=== PATIENT | male | born 1945 | race Caucasian/White ===

== ENCOUNTER 2022-03-07 17:36 | Emergency (ER) | payer MEDICARE, SELFPAY ==
[2022-03-07 17:38] VITALS: BP 138/78; PULSE 109; RESP 18; TEMP 36.1; O2SAT 100
--- NOTE | 2022-03-07 18:07 | ED.MALEGU ---
HPI - Male Genitourinary General Chief complaint: Urogenital-Male Stated complaint: unable to self-catheterize Time Seen by Provider: 03/07/22 17:59 Related Data Allergies Allergy/AdvReac Type Severity Reaction Status Date / Time No Known Allergies Allergy Mild Unverified 02/03/06 07:46 Course Course Emergency Course: discussed with dr witt, said can work this up outpatient, will fax labs to his office and add B12 and folate Vital Signs Vital signs: Vital Signs Temperature 97 F L 03/07/22 17:38 Pulse Rate 109 H 03/07/22 17:38 Respiratory Rate 18 03/07/22 17:38 Blood Pressure 138/78 03/07/22 17:38 Pulse Oximetry 100 03/07/22 17:38 Oxygen Delivery Room Air 03/07/22 17:38 Temperature 97 F L 03/07/22 17:38 Pulse Rate 99 03/07/22 20:06 Respiratory Rate 18 03/07/22 20:06 Blood Pressure 146/86 H 03/07/22 20:06 Pulse Oximetry 96 03/07/22 20:06 Oxygen Delivery Room Air 03/07/22 17:38 MDM - Male Genitourinary Lab Data Result diagrams: 03/07/22 18:38 03/07/22 18:59 Labs: Lab Results 03/07/22 03/07/22 03/07/22 Range/Units 18:38 18:38 18:59 WBC 5.0 (4.5-10.0) K/mm3 RBC 1.86 L (4.6-6.20) M/mm3 Hgb 7.8 L (14.0-18.0) g/dL Hct 23.3 L (42.0-52.0) % MCV 125.3 H (80-100) fl MCH 41.9 H (26-34) pg MCHC 33.5 (32-36) g/dl RDW 14.6 H (11.5-14.5) % Plt Count 80 L (150-375) k/mm3 MPV 11.2 H (7.4-10.4) fl Immature Gran % (Auto) 0.4 (0-0.5) % Neut % (Auto) 84.0 H (45.5-73.1) % Lymph % (Auto) 8.5 L (18.3-44.2) % [place] % (Auto) 6.5 (2.6-8.5) % Eos % (Auto) 0.0 (0-4.4) % Baso % (Auto) 0.6 (0.2-1.2) % Lymph # (Auto) 0.42 L (0.9-3.2) K/mm3 [place] # (Auto) 0.3 (0.1-0.6) K/mm3 Eos # (Auto) 0.0 (0-0.3) K/mm3 Baso # (Auto) 0.0 (0.0-0.1) K/mm3 Abs Immat Gran (auto) 0.02 (0.00-0.031) K/mm3 Absolute Neuts (auto) 4.2 (1.3-6.7) K/mm3 Absolute Nucleated RBC 0.0 (0.0-0.012) K/mm3 Nucleated RBC % 0.0 (0.0-0.2) % Sodium 137 (137-145) mmol/L Potassium 4.5 (3.4-5.0) mmol/L Chloride 101 (98-107) mmol/L Carbon Dioxide 19 L (22-30) mmol/L Anion Gap 17 H (8-16) mmol/L BUN 14 (9-20) mg/dL Creatinine 1.60 H (0.7-1.3) mg/dL Estim Creat Clear Calc Not Reportable Estimated GFR 42 L (59 - ) Glucose 87 (65-110) mg/dL Calcium 8.0 L (8.4-10.2) mg/dL Total Bilirubin 1.0 (0.2-1.3) mg/dL AST 147 H (17-59) U/L ALT 49 (6-50) U/L Alkaline Phosphatase 117 (38-126) U/L Total Protein 6.0 L (6.3-8.2) g/dL Albumin 2.9 L (3.5-5.1) g/dL Urine Color Yellow (Yellow) Urine Appearance Cloudy H (Clear) Urine pH 7.0 (5.0-9.0) Ur Specific [place] 1.015 (1.001-1.035) Urine Protein Negative (Negative) mg/dL Urine Glucose (UA) Negative (Negative) mg/dL Urine Ketones Negative (Negative) mg/dL Ur Blood (Man) Trace-lysed (Negative) Urine Nitrate Negative (Negative) Urine Bilirubin Negative (Negative) Urine Urobilinogen 0.2 (<2.0) mg/dL Leukocyte Esterase Rfl 1+ H (Negative) FRANCIS/UL Urine RBC 0-2 (0-2) /hpf Urine WBC 4-6 H /hpf Ur Squamous Epith Cells Rare (Few) /hpf Urine Bacteria Trace /hpf Urine Mucus Rare /lpf Urine Characteristics Clear Discharge Plan Discharge Clinical Impression: Acute retention of urine, Anemia, Thrombocytopenia Patient Disposition: Home, Self-Care Condition: Stable Instructions: Antibiotic Form, Urinary Retention in Men (ED), Anemia (ED) Additional Instructions: follow up with dr witt for work up of anemia and thrombocytopenia Follow-up/Referrals: Tomasz Colón MD [Physician] - PHYSICIAN NOT ON STAFF,NONSTAFF [Non-Staff] -
[2022-03-07 18:53] LABS: Appearance Urine Cloudy (Clear); Bilirubin Urine Negative (Negative); Blood Urine Trace-lysed (Negative); Color Urine Yellow (Yellow); Glucose Urine UA Negative (Negative); Ketones Urine Negative (Negative); Leukocyte Esterase Ur 1+ LEU/UL (Negative); Nitrate Urine Negative (Negative); Protein Urine Negative (Negative); Specific Grav Ur 1.015 (1.001-1.035); Urobilinogen Urine 0.2 mg/dL (<2.0)
[2022-03-07 18:56] LABS: Basophils Percent Auto 0.6 % (0.2-1.2); Hematocrit 23.3 % (42.0-52.0); Hemoglobin 7.8 g/dL (14.0-18.0); Immature Granulocyte Absolute 0.02 K/mm3 (0.00-0.031); Immature Granulocyte Percent A 0.4 % (0-0.5); Lymphocytes Absolute Auto 0.42 K/mm3 (0.9-3.2); Lymphocytes Percent Auto 8.5 % (18.3-44.2); Mean Corpuscular HGB Conc 33.5 g/dl (32-36); Mean Corpuscular Hemoglobin 41.9 pg (26-34); Mean Corpuscular Volume 125.3 fl (80-100); Mean Platelet Volume 11.2 fl (7.4-10.4); Monocytes Absolute Auto 0.3 K/mm3 (0.1-0.6); Monocytes Percent Auto 6.5 % (2.6-8.5); Neutrophils Absolute Auto 4.2 K/mm3 (1.3-6.7); Platelet Count Result 80 k/mm3 (150-375); Red Blood Count 1.86 M/mm3 (4.6-6.20); Red Cell Distribution Width 14.6 % (11.5-14.5)
[2022-03-07 19:04] LABS: Bacteria Urine Trace /hpf; Mucus Urine Rare /lpf; RBC Urine 0-2 /hpf (0-2); Squamous Epithelial Cell Urine Rare /hpf (Few)
[2022-03-07 19:08] LABS: Add Urine Microscopic? YES
[2022-03-07 19:15] LABS: Alanine Aminotransferase 49 U/L (6-50); Albumin Level 2.9 g/dL (3.5-5.1); Alkaline Phosphatase 117 U/L (38-126); Anion Gap 17 mmol/L (8-16); Aspartate Amino Transferase 147 U/L (17-59); Blood Urea Nitrogen 14 mg/dL (9-20); Carbon Dioxide 19 mmol/L (22-30); Chloride 101 mmol/L (98-107); Estimated Glomerular Filt Rate 42; Glucose 87 mg/dL (65-110); Potassium 4.5 mmol/L (3.4-5.0); Sodium 137 mmol/L (137-145)
[2022-03-07 20:06] VITALS: BP 146/86; PULSE 99; RESP 18; O2SAT 96
[2022-03-07 22:14] LABS: Folic Acid 1.9 ng/mL (2.76->20)
== END 2022-03-07 20:20 | disposition home or self-care (01) ==
PROVIDERS: Emergency Provider Emergency Medicine
DX: R33.9 Retention of urine, unspecified (principal); D64.9 Anemia, unspecified; D69.6 Thrombocytopenia, unspecified
CPT/HCPCS: 36415; 51702; 80053; 81001; 82607; 82746; 85025; 99283

== ENCOUNTER 2022-04-07 15:47 | Inpatient (IN) | payer MEDICARE, SELFPAY ==
[2022-04-07] VITALS (32 sets, daily range): BP systolic 82–126; BP diastolic 52–79; PULSE 69–124; RESP 10–21; TEMP 35.9–37.1; O2SAT 8–100; BMI 18.8
--- NOTE | ~2022-04-07 | CT_ITS ---
EXAMINATION: CTA BRAIN/CAROTID DATE: 04/12/2022 16:15 INDICATION: Stroke TECHNIQUE: Computed tomographic angiography (CTA) of the head and neck was performed with 100 mL Omni paque-350 intravenous contrast. Multiplanar reconstructions and maximum intensity projection 3D-recon structions of the carotid arteries and of the intracranial arteries were created by the technologist on a separate workstation. Precontrast CT of the head was also obtained. Automated exposure control and iterative reconstruction technique were employed.The dose-length product was 1879.81 mGy-cm. COMPARISON: Head CT dated and brain MR dated 04/08/2022 FINDINGS: Carotid arteries: Small amount of atherosclerotic plaque without hemodynamically significant stenosis along the normal caliber aortic arch. No dissection. Small amount of atherosclerotic plaque with 0% stenosis of the le ft carotid bulb relative to normal distal artery lumen diameter (NASCET criteria). The right internal carotid artery is occluded with dependently layering contrast at the carotid bulb with no evident co ntrast in the more distal extracranial right internal carotid artery extending to the clinoid segment of the intracranial right internal carotid artery. There is reconstitution of contrast within the ar alvarez via collaterals at the ophthalmic segment of the artery. Likely benign 8 mm right thyroid nodule . Cervical soft tissues are otherwise unremarkable. Small bilateral posterior layering pleural effusi ons extending to the apices. Dependent atelectasis in the visualized portion of the bilateral lower l obes. Cluster small calcite nodules in the right middle lobe along with calcified right hilar lymph n odes consistent with old granulomatous disease. There are bridging osteophytes at multiple levels in the lower cervical and upper thoracic spine consistent with diffuse idiopathic skeletal hyperostosis (DISH). Head: Again seen are regions of decreased attenuation consistent with now subacute infarcts in the right mi ddle cerebral artery vascular distribution of the right frontal, temporal and parietal lobes and insu la. No acute intracranial hemorrhage, new acute infarction or abnormal extra axial fluid collection. Ventricles are normal and symmetric. No mass/mass effect. No abnormally enhancing brain lesions. Hui ges of bilateral intraocular lens replacement. The orbits and mastoid air cells are normal. Mucosal t hickening in the bilateral ethmoid and maxillary sinuses. 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 Vertebral arteries are codominant. There are no aneurysms identified. Both A1 and P1 segments are patent. There is also a patent anterior communicating and right posterior communicating arteries. Ce rebral arterial arborization appears symmetric. IMPRESSION: 1. Small amount of atherosclerotic plaque with 0% stenosis of the left carotid bulb relative to radhika l distal artery lumen diameter (NASCET criteria). 2. 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 No significant change in multiple subacute infarcts in the right middle cerebral artery vascular d istribution. Reviewed, dictated and finalized at location A. IMPRESSION: 1. Small amount of atherosclerotic plaque with 0% stenosis of the left carotid bulb relative to normal distal artery lumen diamet
--- NOTE | ~2022-04-07 | CT_ITS ---
EXAMINATION: CT brain wo con DATE: 04/07/2022 16:23 INDICATION: Head injury TECHNIQUE: Computed tomography (CT) of the head was performed without intravenous contrast. Sagittal and coronal reconstructions were performed. The mA was adjusted according to patient size. Iterative reconstruction technique was employed. The dose-length product was 681.00 mGy-cm. COMPARISON: None FINDINGS: No fracture. Several small regions with loss of danielle-white matter differentiation consistent with age -indeterminate infarcts involving the insula and extending posteriorly to involve portions of the rig ht frontal, parietal and temporal lobes along the posterior aspect of the sylvian fissure in the basi lar distribution of the right middle cerebral artery. No acute intracranial hemorrhage or abnormal ex tra axial fluid collection. Ventricles are normal and symmetric. No mass/mass effect. Changes of bila teral intraocular lens replacement. The orbits and mastoid air cells are normal. Mild mucosal thicken ing the bilateral ethmoid sinuses and a couple mucous retention cysts in the left maxillary sinus. I ntracranial calcified cerebral atherosclerosis is noted. IMPRESSION: 1. A few age-indeterminate infarcts in the right middle cerebral artery vascular distribution. Dr. Fr burris discussed these findings with Dr. Causey at 4:32 PM. 2. No fracture or acute intracranial hemorrhage. Reviewed, dictated and finalized at location A. IMPRESSION: 1. A few age-indeterminate infarcts in the right middle cerebral artery vascula r distribution. Dr. Pinzon discussed these findings with Dr. Causey at 4:32 PM. 2. No fracture or acute intracranial hemorrhage.
--- NOTE | ~2022-04-07 | US_ITS ---
EXAMINATION: US venous doppler [facility] DATE: 04/08/2022 14:50 INDICATION: Lower limb edema. TECHNIQUE: Chapa scale images without and with compression and Doppler images of the bilateral lower e xtremity veins were obtained. COMPARISON: None FINDINGS: The right common femoral vein, profunda femoral vein, femoral vein, popliteal vein, peroneal trunk, p osterior tibial veins, and greater saphenous vein are patent. There is partial thrombosis of the left common femoral vein and greater saphenous vein. The left prof unda femoral vein, femoral vein, popliteal vein, peroneal trunk, posterior tibial veins, and greater saphenous vein are patent. IMPRESSION: 1. Partial thrombosis of the left common femoral and greater saphenous veins. Otherwise, bilateral lo wer extremity veins. These findings were discussed with nurse Gillian on [facility] at 1505 hours on 04/08/2022. Reviewed, dictated and finalized at location B. IMPRESSION: 1. Partial thrombosis of the left common femoral and greater saphenous veins. O therwise, bilateral lower extremity veins. These findings were discussed with nurse Gillian on [facility] at 1505 hours on 04/08/2022.
--- NOTE | ~2022-04-07 | US_ITS ---
EXAMINATION: US renal BI DATE: 04/08/2022 14:53 INDICATION: Renal failure. Benign prostatic hypertrophy. TECHNIQUE: Multiple ultrasound grayscale images of the kidneys were obtained. COMPARISON: None. FINDINGS: The right kidney measures 10.4 x 4.0 x 5.9 cm. Right kidney demonstrates normal echogenicity. The lef t kidney measures 10.4 x 3.9 x 6.5 cm. Left kidney demonstrates thinned and echogenic cortex. There a re a few small anechoic left renal cysts the largest measuring 1.3 cm. Shadowing likely calcification s at the left kidney which could be either atherosclerotic or nonobstructing renal stones. There is n o hydronephrosis in either kidney. The bladder is decompressed which limits evaluation. Small amount of pelvic ascites. IMPRESSION: 1. Normal right kidney with no hydronephrosis. 2. Renal cyst and nonspecific echogenic cortical atrophy at the left kidney with no hydronephrosis. 3. Shadowing focus at the left kidney most likely either atherosclerotic renal artery calcification o r none obstructing renal stone. 4. Ascites. Reviewed, dictated and finalized at location A. IMPRESSION: 1. Normal right kidney with no hydronephrosis. 2. Renal cyst and nonspecific echogenic cortical atrophy at the left kidney wit h no hydronephrosis. 3. Shadowing focus at the left kidney most likely either atherosclerotic renal artery calcification or none obstructing renal stone. 4. Ascites.
--- NOTE | ~2022-04-07 | XR_ITS ---
EXAMINATION: XR chest 1V portable DATE: 04/08/2022 05:33 INDICATION: Weight loss. TECHNIQUE: A single frontal view of the chest was obtained. COMPARISON: None. FINDINGS: There are mild airspace opacities in the right mid and lower lung zones and left lower lung zone. No pleural effusion or pneumothorax. The heart size is normal. Calcified hilar and mediastinal lymph nodes are consistent with old granulomatous disease. IMPRESSION: 1. Mild airspace opacities in right mid and lower lung zones and left lower lung zone, consistent wit h atelectasis versus pneumonia. Reviewed, dictated and finalized at location A. IMPRESSION: 1. Mild airspace opacities in right mid and lower lung zones and left lower julian g zone, consistent with atelectasis versus pneumonia.
--- NOTE | ~2022-04-07 | XR_ITS ---
EXAMINATION: XR forearm RT 2V INDICATION: Right forearm pain swelling TECHNIQUE: Two views of the right forearm are obtained. COMPARISON: None available FINDINGS: The bones are osteopenic which limits the sensitivity for fracture however none is seen. Dov ne alignment is normal. There is swelling of the proximal forearm. IMPRESSION: 1. Soft tissue swelling of the proximal forearm without acute osseous abnormality. Reviewed, dictated and finalized at location A. IMPRESSION: 1. Soft tissue swelling of the proximal forearm without acute osseous abnormali ty.
--- NOTE | ~2022-04-07 | US_ITS ---
EXAMINATION: US carotid duplex BI DATE: 04/08/2022 14:56 INDICATION: Right parietal lobe infarct. TECHNIQUE: Grayscale, color Doppler, and pulsed Doppler images of the cervical carotid arteries were obtained. The degree of vessel stenosis is placed in one of the following categories: normal, <50%, 5 0-69%, >=70% but less than near-occlusion, near-occlusion, or total occlusion. Note that percent sten osis relative to normal distal artery lumen diameter is indirectly measured from velocity measurement s as described by Sinan, et al. Radiology 2003; 229:340-346. COMPARISON: None. FINDINGS: RIGHT: The right common carotid artery (CCA) peak systolic velocity (PSV) is 48 cm/s. The right internal car otid artery (ICA) PSV is 21 cm/s. The right ICA end-diastolic velocity (EDV) is 0.0 cm/s. The right I CA/CCA PSV ratio is 0.4. Grayscale and color Doppler images yield an estimate of <50% diameter reduct ion from plaque in the ICA. There is antegrade flow in the right vertebral artery. LEFT: The left CCA PSV is 70 cm/s. The left ICA PSV is 118 cm/s. The left ICA EDV is 42 cm/s. The left ICA/ CCA PSV ratio is 1.7. Grayscale and color Doppler images yield an estimate of <50% diameter reduction from plaque in the ICA. There is antegrade flow in the left vertebral artery. IMPRESSION: 1. <50% stenosis in the right internal carotid artery. 2. <50% stenosis in the left internal carotid artery. Reviewed, dictated and finalized at location A.
--- NOTE | ~2022-04-07 | MR_ITS ---
EXAMINATION: MR brain/brain stem wo con DATE: 04/08/2022 15:39 INDICATION: Age-indeterminate cerebral infarctions TECHNIQUE: Magnetic resonance imaging (MRI) of the brain and brainstem was performed without intraven ous contrast. Sequences included sagittal and axial T1-weighted SE, axial diffusion-weighted FS SE, a xial T2*-weighted GRE, axial 3D SWAN, axial T2-weighted FLAIR, and axial T2-weighted FSE. Apparent di ffusion coefficient (ADC) maps were created. COMPARISON: None. FINDINGS: Moderate-sized region of restricted diffusion with corresponding increased T2 signal beginning anteri cecilia at the insula and right temporal lobe extending posteriorly into the right middle lobe consisten t with acute infarct. Multiple additional smaller foci of restricted diffusion scattered along the mo re anterior right frontal lobe. Pattern is consistent with a shard emboli in the right middle cerebra l artery vascular distribution. No intracranial hemorrhage or abnormal intracranial mass lesion. A fe w additional small scattered areas of nonspecific increased T2-weighted signal intensity in the cereb ral white matter, predominantly involving the deep and periventricular white matter and which are wit hin normal limits for age. There are no intraparenchymal signal abnormalities seen on the other pulse sequences. The ventricles are symmetric and normal in size. There are no abnormal extra-axial fluid collections. Flow voids are seen in the cerebral arteries on the T2-weighted sequences consistent wit h their expected patency. Changes of bilateral intraocular lens replacement. Mucosal thickening in th e bilateral ethmoid and maxillary sinuses. IMPRESSION: 1. Multiple regions of acute infarction scattered throughout the right frontal, temporal and parietal lobes as well as the insula consistent with sharp emboli in the vascular distribution of the right m iddle cerebral artery. Reviewed, dictated and finalized at location A. IMPRESSION: 1. Multiple regions of acute infarction scattered throughout the right frontal, temporal and parietal lobes as well as the insula consistent with sharp emboli in the vascular distribution of the right middle cerebral artery.
--- NOTE | ~2022-04-07 | US_ITS ---
US venous doppler UE RT DATE: 04/14/2022 12:16 INDICATION: Swelling of right upper extremity after injury 2 days ago TECHNIQUE: Real-time and color flow imaging and Doppler analysis of the veins of the right upper extr emity COMPARISON: None FINDINGS: Right internal jugular, subclavian, axillary, brachial, basilic, brachial, radial and ulnar veins are patent IMPRESSION: No evidence of deep venous thrombosis of right upper extremity Reviewed, dictated and finalized at Location [facility]. Reviewed, dictated and finalized at location B.
--- NOTE | 2022-04-07 16:07 | ED.GENADULT ---
HPI - General Adult General Chief complaint: Weakness Stated complaint: weakness, GLF Time Seen by Provider: 04/07/22 15:50 History of Present Illness HPI narrative: 76-year-old male presenting the emergency department for evaluation after having a ground-level fall. Patient states he went down to 1 knee and then bumped his head. Patient states after getting back into his apartment he still had some prolonged weakness. Patient states he does have good days and bad days regarding his weakness Patient denies any other pain or injury. Patient states he does feel improved since having the fall. Patient does have an abrasion to his left knee. Patient states he does still have some generalized weakness. Patient does have an indwelling Vega catheter for the last 5 weeks. Patient has an enlarged prostate and is scheduled to have follow-up with Dr. Simpson Related Data Home Medications Medication Instructions Recorded Confirmed allopurinol 100 mg tablet 100 mg PO BID 04/07/22 04/07/22 colchicine 0.6 mg tablet 0.6 mg PO PRN PRN GOUT 04/07/22 04/07/22 doxazosin 4 mg tablet 2 mg PO DAILY 04/07/22 04/07/22 metoprolol succinate 50 mg 12.5 mg PO DAILY 04/07/22 04/07/22 tablet,extended release 24 hr Allergies Allergy/AdvReac Type Severity Reaction Status Date / Time metoprolol Allergy Weakness Verified 04/07/22 16:04 quinapril [From Accupril] Allergy Swelling Verified 04/07/22 16:04 of Lip/Tongue/Throat Review of Systems Review of Systems: CONSTITUTIONAL: See HPI EYES: Denies visual changes, redness, or discharge. ENT: Denies rhinorrhea, congestion, sore throat, or otalgia. CARDIOVASCULAR: Denies chest pain, palpitations, or edema. RESPIRATORY: Denies cough or dyspnea. GASTROINTESTINAL: Denies abdominal pain, nausea, vomiting, or diarrhea. GENITOURINARY: Denies dysuria or hematuria. SKIN: See HPI MUSCULOSKELETAL: Denies back pain, joint pain, or myalgia. NEUROLOGIC: Denies headache, numbness, or weakness. [facility] Past Medical History Medical History (Updated 04/07/22 @ 19:07 by Ilsa Hinojosa PA-C) Basal cell carcinoma of skin Benign prostatic hyperplasia Hypertension Surgical History Surgical History (Updated 04/07/22 @ 18:55 by Ilsa Hinojosa PA-C) History of appendectomy History of basal cell carcinoma excision Social History Social History (Updated 04/07/22 @ 18:56 by Ilsa Hinojosa PA-C) Social History: Surrogate medical decision maker: Code status: Smoking status: Never smoker Alcohol intake: current Drinks per week: 35 Substance use: never Substance use type: does not use Additional living arrangements comments: Lives in [place]. Spiritual care concerns: No Exam Narrative: APPEARANCE: Well appearing, no pain, no distress, well-nourished. HEAD: normocephalic, atraumatic. EYES: PERRLA/EOMI, conjunctivae clear. NOSE: Normal no drainage THROAT: Pharynx clear, no exudate. NECK: Supple. No adenopathy, no masses. RESPIRATORY: Airway patent, respirations nonlabored. Clear to auscultation bilaterally, no rales, rhonchi, wheezing. CARDIOVASCULAR: Regular rate and rhythm without murmurs rubs or gallops. ABDOMINAL: Soft, nontender, nondistended, normal bowel sounds MUSCULOSKELETAL:Moves all extremities. Strength/ROM intact, No edema, No calf tenderness. NEURO: Alert. Cranial nerves II through XII intact. Grossly intact SKIN: Abrasion to the left knee PSYCHIATRIC: Normal affect/mood. Course Course Emergency Course: Patient does have a urinary tract infection. Patient was started on Rocephin. Patient's Vega catheter was exchanged. Case was discussed with the hospitalist and patient was accepted for admission. Patient and family were updated, all question concerns were addressed. CT scan showed no acute abnormalities but did show some infarcts of indeterminate age. This was also discussed with hospitalist. Vital Signs Vital signs: Vital Signs Te
[2022-04-07 16:34] LABS: Appearance Urine Cloudy (Clear); Basophils Percent Auto 0.5 % (0.2-1.2); Bilirubin Urine 2+ (Negative); Blood Urine Trace-lysed (Negative); Color Urine Yellow (Yellow); Glucose Urine UA Negative (Negative); Hematocrit 24.5 % (42.0-52.0); Hemoglobin 8.3 g/dL (14.0-18.0); Immature Granulocyte Absolute 0.02 K/mm3 (0.00-0.031); Immature Granulocyte Percent A 0.3 % (0-0.5); Ketones Urine Trace mg/dL (Negative); Leukocyte Esterase Ur 3+ LEU/UL (Negative); Lymphocytes Absolute Auto 0.45 K/mm3 (0.9-3.2); Lymphocytes Percent Auto 7.1 % (18.3-44.2); Mean Corpuscular HGB Conc 33.9 g/dl (32-36); Mean Corpuscular Hemoglobin 41.7 pg (26-34); Mean Corpuscular Volume 123.1 fl (80-100); Mean Platelet Volume 10.2 fl (7.4-10.4); Monocytes Absolute Auto 0.5 K/mm3 (0.1-0.6); Monocytes Percent Auto 7.6 % (2.6-8.5); Neutrophils Absolute Auto 5.3 K/mm3 (1.3-6.7); Neutrophils Percent Auto 84.5 % (45.5-73.1); Nitrate Urine Negative (Negative); Platelet Count Result 138 k/mm3 (150-375); Protein Urine 2+ mg/dL (Negative); Red Blood Count 1.99 M/mm3 (4.6-6.20); Red Cell Distribution Width 14.6 % (11.5-14.5); White Blood Count 6.3 K/mm3 (4.5-10.0)
[2022-04-07 16:41] LABS: Amorphous Sediment Urine Few; Bacteria Urine 2+ /hpf; Mucus Urine Few /lpf; WBC Clumps Urine Present /HPF; WBC Urine >75 /hpf
[2022-04-07 16:43] LABS: Alanine Aminotransferase 22 U/L (6-50); Albumin Level 2.4 g/dL (3.5-5.1); Alkaline Phosphatase 83 U/L (38-126); Anion Gap 10 mmol/L (8-16); Aspartate Amino Transferase 47 U/L (17-59); Bilirubin,Total 1.3 mg/dL (0.2-1.3); Blood Urea Nitrogen 16 mg/dL (9-20); Calcium 7.8 mg/dL (8.4-10.2); Carbon Dioxide 24 mmol/L (22-30); Chloride 100 mmol/L (98-107); Estimated CRCL calculation 32 ml/min; Estimated Glomerular Filt Rate 37; Glucose 108 mg/dL (65-110); Macrocytosis 2+ (NORMAL); Ovalocytes 1+ (NORMAL); Potassium 3.6 mmol/L (3.4-5.0); Sodium 134 mmol/L (137-145); Target Cells 1+ (NORMAL)
[2022-04-07 16:44] LABS: Add Urine Microscopic? YES
[2022-04-07 16:48] LABS: Glucose Point of Care 109 mg/dl (65-105)
[2022-04-07] MEDS: SODIUM CHLORIDE 0.9% IV 250 ML BAG 500 ML IVPB (17:11)
--- NOTE | 2022-04-07 18:30 | PC.NURSE ---
old urinary catheter removed. new urinary catheter inserted.
--- NOTE | 2022-04-07 19:14 | PC.NURSE ---
Report received from KAREN Ricks, to continue care. Awaiting bed assignment.
--- NOTE | 2022-04-07 20:14 | ADMGEN ---
This patient, Richard Olivas, was admitted to 2 Medical Room 259-. Patient/family oriented to hospital policies and general routines including ID bracelet, bed and alarms, visiting hours, pain management, procedures, bathroom and other care routines, personal items, smoking policy, room service/diet, and visiting hours. Information on how to activate the Rapid Response Team has been discussed. Patient/Family are encouraged to report perceived risks to care and to ask questions if they do not understand what they are told or what they should do.
[2022-04-07 20:52] LABS: Immature Reticulocyte Fraction 9.9 % (3.0-15.9); Reticulocyte Hemoglobin Conten 39.6 pg (28.2-35.7); Reticulocyte Percent 1.26 % (0.7-4.3); Reticulocytes Absolute 0.02 B/L (32.2-175.7)
--- NOTE | 2022-04-07 21:00 | PM.IMHP ---
H&P: HPI History of Present Illness Date/Time: 04/07/22 21:00 Chief Complaint: Weakness. Narrative: This is a pleasant 76-year-old male with history of daily alcohol consumption, coronary artery disease, hypertension, benign prostatic hyperplasia, peripheral neuropathy of the feet, and urinary retention with indwelling Vega catheter who presented to the ED via EMS from home for evaluation of weakness. He has lost about 40 lb unintentionally over the past 5 months or so and his blood pressures have been running much lower because of that weight loss. More recently his primary doctor cut his dose of doxazosin by 1/2 and his metoprolol dose by a 3/4 although he continues to have almost daily issues with what sounds like orthostatic hypotension. Almost every time after he stands up he begins to feel weak and tremulous within 30 seconds to a minute which has caused him to have several falls in the last month. This afternoon he went down to the tavern owned by his stepbrother and [id number] where he had a soda or 2. He went home because it was cold in the tavern and while walking up the steps to his apartment he once again felt profoundly weak and tremulous and he fell forward onto his knees. He was too weak to get himself up and his brother had to come over and help. They lifted him up into his apartment but he was still quite weak and thus he came in for evaluation. He has had positive orthostatic vital signs and he is being admitted in this setting for hydration and further evaluation. Workup in the emergency department revealed several lab abnormalities including a hemoglobin of 8.3, hematocrit 24.5%, MCV 123.1, platelets 138, creatinine 1.80, total protein 6.0, and albumin 2.4. Urinalysis showed 3+ leukocyte esterase, greater than 75 WBCs, WBC clumps, 2+ bacteria, and sediment and mucus. Brain CT showed a few age-indeterminate infarcts in the right middle cerebral artery vascular distribution. At the time my evaluation he is resting and his main complaint is that of the room being cold. He denies headache, vertigo, focal weakness, paresthesias, facial droop, dysarthria, dysphagia, visual changes, chest pain, palpitations, nausea, vomiting, diarrhea, suprapubic pain, abdominal pain, and low back pain. He has no history of stroke or cardiac dysrhythmia. He has no known history of malignancy. In the past he has had elevated PSAs and several prostate biopsies have been negative for malignancy. The has not had a colonoscopy but reports having negative Cologuard x2. Of note he has not had any alcohol in the last 7 to 10 days and he denies having gone through alcohol withdrawals. Review of Systems Review of Systems: Twelve systems were reviewed. No cold or flu symptoms. No sick contacts. No history of alcohol withdrawal signs or symptoms. No history of seizure. He does not have a good appetite but he specifically denies belching, bloating, abdominal pain, epigastric pain, nausea, and vomiting. He does not have daily bowel movements and he attributes that to the fact that he does not have good oral intake. He has an okay appetite however he reports that ?[place]? and he does not like to go to fast food restaurants which is typically the only thing that is available. He is not a very good cook and rarely cooks for himself at home; he is single. About 6 or 7 years ago he had a coronary angiogram which showed 100% blockage of an unknown vessel though it had good collaterals and no intervention was required. He rarely has chest discomfort however earlier this month he had a ?twinge? of chest discomfort though that passed quickly. He has had a Vega catheter in for nearly 5 weeks as he started having issues straight cathing himself after his doxazosin dose was decreased. Except as documented, all other systems were reviewed and are negative. [facility] Past Medical History Medical History (Updated 04/07/22 @ 23:19 by Ilsa Hinojosa PA-C) Alcohol abuse Bas
[2022-04-07 21:22] LABS: Creatine Kinase 46 U/L (55-170); Magnesium 1.6 mg/dL (1.6-2.3)
[2022-04-07 21:23] LABS: INR 1.3; Prothrombin Time 15.2 Seconds (11.1-14.7)
[2022-04-07 21:47] LABS: Iron 46 ug/dL (49-181)
[2022-04-07 21:57] LABS: Percent Iron Saturation 46 % (20-50)
[2022-04-07 22:29] LABS: Folic Acid 2.4 ng/mL (2.76->20)
[2022-04-07] MEDS: SODIUM CHLORIDE 0.9% IV 1,000 ML 100 ML IV CONT (23:50)
[2022-04-07] MEDS: THIAMINE HCL 200 MG/2 ML VIAL 100 MG IV PUSH (23:52)
[2022-04-07] MEDS: FOLIC ACID 1 MG/0.2 ML INJ IV PUSH (23:52)
[2022-04-07] MEDS: SODIUM CHLORIDE 0.9% IV 500 ML IV CONT (23:57)
[2022-04-08] VITALS (16 sets, daily range): BP systolic 105–128; BP diastolic 52–95; PULSE 71–114; RESP 18; TEMP 36.2–36.5; O2SAT 98–100; BMI 18.8
[2022-04-08 01:02] LABS: Glucose Point of Care 97 mg/dl (65-105)
[2022-04-08 04:58] LABS: Hematocrit 22.3 % (42.0-52.0); Hemoglobin 7.8 g/dL (14.0-18.0); Mean Corpuscular Hemoglobin 41.7 pg (26-34); Mean Corpuscular Volume 119.3 fl (80-100); Mean Platelet Volume 11.1 fl (7.4-10.4); Platelet Count Result 152 k/mm3 (150-375); Red Blood Count 1.87 M/mm3 (4.6-6.20); Red Cell Distribution Width 14.4 % (11.5-14.5); White Blood Count 6.3 K/mm3 (4.5-10.0)
[2022-04-08 05:27] LABS: LDL Cholesterol Direct 58 mg/dL
[2022-04-08 05:35] LABS: Alanine Aminotransferase 18 U/L (6-50); Albumin Level 2.1 g/dL (3.5-5.1); Alkaline Phosphatase 73 U/L (38-126); Anion Gap 7 mmol/L (8-16); Aspartate Amino Transferase 43 U/L (17-59); Bilirubin,Total 1.1 mg/dL (0.2-1.3); Blood Urea Nitrogen 15 mg/dL (9-20); Calcium 7.7 mg/dL (8.4-10.2); Carbon Dioxide 25 mmol/L (22-30); Chloride 101 mmol/L (98-107); Cholesterol 116 mg/dL (0-200); Estimated CRCL calculation 34 ml/min; Estimated Glomerular Filt Rate 42; Glucose 77 mg/dL (65-110); HDL Direct 37 mg/dL; Magnesium 1.6 mg/dL (1.6-2.3); Potassium 3.6 mmol/L (3.4-5.0); Sodium 133 mmol/L (137-145); Triglycerides 63 mg/dL (<150)
--- NOTE | 2022-04-08 08:25 | PM.IMPN ---
Progress Note: A&P Assessment and Plan (1) Weakness: Code(s): R53.1 - Weakness Status: Acute Assessment and Plan: He reports progressive weakness over the last several months which seems to correlate with his unintentional 40 lb weight loss in the same time frame. Etiology of his weight loss is not clear and malignancy is a concern however he reports 2 negative Cologuards and several prostate biopsies have come back negative. He appears malnourished and it sounds as though he gets most of his calories in the way of alcohol. Additionally he has positive orthostatic vital signs which is likely playing a significant role as well. There are no focal deficits on exam. He will eventually PT/OT once blood pressures are stable. (2) Cerebral infarct: Code(s): I63.9 - Cerebral infarction, unspecified Status: Acute Assessment and Plan: Brain CT shows a few age-indeterminate infarcts in the right middle cerebral artery vascular distribution. Again his exam did not show any gross focal deficit. pending Echocardiogram, carotid Doppler ultrasounds, and brain MRI ordered. continue baby aspirin. Check lipids. (3) Orthostatic hypotension: Code(s): I95.1 - Orthostatic hypotension Status: Acute Assessment and Plan: possible ongoing problem for the patient. With his weight loss, he likely does not need antihypertensives any longer thus will discontinue metoprolol May need to discontinue the doxazosin as well though patient requests that we check with Urology 1st. Initiate fall precautions. (4) Fall from ground level: Code(s): W18.30XA - Fall on same level, unspecified, initial encounter Status: Acute Assessment and Plan: Fall is most likely related to orthostatic hypotension. He denies injury and loss of consciousness in the fall. (5) Abnormal urinalysis: Code(s): R82.90 - Unspecified abnormal findings in urine Status: Acute Assessment and Plan: He received a dose of ceftriaxone in the emergency department. I suspect his abnormal urine is related to indwelling Vega catheter as he does not appear acutely infected (afebrile, normal white blood cell count, no suprapubic discomfort). Urine culture pending. (6) Macrocytic anemia: Code(s): D53.9 - Nutritional anemia, unspecified Status: Acute Assessment and Plan: Alcohol-induced anemia is a real possibility though with his weight loss and weakness myelodysplastic syndrome is in the differential diagnosis. Check iron studies as well as B12 and folate. Repeat CBC in a.m.. Consider Hematology consultation. (7) Renal failure: Code(s): N19 - Unspecified kidney failure Status: Acute Assessment and Plan: He likely has chronic renal failure as his creatinine was 1.60 on labs done at this facility on 02/15/2022. Vega catheter is draining nicely and we will monitor strict I/O. Renal ultrasound ordered for a.m. (8) Benign prostatic hyperplasia: Code(s): N40.0 - Benign prostatic hyperplasia without lower urinary tract symptoms Status: Acute Assessment and Plan: He is very symptomatic with his orthostatic hypotension thus will hold doxazosin for now. (9) Alcohol abuse: Code(s): F10.10 - Alcohol abuse, uncomplicated Status: Acute Assessment and Plan: Patient reports he has not had alcohol for the last 7 to 10 days and he denies alcohol withdrawal signs and symptoms however we will initiate CIWA protocol. Start thiamine and folic acid supplementation. (10) Coronary artery disease: Code(s): I25.10 - Atherosclerotic heart disease of [place] coronary artery without angina pectoris Status: Acute Assessment and Plan: He has no complaints of chest pain. Given progressive weakness recently and evidence of age indeterminate cerebral infarctions, we will obtain an echocardiogram. (11) Protein calorie malnu
[2022-04-08 08:35] LABS: Glucose Point of Care 76 mg/dl (65-105)
[2022-04-08] MEDS: THERAPEUTIC MULTIVITAMINS/MINERALS TAB (*BKC) 1 TABLET PO (08:35)
[2022-04-08] MEDS: THIAMINE HCL 100 MG TABLET PO (08:35)
[2022-04-08] MEDS: FOLIC ACID 1 MG TABLET PO (08:35)
[2022-04-08] MEDS: ASPIRIN 81 MG ENTERIC TABLET PO (08:35)
[2022-04-08] MEDS: SODIUM CHLORIDE 0.9% IV 1,000 ML 100 ML IV CONT ×2 (10:11→19:47)
[2022-04-08 12:12] LABS: Glucose Point of Care 75 mg/dl (65-105)
--- NOTE | 2022-04-08 14:05 | PC.NURSE ---
To Radiology via stretcher.
--- NOTE | 2022-04-08 15:43 | PC.NURSE ---
Returned from Radiology via stretcher.
[2022-04-08] MEDS: ENOXAPARIN 80 MG/0.8 ML SYRINGE 65 MG SUB-Q (17:10)
[2022-04-08 17:19] LABS: Glucose Point of Care 74 mg/dl (65-105)
[2022-04-08] MEDS: allopurinoL 100 MG TABLET PO (19:47)
[2022-04-08 20:20] LABS: Glucose Point of Care 106 mg/dl (65-105)
--- NOTE | 2022-04-08 20:21 | ECHO_ITS ---
Patient Info Name: Richard Olivas Age: 76 years : 1945 Gender: Male Ht: 74 in Wt: 147 lbs BSA: 1.85 m2 HR: 78 bpm BP: 116 / 71 mmHg Heart Rhythm: Sinus Rhythm Technical Quality: Fair Exam Date: 04/08/2022 10:53 AM Exam Location: [facility] Pulmonary Exam Room: 259 Patient Status: Inpatient Admit Date: 04/07/2022 Staff Ordering Physician: Ilsa Hinojosa PA-C Pharmacy Technician Assistant: Christine Rivas RDCS Attending Provider: Leo Ortiz MD Referring Physician: Ashish NEWMAN; Exam Type: CA echo doppler color flow Study Info Indications - CVA Complete two-dimensional, color flow and Doppler transthoracic echocardiogram is performed. Summary 1. Complete two-dimensional, color flow and Doppler transthoracic echocardiogram is performed. 2. Left ventricular systolic function is mildly reduced, estimated at 45-50%. 3. The apical segment is akinetic the apical septal segment is hypodynamic. 4. The left ventricular diastolic function is grade I diastolic dysfunction. 5. No significant valvular pathology. Left Ventricle Left ventricular chamber dimension is normal. Left ventricular systolic function is mildly reduced, estimated at 45-50%. The left ventricular diastolic function is grade I diastolic dysfunction. The apical segment is akinetic the apical septal segment is hypodynamic. Right Ventricle Right ventricular chamber dimension is normal. Left Atria Left atrial chamber dimension is normal. Right Atria Right atrial chamber dimension is normal. Aortic Valve The aortic valve is normal. Pulmonic Valve The pulmonic valve is not well visualized. Tricuspid Valve The tricuspid valve leaflets are normal. Pericardium/Pleural The pericardium appears normal. Aorta The aortic root size at the sinus of Valsalva is normal. Left Ventricular Outflow Tract Name Value Normal LVOT 2D LVOT Diameter 2.1 cm LVOT Doppler LVOT Peak Gradient 4 mmHg LVOT Mean Gradient 2 mmHg LVOT VTI 23 cm LVOT VTI/AV VTI Ratio 1.0 LVOT Stroke Volume 77 ml LVOT CO 14.6 l/min LVOT CI 7.9 l/min/m2 Pulmonic Valve Name Value Normal PV Doppler PV Peak Gradient 2 mmHg Mitral Valve Name Value Normal MV Doppler MV Decel [place] 232 cm/s2 MV PHT 71 ms MV Area (PHT) 3.1 cm2 4.0-5.0 MV
[2022-04-09] VITALS (8 sets, daily range): BP systolic 101–127; BP diastolic 63–71; PULSE 71–94; RESP 16–21; TEMP 35.7–36.6; O2SAT 98–100
[2022-04-09] MEDS: ENOXAPARIN 80 MG/0.8 ML SYRINGE 65 MG SUB-Q ×2 (05:15→17:17)
[2022-04-09 06:09] LABS: Basophils Percent Auto 0.6 % (0.2-1.2); Eosinophils Absolute Auto 0.1 K/mm3 (0-0.3); Hematocrit 22.1 % (42.0-52.0); Hemoglobin 7.5 g/dL (14.0-18.0); Immature Granulocyte Absolute 0.01 K/mm3 (0.00-0.031); Immature Granulocyte Percent A 0.2 % (0-0.5); Lymphocytes Absolute Auto 0.88 K/mm3 (0.9-3.2); Lymphocytes Percent Auto 17.3 % (18.3-44.2); Mean Corpuscular HGB Conc 33.9 g/dl (32-36); Mean Corpuscular Hemoglobin 41.9 pg (26-34); Mean Corpuscular Volume 123.5 fl (80-100); Monocytes Absolute Auto 0.3 K/mm3 (0.1-0.6); Monocytes Percent Auto 6.1 % (2.6-8.5); Neutrophils Absolute Auto 3.8 K/mm3 (1.3-6.7); Neutrophils Percent Auto 74.8 % (45.5-73.1); Platelet Count Result 146 k/mm3 (150-375); Red Blood Count 1.79 M/mm3 (4.6-6.20); Red Cell Distribution Width 14.6 % (11.5-14.5); White Blood Count 5.1 K/mm3 (4.5-10.0)
[2022-04-09 06:15] LABS: Alanine Aminotransferase 16 U/L (6-50); Albumin Level 1.9 g/dL (3.5-5.1); Alkaline Phosphatase 74 U/L (38-126); Anion Gap 5 mmol/L (8-16); Aspartate Amino Transferase 42 U/L (17-59); Bilirubin,Total 0.7 mg/dL (0.2-1.3); Blood Urea Nitrogen 13 mg/dL (9-20); Calcium 7.4 mg/dL (8.4-10.2); Carbon Dioxide 24 mmol/L (22-30); Chloride 104 mmol/L (98-107); Estimated CRCL calculation 39 ml/min; Estimated Glomerular Filt Rate 46; Glucose 70 mg/dL (65-110); Potassium 3.3 mmol/L (3.4-5.0); Sodium 133 mmol/L (137-145)
[2022-04-09 06:27] LABS: Glucose Point of Care 78 mg/dl (65-105)
[2022-04-09 06:53] LABS: Platelet Estimate Adequate (Adequate)
[2022-04-09 06:54] LABS: Anisocytosis 1+ (NORMAL); Hypochromasia 1+ (NORMAL); Ovalocytes 1+ (NORMAL); Target Cells 1+ (NORMAL); Tear Drop Cells 1+ (NORMAL)
--- NOTE | 2022-04-09 06:56 | P.PNIM_ITS ---
Progress Note: A&P Assessment and Plan (1) Weakness: Code(s): R53.1 - Weakness Status: Acute Assessment and Plan: He reports progressive weakness over the last several months which seems to correlate with his unintentional 40 lb weight loss in the same time frame. Etiology of his weight loss is not clear and malignancy is a concern however he reports 2 negative Cologuards and several prostate biopsies have come back negative. He appears malnourished and it sounds as though he gets most of his calories in the way of alcohol. Additionally he has positive orthostatic vital signs which is likely playing a significant role as well. There are no focal deficits on exam. He will eventually PT/OT once blood pressures are stable. (2) Cerebral infarct: Code(s): I63.9 - Cerebral infarction, unspecified Status: Acute Assessment and Plan: Brain CT shows a few age-indeterminate infarcts in the right middle cerebral artery vascular distribution. Again his exam did not show any gross focal deficit. pending Echocardiogram, carotid Doppler ultrasounds, and brain MRI ordered. continue baby aspirin. Check lipids. (3) Orthostatic hypotension: Code(s): I95.1 - Orthostatic hypotension Status: Acute Assessment and Plan: possible ongoing problem for the patient. With his weight loss, he likely does not need antihypertensives any longer thus will discontinue metoprolol May need to discontinue the doxazosin as well though patient requests that we check with Urology 1st. Initiate fall precautions. (4) Fall from ground level: Code(s): W18.30XA - Fall on same level, unspecified, initial encounter Status: Acute Assessment and Plan: Fall is most likely related to orthostatic hypotension. He denies injury and loss of consciousness in the fall. (5) Abnormal urinalysis: Code(s): R82.90 - Unspecified abnormal findings in urine Status: Acute Assessment and Plan: He received a dose of ceftriaxone in the emergency department. I suspect his abnormal urine is related to indwelling Vega catheter as he does not appear acutely infected (afebrile, normal white blood cell count, no suprapubic discomfort). Urine culture pending. (6) Macrocytic anemia: Code(s): D53.9 - Nutritional anemia, unspecified Status: Acute Assessment and Plan: Alcohol-induced anemia is a real possibility though with his weight loss and weakness myelodysplastic syndrome is in the differential diagnosis. Check iron studies as well as B12 and folate. Repeat CBC in a.m.. Consider Hematology consultation. (7) Renal failure: Code(s): N19 - Unspecified kidney failure Status: Acute Assessment and Plan: He likely has chronic renal failure as his creatinine was 1.60 on labs done at this facility on 02/15/2022. Vega catheter is draining nicely and we will monitor strict I/O. Renal ultrasound ordered for a.m. (8) Benign prostatic hyperplasia: Code(s): N40.0 - Benign prostatic hyperplasia without lower urinary tract symptoms Status: Acute Assessment and Plan: He is very symptomatic with his orthostatic hypotension thus will hold doxazosin for now. (9) Alcohol abuse: Code(s): F10.10 - Alcohol abuse, uncomplicated Status: Acute Assessment and Plan: Patient reports he has not had alcohol for the last 7 to 10 days and he denies alcohol withdrawal signs and symptoms however we will initiate CIWA protocol. Start thiamine and folic acid s
[2022-04-09] MEDS: POTASSIUM CHLORIDE 20 MEQ PACKET (FOR LIQUID) PO (07:02)
[2022-04-09] MEDS: SODIUM CHLORIDE 0.9% IV 1,000 ML 100 ML IV CONT ×2 (07:25→17:20)
[2022-04-09] MEDS: allopurinoL 100 MG TABLET PO ×2 (08:41→20:13)
[2022-04-09] MEDS: ASPIRIN 81 MG ENTERIC TABLET PO (08:41)
[2022-04-09] MEDS: THIAMINE HCL 100 MG TABLET PO (08:41)
[2022-04-09] MEDS: DOXAZOSIN MESYLATE 2 MG TABLET PO (08:42)
[2022-04-09] MEDS: MULTIVIT W/ IRON, MINERALS 15 ML LIQUID (*BKC) PO (08:42)
[2022-04-09] MEDS: FOLIC ACID 1 MG TABLET PO (08:42)
[2022-04-09 12:28] LABS: Glucose Point of Care 103 mg/dl (65-105)
[2022-04-09 17:41] LABS: Glucose Point of Care 87 mg/dl (65-105)
[2022-04-09 19:52] LABS: Glucose Point of Care 91 mg/dl (65-105)
[2022-04-10] VITALS (16 sets, daily range): BP systolic 92–130; BP diastolic 52–91; PULSE 64–137; RESP 18–20; TEMP 36.3–36.8; O2SAT 81–100
[2022-04-10 00:50] LABS: Glucose Point of Care 83 mg/dl (65-105)
[2022-04-10] MEDS: SODIUM CHLORIDE 0.9% IV 1,000 ML 100 ML IV CONT ×3 (03:11→22:38)
[2022-04-10] MEDS: ENOXAPARIN 80 MG/0.8 ML SYRINGE 65 MG SUB-Q (06:21)
[2022-04-10 06:30] LABS: Glucose Point of Care 73 mg/dl (65-105)
--- NOTE | 2022-04-10 06:58 | PM.IMPN ---
Progress Note: A&P Assessment and Plan (1) Weakness: Code(s): R53.1 - Weakness Status: Acute Assessment and Plan: He reports progressive weakness over the last several months which seems to correlate with his unintentional 40 lb weight loss in the same time frame. Etiology of his weight loss is not clear and malignancy is a concern however he reports 2 negative Cologuards and several prostate biopsies have come back negative. He appears malnourished and it sounds as though he gets most of his calories in the way of alcohol. Additionally he has positive orthostatic vital signs which is likely playing a significant role as well. There are no focal deficits on exam. He will eventually PT/OT once blood pressures are stable. (2) Cerebral infarct: Code(s): I63.9 - Cerebral infarction, unspecified Status: Acute Assessment and Plan: Brain CT shows a few age-indeterminate infarcts in the right middle cerebral artery vascular distribution. Again his exam did not show any gross focal deficit. Echocardiogram: Left ventricular systolic function is mildly reduced, estimated at 45-50%.. The apical segment is akinetic the apical septal segment is hypodynamic. The left ventricular diastolic function is grade I diastolic dysfunction. No significant valvular pathology. carotid Doppler ultrasounds: <50% stenosis in the right internal carotid artery. <50% stenosis in the left internal carotid artery. brain MRI : revealed multiple regions of acute infarction scattered throughout the right frontal, temporal and parietal lobes as well as the insula consistent with sharp emboli in the vascular distribution of the right middle cerebral artery. venous Doppler study: Partial thrombosis of the left common femoral and greater saphenous veins. Otherwise, bilateral lower extremity veins. Check lipids, started on atorvastatin Continue baby aspirin, Plavix and Lovenox therapeutic -pending Eliquis approval. Due to the findings as above, will perform a REINA with Cardiology on 04/11/2022. Patient will be NPO at midnight. Neurology has been consulted appreciate assistance and recommendations Cardiology has been consulted, appreciate assistance and recommendations (3) Orthostatic hypotension: Code(s): I95.1 - Orthostatic hypotension Status: Acute Assessment and Plan: possible ongoing problem for the patient. With his weight loss, he likely does not need antihypertensives any longer thus will discontinue metoprolol May need to discontinue the doxazosin as well though patient requests that we check with Urology 1st. Initiate fall precautions. (4) Fall from ground level: Code(s): W18.30XA - Fall on same level, unspecified, initial encounter Status: Acute Assessment and Plan: Fall is most likely related to orthostatic hypotension? vs new acute brain infarts. He denies injury and loss of consciousness in the fall. (5) Abnormal urinalysis: Code(s): R82.90 - Unspecified abnormal findings in urine Status: Acute Assessment and Plan: He received a dose of ceftriaxone in the emergency department. I suspect his abnormal urine is related to indwelling Vega catheter as he does not appear acutely infected (afebrile, normal white blood cell count, no suprapubic discomfort). Urine culture pending. (6) Macrocytic anemia: Code(s): D53.9 - Nutritional anemia, unspecified Status: Acute Assessment and Plan: Alcohol-induced anemia is a real possibility though with his weight loss and weakness myelodysplastic syndrome is in the differential diagnosis. iron studies as well as B12 and folate reviewed. Patient was started on multivitamin with iron and folic acid Repeat CBC in a.m.. Consulted Hematology, appreciate assistance and recommendations. (7) Renal failure: Code(s): N19 - Unspecified kidney failure Status: Acute Assessment and Plan: He likely h
[2022-04-10] MEDS: DOXAZOSIN MESYLATE 2 MG TABLET PO (08:49)
[2022-04-10] MEDS: MULTIVIT W/ IRON, MINERALS 15 ML LIQUID (*BKC) PO (08:49)
[2022-04-10] MEDS: allopurinoL 100 MG TABLET PO ×2 (08:49→20:27)
[2022-04-10] MEDS: ASPIRIN 81 MG ENTERIC TABLET PO (08:49)
[2022-04-10] MEDS: THIAMINE HCL 100 MG TABLET PO (08:49)
[2022-04-10] MEDS: FOLIC ACID 1 MG TABLET PO (08:49)
[2022-04-10 08:58] LABS: Glucose Point of Care 75 mg/dl (65-105)
[2022-04-10 10:37] LABS: Basophils Percent Auto 0.5 % (0.2-1.2); Eosinophils Absolute Auto 0.1 K/mm3 (0-0.3); Eosinophils Percent Auto 1.2 % (0-4.4); Hematocrit 25.3 % (42.0-52.0); Hemoglobin 8.4 g/dL (14.0-18.0); Immature Granulocyte Absolute 0.01 K/mm3 (0.00-0.031); Immature Granulocyte Percent A 0.2 % (0-0.5); Lymphocytes Absolute Auto 1.02 K/mm3 (0.9-3.2); Lymphocytes Percent Auto 17.8 % (18.3-44.2); Mean Corpuscular HGB Conc 33.2 g/dl (32-36); Mean Corpuscular Hemoglobin 41.6 pg (26-34); Mean Corpuscular Volume 125.2 fl (80-100); Mean Platelet Volume 10.1 fl (7.4-10.4); Monocytes Absolute Auto 0.4 K/mm3 (0.1-0.6); Neutrophils Absolute Auto 4.2 K/mm3 (1.3-6.7); Neutrophils Percent Auto 73.3 % (45.5-73.1); Platelet Count Result 144 k/mm3 (150-375); Red Blood Count 2.02 M/mm3 (4.6-6.20); Red Cell Distribution Width 14.6 % (11.5-14.5); White Blood Count 5.7 K/mm3 (4.5-10.0)
[2022-04-10 10:47] LABS: Alanine Aminotransferase 19 U/L (6-50); Albumin Level 2.1 g/dL (3.5-5.1); Alkaline Phosphatase 78 U/L (38-126); Anion Gap 8 mmol/L (8-16); Aspartate Amino Transferase 46 U/L (17-59); Bilirubin,Total 0.7 mg/dL (0.2-1.3); Blood Urea Nitrogen 11 mg/dL (9-20); Calcium 7.5 mg/dL (8.4-10.2); Carbon Dioxide 23 mmol/L (22-30); Chloride 106 mmol/L (98-107); Estimated CRCL calculation 43 ml/min; Estimated Glomerular Filt Rate 49; Glucose 94 mg/dL (65-110); Magnesium 1.4 mg/dL (1.6-2.3); Potassium 3.8 mmol/L (3.4-5.0); Sodium 137 mmol/L (137-145)
[2022-04-10 10:48] LABS: INR 1.4; Prothrombin Time 16.2 Seconds (11.1-14.7)
[2022-04-10] MEDS: CLOPIDOGREL BISULFATE 300 MG TABLET PO (10:52)
[2022-04-10] MEDS: ATORVASTATIN 40 MG TABLET PO (10:52)
[2022-04-10 11:07] LABS: Hypochromasia 1+ (NORMAL); Platelet Estimate Adequate (Adequate)
[2022-04-10 11:08] LABS: Anisocytosis 1+ (NORMAL); Ovalocytes 1+ (NORMAL); Poikilocytosis 1+ (NORMAL); Target Cells 1+ (NORMAL)
[2022-04-10] MEDS: MAGNESIUM SULF 2 GM/WATER 50ML 2 GM/50 ML BAG IVPB (11:36)
[2022-04-10 12:09] LABS: Glucose Point of Care 83 mg/dl (65-105)
--- NOTE | 2022-04-10 12:11 | PM.CNCAR ---
Assessment and Plan Assessment and plan (1) Coronary artery disease: Code(s): I25.10 - Atherosclerotic heart disease of [place] coronary artery without angina pectoris Status: Acute Assessment and Plan: No clear anginal symptoms at this point. Previous PCI but unknown details (2) Hypertension: Code(s): I10 - Essential (primary) hypertension Status: Acute Assessment and Plan: At goal (3) Cerebral infarct: Code(s): I63.9 - Cerebral infarction, unspecified Status: Acute Assessment and Plan: Acute CVA. REINA is requested per Neurology. After discussing risks benefits on alternatives: Patient currently refuses. Will discuss again tomorrow and keep him NPO after midnight in case he changes his mind (4) Cardiomyopathy: Code(s): I42.9 - Cardiomyopathy, unspecified Status: Acute Assessment and Plan: Mild History of Present Illness History of Present Illness Consult date/time: 04/10/22 12:11 Requesting physician: Paulina Torres APRN Reason For Visit: UTI, weakness Narrative: Date of service 04/10/2022 Reason for consultation acute CVA, consider REINA Requesting provider: Paulina Torres History: Patient is a 76-year-old male who came to hospital because of weakness. He was found to have acute CVA via MRI with results to follow:1. Multiple regions of acute infarction scattered throughout the right frontal, temporal and parietal lobes as well as the insula consistent with sharp emboli in the vascular distribution of the right middle cerebral artery. Transthoracic echocardiogram was performed and per Neurology requested REINA to evaluate for cardiac source of emboli. Patient denies any chest pain. States he has no trouble swallowing. Does state that he had a stent in the past but details of this are not known. He does have gait instability. No recent syncope, presyncope, paroxysmal nocturnal dyspnea. Review of Systems Review of Systems: All systems reviewed & are unremarkable except as noted in HPI and below Constitutional: Constitutional: Denies body ache(s) Eyes: Eyes: Denies blurry vision ENT: Reports Normal hearing present Cardiovascular: Cardiovascular: Denies chest pain Respiratory: Respiratory: Denies chest congestion and Denies dyspnea Gastrointestinal: Gastrointestinal: Denies melena Genitourinary: Genitourinary: Denies hematuria Musculoskeletal: Musculoskeletal: Denies myalgias Integumentary/Breasts: Skin/Breast: Denies skin pain Neurologic: Reports abnormal gait Psychiatric: Psychiatric: Denies behavioral changes and Reports confusion Endocrine: Endocrine: Denies excessive sweating Hematologic/Lymphatic: Hematologic/Lymphatic: Denies easy bleeding Allergic/Immunologic: Allergic/Immunologic: Denies GI upset with certain foods PMFSH Past Medical History Medical History Alcohol abuse Basal cell carcinoma of skin Benign prostatic hyperplasia Coronary artery disease Hypertension Urinary retention Currently with indwelling Vega catheter. Surgical History Surgical History History of appendectomy History of basal cell carcinoma excision History of cardiac catheterization Per patient report, an unknown vessel was 100% blocked with good collaterals; no intervention was required. History of cataract extraction History of Mohs micrographic surgery for skin cancer History of prostate biopsy Family History Family History Mother Breast cancer Sibling Mesothelioma Father Brain tumor Social History Social History Social History: Surrogate medical decision maker: Gatito Cherry, brother. Code status: Full code. Smoking status: Former smoker Additional smoking assessment comments: Smoked briefly as
[2022-04-10 16:42] LABS: Glucose Point of Care 103 mg/dl (65-105)
[2022-04-10] MEDS: APIXABAN 5 MG TABLET PO (20:26)
[2022-04-11] VITALS (9 sets, daily range): BP systolic 98–129; BP diastolic 40–88; PULSE 73–117; RESP 16–18; TEMP 36.3–36.7; O2SAT 87–100
[2022-04-11 05:33] LABS: Basophils Percent Auto 0.7 % (0.2-1.2); Eosinophils Absolute Auto 0.1 K/mm3 (0-0.3); Eosinophils Percent Auto 2.1 % (0-4.4); Hematocrit 22.2 % (42.0-52.0); Hemoglobin 7.4 g/dL (14.0-18.0); Immature Granulocyte Absolute 0.02 K/mm3 (0.00-0.031); Immature Granulocyte Percent A 0.4 % (0-0.5); Lymphocytes Absolute Auto 0.94 K/mm3 (0.9-3.2); Lymphocytes Percent Auto 17.6 % (18.3-44.2); Mean Corpuscular HGB Conc 33.3 g/dl (32-36); Mean Corpuscular Hemoglobin 41.6 pg (26-34); Mean Corpuscular Volume 124.7 fl (80-100); Mean Platelet Volume 10.5 fl (7.4-10.4); Monocytes Absolute Auto 0.5 K/mm3 (0.1-0.6); Monocytes Percent Auto 8.8 % (2.6-8.5); Neutrophils Absolute Auto 3.8 K/mm3 (1.3-6.7); Neutrophils Percent Auto 70.4 % (45.5-73.1); Platelet Count Result 127 k/mm3 (150-375); Red Blood Count 1.78 M/mm3 (4.6-6.20); Red Cell Distribution Width 14.5 % (11.5-14.5); White Blood Count 5.4 K/mm3 (4.5-10.0)
[2022-04-11 05:40] LABS: Alanine Aminotransferase 16 U/L (6-50); Albumin Level 1.9 g/dL (3.5-5.1); Alkaline Phosphatase 81 U/L (38-126); Anion Gap 6 mmol/L (8-16); Aspartate Amino Transferase 38 U/L (17-59); Bilirubin,Total 0.5 mg/dL (0.2-1.3); Blood Urea Nitrogen 11 mg/dL (9-20); Calcium 7.4 mg/dL (8.4-10.2); Carbon Dioxide 22 mmol/L (22-30); Chloride 109 mmol/L (98-107); Estimated CRCL calculation 45 ml/min; Estimated Glomerular Filt Rate 49; Glucose 77 mg/dL (65-110); Magnesium 1.8 mg/dL (1.6-2.3); Potassium 3.5 mmol/L (3.4-5.0); Sodium 137 mmol/L (137-145)
[2022-04-11 05:47] LABS: INR 1.5; Prothrombin Time 17.5 Seconds (11.1-14.7)
[2022-04-11 05:58] LABS: Anisocytosis 1+ (NORMAL); Hypochromasia 2+ (NORMAL); Macrocytosis 2+ (NORMAL); Microcytosis 1+ (NORMAL); Platelet Estimate Adequate (Adequate); Poikilocytosis 1+ (NORMAL); Spherocytes 1+ (NORMAL)
[2022-04-11 05:59] LABS: Burr Cells 1+ (NORMAL); Crenated RBC 1+ (NORMAL); Ovalocytes 1+ (NORMAL); Tear Drop Cells 1+ (NORMAL)
--- NOTE | 2022-04-11 08:32 | WPDNEURCNPN ---
Assessment and Plan Assessment and plan (1) Stroke: Code(s): I63.9 - Cerebral infarction, unspecified Status: Acute Assessment and Plan: Mr. Olivas is a 76 year old male with a history of alcohol abuse, CAD, HTN who presented after a fall. Found to have a R MCA territory stroke (appears to be embolic in etiology). Course has also been complicated by UTI and recent significant weight loss. - MRI brain, CTA, Carotid doppler, surface Echo complete - Recommend REINA; if negative, recommend Loop recorder - Continue Eliquis 5mg BID - Unless needed for another indication, ok to dc ASA and Plavix - PT/OT Consult date: 04/11/22 Reason for consult: Stroke HPI: Richard Olivas is a 76 year old male with a history of alcohol abuse, CAD, HTN who presented on 04/07 after sustaining a fall. He has also had a 40 lb weight loss over the past few months. He was brought in the the ED where he had notable positive orthostatics and his UA was concerning for UTI. CT was obtained with showed hypodensities in the R MCA territory but no acute bleed. He had a surface echo which showed mild reduction of L ventricular systolic function (45-50%) but no valvular pathology or evidence of clots. Carotid Doppler showed less than 50% stenosis bilaterally. MRI brain revealed multifocal infarcts in the R MCA territory. Due to concern for cardioembolic etiology patient was to obtain a REINA. He is currently on ASA and Plavix and was just started on Eliquis 5mg BID. He also had a venous doppler study that showed partial thrombosis of the L common femoral and greater saphenous veins. Review of Systems Constitutional: Constitutional: Reports fatigue and Reports lethargy Comments: weight loss Eyes: Eyes: Reports no additional eye complaints ENT: Reports Normal hearing present Cardiovascular: Cardiovascular: Reports chest pain Comments: chest pain with inhalation Respiratory: Respiratory: Reports no additional respiratory complaints Gastrointestinal: Gastrointestinal: Denies constipation, Reports diarrhea and Denies vomiting Genitourinary: Genitourinary: Reports urinary hesitancy Musculoskeletal: Musculoskeletal: Reports no additional musculoskeletal complaints Integumentary/Breasts: Comments: excessive bruising Neurologic: Reports as per HPI Psychiatric: Psychiatric: Reports anxiety PMFSH Past Medical History Medical History Alcohol abuse Basal cell carcinoma of skin Benign prostatic hyperplasia Coronary artery disease Hypertension Urinary retention Currently with indwelling Vega catheter. Surgical History Surgical History History of appendectomy History of basal cell carcinoma excision History of cardiac catheterization Per patient report, an unknown vessel was 100% blocked with good collaterals; no intervention was required. History of cataract extraction History of Mohs micrographic surgery for skin cancer History of prostate biopsy Family History Family History Mother Breast cancer Sibling Mesothelioma Father Brain tumor Social History Social History Social History: Surrogate medical decision maker: Gatito Cherry, brother. Code status: Full code. Smoking status: Former smoker Additional smoking assessment comments: Smoked briefly as a young man. Alcohol intake: current Drinks per week: 35 Alcohol use details: Typically drinks 12 oz of chardonnay and 2 to 3 mixed drinks a night. Substance use: never Substance use type: does not use Additional living arrangements comments: The patient has his own apartment in [place]. 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 Spiritual care concerns: No Meds Home Medications and Allergies
[2022-04-11] MEDS: SODIUM CHLORIDE 0.9% IV 1,000 ML 100 ML IV CONT ×2 (08:38→18:19)
--- NOTE | 2022-04-11 09:12 | PCPTNOTE ---
Patient refused treatment this session due to patient waiting to be brought down for testing. Patient reported he would like to wait till he gets back from his testing to work with therapy.
--- NOTE | 2022-04-11 10:45 | PM.IMPN ---
Progress Note: A&P Assessment and Plan (1) Weakness: Code(s): R53.1 - Weakness Status: Acute Assessment and Plan: reports progressive weakness over the last several months 40lbs weightloss No notable malignancy ETOH abuse noted [employer] consult (2) Cerebral infarct: Code(s): I63.9 - Cerebral infarction, unspecified Status: Acute Assessment and Plan: Brain CT shows a few age-indeterminate infarcts in the right middle cerebral artery vascular distribution. Again his exam did not show any gross focal deficit. Echocardiogram: Left ventricular systolic function is mildly reduced, estimated at 45-50%.. The apical segment is akinetic the apical septal segment is hypodynamic. The left ventricular diastolic function is grade I diastolic dysfunction. No significant valvular pathology. carotid Doppler ultrasounds: <50% stenosis in the right internal carotid artery. <50% stenosis in the left internal carotid artery. brain MRI : revealed multiple regions of acute infarction scattered throughout the right frontal, temporal and parietal lobes as well as the insula consistent with sharp emboli in the vascular distribution of the right middle cerebral artery. venous Doppler study: Partial thrombosis of the left common femoral and greater saphenous veins. Otherwise, bilateral lower extremity veins. lipids cholesterol 116, HDL 37, LDL 58, Triglycerides 63 atorvastatin 40mg PO daily Continue baby aspirin,and Lovenox therapeutic -pending Eliquis approval. Due to the findings as above, will perform a REINA with Cardiology on 04/11/2022. Patient will be NPO at midnight. Neurology has been consulted appreciate assistance and recommendations Cardiology has been consulted, appreciate assistance and recommendations PT/OT (3) Orthostatic hypotension: Code(s): I95.1 - Orthostatic hypotension Status: Acute Assessment and Plan: Laying 130/80, sitting 121/74, standing 93/57 doxazosin on hold Trend blood pressure Seems stable Continue to trend (4) Fall from ground level: Code(s): W18.30XA - Fall on same level, unspecified, initial encounter Status: Acute Assessment and Plan: Fall is most likely related to orthostatic hypotension vs new acute brain infarcts\ PT/OT (5) Abnormal urinalysis: Code(s): R82.90 - Unspecified abnormal findings in urine Status: Acute Assessment and Plan: UA revealed cloudy yellow urine, 3+ leukocyte esterase, >75 WBC with clumps, 2+ bacteria, mucus few ceftriaxone given in the ed abnormal urine is related to indwelling Vega catheter as he does not appear acutely infected afebrile, normal white blood cell count, no suprapubic discomfort Urine culture shows contamination (6) Macrocytic anemia: Code(s): D53.9 - Nutritional anemia, unspecified Status: Acute Assessment and Plan: Alcohol-induced anemia is a real possibility though with his weight loss and weakness myelodysplastic syndrome is in the differential diagnosis. Anemia labs iron 46, TIBC 100, % sat 46, Ferritin 1570, Folate 2.4, B12 363 Multivitamin with iron and folic acid Current H/H 7.4/22.2 Continue to trend labs Ferrous sulfate added Hematology consulted (7) Renal failure: Code(s): N19 - Unspecified kidney failure Status: Acute Assessment and Plan: He likely has chronic renal failure as his creatinine was 1.60 on labs done at this facility on 02/15/2022. Vega catheter is draining nicely and we will monitor strict I/O. Renal ultrasound:Normal right kidney with no hydronephrosis. Renal cyst and nonspecific echogenic cortical atrophy at the left kidney with no hydronephrosis.. Shadowing focus at the left kidney most likely either atherosclerotic renal artery calcification or none obstructing renal stone. Ascites. Seems stable with a Cr of 1.40 (8) Jason
--- NOTE | 2022-04-11 10:45 | P.PNIM_ITS ---
Progress Note: A&P Assessment and Plan (1) Weakness: Code(s): R53.1 - Weakness Status: Acute Assessment and Plan: * reports progressive weakness over the last several months * 40lbs weightloss * No notable malignancy * ETOH abuse noted * [employer] consult (2) Cerebral infarct: Code(s): I63.9 - Cerebral infarction, unspecified Status: Acute Assessment and Plan: * Brain CT shows a few age-indeterminate infarcts in the right middle cerebral artery vascular distribution. Again his exam did not show any gross focal deficit. * Echocardiogram: Left ventricular systolic function is mildly reduced, estimated at 45-50%.. The apical segment is akinetic the apical septal segment is hypodynamic. The left ventricular diastolic function is grade I diastolic dysfunction. No significant valvular pathology. * carotid Doppler ultrasounds: <50% stenosis in the right internal carotid artery. <50% stenosis in the left internal carotid artery. * brain MRI : revealed multiple regions of acute infarction scattered throughout the right frontal, temporal and parietal lobes as well as the insula consistent with sharp emboli in the vascular distribution of the right middle cerebral artery. * venous Doppler study: Partial thrombosis of the left common femoral and greater saphenous veins. Otherwise, bilateral lower extremity veins. * lipids cholesterol 116, HDL 37, LDL 58, Triglycerides 63 * atorvastatin 40mg PO daily * Continue baby aspirin,and Lovenox therapeutic -pending Eliquis approval. * Due to the findings as above, will perform a REINA with Cardiology on 04/11/2022. Patient will be NPO at midnight. * Neurology has been consulted appreciate assistance and recommendations * Cardiology has been consulted, appreciate assistance and recommendations * PT/OT (3) Orthostatic hypotension: Code(s): I95.1 - Orthostatic hypotension Status: Acute Assessment and Plan: * Laying 130/80, sitting 121/74, standing 93/57 * doxazosin on hold * Trend blood pressure * Seems stable * Continue to trend (4) Fall from ground level: Code(s): W18.30XA - Fall on same level, unspecified, initial encounter Status: Acute Assessment and Plan: * Fall is most likely related to orthostatic hypotension vs new acute brain infarcts\ * PT/OT (5) Abnormal urinalysis: Code(s): R82.90 - Unspecified abnormal findings in urine Status: Acute Assessment and Plan: * UA revealed cloudy yellow urine, 3+ leukocyte esterase, >75 WBC with clumps, 2+ bacteria, mucus few * ceftriaxone given in the ed * abnormal urine is related to indwelling Vega catheter as he does not appear acutely infected * afebrile, normal white blood cell count, no suprapubic discomfort * Urine culture shows contamination (6) Macrocytic anemia: Code(s): D53.9 - Nutritional anemia, unspecified Status: Acute Assessment and Plan: * Alcohol-induced anemia is a real possibility though with his weight loss and weakness myelodysplastic syndrome is in the differential diagnosis. * Anemia labs iron 46, TIBC 100, % sat 46, Ferritin 1570, Folate 2.4, B12 363 * Multivitamin with iron and folic acid * Current H/H 7.4/22.2 * Continue to trend labs * Ferrous sulfate added * Hematology consulted (7) Renal failure: Code(s): N19 - Unspecified kidney failure Status: Acute Assessment and Plan: He
[2022-04-11] MEDS: allopurinoL 100 MG TABLET PO ×2 (10:59→19:54)
[2022-04-11] MEDS: FOLIC ACID 1 MG TABLET PO (10:59)
[2022-04-11] MEDS: CLOPIDOGREL BISULFATE 75 MG TABLET PO (10:59)
[2022-04-11] MEDS: ASPIRIN 81 MG ENTERIC TABLET PO (10:59)
[2022-04-11] MEDS: THIAMINE HCL 100 MG TABLET PO (10:59)
[2022-04-11] MEDS: APIXABAN 5 MG TABLET PO ×2 (10:59→19:53)
[2022-04-11] MEDS: ATORVASTATIN 40 MG TABLET PO (10:59)
[2022-04-11] MEDS: MULTIVIT W/ IRON, MINERALS 15 ML LIQUID (*BKC) PO (11:00)
[2022-04-11 11:50] LABS: Methylmalonic Acid 233 nmol/L (87-318)
[2022-04-11 12:16] LABS: Glucose Point of Care 80 mg/dl (65-105)
--- NOTE | 2022-04-11 12:53 | PDONCCN ---
HPI - Date of Consult Date/Time: 04/11/22 12:53 Requesting Physician: Leo Ortiz MD Primary Care Provider: varun Gao - Consult Narrative Reason for consult: Macrocytic anemia Narrative: Richard Olivas is a 76 year old male with history of alcohol abuse, hypertension and coronary artery disease was brought into the hospital after he felt weak and fell in his apartment. He has been drinking heavily for last 3-4 months duration. He has lost almost 35 lb weight in last 6 months duration. He denies any previous history of malignancy other than skin cancer. He denies any melena hematochezia. He denies any previous history of bone marrow disorders. Labs showed hemoglobin of 7.4. MCV was elevated at 124. WBC was normal and platelet count was slightly low. Kidney function was also low at 45%. He he denies having previous colonoscopy and endoscopy. He has couple of Cologuard test done and that was negative. Brain MRI showed multiple region of acute infarction throughout the right frontal, temporal and parietal lobes. Review of Systems - Review of Systems All systems reviewed & are unremarkable except as noted in HPI and bel - Neurologic Reports hearing normal, Reports abnormal gait, Reports confusion, Denies behavioral changes PMFSH Medical History: Medical History (Last Reviewed 04/11/22 @ 10:43 by Shabana Alanis MD) Alcohol abuse Basal cell carcinoma of skin Benign prostatic hyperplasia Coronary artery disease Hypertension Urinary retention Currently with indwelling Vega catheter. Surgical History: Surgical History (Last Reviewed 04/11/22 @ 10:43 by Shabana Alanis MD) History of appendectomy History of basal cell carcinoma excision History of cardiac catheterization Per patient report, an unknown vessel was 100% blocked with good collaterals; no intervention was required. History of cataract extraction History of Mohs micrographic surgery for skin cancer History of prostate biopsy Family History: Family History (Last Reviewed 04/11/22 @ 10:43 by Shabana Alanis MD) Mother Breast cancer Sibling Mesothelioma Father Brain tumor - Social History Social History: Social History (Last Reviewed 04/11/22 @ 10:43 by Shabana Alanis MD) Alcohol Use: Alcohol intake: current Drinks per week: 35 Alcohol use details: Typically drinks 12 oz of chardonnay and 2 to 3 mixed drinks a night. Substance Use: Substance use: never Substance use type: does not use Others: Spiritual care concerns: No Smoking Status: Smoking status: Former smoker Comments: Additional smoking assessment comments: Smoked briefly as a young man. Exam - Vital Signs Vital Signs - 24 hr 04/10/22 14:42 04/10/22 18:15 04/10/22 18:17 Temperature 36.8 C 36.7 C Pulse Rate 81 92 116 H Respiratory Rate 18 18 18 Blood Pressure 121/61 119/57 L 106/91 H Pulse Oximetry 100 100 100 Oxygen Delivery 04/10/22 18:21 04/10/22 20:48 04/10/22 21:01 Temperature 36.6 C Pulse Rate 137 H 82 Respiratory Rate 20 18 Blood Pressure 92/52 L 130/80 Pulse Oximetry 100 98 99 Oxygen Delivery Room Air 04/10/22 20:00 04/10/22 21:06 04/10/22 21:07 Temperature 36.6 C 36.6 C 36.6 C Pulse Rate 82 106 H 82 Respiratory Rate 18 18 18 Blood Pressure 130/80 121/74 93/57 L Pulse Oximetry 99 99 81 L Oxygen Delivery 04/11/22 04:29 04/11/22 11:00 04/11/22 11:04 Temperature 36.3 C L Pulse Rate 73 86 99 Respiratory Rate 16 Blood Pressure 121/73 129/62 116/71 Pulse Oximetry 98 Oxygen Delivery 04/11/22 11:08 04/11/22 08:38 Temperature Pulse Rate 117 H Respiratory Rate Blood Pressure 98/58 L Pulse Oximetry Oxygen Delivery Room Air - Exam HEENT: EOMI, PERRLA, mucous membranes moist and pink Neck: supple. No: JVD Lungs: normal air movement Heart: no murmurs, gallops, or rubs, regular rhythm, regular rate Abdomen: abdomen soft, non-dis
[2022-04-11 13:11] LABS: Immature Reticulocyte Fraction 14.6 % (3.0-15.9); Reticulocyte Hemoglobin Conten 40.3 pg (28.2-35.7); Reticulocyte Percent 1.54 % (0.7-4.3); Reticulocytes Absolute 0.03 B/L (32.2-175.7)
[2022-04-11 13:27] LABS: Lactate Dehydrogenase 163 U/L (120-246)
[2022-04-11 14:01] LABS: Iron 66 ug/dL (49-181)
[2022-04-11 14:33] LABS: Folic Acid 12.4 ng/mL (2.76->20)
[2022-04-11 14:35] LABS: Percent Iron Saturation 67 % (20-50)
[2022-04-11] MEDS: FERROUS SULFATE 324 MG TABLET PO (16:09)
[2022-04-11 17:36] LABS: Glucose Point of Care 99 mg/dl (65-105)
[2022-04-12] VITALS (16 sets, daily range): BP systolic 109–136; BP diastolic 60–89; PULSE 86–153; RESP 12–18; TEMP 36–36.7; O2SAT 95–100
[2022-04-12] MEDS: SODIUM CHLORIDE 0.9% IV 1,000 ML 100 ML IV CONT ×2 (04:09→16:26)
[2022-04-12 04:58] LABS: Basophils Percent Auto 0.4 % (0.2-1.2); Eosinophils Absolute Auto 0.1 K/mm3 (0-0.3); Hematocrit 22.1 % (42.0-52.0); Hemoglobin 7.4 g/dL (14.0-18.0); Immature Granulocyte Absolute 0.01 K/mm3 (0.00-0.031); Immature Granulocyte Percent A 0.2 % (0-0.5); Lymphocytes Absolute Auto 0.95 K/mm3 (0.9-3.2); Lymphocytes Percent Auto 17.2 % (18.3-44.2); Mean Corpuscular HGB Conc 33.5 g/dl (32-36); Mean Corpuscular Hemoglobin 40.7 pg (26-34); Mean Corpuscular Volume 121.4 fl (80-100); Mean Platelet Volume 10.1 fl (7.4-10.4); Monocytes Absolute Auto 0.6 K/mm3 (0.1-0.6); Monocytes Percent Auto 10.1 % (2.6-8.5); Neutrophils Absolute Auto 3.9 K/mm3 (1.3-6.7); Neutrophils Percent Auto 70.1 % (45.5-73.1); Platelet Count Result 132 k/mm3 (150-375); Red Blood Count 1.82 M/mm3 (4.6-6.20); Red Cell Distribution Width 14.6 % (11.5-14.5); White Blood Count 5.5 K/mm3 (4.5-10.0)
[2022-04-12 05:20] LABS: Alanine Aminotransferase 16 U/L (6-50); Albumin Level 1.9 g/dL (3.5-5.1); Alkaline Phosphatase 80 U/L (38-126); Anion Gap 0 mmol/L (8-16); Aspartate Amino Transferase 40 U/L (17-59); Bilirubin,Total 0.5 mg/dL (0.2-1.3); Blood Urea Nitrogen 10 mg/dL (9-20); Calcium 7.3 mg/dL (8.4-10.2); Carbon Dioxide 21 mmol/L (22-30); Chloride 111 mmol/L (98-107); Estimated CRCL calculation 46 ml/min; Estimated Glomerular Filt Rate 49; Glucose 79 mg/dL (65-110); Potassium 3.6 mmol/L (3.4-5.0); Sodium 132 mmol/L (137-145)
[2022-04-12 05:24] LABS: Anisocytosis 1+ (NORMAL); Hypochromasia 1+ (NORMAL); Ovalocytes 1+ (NORMAL); Platelet Estimate Adequate (Adequate)
[2022-04-12] MEDS: CLOPIDOGREL BISULFATE 75 MG TABLET PO (08:01)
[2022-04-12] MEDS: ASPIRIN 81 MG ENTERIC TABLET PO (08:01)
[2022-04-12] MEDS: APIXABAN 5 MG TABLET PO ×2 (08:01→20:32)
[2022-04-12 08:07] LABS: Glucose Point of Care 69 mg/dl (65-105)
--- NOTE | 2022-04-12 08:50 | WPDHPUPDATE1 ---
History and Physical Update Update Date/Time: 04/12/22 08:50 Pt w/ multiple strokes, here for REINA. History and Physical has been reviewed, including an updated exam of the patient. There are NO changes in the patient's condition. Risks, benefits, and alternatives have been discussed and questions answered. Patient agrees to proceed with procedure.
--- NOTE | 2022-04-12 08:50 | WPDMODSED ---
Moderate Sedation Note-Pt Data Patient Data Diagnosis: Multiple strokes H/O CAD Anemia Present Complaint: Pt admitted w/ weakness due to multiple strokes. Procedure to be performed/Plan: Consdious sedation, REINA Allergies Allergy/AdvReac Type Severity Reaction Status Date / Time quinapril [From Accupril] Allergy Swelling Verified 04/07/22 16:04 of Lip/Tongue/Throat Home Medications Medication Instructions Recorded Confirmed Type allopurinol 100 mg tablet 100 mg PO BID 04/07/22 04/07/22 History colchicine 0.6 mg tablet 0.6 mg PO PRN PRN GOUT 04/07/22 04/07/22 History doxazosin 4 mg tablet 2 mg PO DAILY 04/07/22 04/07/22 History metoprolol succinate 50 mg 12.5 mg PO DAILY 04/07/22 04/07/22 History tablet,extended release 24 hr Current Medications: Active Medications Allopurinol (Allopurinol 100 Mg Tablet) 100 mg PO Q12HR [facility] Last Admin: 04/11/22 19:54 Dose: 100 mg Apixaban (Apixaban 5 Mg Tablet) 5 mg PO Q12HR [facility] Last Admin: 04/12/22 08:01 Dose: 5 mg Aspirin (Aspirin 81 Mg Enteric Tablet) [facility] [place] Last Admin: 04/12/22 08:01 Dose: 81 mg Atorvastatin Calcium (Atorvastatin 40 Mg Tablet) 40 mg PO DAILY [facility] Last Admin: 04/11/22 10:59 Dose: 40 mg Chlordiazepoxide HCl (Chlordiazepoxide (*Crx) 10 Mg Capsule) 10 mg PO Q6H PRN PRN Reason: Withdrawal and CIWA Clopidogrel Bisulfate (Clopidogrel Bisulfate 75 Mg Tablet) 75 [facility] [place] Last Admin: 04/12/22 08:01 Dose: 75 mg Colchicine (Colchicine 0.6 Mg Tablet) 0.6 mg PO PRN PRN PRN Reason: GOUT Doxazosin Mesylate (Doxazosin Mesylate 2 Mg Tablet) 2 mg PO DAILY [facility] Last Admin: 04/10/22 08:49 Dose: 2 mg Ferrous Sulfate (Ferrous Sulfate 324 Mg Tablet) 324 mg PO BIDWM [facility] Last Admin: 04/11/22 16:09 Dose: 324 mg Folic Acid (Folic Acid 1 Mg Tablet) 1 mg PO DAILY [facility] Last Admin: 04/11/22 10:59 Dose: 1 mg Sodium Chloride (Normal Saline Iv) 1,000 mls @ 100 mls/hr IV CONT .Q10H [facility] Last Admin: 04/12/22 04:09 Dose: 100 mls/hr Sodium Chloride (Normal Saline Iv) 1,000 mls @ 30 mls/hr IV CONT .Q24H [facility] Multivitamins/Minerals (Multivit W/ Iron, Minerals 15 Ml Liquid (*Bkc)) 15 ml PO QAM [facility] Last Admin: 04/11/22 11:00 Dose: 15 ml Perflutren Lipid Microsphere (Perflutren Lipid Microspheres 1.5 Ml Vial Diluted To 10 Ml Total Volume) 0 ml IV PUSH ONCE PRN; Protocol PRN Reason: adequate visualization Thiamine HCl (Thiamine Hcl 100 Mg Tablet) 100 mg PO QAM [facility] Last Admin: 04/11/22 10:59 Dose: 100 mg Sedation/Anesthesia: No previous sedation/anesthesia problems (including family history). [facility] Past Medical History Medical History Alcohol abuse Basal cell carcinoma of skin Benign prostatic hyperplasia Coronary artery disease Hypertension Urinary retention Currently with indwelling Vega catheter. Surgical History Surgical History History of appendectomy History of basal cell carcinoma excision History of cardiac catheterization Per patient report, an unknown vessel was 100% blocked with good collaterals; no intervention was required. History of cataract extraction History of Mohs micrographic surgery for skin cancer History of prostate biopsy Family History Family History Mother Breast cancer Sibling Mesothelioma Father Brain tumor Social History Social History Social History: Surrogate medical decision maker: Gatito Cherry, brother. Code status: Full code. Smoking status: Former smoker Additional smoking assessment comments: Smoked briefly as a young man. Alcohol intake: current Drinks per week: 35 Alcohol use details: Typically drinks 12 oz of chardonnay and 2 to 3 mixed drinks a night. Substance use: never Substance use type: does not use Additiona
--- NOTE | 2022-04-12 09:09 | PM.OP ---
Procedure Note - Brief Procedure Note - Brief Date of procedure: 04/12/22 Pre-op diagnosis: UTI, weakness Multiple strokes Post-op diagnosis: Other (No thrombus seen Mild aortic atherosclerosis Atrial septal aneurysm with a small [id number] shunt) Procedure performed: Conscious sedation Transesophageal echo with bubble study Description of procedure: Uneventful transesophageal echo Surgeon: Therese Ross MD Complications: No immediate complications Condition: Stable Disposition: Floor Findings: No thrombus seen Mild aortic atherosclerosis Atrial septal aneurysm with a small afaoe-in-rczy shunt
--- NOTE | 2022-04-12 09:12 | WPDTEECHO ---
REINA TransEsophageal Echocardiogram Date of procedure: 04/12/22 Procedure Type: Conscious sedation Transesophageal echo with bubble study Diagnosis: Multiple strokes History of CAD Anemia Indications: 76-year-old male admitted with weakness and found to have multiple right-sided strokes in the right middle cerebral artery vascular distribution. Lower extremity Doppler showed partial thrombosis of left common femoral and greater saphenous veins. Carotid Doppler showed less than 50% stenosis bilaterally. Image Quality: Good Findings: Conscious sedation: Assessment: The patient has no history of anesthesia problems. The patient's oropharynx is clear. The patient was deemed to be a good candidate for conscious sedation. The patient had continuous hemodynamic and oximetric monitoring during the procedure. Start time: 8:55 a.m. Completion time: 9:09 a.m. Total conscious sedation time: 16 minute Medications Used: Versed 2 mg, fentanyl 50 mcg IV push Trained observer: KAREN Villareal Outcome: The patient tolerated the procedure well with no complications. Procedure: After informed consent the patient had Hurricaine spray the hypopharynx. The patient had conscious sedation as described above. The transesophageal echo probe was introduced in the esophagus without difficulty. Imaging was obtained in multiplane views. Unable to advance the scope through the GE junction, thus no transgastric views were obtained. was injected to evaluate for intracardiac shunting. The patient tolerated the procedure well with no complications. Findings: The left atrium was mildly enlarged. There is no thrombus present in the left atrium or left atrial appendage. The atrial septum was mildly aneurysmal. Mitral valve appeared normal, with no stenosis or prolapse. The left ventricle had had normal size and thickness with mild hypokinesis of the mid anteroseptal segment,and probably the apex. The ejection fraction is estimated to be: 50%. The aortic root and valve were normal. The ascending aorta and aortic arch were normal. The descending thoracic aorta had scattered areas of mild to moderate atherosclerosis. The right atrium, tricuspid valve, right ventricle, pulmonic valve and pulmonic artery were all normal. There is no pericardial effusion. When agitated saline was injected intravenously there was evidence of a small amount of intracardiac shunting, with a few bubbles crossing the septum. Colorflow Doppler Findings: Trace mitral regurgitation Conclusions: Mild left atrial enlargement Small atrial septal aneurysm with a very small PFO and a very small amount of intracardiac gxinq-ir-pbid shunting Mildly diminished left ventricular function with segmental wall motion abnormality suggestive of CAD. Iijz-yk-nzzwpebd aortic atherosclerosis Unable to pass the scope through the GE junction; patient may have an esophageal stricture. Recommendations: By itself, the patient's atrial septal aneurysm and very small shunt, in view of his age etc, is very unlikely to have caused his strokes. However, in the setting of his LE partial DVT, there is the possibility of a paradoxic embolus. Consider anticoagulation for 3-6 months for the LE DVT. Also, consider MRA or CTA of the brain to evaluate the right middle cerebral artery. Cont tx for presumed asymptomatic CAD with anti-platelet agent or anticoagulation, statin, BP control, etc.
[2022-04-12] MEDS: FOLIC ACID 1 MG TABLET PO (10:06)
[2022-04-12] MEDS: THIAMINE HCL 100 MG TABLET PO (10:07)
[2022-04-12] MEDS: ATORVASTATIN 40 MG TABLET PO (10:07)
[2022-04-12] MEDS: allopurinoL 100 MG TABLET PO ×2 (10:07→20:32)
[2022-04-12] MEDS: FERROUS SULFATE 324 MG TABLET PO ×2 (10:07→16:26)
[2022-04-12] MEDS: MULTIVIT W/ IRON, MINERALS 15 ML LIQUID (*BKC) PO (10:08)
[2022-04-12 12:05] LABS: Glucose Point of Care 71 mg/dl (65-105)
--- NOTE | 2022-04-12 12:16 | WPDNEUROPN ---
Progress Note: A&P Assessment and Plan (1) Stroke: Code(s): I63.9 - Cerebral infarction, unspecified Status: Acute Assessment and Plan: Mr. Olivas is a 76 year old male with a history of alcohol abuse, CAD, HTN who presented after a fall. Found to have a R MCA territory stroke (appears to be embolic in etiology). Etiology could be due to lower extremity clot entering systemic circulation through ASD. Intracranial vessel imaging has not been completed yet. Course has also been complicated by UTI and recent significant weight loss. - Please obtain either CTA head or MRA brain - Continue Eliquis 5mg BID - Unless needed for another indication, ok to dc ASA and Plavix - PT/OT Subjective Date/time seen: 04/12/22 12:16 Interval history: Richard Olivas is a 76 year old male with a history of alcohol abuse, CAD, HTN who presented on 04/07 after sustaining a fall. He has also had a 40 lb weight loss over the past few months. He was brought in the the ED where he had notable positive orthostatics and his UA was concerning for UTI. CT was obtained with showed hypodensities in the R MCA territory but no acute bleed. He had a surface echo which showed mild reduction of L ventricular systolic function (45-50%) but no valvular pathology or evidence of clots. Carotid Doppler showed less than 50% stenosis bilaterally. MRI brain revealed multifocal infarcts in the R MCA territory. Due to concern for cardioembolic etiology patient was to obtain a REINA. He is currently on ASA and Plavix and was just started on Eliquis 5mg BID. He also had a venous doppler study that showed partial thrombosis of the L common femoral and greater saphenous veins. REINA completed, preliminary report - no thrombus, mild aortic atherosclerosis, ASD with small R to L shunt. Patient complaining of right arm pain today. Denies any weakness, speech issues, vision changes. Review of Systems Constitutional: Constitutional: Reports lethargy and Reports weakness Eyes: Eyes: Reports no additional eye complaints ENT: Reports system reviewed and no additional complaints, except as documented Cardiovascular: Cardiovascular: Reports no additional cardiovascular complaints Respiratory: Respiratory: Reports no additional respiratory complaints Gastrointestinal: Gastrointestinal: Reports diarrhea Genitourinary: Genitourinary: Reports urinary hesitancy Musculoskeletal: Musculoskeletal: Reports no additional musculoskeletal complaints Integumentary/Breasts: Skin/Breast: Reports unusual bruising Neurologic: Reports as per HPI Psychiatric: Psychiatric: Reports no additional psychiatric complaints Exam Const: General: comfortable HENMT: Mouth: Yes moist mucous membranes Eyes: General: appearance normal, both eyes and all related structures Pupils: Equal, round and reactive pupils present EOM: EOMs intact bilaterally Neck: Neck: supple Resp: Effort & Inspection: normal respiratory effort Auscultation: clear to auscultation bilaterally Cardio: Rate: regular rate Rhythm: regular rhythm Skin: General skin exam: normal color Other: bruising of LUE Neuro: Other: AOx3, Pupils equal and reactive bilaterally, EOMI, face symmetric, facial sensation intact, tongue protrudes midline, palate midline. Shoulder shrug normal. Strength 5/5 in RUE/RLE. strength 5/5 in LUE/LLE. Sensation intact throughout. Reflexes 1+ in biceps, patellar, and AJ bilaterally, FNF with mild intention tremor bilaterally. Language comprehension and fluency intact. Visual andrea intact. Gait deferred. Extrem: General: normal to inspection Psych: Mental Status: mental status grossly normal Affect: normal affect Objective Data Vital Signs Vital Signs: Vital Signs - 24 hr 04/11/22 14:25 04/11/22 20:00 04/11/22 20:31 Temperature 36.4 C 36.7 C 36.7 C Pulse Rate 108 H 96 96 Respiratory Rate 16 18 18 Blood Pressure 101/66 113/85 113/88 Pulse Oximetry 100 100 100 Oxygen Delivery
--- NOTE | 2022-04-12 13:00 | PM.IMPN ---
Progress Note: A&P Assessment and Plan (1) Weakness: Code(s): R53.1 - Weakness Status: Acute Assessment and Plan: reports progressive weakness over the last several months 40lbs weightloss No notable malignancy ETOH abuse noted Warehousing Technician consult (2) Cerebral infarct: Code(s): I63.9 - Cerebral infarction, unspecified Status: Acute Assessment and Plan: Brain CT shows a few age-indeterminate infarcts in the right middle cerebral artery vascular distribution. Again his exam did not show any gross focal deficit. Echocardiogram: Left ventricular systolic function is mildly reduced, estimated at 45-50%.. The apical segment is akinetic the apical septal segment is hypodynamic. The left ventricular diastolic function is grade I diastolic dysfunction. No significant valvular pathology. carotid Doppler ultrasounds: <50% stenosis in the right internal carotid artery. <50% stenosis in the left internal carotid artery. brain MRI : revealed multiple regions of acute infarction scattered throughout the right frontal, temporal and parietal lobes as well as the insula consistent with sharp emboli in the vascular distribution of the right middle cerebral artery. venous Doppler study: Partial thrombosis of the left common femoral and greater saphenous veins. Otherwise, bilateral lower extremity veins. lipids cholesterol 116, HDL 37, LDL 58, Triglycerides 63 atorvastatin 40mg PO daily Continue baby aspirin,and Lovenox therapeutic -pending Eliquis approval. Due to the findings as above, will perform a REINA with Cardiology on 04/12/2022. REINA showed small shunt, recommended CTA or MRA CTA ordered Neurology has been consulted appreciate assistance and recommendations Cardiology has been consulted, appreciate assistance and recommendations PT/OT (3) Orthostatic hypotension: Code(s): I95.1 - Orthostatic hypotension Status: Acute Assessment and Plan: Laying 113/85, sitting 117/82, standing 102/40 doxazosin on hold Trend blood pressure Seems stable Continue to trend (4) Fall from ground level: Code(s): W18.30XA - Fall on same level, unspecified, initial encounter Status: Acute Assessment and Plan: Fall is most likely related to orthostatic hypotension vs new acute brain infarcts\ PT/OT (5) Abnormal urinalysis: Code(s): R82.90 - Unspecified abnormal findings in urine Status: Acute Assessment and Plan: UA revealed cloudy yellow urine, 3+ leukocyte esterase, >75 WBC with clumps, 2+ bacteria, mucus few ceftriaxone given in the ed abnormal urine is related to indwelling Vega catheter as he does not appear acutely infected afebrile, normal white blood cell count, no suprapubic discomfort Urine culture shows contamination (6) Macrocytic anemia: Code(s): D53.9 - Nutritional anemia, unspecified Status: Acute Assessment and Plan: Alcohol-induced anemia is a real possibility though with his weight loss and weakness myelodysplastic syndrome is in the differential diagnosis. Anemia labs iron 46, TIBC 100, % sat 46, Ferritin 1570, Folate 2.4, B12 363 Multivitamin with iron and folic acid Current H/H 7.4/22.1 Continue to trend labs Ferrous sulfate added Hematology consulted (7) Renal failure: Code(s): N19 - Unspecified kidney failure Status: Acute Assessment and Plan: He likely has chronic renal failure as his creatinine was 1.60 on labs done at this facility on 02/15/2022. Vega catheter is draining nicely and we will monitor strict I/O. Renal ultrasound:Normal right kidney with no hydronephrosis. Renal cyst and nonspecific echogenic cortical atrophy at the left kidney with no hydronephrosis.. Shadowing focus at the left kidney most likely either atherosclerotic renal artery calcification or none obstructing renal stone. Ascites. Seems stable
--- NOTE | 2022-04-12 13:00 | P.PNIM_ITS ---
Progress Note: A&P Assessment and Plan (1) Weakness: Code(s): R53.1 - Weakness Status: Acute Assessment and Plan: * reports progressive weakness over the last several months * 40lbs weightloss * No notable malignancy * ETOH abuse noted * Electric Stove Installer consult (2) Cerebral infarct: Code(s): I63.9 - Cerebral infarction, unspecified Status: Acute Assessment and Plan: * Brain CT shows a few age-indeterminate infarcts in the right middle cerebral artery vascular distribution. Again his exam did not show any gross focal deficit. * Echocardiogram: Left ventricular systolic function is mildly reduced, estimated at 45-50%.. The apical segment is akinetic the apical septal segment is hypodynamic. The left ventricular diastolic function is grade I diastolic dysfunction. No significant valvular pathology. * carotid Doppler ultrasounds: <50% stenosis in the right internal carotid artery. <50% stenosis in the left internal carotid artery. * brain MRI : revealed multiple regions of acute infarction scattered throughout the right frontal, temporal and parietal lobes as well as the insula consistent with sharp emboli in the vascular distribution of the right middle cerebral artery. * venous Doppler study: Partial thrombosis of the left common femoral and greater saphenous veins. Otherwise, bilateral lower extremity veins. * lipids cholesterol 116, HDL 37, LDL 58, Triglycerides 63 * atorvastatin 40mg PO daily * Continue baby aspirin,and Lovenox therapeutic -pending Eliquis approval. * Due to the findings as above, will perform a REINA with Cardiology on 04/12/2022. * REINA showed small shunt, recommended CTA or MRA * CTA ordered * Neurology has been consulted appreciate assistance and recommendations * Cardiology has been consulted, appreciate assistance and recommendations * PT/OT (3) Orthostatic hypotension: Code(s): I95.1 - Orthostatic hypotension Status: Acute Assessment and Plan: * Laying 113/85, sitting 117/82, standing 102/40 * doxazosin on hold * Trend blood pressure * Seems stable * Continue to trend (4) Fall from ground level: Code(s): W18.30XA - Fall on same level, unspecified, initial encounter Status: Acute Assessment and Plan: * Fall is most likely related to orthostatic hypotension vs new acute brain infarcts\ * PT/OT (5) Abnormal urinalysis: Code(s): R82.90 - Unspecified abnormal findings in urine Status: Acute Assessment and Plan: * UA revealed cloudy yellow urine, 3+ leukocyte esterase, >75 WBC with clumps, 2+ bacteria, mucus few * ceftriaxone given in the ed * abnormal urine is related to indwelling Vega catheter as he does not appear acutely infected * afebrile, normal white blood cell count, no suprapubic discomfort * Urine culture shows contamination (6) Macrocytic anemia: Code(s): D53.9 - Nutritional anemia, unspecified Status: Acute Assessment and Plan: * Alcohol-induced anemia is a real possibility though with his weight loss and weakness myelodysplastic syndrome is in the differential diagnosis. * Anemia labs iron 46, TIBC 100, % sat 46, Ferritin 1570, Folate 2.4, B12 363 * Multivitamin with iron and folic acid * Current H/H 7.4/22.1 * Continue to trend labs * Ferrous sulfate added * Hematology consulted (7) Renal failure: Code(s): N19 - Unspecified kidney failure Status: Acute
--- NOTE | 2022-04-12 14:15 | PC.NURSE ---
Patient stated he doesn't want contrast for CTA of brain, called [facility] left message, awaiting call back.
[2022-04-12 16:54] LABS: Glucose Point of Care 89 mg/dl (65-105)
[2022-04-13] VITALS (12 sets, daily range): BP systolic 108–151; BP diastolic 62–85; PULSE 75–157; RESP 18–21; TEMP 36.1–36.7; O2SAT 96–100
[2022-04-13] MEDS: SODIUM CHLORIDE 0.9% IV 1,000 ML 100 ML IV CONT (03:06)
[2022-04-13 05:37] LABS: Basophils Percent Auto 0.5 % (0.2-1.2); Eosinophils Absolute Auto 0.1 K/mm3 (0-0.3); Hematocrit 22.7 % (42.0-52.0); Hemoglobin 7.6 g/dL (14.0-18.0); Immature Granulocyte Absolute 0.03 K/mm3 (0.00-0.031); Immature Granulocyte Percent A 0.5 % (0-0.5); Lymphocytes Absolute Auto 0.75 K/mm3 (0.9-3.2); Mean Corpuscular HGB Conc 33.5 g/dl (32-36); Mean Corpuscular Hemoglobin 41.3 pg (26-34); Mean Corpuscular Volume 123.4 fl (80-100); Mean Platelet Volume 10.4 fl (7.4-10.4); Monocytes Absolute Auto 0.6 K/mm3 (0.1-0.6); Monocytes Percent Auto 10.2 % (2.6-8.5); Neutrophils Absolute Auto 4.3 K/mm3 (1.3-6.7); Neutrophils Percent Auto 74.8 % (45.5-73.1); Platelet Count Result 146 k/mm3 (150-375); Red Blood Count 1.84 M/mm3 (4.6-6.20); Red Cell Distribution Width 14.5 % (11.5-14.5); White Blood Count 5.8 K/mm3 (4.5-10.0)
[2022-04-13 05:40] LABS: Glucose Point of Care 84 mg/dl (65-105)
[2022-04-13 05:51] LABS: Alanine Aminotransferase 16 U/L (6-50); Alkaline Phosphatase 78 U/L (38-126); Anion Gap 1 mmol/L (8-16); Aspartate Amino Transferase 38 U/L (17-59); Bilirubin,Total 0.5 mg/dL (0.2-1.3); Blood Urea Nitrogen 12 mg/dL (9-20); Calcium 7.7 mg/dL (8.4-10.2); Carbon Dioxide 21 mmol/L (22-30); Chloride 112 mmol/L (98-107); Estimated CRCL calculation 43 ml/min; Estimated Glomerular Filt Rate 46; Glucose 91 mg/dL (65-110); Potassium 4.2 mmol/L (3.4-5.0); Sodium 134 mmol/L (137-145)
[2022-04-13 07:09] LABS: Macrocytosis 2+ (NORMAL)
--- NOTE | 2022-04-13 08:38 | ECG_ITS ---
Measurements Intervals [place] Rate: 79 P: 24 SC: 154 QRS: -33 QRSD: 102 T: 25 QT: 407 QTc: 469 Interpretive Statements SINUS RHYTHM WITH SINUS ARRHYTHMIA MARKED LEFT AXIS DEVIATION [QRS AXIS < -30] POOR R-WAVE PROGRESSION, CANNOT RULE OUT AN OLD SEPTAL MYOCARDIAL INFARCTION NO PREVIOUS ECG AVAILABLE FOR COMPARISON Electronically Signed On 04-13-2022 20:02:52 CDT by Therese Ross M.D.
[2022-04-13 09:03] LABS: Glucose Point of Care 71 mg/dl (65-105)
[2022-04-13] MEDS: ATORVASTATIN 40 MG TABLET PO (09:11)
[2022-04-13] MEDS: ASPIRIN 81 MG ENTERIC TABLET PO (09:11)
[2022-04-13] MEDS: APIXABAN 5 MG TABLET PO ×2 (09:11→19:36)
[2022-04-13] MEDS: allopurinoL 100 MG TABLET PO ×2 (09:11→19:36)
[2022-04-13] MEDS: CLOPIDOGREL BISULFATE 75 MG TABLET PO (09:11)
[2022-04-13] MEDS: MULTIVIT W/ IRON, MINERALS 15 ML LIQUID (*BKC) PO (09:12)
[2022-04-13] MEDS: FOLIC ACID 1 MG TABLET PO (09:12)
[2022-04-13] MEDS: THIAMINE HCL 100 MG TABLET PO (09:13)
--- NOTE | 2022-04-13 10:55 | PCNFU ---
Nutrition Follow-Up Complete: Unintentional weight loss related to reduced appetite and lifestyle choices as evidenced by pt report, noted -22% weight loss x 6 months, and visual evidence of malnutrition. Goal: PO intake of meals 75% Patient is progressing towards goal. We will continue current goal. Pt current nutrition is Heart healthy with Ensure Enlive once daily. Last recorded weight is 79.7 kg, up from 66.8 kg on admit. Bowel Motility:+Bm reported 04/11 Labs Reviewed:Cr 1.5, Na 134, Hct 22.7, Alb 2.0,GFR 46 Meds Noted:MVI, Thiamin, Folic Acid Skin: WNL Additional Notes: Patient seen today for nutrition follow up. Tolerating a heart healthy diet, eating 60-85% of meals. He would like his diet supplements decreased to once per day. Ensure Enlive is providing an additional 350 kcals and 20 gms protein. Agree with diet orders. Monitor intake, wt, labs. Follow up in 7 days.
[2022-04-13] MEDS: FERROUS SULFATE 324 MG TABLET PO ×2 (10:59→16:49)
--- NOTE | 2022-04-13 11:15 | PM.IMPN ---
Progress Note: A&P Assessment and Plan (1) Weakness: Code(s): R53.1 - Weakness Status: Acute Assessment and Plan: reports progressive weakness over the last several months 40lbs weightloss No notable malignancy ETOH abuse noted Gis Technician consult Could be from lack of intake (2) Cerebral infarct: Code(s): I63.9 - Cerebral infarction, unspecified Status: Acute Assessment and Plan: Brain CT shows a few age-indeterminate infarcts in the right middle cerebral artery vascular distribution. Again his exam did not show any gross focal deficit. Echocardiogram: Left ventricular systolic function is mildly reduced, estimated at 45-50%.. The apical segment is akinetic the apical septal segment is hypodynamic. The left ventricular diastolic function is grade I diastolic dysfunction. No significant valvular pathology. carotid Doppler ultrasounds: <50% stenosis in the right internal carotid artery. <50% stenosis in the left internal carotid artery. brain MRI : revealed multiple regions of acute infarction scattered throughout the right frontal, temporal and parietal lobes as well as the insula consistent with sharp emboli in the vascular distribution of the right middle cerebral artery. venous Doppler study: Partial thrombosis of the left common femoral and greater saphenous veins. Otherwise, bilateral lower extremity veins. lipids cholesterol 116, HDL 37, LDL 58, Triglycerides 63 atorvastatin 40mg PO daily Continue baby aspirin,and Lovenox therapeutic -pending Eliquis approval. Due to the findings as above, will perform a REINA with Cardiology on 04/12/2022. REINA showed small shunt, recommended CTA or MRA CTA of the brain Small amount of atherosclerotic plaque with 0% stenosis of the left carotid bulb relative to normal distal artery lumen diameterComplete occlusion of the majority of the right internal carotid artery beginning just above level of the carotid bulb and extending to the ophthalmic segment of the intracranial right internal carotid artery where there is reconstitution via collateral flow likely from both the ophthalmic artery and the [place] Neurology has been consulted appreciate assistance and recommendations Cardiology has been consulted, appreciate assistance and recommendations PT/OT (3) Orthostatic hypotension: Code(s): I95.1 - Orthostatic hypotension Status: Acute Assessment and Plan: Laying 136/74, sitting 133/89, standing 109/70 doxazosin on hold Trend blood pressure Seems stable Continue to trend (4) Fall from ground level: Code(s): W18.30XA - Fall on same level, unspecified, initial encounter Status: Acute Assessment and Plan: Fall is most likely related to orthostatic hypotension vs new acute brain infarcts PT/OT (5) Abnormal urinalysis: Code(s): R82.90 - Unspecified abnormal findings in urine Status: Acute Assessment and Plan: UA revealed cloudy yellow urine, 3+ leukocyte esterase, >75 WBC with clumps, 2+ bacteria, mucus few ceftriaxone given in the ed abnormal urine is related to indwelling Vega catheter as he does not appear acutely infected afebrile, normal white blood cell count, no suprapubic discomfort Urine culture shows contamination (6) Macrocytic anemia: Code(s): D53.9 - Nutritional anemia, unspecified Status: Acute Assessment and Plan: Alcohol-induced anemia is a real possibility though with his weight loss and weakness myelodysplastic syndrome is in the differential diagnosis. Anemia labs iron 46, TIBC 100, % sat 46, Ferritin 1570, Folate 2.4, B12 363 Multivitamin with iron and folic acid Current H/H 7.6/22.7 Continue to trend labs Ferrous sulfate added Hematology consulted (7) Renal failure: Code(s): N19 - Unspecified kidney failure Status: Acute Assessment and Plan: He lik
--- NOTE | 2022-04-13 11:15 | P.PNIM_ITS ---
Progress Note: A&P Assessment and Plan (1) Weakness: Code(s): R53.1 - Weakness Status: Acute Assessment and Plan: * reports progressive weakness over the last several months * 40lbs weightloss * No notable malignancy * ETOH abuse noted * Mounter Clarinets consult * Could be from lack of intake (2) Cerebral infarct: Code(s): I63.9 - Cerebral infarction, unspecified Status: Acute Assessment and Plan: * Brain CT shows a few age-indeterminate infarcts in the right middle cerebral artery vascular distribution. Again his exam did not show any gross focal deficit. * Echocardiogram: Left ventricular systolic function is mildly reduced, estimated at 45-50%.. The apical segment is akinetic the apical septal segment is hypodynamic. The left ventricular diastolic function is grade I diastolic dysfunction. No significant valvular pathology. * carotid Doppler ultrasounds: <50% stenosis in the right internal carotid artery. <50% stenosis in the left internal carotid artery. * brain MRI : revealed multiple regions of acute infarction scattered throughout the right frontal, temporal and parietal lobes as well as the insula consistent with sharp emboli in the vascular distribution of the right middle cerebral artery. * venous Doppler study: Partial thrombosis of the left common femoral and greater saphenous veins. Otherwise, bilateral lower extremity veins. * lipids cholesterol 116, HDL 37, LDL 58, Triglycerides 63 * atorvastatin 40mg PO daily * Continue baby aspirin,and Lovenox therapeutic -pending Eliquis approval. * Due to the findings as above, will perform a REINA with Cardiology on 04/12/2022. * REINA showed small shunt, recommended CTA or MRA * CTA of the brain Small amount of atherosclerotic plaque with 0% stenosis of the left carotid bulb relative to normal distal artery lumen diameterComplete occlusion of the majority of the right internal carotid artery beginning just above level of the carotid bulb and extending to the ophthalmic segment of the intracranial right internal carotid artery where there is reconstitution via collateral flow likely from both the ophthalmic artery and the [place] * Neurology has been consulted appreciate assistance and recommendations * Cardiology has been consulted, appreciate assistance and recommendations * PT/OT (3) Orthostatic hypotension: Code(s): I95.1 - Orthostatic hypotension Status: Acute Assessment and Plan: * Laying 136/74, sitting 133/89, standing 109/70 * doxazosin on hold * Trend blood pressure * Seems stable * Continue to trend (4) Fall from ground level: Code(s): W18.30XA - Fall on same level, unspecified, initial encounter Status: Acute Assessment and Plan: * Fall is most likely related to orthostatic hypotension vs new acute brain inf arcts * PT/OT (5) Abnormal urinalysis: Code(s): R82.90 - Unspecified abnormal findings in urine Status: Acute Assessment and Plan: * UA revealed cloudy yellow urine, 3+ leukocyte esterase, >75 WBC with clumps, 2+ bacteria, mucus few * ceftriaxone given in the ed * abnormal urine is related to indwelling Vega catheter as he does not appear acutely infected * afebrile, normal white blood cell count, no suprapubic discomfort * Urine culture shows contamination (6) Macrocytic anemia: Code(s): D53.9 - Nutritional anemia, unspecified Status: Acute Assessment and Plan:
[2022-04-13 11:59] LABS: Methylmalonic Acid 562 nmol/L (87-318)
[2022-04-13 12:49] LABS: Glucose Point of Care 80 mg/dl (65-105)
--- NOTE | 2022-04-13 13:32 | PCOTNOTE ---
Attempted to see patient for OT. Patient reported working with PT earlier and getting good hernandez and declined need for OT. Patient encouraged to participate with OT in order to d/c to [facility] or skilled rehab. Patient educated over [facility] requiring 3 hours of therapy/day with patient unable to tolerate 1-1.5 hours therapy here at hospital. Patient continued to refuse, stating he had already cleaned up and did not want to brush his teeth or perform other activities. Patient activity likely would be limited at this time as patient's HR approx. 99 BPM in supine at rest. Patient's O2 sats 85% with patient encouraged to PLB to recover O2. Patient not seen for OT this date, will continue OT plan of care as appropriate.
[2022-04-13] MEDS: METOPROLOL TARTRATE 6.25 MG TABLET PO ×2 (13:58→19:36)
[2022-04-13] MEDS: MEGESTROL ACETATE (*CHEMO) 20 MG TABLET PO ×3 (13:58→19:36)
[2022-04-13 17:17] LABS: Glucose Point of Care 89 mg/dl (65-105)
[2022-04-14] VITALS (14 sets, daily range): BP systolic 114–140; BP diastolic 60–82; PULSE 78–153; RESP 20–22; TEMP 36.4–36.9; O2SAT 100
[2022-04-14 05:24] LABS: Glucose Point of Care 93 mg/dl (65-105)
[2022-04-14 05:33] LABS: Basophils Percent Auto 0.6 % (0.2-1.2); Eosinophils Absolute Auto 0.1 K/mm3 (0-0.3); Eosinophils Percent Auto 1.6 % (0-4.4); Immature Granulocyte Absolute 0.02 K/mm3 (0.00-0.031); Immature Granulocyte Percent A 0.3 % (0-0.5); Lymphocytes Absolute Auto 1.05 K/mm3 (0.9-3.2); Lymphocytes Percent Auto 16.7 % (18.3-44.2); Mean Corpuscular HGB Conc 33.3 g/dl (32-36); Mean Corpuscular Hemoglobin 41.9 pg (26-34); Mean Corpuscular Volume 125.7 fl (80-100); Mean Platelet Volume 10.3 fl (7.4-10.4); Monocytes Absolute Auto 0.6 K/mm3 (0.1-0.6); Monocytes Percent Auto 9.6 % (2.6-8.5); Neutrophils Absolute Auto 4.5 K/mm3 (1.3-6.7); Neutrophils Percent Auto 71.2 % (45.5-73.1); Platelet Count Result 157 k/mm3 (150-375); Red Blood Count 1.67 M/mm3 (4.6-6.20); Red Cell Distribution Width 14.5 % (11.5-14.5); White Blood Count 6.3 K/mm3 (4.5-10.0)
[2022-04-14 05:45] LABS: Alanine Aminotransferase 18 U/L (6-50); Alkaline Phosphatase 76 U/L (38-126); Anion Gap 9 mmol/L (8-16); Aspartate Amino Transferase 42 U/L (17-59); Bilirubin,Total 0.6 mg/dL (0.2-1.3); Blood Urea Nitrogen 17 mg/dL (9-20); Carbon Dioxide 18 mmol/L (22-30); Chloride 112 mmol/L (98-107); Estimated CRCL calculation 43 ml/min; Estimated Glomerular Filt Rate 46; Glucose 87 mg/dL (65-110); Magnesium 1.7 mg/dL (1.6-2.3); Potassium 3.7 mmol/L (3.4-5.0); Sodium 139 mmol/L (137-145)
[2022-04-14 06:09] LABS: Anisocytosis 1+ (NORMAL); Hypochromasia 1+ (NORMAL); Platelet Estimate Adequate (Adequate)
[2022-04-14 06:10] LABS: Poikilocytosis 1+ (NORMAL)
--- NOTE | 2022-04-14 08:10 | PCOTNOTE ---
Attempted to see patient this am, however patient refused. Pt reported completing ADLs last night with nursing as confirmed on whiteboard. Encouraged activity out of bed to prepare for breakfast, however patient declined to get up at this time.
[2022-04-14] MEDS: allopurinoL 100 MG TABLET PO ×2 (09:06→20:25)
[2022-04-14] MEDS: FERROUS SULFATE 324 MG TABLET PO ×2 (09:06→17:20)
[2022-04-14] MEDS: APIXABAN 5 MG TABLET PO ×2 (09:07→20:24)
[2022-04-14] MEDS: ASPIRIN 81 MG ENTERIC TABLET PO (09:07)
[2022-04-14] MEDS: FOLIC ACID 1 MG TABLET PO (09:07)
[2022-04-14] MEDS: ATORVASTATIN 40 MG TABLET PO (09:07)
[2022-04-14] MEDS: MEGESTROL ACETATE (*CHEMO) 20 MG TABLET PO ×4 (09:07→20:24)
[2022-04-14 09:08] LABS: Glucose Point of Care 87 mg/dl (65-105)
[2022-04-14] MEDS: METOPROLOL TARTRATE 6.25 MG TABLET PO (09:09)
[2022-04-14] MEDS: THIAMINE HCL 100 MG TABLET PO (09:09)
[2022-04-14] MEDS: MULTIVIT W/ IRON, MINERALS 15 ML LIQUID (*BKC) PO (10:38)
[2022-04-14 13:05] LABS: Glucose Point of Care 122 mg/dl (65-105)
--- NOTE | 2022-04-14 13:09 | P.PNIM_ITS ---
Progress Note: A&P Assessment and Plan (1) Weakness: Code(s): R53.1 - Weakness Status: Acute Assessment and Plan: * reports progressive weakness over the last several months * 40lbs weightloss * No notable malignancy * ETOH abuse noted * Oil Scout consult and recommendations have been made. Dietary monitoring intake. * Could be from lack of intake (2) Cerebral infarct: Code(s): I63.9 - Cerebral infarction, unspecified Status: Acute Assessment and Plan: * Brain CT shows a few age-indeterminate infarcts in the right middle cerebral artery vascular distribution. Again his exam did not show any gross focal deficit. * Echocardiogram: Left ventricular systolic function is mildly reduced, estimated at 45-50%.. The apical segment is akinetic the apical septal segment is hypodynamic. The left ventricular diastolic function is grade I diastolic dysfunction. No significant valvular pathology. * carotid Doppler ultrasounds: <50% stenosis in the right internal carotid artery. <50% stenosis in the left internal carotid artery. * brain MRI : revealed multiple regions of acute infarction scattered throughout the right frontal, temporal and parietal lobes as well as the insula consistent with sharp emboli in the vascular distribution of the right middle cerebral artery. * venous Doppler study: Partial thrombosis of the left common femoral and greater saphenous veins. Otherwise, bilateral lower extremity veins. * lipids cholesterol 116, HDL 37, LDL 58, Triglycerides 63 * atorvastatin 40mg PO daily * Continue baby aspirin,and Lovenox therapeutic -pending Eliquis approval. * Due to the findings as above, will perform a REINA with Cardiology on 04/12/2022. * REINA showed small shunt, recommended CTA or MRA * CTA of the brain Small amount of atherosclerotic plaque with 0% stenosis of the left carotid bulb relative to normal distal artery lumen diameterComplete occlusion of the majority of the right internal carotid artery beginning just above level of the carotid bulb and extending to the ophthalmic segment of the intracranial right internal carotid artery where there is reconstitution via collateral flow likely from both the ophthalmic artery and the [place] * Neurology has been consulted appreciate assistance and recommendations * Cardiology has been consulted, appreciate assistance and recommendations * PT/OT * CTA of brain was performed as was asked by Neuro. We are awaiting the final Neuro recs. (3) Orthostatic hypotension: Code(s): I95.1 - Orthostatic hypotension Status: Acute Assessment and Plan: * Laying 136/74, sitting 133/89, standing 109/70 * doxazosin on hold * Trend blood pressure * Seems stable * Continue to trend * BP is stable. Still intermittently tachycardic. (4) Fall from ground level: Code(s): W18.30XA - Fall on same level, unspecified, initial encounter Status: Acute Assessment and Plan: * Fall is most likely related to orthostatic hypotension vs new acute brain infarcts * PT/OT * Continue Fall precautions. (5) Abnormal urinalysis: Code(s): R82.90 - Unspecified abnormal findings in urine Status: Resolved Assessment and Plan: * UA revealed cloudy yellow urine, 3+ leukocyte esterase, >75 WBC with clumps, 2+ bacteria, mucus few * ceftriaxone given in the ed * abnormal urine is related to indwelling Vega catheter as he does not appear acutely infected * afebrile, normal white blood cell count, no suprapubic discomfort * Urine culture shows contamination
--- NOTE | 2022-04-14 13:09 | PM.IMPN ---
Progress Note: A&P Assessment and Plan (1) Weakness: Code(s): R53.1 - Weakness Status: Acute Assessment and Plan: reports progressive weakness over the last several months 40lbs weightloss No notable malignancy ETOH abuse noted Scale Clerk consult and recommendations have been made. Dietary monitoring intake. Could be from lack of intake (2) Cerebral infarct: Code(s): I63.9 - Cerebral infarction, unspecified Status: Acute Assessment and Plan: Brain CT shows a few age-indeterminate infarcts in the right middle cerebral artery vascular distribution. Again his exam did not show any gross focal deficit. Echocardiogram: Left ventricular systolic function is mildly reduced, estimated at 45-50%.. The apical segment is akinetic the apical septal segment is hypodynamic. The left ventricular diastolic function is grade I diastolic dysfunction. No significant valvular pathology. carotid Doppler ultrasounds: <50% stenosis in the right internal carotid artery. <50% stenosis in the left internal carotid artery. brain MRI : revealed multiple regions of acute infarction scattered throughout the right frontal, temporal and parietal lobes as well as the insula consistent with sharp emboli in the vascular distribution of the right middle cerebral artery. venous Doppler study: Partial thrombosis of the left common femoral and greater saphenous veins. Otherwise, bilateral lower extremity veins. lipids cholesterol 116, HDL 37, LDL 58, Triglycerides 63 atorvastatin 40mg PO daily Continue baby aspirin,and Lovenox therapeutic -pending Eliquis approval. Due to the findings as above, will perform a REINA with Cardiology on 04/12/2022. REINA showed small shunt, recommended CTA or MRA CTA of the brain Small amount of atherosclerotic plaque with 0% stenosis of the left carotid bulb relative to normal distal artery lumen diameterComplete occlusion of the majority of the right internal carotid artery beginning just above level of the carotid bulb and extending to the ophthalmic segment of the intracranial right internal carotid artery where there is reconstitution via collateral flow likely from both the ophthalmic artery and the [place] Neurology has been consulted appreciate assistance and recommendations Cardiology has been consulted, appreciate assistance and recommendations PT/OT CTA of brain was performed as was asked by Neuro. We are awaiting the final Neuro recs. (3) Orthostatic hypotension: Code(s): I95.1 - Orthostatic hypotension Status: Acute Assessment and Plan: Laying 136/74, sitting 133/89, standing 109/70 doxazosin on hold Trend blood pressure Seems stable Continue to trend BP is stable. Still intermittently tachycardic. (4) Fall from ground level: Code(s): W18.30XA - Fall on same level, unspecified, initial encounter Status: Acute Assessment and Plan: Fall is most likely related to orthostatic hypotension vs new acute brain infarcts PT/OT Continue Fall precautions. (5) Abnormal urinalysis: Code(s): R82.90 - Unspecified abnormal findings in urine Status: Resolved Assessment and Plan: UA revealed cloudy yellow urine, 3+ leukocyte esterase, >75 WBC with clumps, 2+ bacteria, mucus few ceftriaxone given in the ed abnormal urine is related to indwelling Vega catheter as he does not appear acutely infected afebrile, normal white blood cell count, no suprapubic discomfort Urine culture shows contamination No acute infection signs/symptoms (6) Macrocytic anemia: Code(s): D53.9 - Nutritional anemia, unspecified Status: Acute Assessment and Plan: Alcohol-induced anemia is a real possibility though with his weight loss and weakness myelodysplastic syndrome is in the differential diagnosis. Anemia labs iron 46, TIBC 100, % sat 46, Ferritin 1570, Folate 2.4, B12 363 Multivitamin with iron and foli
[2022-04-14 13:12] LABS: Hematocrit 23.1 % (42.0-52.0); Hemoglobin 7.5 g/dL (14.0-18.0)
[2022-04-14 17:25] LABS: Glucose Point of Care 106 mg/dl (65-105)
[2022-04-14 19:59] LABS: Haptoglobin 91 mg/dL (43-212)
[2022-04-14] MEDS: METOPROLOL TARTRATE 12.5 MG TABLET PO (20:24)
[2022-04-15] VITALS (20 sets, daily range): BP systolic 77–122; BP diastolic 46–71; PULSE 77–130; RESP 18–20; TEMP 36.4–37; O2SAT 98–100
[2022-04-15 05:39] LABS: Basophils Percent Auto 0.7 % (0.2-1.2); Eosinophils Absolute Auto 0.1 K/mm3 (0-0.3); Eosinophils Percent Auto 2.4 % (0-4.4); Immature Granulocyte Absolute 0.02 K/mm3 (0.00-0.031); Immature Granulocyte Percent A 0.4 % (0-0.5); Lymphocytes Absolute Auto 1.01 K/mm3 (0.9-3.2); Lymphocytes Percent Auto 18.6 % (18.3-44.2); Mean Corpuscular HGB Conc 33.5 g/dl (32-36); Mean Corpuscular Hemoglobin 40.9 pg (26-34); Mean Platelet Volume 10.4 fl (7.4-10.4); Monocytes Absolute Auto 0.5 K/mm3 (0.1-0.6); Monocytes Percent Auto 9.4 % (2.6-8.5); Neutrophils Absolute Auto 3.7 K/mm3 (1.3-6.7); Neutrophils Percent Auto 68.5 % (45.5-73.1); Platelet Count Result 151 k/mm3 (150-375); Red Blood Count 1.59 M/mm3 (4.6-6.20); Red Cell Distribution Width 14.3 % (11.5-14.5); White Blood Count 5.4 K/mm3 (4.5-10.0)
[2022-04-15 05:53] LABS: Alanine Aminotransferase 28 U/L (6-50); Albumin Level 1.9 g/dL (3.5-5.1); Alkaline Phosphatase 72 U/L (38-126); Anion Gap 0 mmol/L (8-16); Aspartate Amino Transferase 71 U/L (17-59); Bilirubin,Total 0.6 mg/dL (0.2-1.3); Blood Urea Nitrogen 16 mg/dL (9-20); Calcium 7.7 mg/dL (8.4-10.2); Carbon Dioxide 19 mmol/L (22-30); Chloride 113 mmol/L (98-107); Estimated CRCL calculation 43 ml/min; Estimated Glomerular Filt Rate 46; Glucose 82 mg/dL (65-110); Magnesium 1.7 mg/dL (1.6-2.3); Potassium 3.7 mmol/L (3.4-5.0); Sodium 132 mmol/L (137-145)
[2022-04-15 06:47] LABS: Hemoglobin 6.5 g/dL (14.0-18.0)
[2022-04-15 06:48] LABS: Hematocrit 19.4 % (42.0-52.0)
[2022-04-15 06:51] LABS: Glucose Point of Care 102 mg/dl (65-105)
[2022-04-15] MEDS: FERROUS SULFATE 324 MG TABLET PO ×2 (08:51→16:55)
[2022-04-15] MEDS: METOPROLOL TARTRATE 12.5 MG TABLET PO (08:52)
[2022-04-15] MEDS: ASPIRIN 81 MG ENTERIC TABLET PO (08:52)
[2022-04-15] MEDS: APIXABAN 5 MG TABLET PO ×2 (08:52→20:28)
[2022-04-15] MEDS: FOLIC ACID 1 MG TABLET PO (08:52)
[2022-04-15] MEDS: MEGESTROL ACETATE (*CHEMO) 20 MG TABLET PO ×4 (08:52→20:28)
[2022-04-15] MEDS: THIAMINE HCL 100 MG TABLET PO (08:52)
[2022-04-15] MEDS: ATORVASTATIN 40 MG TABLET PO (08:52)
[2022-04-15 08:55] LABS: Hematocrit 23.2 % (42.0-52.0); Hemoglobin 7.6 g/dL (14.0-18.0)
[2022-04-15] MEDS: MULTIVIT W/ IRON, MINERALS 15 ML LIQUID (*BKC) PO (08:56)
[2022-04-15] MEDS: allopurinoL 100 MG TABLET PO ×2 (08:57→20:28)
[2022-04-15 12:16] LABS: Glucose Point of Care 88 mg/dl (65-105)
--- NOTE | 2022-04-15 13:48 | P.PNIM_ITS ---
Progress Note: A&P Assessment and Plan (1) Cerebral infarct: Code(s): I63.9 - Cerebral infarction, unspecified Status: Acute Assessment and Plan: * Brain CT: shows a few age-indeterminate infarcts in the right middle cerebral artery vascular distribution. * Echo: LV systolic function is mildly reduced, estimated at 45-50%.. The apical segment is akinetic the apical septal segment is hypodynamic. The left ventricular diastolic function is grade I diastolic dysfunction. No significant valvular pathology. * Carotid Doppler ultrasounds: <50% stenosis in the right internal carotid artery. <50% stenosis in the left internal carotid artery. * Brain MRI : revealed multiple regions of acute infarction scattered throughout the right frontal, temporal and parietal lobes as well as the insula consistent with sharp emboli in the vascular distribution of the right middle cerebral artery. * Venous Doppler study: Partial thrombosis of the left common femoral and greater saphenous veins. * CTA of the brain: Small amount of atherosclerotic plaque with 0% stenosis of the left carotid bulb relative to normal distal artery lumen diameter. 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 beginning just above level of the carotid bulb and extending to the ophthalmic segment of the intracranial right internal carotid artery where there is reconstitution via collateral flow likely from both the ophthalmic artery and the [place] * REINA showed small shunt, recommended CTA or MRA * lipids: cholesterol 116, HDL 37, LDL 58, Triglycerides 63 * Neurology has been consulted appreciate assistance and recommendations * Cardiology has been consulted, appreciate assistance and recommendations * ContinuePT/OT * Currently on atorvastatin and ASA (2) Macrocytic anemia: Code(s): D53.9 - Nutritional anemia, unspecified Status: Acute Assessment and Plan: * Alcohol-induced anemia is a possibility though with his weight loss and weakness myelodysplastic syndrome is in the differential diagnosis. * Anemia labs iron 46, TIBC 100, % sat 46, Ferritin 1570, Folate 2.4, B12 363, MMA 562 * Current Hgb was 6.5 this morning but 7.6 on repeat (did not recieve transfusion) * Continue to trend labs * Continue Ferrous, MVI, Folate * Hematology consulted; Hematology will follow up after discharge. (3) Weakness: Code(s): R53.1 - Weakness Status: Acute Assessment and Plan: * reports progressive weakness over the last several months * 40lbs weight loss * No notable malignancy. Could be from lack of intake * ETOH abuse noted * Medical Lab Specialist consulted and recommendations have been made. Dietary monitoring intake. (4) Orthostatic hypotension: Code(s): I95.1 - Orthostatic hypotension Status: Acute Assessment and Plan: * Laying 113/62, sitting 102/54, standing 77/46 * doxazosin remains on hold but metoprolol added last night. * Trend blood pressure * Decrease metoprolol dose (5) Fall from ground level: Code(s): W18.30XA - Fall on same level, unspecified, initial encounter Status: Acute Assessment and Plan: * Fall is most likely related to orthostatic hypotension and/or new acute brain infarcts * Continue PT/OT * Continue Fall precautions. (6) Abnormal urinalysis: Code(s): R82.90 - Unspecified abnormal findings in urine Status: Resolved Assessment and Plan: * UA revealed cloudy yellow urine, 3+ leukocyte esterase, >75 WBC with clumps, 2+ bacte
--- NOTE | 2022-04-15 13:48 | PM.IMPN ---
Progress Note: A&P Assessment and Plan (1) Cerebral infarct: Code(s): I63.9 - Cerebral infarction, unspecified Status: Acute Assessment and Plan: Brain CT: shows a few age-indeterminate infarcts in the right middle cerebral artery vascular distribution. Echo: LV systolic function is mildly reduced, estimated at 45-50%.. The apical segment is akinetic the apical septal segment is hypodynamic. The left ventricular diastolic function is grade I diastolic dysfunction. No significant valvular pathology. Carotid Doppler ultrasounds: <50% stenosis in the right internal carotid artery. <50% stenosis in the left internal carotid artery. Brain MRI : revealed multiple regions of acute infarction scattered throughout the right frontal, temporal and parietal lobes as well as the insula consistent with sharp emboli in the vascular distribution of the right middle cerebral artery. Venous Doppler study: Partial thrombosis of the left common femoral and greater saphenous veins. CTA of the brain: Small amount of atherosclerotic plaque with 0% stenosis of the left carotid bulb relative to normal distal artery lumen diameter. 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 beginning just above level of the carotid bulb and extending to the ophthalmic segment of the intracranial right internal carotid artery where there is reconstitution via collateral flow likely from both the ophthalmic artery and the [place] REINA showed small shunt, recommended CTA or MRA lipids: cholesterol 116, HDL 37, LDL 58, Triglycerides 63 Neurology has been consulted appreciate assistance and recommendations Cardiology has been consulted, appreciate assistance and recommendations ContinuePT/OT Currently on atorvastatin and ASA (2) Macrocytic anemia: Code(s): D53.9 - Nutritional anemia, unspecified Status: Acute Assessment and Plan: Alcohol-induced anemia is a possibility though with his weight loss and weakness myelodysplastic syndrome is in the differential diagnosis. Anemia labs iron 46, TIBC 100, % sat 46, Ferritin 1570, Folate 2.4, B12 363, MMA 562 Current Hgb was 6.5 this morning but 7.6 on repeat (did not recieve transfusion) Continue to trend labs Continue Ferrous, MVI, Folate Hematology consulted; Hematology will follow up after discharge. (3) Weakness: Code(s): R53.1 - Weakness Status: Acute Assessment and Plan: reports progressive weakness over the last several months 40lbs weight loss No notable malignancy. Could be from lack of intake ETOH abuse noted Doll Maker consulted and recommendations have been made. Dietary monitoring intake. (4) Orthostatic hypotension: Code(s): I95.1 - Orthostatic hypotension Status: Acute Assessment and Plan: Laying 113/62, sitting 102/54, standing 77/46 doxazosin remains on hold but metoprolol added last night. Trend blood pressure Decrease metoprolol dose (5) Fall from ground level: Code(s): W18.30XA - Fall on same level, unspecified, initial encounter Status: Acute Assessment and Plan: Fall is most likely related to orthostatic hypotension and/or new acute brain infarcts Continue PT/OT Continue Fall precautions. (6) Abnormal urinalysis: Code(s): R82.90 - Unspecified abnormal findings in urine Status: Resolved Assessment and Plan: UA revealed cloudy yellow urine, 3+ leukocyte esterase, >75 WBC with clumps, 2+ bacteria, mucus few ceftriaxone given in the ED UCx negative. abnormal urine is related to indwelling Vega catheter (7) Renal failure: Code(s): N19 - Unspecified kidney failure Status: Acute Assessment and Plan: He likely has chronic renal failure as his creatinine was 1.6 on labs done at this facility on 02/15/22. Vega catheter secured. He normally self-caths. Vega has been in place roughly 6-8 weeks a
[2022-04-15 17:09] LABS: Glucose Point of Care 89 mg/dl (65-105)
[2022-04-15] MEDS: METOPROLOL TARTRATE 6.25 MG TABLET PO (20:28)
[2022-04-15 21:20] LABS: Glucose Point of Care 95 mg/dl (65-105)
[2022-04-15 21:20] LABS: Glucose Point of Care 103 mg/dl (65-105)
[2022-04-16] VITALS (22 sets, daily range): BP systolic 94–130; BP diastolic 48–77; PULSE 70–107; RESP 17–20; TEMP 36.1–36.7; O2SAT 95–100
[2022-04-16 04:58] LABS: Basophils Percent Auto 0.8 % (0.2-1.2); Eosinophils Absolute Auto 0.1 K/mm3 (0-0.3); Eosinophils Percent Auto 2.3 % (0-4.4); Immature Granulocyte Absolute 0.02 K/mm3 (0.00-0.031); Immature Granulocyte Percent A 0.4 % (0-0.5); Lymphocytes Percent Auto 20.6 % (18.3-44.2); Mean Corpuscular HGB Conc 33.7 g/dl (32-36); Mean Corpuscular Hemoglobin 41.2 pg (26-34); Mean Corpuscular Volume 122.4 fl (80-100); Mean Platelet Volume 10.3 fl (7.4-10.4); Monocytes Absolute Auto 0.5 K/mm3 (0.1-0.6); Monocytes Percent Auto 10.3 % (2.6-8.5); Neutrophils Absolute Auto 3.2 K/mm3 (1.3-6.7); Neutrophils Percent Auto 65.6 % (45.5-73.1); Platelet Count Result 158 k/mm3 (150-375); Red Blood Count 1.65 M/mm3 (4.6-6.20); Red Cell Distribution Width 14.2 % (11.5-14.5); White Blood Count 4.9 K/mm3 (4.5-10.0)
[2022-04-16 05:34] LABS: Hematocrit 20.2 % (42.0-52.0); Hemoglobin 6.8 g/dL (14.0-18.0)
[2022-04-16 05:37] LABS: Macrocytosis 2+ (NORMAL); Platelet Estimate Adequate (Adequate)
[2022-04-16 05:43] LABS: Alanine Aminotransferase 55 U/L (6-50); Alkaline Phosphatase 88 U/L (38-126); Anion Gap 13 mmol/L (8-16); Aspartate Amino Transferase 152 U/L (17-59); Bilirubin,Total 0.6 mg/dL (0.2-1.3); Blood Urea Nitrogen 15 mg/dL (9-20); Carbon Dioxide 20 mmol/L (22-30); Chloride 108 mmol/L (98-107); Estimated CRCL calculation 41 ml/min; Estimated Glomerular Filt Rate 42; Glucose 84 mg/dL (65-110); Potassium 3.6 mmol/L (3.4-5.0); Sodium 141 mmol/L (137-145)
[2022-04-16 07:47] LABS: Glucose Point of Care 84 mg/dl (65-105)
[2022-04-16] MEDS: MULTIVIT W/ IRON, MINERALS 15 ML LIQUID (*BKC) PO (08:53)
[2022-04-16] MEDS: ATORVASTATIN 40 MG TABLET PO (08:54)
[2022-04-16] MEDS: FOLIC ACID 1 MG TABLET PO (08:54)
[2022-04-16] MEDS: ASPIRIN 81 MG ENTERIC TABLET PO (08:54)
[2022-04-16] MEDS: THIAMINE HCL 100 MG TABLET PO (08:54)
[2022-04-16] MEDS: MEGESTROL ACETATE (*CHEMO) 20 MG TABLET PO ×4 (08:54→20:16)
[2022-04-16] MEDS: MIDODRINE HCL 2.5 MG TABLET PO ×3 (08:54→17:42)
[2022-04-16] MEDS: FERROUS SULFATE 324 MG TABLET PO ×2 (08:54→17:42)
[2022-04-16] MEDS: APIXABAN 5 MG TABLET PO ×2 (08:54→20:16)
[2022-04-16] MEDS: allopurinoL 100 MG TABLET PO ×2 (08:55→20:16)
[2022-04-16] MEDS: METOPROLOL TARTRATE 6.25 MG TABLET PO ×2 (08:55→20:16)
[2022-04-16] MEDS: SODIUM CHLORIDE 0.9% IV 250 ML 30 ML IV CONT (09:57)
--- NOTE | 2022-04-16 11:11 | P.PNIM_ITS ---
Progress Note: A&P Assessment and Plan (1) Cerebral infarct: Code(s): I63.9 - Cerebral infarction, unspecified Status: Acute Assessment and Plan: * Brain CT: shows a few age-indeterminate infarcts in the right middle cerebral artery vascular distribution. * Echo: LV systolic function is mildly reduced, estimated at 45-50%.. The apical segment is akinetic the apical septal segment is hypodynamic. The left ventricular diastolic function is grade I diastolic dysfunction. No significant valvular pathology. * Carotid Doppler ultrasounds: <50% stenosis in the right internal carotid artery. <50% stenosis in the left internal carotid artery. * Brain MRI : revealed multiple regions of acute infarction scattered throughout the right frontal, temporal and parietal lobes as well as the insula consistent with sharp emboli in the vascular distribution of the right middle cerebral artery. * Venous Doppler study: Partial thrombosis of the left common femoral and greater saphenous veins. * CTA of the brain: Small amount of atherosclerotic plaque with 0% stenosis of the left carotid bulb relative to normal distal artery lumen diameter. 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 beginning just above level of the carotid bulb and extending to the ophthalmic segment of the intracranial right internal carotid artery where there is reconstitution via collateral flow likely from both the ophthalmic artery and the [place] * REINA showed small shunt, recommended CTA or MRA * lipids: cholesterol 116, HDL 37, LDL 58, Triglycerides 63 * Neurology has been consulted appreciate assistance and recommendations * Cardiology has been consulted, appreciate assistance and recommendations * ContinuePT/OT * Currently on atorvastatin and ASA (2) Macrocytic anemia: Code(s): D53.9 - Nutritional anemia, unspecified Status: Acute Assessment and Plan: * Alcohol-induced anemia or anemia from malnutrition most likely. * Iron 46, TIBC 100, 46%, Ferritin 1570, Folate 2.4, B12 363, MMA 562 * Current Hgb was 6.8 this morning so 1U PRBC transfused * Continue to trend HH * Continue Ferrous, MVI, Folate * B12 IM once given high MMA and start oral B12. * Hematology consulted; Hematology will follow up after discharge. (3) Weakness: Code(s): R53.1 - Weakness Status: Acute Assessment and Plan: * reports progressive weakness over the last several months with a 40lbs weight loss * No notable malignancy. Could be from lack of intake * ETOH abuse noted * Enterprise Analyst consulted and recommendations have been made. * Continue supplements. Monitor intake. (4) Orthostatic hypotension: Code(s): I95.1 - Orthostatic hypotension Status: Acute Assessment and Plan: * Supine 103/48, sitting 102/54, standing 94/68 * doxazosin remains on hold but metoprolol added 04/14/22 * Had to decrease dose of metoprolol on 04/15 but tolerating * Trend blood pressure * Add Midodrine (5) Fall from ground level: Code(s): W18.30XA - Fall on same level, unspecified, initial encounter Status: Acute Assessment and Plan: * Fall is most likely related to orthostatic hypotension and/or new acute brain infarcts * Continue PT/OT * Continue Fall precautions. (6) Abnormal urinalysis: Code(s): R82.90 - Unspecified abnormal findings in urine Status: Resolved Assessment and Plan: * UA revealed cloudy yellow urine, 3+ leukocyte esterase, >75 WBC with clumps, 2+ bacteria, mucus few
--- NOTE | 2022-04-16 11:11 | PM.IMPN ---
Progress Note: A&P Assessment and Plan (1) Cerebral infarct: Code(s): I63.9 - Cerebral infarction, unspecified Status: Acute Assessment and Plan: Brain CT: shows a few age-indeterminate infarcts in the right middle cerebral artery vascular distribution. Echo: LV systolic function is mildly reduced, estimated at 45-50%.. The apical segment is akinetic the apical septal segment is hypodynamic. The left ventricular diastolic function is grade I diastolic dysfunction. No significant valvular pathology. Carotid Doppler ultrasounds: <50% stenosis in the right internal carotid artery. <50% stenosis in the left internal carotid artery. Brain MRI : revealed multiple regions of acute infarction scattered throughout the right frontal, temporal and parietal lobes as well as the insula consistent with sharp emboli in the vascular distribution of the right middle cerebral artery. Venous Doppler study: Partial thrombosis of the left common femoral and greater saphenous veins. CTA of the brain: Small amount of atherosclerotic plaque with 0% stenosis of the left carotid bulb relative to normal distal artery lumen diameter. 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 beginning just above level of the carotid bulb and extending to the ophthalmic segment of the intracranial right internal carotid artery where there is reconstitution via collateral flow likely from both the ophthalmic artery and the [place] REINA showed small shunt, recommended CTA or MRA lipids: cholesterol 116, HDL 37, LDL 58, Triglycerides 63 Neurology has been consulted appreciate assistance and recommendations Cardiology has been consulted, appreciate assistance and recommendations ContinuePT/OT Currently on atorvastatin and ASA (2) Macrocytic anemia: Code(s): D53.9 - Nutritional anemia, unspecified Status: Acute Assessment and Plan: Alcohol-induced anemia or anemia from malnutrition most likely. Iron 46, TIBC 100, 46%, Ferritin 1570, Folate 2.4, B12 363, MMA 562 Current Hgb was 6.8 this morning so 1U PRBC transfused Continue to trend HH Continue Ferrous, MVI, Folate B12 IM once given high MMA and start oral B12. Hematology consulted; Hematology will follow up after discharge. (3) Weakness: Code(s): R53.1 - Weakness Status: Acute Assessment and Plan: reports progressive weakness over the last several months with a 40lbs weight loss No notable malignancy. Could be from lack of intake ETOH abuse noted It Communications Manager consulted and recommendations have been made. Continue supplements. Monitor intake. (4) Orthostatic hypotension: Code(s): I95.1 - Orthostatic hypotension Status: Acute Assessment and Plan: Supine 103/48, sitting 102/54, standing 94/68 doxazosin remains on hold but metoprolol added 04/14/22 Had to decrease dose of metoprolol on 04/15 but tolerating Trend blood pressure Add Midodrine (5) Fall from ground level: Code(s): W18.30XA - Fall on same level, unspecified, initial encounter Status: Acute Assessment and Plan: Fall is most likely related to orthostatic hypotension and/or new acute brain infarcts Continue PT/OT Continue Fall precautions. (6) Abnormal urinalysis: Code(s): R82.90 - Unspecified abnormal findings in urine Status: Resolved Assessment and Plan: UA revealed cloudy yellow urine, 3+ leukocyte esterase, >75 WBC with clumps, 2+ bacteria, mucus few ceftriaxone given in the ED UCx negative. Off abx. He normally self-caths 2-3x/day. Contineu Vega for now until he is able to mange self cath again (7) Renal failure: Code(s): N19 - Unspecified kidney failure Status: Acute Assessment and Plan: He likely has chronic renal failure. Creatinine was 1.6 on labs done at this facility on 02/15/22. He normally self-caths. Vega has been in place rough
[2022-04-16 12:31] LABS: Glucose Point of Care 99 mg/dl (65-105)
[2022-04-16] MEDS: CYANOCOBALAMIN INJ 1,000 MCG/ML VIAL 1000 MCG IM (18:02)
[2022-04-16 18:06] LABS: Glucose Point of Care 94 mg/dl (65-105)
[2022-04-16 20:28] LABS: Glucose Point of Care 106 mg/dl (65-105)
[2022-04-17] VITALS (8 sets, daily range): BP systolic 119–156; BP diastolic 58–105; PULSE 70–100; RESP 16–20; TEMP 36.5–36.9; O2SAT 99–100
[2022-04-17 05:06] LABS: Hematocrit 24.8 % (42.0-52.0); Hemoglobin 8.3 g/dL (14.0-18.0); Mean Corpuscular HGB Conc 33.5 g/dl (32-36); Mean Corpuscular Hemoglobin 38.2 pg (26-34); Mean Corpuscular Volume 114.3 fl (80-100); Mean Platelet Volume 10.4 fl (7.4-10.4); Platelet Count Result 156 k/mm3 (150-375); Red Blood Count 2.17 M/mm3 (4.6-6.20); Red Cell Distribution Width 20.1 % (11.5-14.5); White Blood Count 5.2 K/mm3 (4.5-10.0)
[2022-04-17 05:20] LABS: Alanine Aminotransferase 85 U/L (6-50); Albumin Level 1.9 g/dL (3.5-5.1); Alkaline Phosphatase 96 U/L (38-126); Anion Gap 5 mmol/L (8-16); Aspartate Amino Transferase 184 U/L (17-59); Bilirubin,Total 0.8 mg/dL (0.2-1.3); Blood Urea Nitrogen 15 mg/dL (9-20); Calcium 8.1 mg/dL (8.4-10.2); Carbon Dioxide 20 mmol/L (22-30); Chloride 113 mmol/L (98-107); Estimated CRCL calculation 44 ml/min; Estimated Glomerular Filt Rate 46; Glucose 83 mg/dL (65-110); Magnesium 1.6 mg/dL (1.6-2.3); Potassium 3.6 mmol/L (3.4-5.0); Sodium 138 mmol/L (137-145)
[2022-04-17] MEDS: MEGESTROL ACETATE (*CHEMO) 20 MG TABLET PO ×2 (08:47→13:16)
[2022-04-17] MEDS: ASPIRIN 81 MG ENTERIC TABLET PO (08:47)
[2022-04-17] MEDS: FOLIC ACID 1 MG TABLET PO (08:47)
[2022-04-17] MEDS: MULTIVIT W/ IRON, MINERALS 15 ML LIQUID (*BKC) PO (08:47)
[2022-04-17] MEDS: ATORVASTATIN 40 MG TABLET PO (08:48)
[2022-04-17] MEDS: allopurinoL 100 MG TABLET PO (08:48)
[2022-04-17] MEDS: MIDODRINE HCL 2.5 MG TABLET PO ×2 (08:48→13:16)
[2022-04-17] MEDS: APIXABAN 5 MG TABLET PO (08:48)
[2022-04-17] MEDS: FERROUS SULFATE 324 MG TABLET PO (08:48)
[2022-04-17] MEDS: METOPROLOL TARTRATE 6.25 MG TABLET PO (08:48)
[2022-04-17] MEDS: CYANOCOBALAMIN 1,000 MCG TABLET 1000 MCG PO (08:48)
[2022-04-17] MEDS: THIAMINE HCL 100 MG TABLET PO (08:49)
[2022-04-17 12:15] LABS: Glucose Point of Care 97 mg/dl (65-105)
--- NOTE | 2022-04-17 12:22 | PM.DS ---
DS: Admitting Diagnosis Discharge Date 04/17/22 Admitting Diagnosis Weakness DS: Discharge Diagnosis Discharge Diagnosis (1) Cerebral infarct: Code(s): I63.9 - Cerebral infarction, unspecified Status: Acute (2) Macrocytic anemia: Code(s): D53.9 - Nutritional anemia, unspecified Status: Acute (3) Weakness: Code(s): R53.1 - Weakness Status: Acute (4) Orthostatic hypotension: Code(s): I95.1 - Orthostatic hypotension Status: Acute (5) Fall from ground level: Code(s): W18.30XA - Fall on same level, unspecified, initial encounter Status: Acute (6) Abnormal urinalysis: Code(s): R82.90 - Unspecified abnormal findings in urine Status: Resolved (7) Renal failure: Code(s): N19 - Unspecified kidney failure Status: Acute (8) Benign prostatic hyperplasia: Code(s): N40.0 - Benign prostatic hyperplasia without lower urinary tract symptoms Status: Acute (9) Alcohol abuse: Code(s): F10.10 - Alcohol abuse, uncomplicated Status: Acute (10) Coronary artery disease: Code(s): I25.10 - Atherosclerotic heart disease of [place] coronary artery without angina pectoris Status: Acute (11) Protein calorie malnutrition: Code(s): E46 - Unspecified protein-calorie malnutrition Status: Acute (12) Hypertension: Code(s): I10 - Essential (primary) hypertension Status: Acute (13) Deep vein thrombosis: Code(s): I82.409 - Acute embolism and thrombosis of unspecified deep veins of unspecified lower extremity Status: Acute (14) Tachycardia: Code(s): R00.0 - Tachycardia, unspecified Status: Acute (15) Traumatic hematoma of right forearm: Code(s): S50.11XA - Contusion of right forearm, initial encounter Status: Acute DS: Summary Hospital Course Reason for hospitalization: 76yo male with hx of daily alcohol consumption, CAD, HTN, BPH, peripheral neuropathy of the feet, and urinary retention with indwelling Vega catheter who presented to the ED via EMS from home for evaluation of weakness. Please see H&P for details. Hospital Course: Patient presented with weakness and the following medical issues were discovered and were evaluated and treated: 1) Cerebral infarct: Brain CT:?shows a few age-indeterminate infarcts in the right middle cerebral artery vascular distribution. Echo:?LV systolic function is mildly reduced, estimated at 45-50%.. The apical segment is akinetic the apical septal segment is hypodynamic. The left ventricular diastolic function is grade I diastolic dysfunction. No significant valvular pathology. Carotid Doppler ultrasounds:?<50% stenosis in the right internal carotid artery. <50% stenosis in the left internal carotid artery. Brain MRI?: revealed multiple regions of acute infarction scattered throughout the right frontal, temporal and parietal lobes as well as the insula consistent with sharp emboli in the vascular distribution of the right middle cerebral artery. Venous Doppler study:?Partial thrombosis of the left common femoral and greater saphenous veins. CTA of the brain:?Small amount of atherosclerotic plaque with 0% stenosis of the left carotid bulb relative to normal distal artery lumen diameter. 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
--- NOTE | 2022-04-17 12:53 | PCOTNOTE ---
Attempted to see pt for occupational therapy tx. Pt declined to participate stating he is leaving soon and does not see a need for any therapy. Pt declined any questions/concerns at this time. Therapist confirmed with RN that pt does have d/c orders for today. Will continue per poc duration/frequency tomorrow if necessary.
[2022-04-17 13:43] LABS: EDCOVIDSCREEN Negative (Negative)
== END 2022-04-17 16:10 | DRG 65 ==
LOC: ANHED 18:09 → ANH2MED 19:48
PROVIDERS: Internal Medicine Cardiovascular Disease; Internal Medicine Hematology & Oncology; Nurse Practitioner; Nurse Practitioner Adult Health; Nurse Practitioner Family; Physician Assistant; Admitting Provider Chiropractor; Emergency Provider Emergency Medicine; Visit Provider Internal Medicine
PROC: B24BZZ4 Ultrasonography of Heart with Aorta, Transesophageal (ICD-10-PCS; CPT 93312; principal; 2022-04-12 08:30)
DX: I63.411 Cerebral infarction due to embolism of right middle cerebral artery (principal); E46 Unspecified protein-calorie malnutrition; I42.9 Cardiomyopathy, unspecified; I25.3 Aneurysm of heart; Q21.1 Atrial septal defect; I82.412 Acute embolism and thrombosis of left femoral vein; I82.812 Embolism and thrombosis of superficial veins of left lower extremity; D69.6 Thrombocytopenia, unspecified; R53.1 Weakness; D53.9 Nutritional anemia, unspecified; I70.0 Atherosclerosis of aorta; I25.10 Atherosclerotic heart disease of native coronary artery without angina pectoris; I12.9 Hypertensive chronic kidney disease with stage 1 through stage 4 chronic kidney disease, or unspecified chronic kidney disease; N18.9 Chronic kidney disease, unspecified; S09.90XA Unspecified injury of head, initial encounter; S80.212A Abrasion, left knee, initial encounter; W18.30XA Fall on same level, unspecified, initial encounter; N40.1 Benign prostatic hyperplasia with lower urinary tract symptoms; R33.8 Other retention of urine; G62.9 Polyneuropathy, unspecified; R63.4 Abnormal weight loss; F10.10 Alcohol abuse, uncomplicated; I95.1 Orthostatic hypotension; R82.90 Unspecified abnormal findings in urine; R00.0 Tachycardia, unspecified; S50.11XA Contusion of right forearm, initial encounter; X58.XXXA Exposure to other specified factors, initial encounter; Z20.822 Contact with and (suspected) exposure to COVID-19; Z79.899 Other long term (current) drug therapy; Z85.828 Personal history of other malignant neoplasm of skin; Z87.891 Personal history of nicotine dependence; Z88.8 Allergy status to other drugs, medicaments and biological substances; Z97.8 Presence of other specified devices; Z98.49 Cataract extraction status, unspecified eye
CPT/HCPCS: 36415; 36430; 51702; 70450; 70496; 70498; 70551; 71045; 73090; 76775; 80053; 80061; 81001; 82550; 82607; 82728; 82746; 82948; 83010; 83540; 83550; 83615; 83735; 83921; 84443; 85014; 85018; 85025; 85027; 85046; 85055; 85610; 85730; 86850; 86900; 86901; 86920; 87086; 87088; 87426; 93005; 93306; 93312; 93320; 93325; 93880; 93970; 93971; 96361; 96365; 96372; 96375; 97110; 97162; 97166; 97530; 97535; 99285; A9270; C9803; G0378; J0696; J1650; J2250; J3010; J3411; J3420; J3475; J7030; J7040; J7050; P9016; Q9967

== ENCOUNTER 2022-06-13 13:26 | Observation (INO) | payer MEDICARE, SELFPAY ==
[2022-06-13] VITALS (22 sets, daily range): BP systolic 112–133; BP diastolic 69–115; PULSE 82–102; RESP 12–25; TEMP 36.1–36.8; O2SAT 83–99; BMI 23.6
--- NOTE | ~2022-06-13 | US_ITS ---
EXAMINATION: US carotid duplex BI DATE: 06/15/2022 12:02 INDICATION: Syncope. TECHNIQUE: Grayscale, color Doppler, and pulsed Doppler images of the cervical carotid arteries were obtained. The degree of vessel stenosis is placed in one of the following categories: normal, <50%, 5 0-69%, >=70% but less than near-occlusion, near-occlusion, or total occlusion. Note that percent sten osis relative to normal distal artery lumen diameter is indirectly measured from velocity measurement s as described by Sinan, et al. Radiology 2003; 229:[id number]. COMPARISON: CTA neck 04/12/2022 FINDINGS: RIGHT: The right common carotid artery (CCA) peak systolic velocity (PSV) is 67 cm/s. The right internal car otid artery (ICA) PSV is 0 cm/s. The right ICA end-diastolic velocity (EDV) is 0 cm/s. 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 There is antegrade flow in the right vertebral artery. LEFT: The left CCA PSV is 62 cm/s. The left ICA PSV is 119 cm/s. The left ICA EDV is 46 cm/s. The left ICA/ CCA PSV ratio is 1.9. Grayscale and color Doppler images yield an estimate of <50% diameter reduction from plaque in the ICA. There is antegrade flow in the left vertebral artery. IMPRESSION: 1. 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 2. <50% stenosis in the left internal carotid artery. Reviewed, dictated and finalized at location A.
--- NOTE | 2022-06-13 13:34 | ECG_ITS ---
Measurements Intervals [place] Rate: 91 P: 35 OR: 168 QRS: -48 QRSD: 98 T: 96 QT: 379 QTc: 469 Interpretive Statements SINUS RHYTHM LEFT AXIS DEVIATION LOW QRS VOLTAGE IN PRECORDIAL LEADS INFERIOR INFARCT, AGE INDETERMINATE ANTEROSEPTAL INFARCT, AGE INDETERMINATE BORDERLINE ST-T WAVE ABNORMALITY- ANTEROLAT/HIGH LAT LEADS BASELINE ARTIFACT- I, III, AVR, AVL, V1-V6 ABNORMAL ECG COMPARED TO ECG 04/13/2022 16:22:02 NO SIGNIFICANT CHANGES Electronically Signed On 06-14-2022 6:20:21 CDT by Sukhi Hanson D.O.
--- NOTE | 2022-06-13 13:36 | ED.SYNCOPE ---
HPI - Syncope General Chief Complaint: Syncope Stated Complaint: syncopal episode Time Seen by Provider: 06/13/22 13:30 History of Present Illness HPI narrative: Pt presents with near syncopal episode. Pt stood up and felt weak and said he was going to go down and two people with him eased him to the ground. Pt denies Cp ro SOB. Pt says this happens sometimes when he stands up from the commode but was worse today. Pt denies CP ro SOB or black or bloody stools. Related Data Home Medications Medication Instructions Recorded Confirmed bisacodyl 10 mg rectal suppository 10 mg RECTAL DAILY PRN Constipation 06/13/22 06/13/22 cholecalciferol (vitamin D3) 25 25 mcg PO DAILY 06/13/22 06/13/22 mcg (1,000 unit) tablet levothyroxine 25 mcg tablet 25 mcg PO DAILY 06/13/22 06/13/22 magnesium citrate (Citroma oral 296 ml PO DAILY PRN Constipation 06/13/22 06/13/22 solution) magnesium hydroxide 400 mg/5 mL 30 ml PO DAILY PRN Constipation 06/13/22 06/13/22 oral suspension (Milk of Magnesia) magnesium oxide 400 mg PO DAILY 06/13/22 06/13/22 sodium phosphates 19 gram-7 118 ml RECTAL DAILY PRN 06/13/22 06/13/22 gram/118 mL enema (Fleet Enema) Constipation Allergies Allergy/AdvReac Type Severity Reaction Status Date / Time quinapril [From Accupril] Allergy Swelling Verified 06/13/22 18:20 of Lip/Tongue/Throat Review of Systems Review of Systems: All systems reviewed & are unremarkable except as noted in HPI and below PMFSH Past Medical History Medical History Alcohol abuse Basal cell carcinoma of skin Benign prostatic hyperplasia Coronary artery disease Hypertension Urinary retention Currently with indwelling Vega catheter. Surgical History Surgical History History of appendectomy History of basal cell carcinoma excision History of cardiac catheterization Per patient report, an unknown vessel was 100% blocked with good collaterals; no intervention was required. History of cataract extraction History of Mohs micrographic surgery for skin cancer History of prostate biopsy Family History Family History Mother Breast cancer Sibling Mesothelioma Father Brain tumor Social History Social History (System 04/14/22 @ 09:19 by Tim Jane) Social History: Surrogate medical decision maker: Gatito Cherry, brother. Code status: Full code. Smoking status: Never smoker Additional smoking assessment comments: Smoked briefly as a young man. Alcohol intake: never Drinks per week: 35 Alcohol use details: Typically drinks 12 oz of chardonnay and 2 to 3 mixed drinks a night. Substance use: never Substance use type: does not use Has the Lack of Transportation Kept You From Medical Appointments or From Getting Medications?: No Within the Past 12 Months, Were You Worried Whether Your Food Would Run Out Before You Got Money to Buy More?: Never True What is Your Housing Situation Today?: I Have Housing Are You Worried That in the Next 2 Months, You May Not Have Your Own Housing to Live In?: No Do You Have Trouble Paying Your Heating Or Electricity Bill?: No Do You Have Trouble Paying For Medicines?: No Are You Currently Unemployed and Looking for Work?: No Highest Level of Education Completed: Bachelor's Degree Do You Have Trouble With Childcare or the Care of a Family Member?: No Additional living arrangements comments: The patient has his own apartment in [place]. 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 Spiritual care concerns: No Exam Const: General: healthy appearing, no acute distress and alert Nutritional Appearance: thin Orientation/consciousness: patient oriented x3 Limitations: no limitations HENMT: Head: normal to inspection Mouth: Yes dry mucous
[2022-06-13 14:03] LABS: Basophils Percent Auto 0.3 % (0.2-1.2); Eosinophils Percent Auto 0.3 % (0-4.4); Hematocrit 29.3 % (42.0-52.0); Hemoglobin 9.5 g/dL (14.0-18.0); Immature Granulocyte Absolute 0.02 K/mm3 (0.00-0.031); Immature Granulocyte Percent A 0.3 % (0-0.5); Lymphocytes Absolute Auto 1.26 K/mm3 (0.9-3.2); Mean Corpuscular HGB Conc 32.4 g/dl (32-36); Mean Corpuscular Hemoglobin 31.5 pg (26-34); Mean Platelet Volume 10.1 fl (7.4-10.4); Monocytes Absolute Auto 0.4 K/mm3 (0.1-0.6); Monocytes Percent Auto 6.8 % (2.6-8.5); Neutrophils Absolute Auto 4.5 K/mm3 (1.3-6.7); Neutrophils Percent Auto 72.3 % (45.5-73.1); Platelet Count Result 218 k/mm3 (150-375); Red Blood Count 3.02 M/mm3 (4.6-6.20); Red Cell Distribution Width 16.8 % (11.5-14.5); White Blood Count 6.3 K/mm3 (4.5-10.0)
[2022-06-13] MEDS: SODIUM CHLORIDE 0.9% IV 1,000 ML 999 ML IV CONT (14:05)
[2022-06-13 14:12] LABS: Alanine Aminotransferase 22 U/L (6-50); Albumin Level 2.1 g/dL (3.5-5.1); Alkaline Phosphatase 97 U/L (38-126); Anion Gap 8 mmol/L (8-16); Aspartate Amino Transferase 42 U/L (17-59); Bilirubin,Total 1.4 mg/dL (0.2-1.3); Blood Urea Nitrogen 27 mg/dL (9-20); Calcium 7.9 mg/dL (8.4-10.2); Carbon Dioxide 24 mmol/L (22-30); Chloride 106 mmol/L (98-107); Estimated CRCL calculation 21 ml/min; Estimated Glomerular Filt Rate 27; Glucose 148 mg/dL (65-110); Magnesium 2.7 mg/dL (1.6-2.3); Potassium 4.3 mmol/L (3.4-5.0); Sodium 138 mmol/L (137-145)
[2022-06-13 14:27] LABS: Troponin I 0.041 ng/mL (0.000-0.034)
--- NOTE | 2022-06-13 15:13 | PC.NURSE ---
attmepted to do orthostatics, pt unable to do at this time
[2022-06-13 15:20] LABS: INR 3.2; Prothrombin Time 31.5 Seconds (11.1-14.7)
[2022-06-13 15:21] LABS: Partial Thromboplastin Time 42.3 SECONDS (22.3-36.8)
--- NOTE | 2022-06-13 17:15 | PM.IMHP ---
H&P: HPI History of Present Illness Date/Time: 06/13/22 17:15 Chief Complaint: Weakness. Narrative: This is a pleasant 76-year-old male with recent stroke, heart failure with reduced ejection fraction, coronary artery disease, hypertension, benign prostatic hyperplasia, peripheral neuropathy of the feet, urinary retention with indwelling Vega catheter, DVT on anticoagulation, and alcohol abuse though he is no longer drinking as he is currently in a residential who presented to the ED via EMS from [facility] for evaluation of weakness. He has been at [facility] for a little over a month and according to the patient's brother, he spends a majority of his time in his recliner. He is getting increasingly more weak and staff half to help him to the bathroom with a wheelchair though he is able to stand and pivot. Brother also reports that the patient is essentially eating no food but drinks majority of his calories. For instance he drinks 2 to 3 16 ounce sodas (orange Pam) and lemonade most days. On occasion he will have ice cream but not a whole lot else. he had labs drawn sometime within the last couple of weeks and he was referred to Dr. Kennedy, chancellor in [place], for worsening renal function. He has not yet made that appointment however. In any event today he was sitting in his wheelchair an ask staff to help him get back in the recliner and when he stood up with their help he just went limp and he was out for approximately 1 minute before coming around. Emergency services were summoned on their arrival he was hypotensive in the 70 systolic. Blood pressures have improved with IV fluids And they have been stable since arrival. Workup in the ER was significant for worsening renal function with a BUN and creatinine of 27 and 2.40 respectively. With further questioning he does report that his Vega catheter was just exchanged and he has apparently not had much output and when he does have urine output it is quite dark. Due to near-syncope and worsening renal function he is being admitted overnight for IV fluid rehydration and close monitoring. At the time my evaluation he feels okay and he has no specific complaints. I asked why he was not eating any tells me that he is just not hungry and besides the food at the facility does not taste good. He also reports that someone at the facility told him that it does not matter how he gets his calories and that should be no problem for him to drink so much showed up. Review of Systems Review of Systems: Twelve systems were reviewed. No fever, chills, or sweats. No recent cold or flu symptoms. He adamantly denies dysphagia and concerns for aspiration. He reports that food just does not sound good or taste good. He has not had any witnessed episodes of choking with eating or drinking. He has slowly lost weight over the years but nothing significant, recently. He denies chest pain, pleuritic pain, palpitations, and shortness of breath. No abdominal pain. He denies suprapubic pain. He has chronic lower extremity edema though that has been much worse, especially in his feet, since she spends a majority of his time in his recliner. He denies depression and harmful thoughts. Except as documented, all other systems were reviewed and are negative. [facility] Past Medical History Medical History (Updated 06/13/22 @ 22:30 by Ilsa Hinojosa PA-C) Alcohol abuse Basal cell carcinoma of skin Benign prostatic hyperplasia Cardiomyopathy Coronary artery disease Deep vein thrombosis Heart failure with reduced ejection fraction recent EF of 45 to 50%. Hypertension Urinary retention Currently with indwelling Vega catheter. Surgical History Surgical History History of appendectomy History of basal cell carcinoma excision History of cardiac catheterization Per patient report, an unknown vessel was 100% blocked with good collaterals; no intervention wa
--- NOTE | 2022-06-13 18:00 | ADMGEN ---
This patient, Richard Olivas, was admitted to Medical Room 245-. Patient/family oriented to hospital policies and general routines including ID bracelet, bed and alarms, visiting hours, pain management, procedures, bathroom and other care routines, personal items, smoking policy, room service/diet, and visiting hours. Information on how to activate the Rapid Response Team has been discussed. Patient/Family are encouraged to report perceived risks to care and to ask questions if they do not understand what they are told or what they should do.
[2022-06-13 18:45] LABS: Troponin I 0.036 ng/mL (0.000-0.034)
[2022-06-13] MEDS: SODIUM CHLORIDE 0.9% IV 1,000 ML 125 ML IV CONT (19:33)
[2022-06-14] VITALS (12 sets, daily range): BP systolic 98–128; BP diastolic 62–71; PULSE 78–101; RESP 16–20; TEMP 36.2–36.6; O2SAT 98–100; BMI 23.9
[2022-06-14] MEDS: APIXABAN 5 MG TABLET PO ×3 (00:04→20:39)
[2022-06-14 00:13] LABS: Troponin I 0.035 ng/mL (0.000-0.034)
[2022-06-14 05:04] LABS: Hematocrit 26.8 % (42.0-52.0); Hemoglobin 8.7 g/dL (14.0-18.0); Mean Corpuscular HGB Conc 32.5 g/dl (32-36); Mean Corpuscular Hemoglobin 31.4 pg (26-34); Mean Corpuscular Volume 96.8 fl (80-100); Mean Platelet Volume 10.6 fl (7.4-10.4); Platelet Count Result 205 k/mm3 (150-375); Red Blood Count 2.77 M/mm3 (4.6-6.20); Red Cell Distribution Width 17.1 % (11.5-14.5); White Blood Count 7.3 K/mm3 (4.5-10.0)
[2022-06-14 05:16] LABS: Alanine Aminotransferase 19 U/L (6-50); Albumin Level 2.1 g/dL (3.5-5.1); Alkaline Phosphatase 88 U/L (38-126); Anion Gap 9 mmol/L (8-16); Aspartate Amino Transferase 37 U/L (17-59); Bilirubin,Total 1.1 mg/dL (0.2-1.3); Blood Urea Nitrogen 26 mg/dL (9-20); Calcium 7.5 mg/dL (8.4-10.2); Carbon Dioxide 25 mmol/L (22-30); Chloride 105 mmol/L (98-107); Estimated CRCL calculation 26 ml/min; Estimated Glomerular Filt Rate 29; Glucose 99 mg/dL (65-110); Magnesium 2.6 mg/dL (1.6-2.3); Phosphorus 3.4 mg/dL (2.5-4.5); Potassium 3.6 mmol/L (3.4-5.0); Sodium 139 mmol/L (137-145)
[2022-06-14] MEDS: SODIUM CHLORIDE 0.9% IV 1,000 ML 75 ML IV CONT ×2 (06:04→18:40)
[2022-06-14] MEDS: LEVOTHYROXINE SODIUM 25 MCG TABLET PO (06:19)
--- NOTE | 2022-06-14 08:00 | PM.IMPN ---
Progress Note: A&P Assessment and Plan (1) Near syncope: Code(s): R55 - Syncope and collapse Status: Acute Assessment and Plan: Reported episode of syncope when transferring at the [facility] HX of orthostatic hypotension BP in the ED was 70 systolically BUN/Cr elevated IV fluids given in the ed Trend urine output Carotid doppler ordered REINA Echo from 04/12/22 EF was 50% possible shunt present TTE showed EF of 45-50% with grade 1 diastolic Orthostatic BP per shift (2) Orthostatic hypotension: Code(s): I95.1 - Orthostatic hypotension Status: Acute Assessment and Plan: orthostatic BP ordered Continue to trend BP Adjust BP medications as indicated (3) Zqycj-bk-pnwsnuo kidney injury: Code(s): N17.9 - Acute kidney failure, unspecified; N18.9 - Chronic kidney disease, unspecified Status: Acute Assessment and Plan: BUN/Cr elevated upon admission at 27/2.40 Currently at 26/2.20 Avoid nephrotoxic medications Baseline creatinine 1.4-1.60 Continue to trend labs Probably related to dehydration IV boluses and fluids given in the ed. Consider nephrology if continues to worsen Urine studies ordered Appears pre renal (4) Chronic anemia: Code(s): D64.9 - Anemia, unspecified Status: Acute Assessment and Plan: Current H/H 8.7/26.8 Anemia labs in the am Continue B12, Ferrous sulfate, and folic acid Trend H/H transfuse as indicated (5) Heart failure with reduced ejection fraction: Code(s): I50.20 - Unspecified systolic (congestive) heart failure Status: Acute Assessment and Plan: EF 45-50% per TTE and REINA in March Does not appear to be able to tolerate a BB Trend urine output Daily weights Adjust therapy as indicated (6) Elevated troponin: Code(s): R77.8 - Other specified abnormalities of plasma proteins Status: Acute Assessment and Plan: Trops flat Probably related to hypotension Also could be having a component of acute on chronic combined systolic and diastolic heart failure EKG No changes in comparison Stable at this point (7) Protein calorie malnutrition: Code(s): E46 - Unspecified protein-calorie malnutrition Status: Acute Assessment and Plan: Chronic at this point continue megace Supplementation Insurance Representative consult Time Spent With Patient Time with patient: Greater than 35 minutes Subjective Date/time seen: 11/01/22 0800 Interval history: 11/01/22 0800 patient stated that he is doing okay today. He denies any complaints of chest pain, shortness a breath, nausea, vomiting, diarrhea, constipation. Patient stated that he feels like he is urinating okay. He also states that he feels in between weak and strong. Currently labs are looking better. Creatinine is trending down. talked to the patient about eating any stated that he just not getting the food that he likes. 06/13/22? 17:15 This is a pleasant 76-year-old male with recent stroke, heart failure with reduced ejection fraction, coronary artery disease, hypertension, benign prostatic hyperplasia, peripheral neuropathy of the feet, urinary retention with indwelling Vega catheter, DVT on anticoagulation, and alcohol abuse though he is no longer drinking as he is currently in a [facility] who presented to the ED via EMS from [facility] for evaluation of weakness. He has been at [facility] for a little over a month and according to the patient's brother, he spends a majority of his time in his recliner. He is getting increasingly more weak and staff half to help him to the bathroom with a wheelchair though he is able to stand and pivot. Brother also reports that the patient is essentially eating no food but drinks majority of his calories. For instance he drinks 2 to 3 16 ounce sodas (
--- NOTE | 2022-06-14 08:00 | P.PNIM_ITS ---
Progress Note: A&P Assessment and Plan (1) Near syncope: Code(s): R55 - Syncope and collapse Status: Acute Assessment and Plan: * Reported episode of [facility]ope when [facility] at the [facility] * HX of orthostatic hypotension * BP in the ED was 70 systolically * BUN/Cr elevated * IV fluids given in the ed * Trend urine output * Carotid doppler ordered * REINA Echo from 04/12/22 EF was 50% possible shunt present * TTE showed EF of 45-50% with grade 1 diastolic * Orthostatic BP per shift (2) Orthostatic hypotension: Code(s): I95.1 - Orthostatic hypotension Status: Acute Assessment and Plan: * orthostatic BP ordered * Continue to trend BP * Adjust BP medications as indicated (3) Glqxo-cx-hfceryv kidney injury: Code(s): N17.9 - Acute kidney failure, unspecified; N18.9 - Chronic kidney disease, unspecified Status: Acute Assessment and Plan: * BUN/Cr elevated upon admission at 27/2.40 * Currently at 26/2.20 * Avoid nephrotoxic medications * Baseline creatinine 1.4-1.60 * Continue to trend labs * Probably related to dehydration * IV boluses and fluids given in the ed. * Consider nephrology if continues to worsen * Urine studies ordered * Appears pre renal (4) Chronic anemia: Code(s): D64.9 - Anemia, unspecified Status: Acute Assessment and Plan: * Current H/H 8.7/26.8 * Anemia labs in the am * Continue B12, Ferrous sulfate, and folic acid * Trend H/H * transfuse as indicated (5) Heart failure with reduced ejection fraction: Code(s): I50.20 - Unspecified systolic (congestive) heart failure Status: Acute Assessment and Plan: * EF 45-50% per TTE and REINA in March * Does not appear to be able to tolerate a BB * Trend urine output * Daily weights * Adjust therapy as indicated (6) Elevated troponin: Code(s): R77.8 - Other specified abnormalities of plasma proteins Status: Acute Assessment and Plan: * Trops flat * Probably related to hypotension * Also could be having a component of acute on chronic combined systolic and diastolic heart failure * EKG No changes in comparison * Stable at this point (7) Protein calorie malnutrition: Code(s): E46 - Unspecified protein-calorie malnutrition Status: Acute Assessment and Plan: * Chronic at this point * continue megace * Supplementation * Union Organizer consult Time Spent With Patient Time with patient: Greater than 35 minutes Subjective Date/time seen: 06/14/22799 Interval history: 06/14/22799 patient stated that he is doing okay today. He denies any complaints of chest pain, shortness a breath, nausea, vomiting, diarrhea, constipation. Patient stated that he feels like he is urinating okay. He also states that he feels in between weak and strong. Currently labs are looking better. Creatinine is trending down. talked to the patient about eating any stated that he just not getting the food that he likes. 06/13/22? 17:15 This is a pleasant 76-year-old male with recent stroke, heart failure with reduced ejection fraction, coronary artery disease, hypertension, benign prostatic hyperplasia, peripheral neuropathy of the feet, urinary retention with indwell
[2022-06-14 08:20] LABS: NT Pro B Type Natriuretic Pept 9180 pg/mL (5-100)
[2022-06-14] MEDS: MULTIVIT W/ IRON, MINERALS 15 ML LIQUID (*BKC) PO (09:01)
[2022-06-14] MEDS: ASPIRIN 81 MG ENTERIC TABLET PO (09:01)
[2022-06-14] MEDS: CHOLECALCIFEROL 1,000 UNITS TABLET 1000 UNITS PO (09:01)
[2022-06-14] MEDS: CYANOCOBALAMIN 1,000 MCG TABLET 1000 MCG PO (09:02)
[2022-06-14] MEDS: MAGNESIUM OXIDE 400 MG TABLET PO (09:02)
[2022-06-14] MEDS: MIDODRINE HCL 2.5 MG TABLET PO ×3 (09:02→16:29)
[2022-06-14] MEDS: FERROUS SULFATE 324 MG TABLET PO ×2 (09:02→16:29)
[2022-06-14] MEDS: FOLIC ACID 1 MG TABLET PO (09:02)
--- NOTE | 2022-06-14 13:57 | PCNSR ---
On 06/14/22, the student, David Franklin, provided care and [facility] on [facility] patient. I have reviewed the student's documentation and agree with the findings.
[2022-06-14 14:50] LABS: Appearance Urine Clear (Clear); Bilirubin Urine 1+ (Negative); Blood Urine 3+ (Negative); Color Urine Yellow (Yellow); Glucose Urine UA Negative (Negative); Ketones Urine Trace mg/dL (Negative); Leukocyte Esterase Ur 1+ LEU/UL (Negative); Nitrate Urine Positive (Negative); Protein Urine 2+ mg/dL (Negative); Specific Grav Ur 1.015 (1.001-1.035); Urobilinogen Urine 0.2 mg/dL (<2.0)
[2022-06-14 14:57] LABS: Creatinine Urine 171.4 mg/dL; Urea Random Urine 613 MG/DL
[2022-06-14 14:59] LABS: Bacteria Urine Trace /hpf; Mucus Urine Rare /lpf; RBC Urine 51-75 /hpf (0-2); Sodium Urine Random 6 meq/L; WBC Urine >75 /hpf
[2022-06-14 15:15] LABS: Add Urine Microscopic? YES
--- NOTE | 2022-06-14 15:29 | PCSTNOTE ---
Bedside swallowing evaluation completed. Patient showed no signs or symptoms of aspiration with water through straw or applesauce by spoon. Patient refused other solid (cracker) and refused more than one bite of applesauce. Patient states he takes medications orally with water but that makes his appetite worse. Recommendations: minced moist diet, thin liquids, eat preferred foods, consider dietary supplements with advice from physician, take medications with applesauce or yogurt, eat small amounts frequently. Thank you for the referral of this patient.
[2022-06-15] VITALS (11 sets, daily range): BP systolic 72–121; BP diastolic 50–76; PULSE 76–100; RESP 16; TEMP 36.6–37; O2SAT 94–100
[2022-06-15 06:09] LABS: Transferrin < 80 mg/dL (206-381)
[2022-06-15 06:10] LABS: Iron 63 ug/dL (49-181)
[2022-06-15 06:20] LABS: Percent Iron Saturation 66 % (20-50)
[2022-06-15 07:35] LABS: Folic Acid > 20.0 ng/mL (2.76->20); Vitamin B12 > 1000.0 pg/mL (239-931)
[2022-06-15 07:52] LABS: Basophils Percent Auto 0.5 % (0.2-1.2); Eosinophils Absolute Auto 0.1 K/mm3 (0-0.3); Eosinophils Percent Auto 1.2 % (0-4.4); Hematocrit 26.3 % (42.0-52.0); Hemoglobin 8.5 g/dL (14.0-18.0); Immature Granulocyte Absolute 0.02 K/mm3 (0.00-0.031); Immature Granulocyte Percent A 0.3 % (0-0.5); Lymphocytes Absolute Auto 1.25 K/mm3 (0.9-3.2); Lymphocytes Percent Auto 21.6 % (18.3-44.2); Mean Corpuscular HGB Conc 32.3 g/dl (32-36); Mean Corpuscular Hemoglobin 31.4 pg (26-34); Mean Platelet Volume 10.7 fl (7.4-10.4); Monocytes Absolute Auto 0.5 K/mm3 (0.1-0.6); Monocytes Percent Auto 8.3 % (2.6-8.5); Neutrophils Absolute Auto 3.9 K/mm3 (1.3-6.7); Neutrophils Percent Auto 68.1 % (45.5-73.1); Platelet Count Result 212 k/mm3 (150-375); Red Blood Count 2.71 M/mm3 (4.6-6.20); Red Cell Distribution Width 17.2 % (11.5-14.5); White Blood Count 5.8 K/mm3 (4.5-10.0)
[2022-06-15 07:55] LABS: Alanine Aminotransferase 17 U/L (6-50); Albumin Level 1.9 g/dL (3.5-5.1); Alkaline Phosphatase 84 U/L (38-126); Anion Gap 9 mmol/L (8-16); Aspartate Amino Transferase 39 U/L (17-59); Bilirubin,Total 0.9 mg/dL (0.2-1.3); Blood Urea Nitrogen 26 mg/dL (9-20); Calcium 7.6 mg/dL (8.4-10.2); Carbon Dioxide 24 mmol/L (22-30); Chloride 106 mmol/L (98-107); Estimated CRCL calculation 26 ml/min; Estimated Glomerular Filt Rate 29; Glucose 81 mg/dL (65-110); Potassium 3.8 mmol/L (3.4-5.0); Sodium 139 mmol/L (137-145)
--- NOTE | 2022-06-15 08:00 | P.PNIM_ITS ---
Progress Note: A&P Assessment and Plan (1) Near syncope: Code(s): R55 - Syncope and collapse Status: Acute Assessment and Plan: * [facility] * HX of orthostatic hypotension * BP in the ED was 70 systolically * BUN/Cr elevated * IV fluids stopped * Trend urine output * Carotid doppler ordered * REINA Echo from 04/12/22 EF was 50% possible shunt present * TTE showed EF of 45-50% with grade 1 diastolic * Orthostatic BP per shift (2) Orthostatic hypotension: Code(s): I95.1 - Orthostatic hypotension Status: Acute Assessment and Plan: * orthostatic BP lying 116/71, sitting 98/63 * Increase midodrine to 5mg PO TID * Continue to trend BP * Adjust BP medications as indicated (3) Nsprn-xb-ubkozkl kidney injury: Code(s): N17.9 - Acute kidney failure, unspecified; N18.9 - Chronic kidney disease, unspecified Status: Acute Assessment and Plan: * BUN/Cr elevated upon admission at 27/2.40 * Currently at 26/2.20 * Avoid nephrotoxic medications * Baseline creatinine 1.4-1.60 * Continue to trend labs * Probably related to dehydration, possible UTI * UA does appear to be infectious * IV boluses and fluids given in the ed. * IV fluids stopped for now * Consider nephrology if continues to worsen * Urine studies ordered * Appears pre renal (4) Chronic anemia: Code(s): D64.9 - Anemia, unspecified Status: Acute Assessment and Plan: * Current H/H 8.5/26.3 * Anemia labs iron 63, TIBC 95, % sat 66, Transferrin <80 * Continue B12, Ferrous sulfate, and folic acid * Trend H/H * transfuse as indicated (5) Heart failure with reduced ejection fraction: Code(s): I50.20 - Unspecified systolic (congestive) heart failure Status: Acute Assessment and Plan: * EF 45-50% per TTE and REINA in March * Does not appear to be able to tolerate a BB with hypotension * BNP elevated at 9180 * Give one dose of lasix 40mg IV * 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 not in acute exacerbation * Trend urine output * Daily weights * Adjust therapy as indicated (6) Elevated troponin: Code(s): R77.8 - Other specified abnormalities of plasma proteins Status: Acute Assessment and Plan: * Trops flat * Probably related to hypotension, CHF * Also could be having a component of chronic combined systolic and diastolic heart failure * EKG No changes in comparison * Stable at this point (7) Protein calorie malnutrition: Code(s): E46 - Unspecified protein-calorie malnutrition Status: Acute Assessment and Plan: * Chronic at this point * continue megace * Supplementation * Revenue Analyst consult (8) Abnormal finding on urinalysis: Code(s): R82.90 - Unspecified abnormal findings in urine Status: Acute Assessment and Plan: * UA appears infectious with positive nitrates, >75 WBC, Trace bacteria * Could be accounting for the weakness and syncope * Start ceftriaxone * Await culture * Adjust to sensitivities Time Spent With Patient Time with patient: Greater than 35 minutes Subjective Date/time seen: 06/15/22 0800 Interval histor
--- NOTE | 2022-06-15 08:00 | PM.IMPN ---
Progress Note: A&P Assessment and Plan (1) Near syncope: Code(s): R55 - Syncope and collapse Status: Acute Assessment and Plan: Reported episode of [facility]ope when [facility] the [facility] HX of orthostatic hypotension BP in the ED was 70 systolically BUN/Cr elevated IV fluids stopped Trend urine output Carotid doppler ordered REINA Echo from 04/12/22 EF was 50% possible shunt present TTE showed EF of 45-50% with grade 1 diastolic Orthostatic BP per shift (2) Orthostatic hypotension: Code(s): I95.1 - Orthostatic hypotension Status: Acute Assessment and Plan: orthostatic BP lying 116/71, sitting 98/63 Increase midodrine to 5mg PO TID Continue to trend BP Adjust BP medications as indicated (3) Xdyng-kn-vobamfk kidney injury: Code(s): N17.9 - Acute kidney failure, unspecified; N18.9 - Chronic kidney disease, unspecified Status: Acute Assessment and Plan: BUN/Cr elevated upon admission at 27/2.40 Currently at 26/2.20 Avoid nephrotoxic medications Baseline creatinine 1.4-1.60 Continue to trend labs Probably related to dehydration, possible UTI UA does appear to be infectious IV boluses and fluids given in the ed. IV fluids stopped for now Consider nephrology if continues to worsen Urine studies ordered Appears pre renal (4) Chronic anemia: Code(s): D64.9 - Anemia, unspecified Status: Acute Assessment and Plan: Current H/H 8.5/26.3 Anemia labs iron 63, TIBC 95, % sat 66, Transferrin <80 Continue B12, Ferrous sulfate, and folic acid Trend H/H transfuse as indicated (5) Heart failure with reduced ejection fraction: Code(s): I50.20 - Unspecified systolic (congestive) heart failure Status: Acute Assessment and Plan: EF 45-50% per TTE and REINA in March Does not appear to be able to tolerate a BB with hypotension BNP elevated at 9180 Give one dose of lasix 40mg IV 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 not in acute exacerbation Trend urine output Daily weights Adjust therapy as indicated (6) Elevated troponin: Code(s): R77.8 - Other specified abnormalities of plasma proteins Status: Acute Assessment and Plan: Trops flat Probably related to hypotension, CHF Also could be having a component of chronic combined systolic and diastolic heart failure EKG No changes in comparison Stable at this point (7) Protein calorie malnutrition: Code(s): E46 - Unspecified protein-calorie malnutrition Status: Acute Assessment and Plan: Chronic at this point continue megace Supplementation Analog Device Designer consult (8) Abnormal finding on urinalysis: Code(s): R82.90 - Unspecified abnormal findings in urine Status: Acute Assessment and Plan: UA appears infectious with positive nitrates, >75 WBC, Trace bacteria Could be accounting for the weakness and syncope Start ceftriaxone Await culture Adjust to sensitivities Time Spent With Patient Time with patient: Greater than 35 minutes Subjective Date/time seen: 06/15/22799 Interval history: 06/15/22799 Patient is doing ok today. He denies any complaints. He still has no appetite. He denies any other complaints including chest pain, shortness a breath, nausea, vomiting, diarrhea constipation, weakness or fatigue. Patient is doing okay. UA did come back looking to have infection. 06/14/22799 patient stated that he is doing okay today. He denies any complaints of chest pain, shortness a breath, nausea, vomiting, diarrhea, constipation. Patient stated that he feels like he is urinating okay. He also states that he feels in between weak and strong. Currently labs are looking better. Creatinine is trending down. talked to the patient abou
[2022-06-15] MEDS: FOLIC ACID 1 MG TABLET PO (08:04)
[2022-06-15] MEDS: MULTIVIT W/ IRON, MINERALS 15 ML LIQUID (*BKC) PO (08:04)
[2022-06-15] MEDS: LEVOTHYROXINE SODIUM 25 MCG TABLET PO (08:04)
[2022-06-15] MEDS: ASPIRIN 81 MG ENTERIC TABLET PO (08:04)
[2022-06-15] MEDS: CYANOCOBALAMIN 1,000 MCG TABLET 1000 MCG PO (08:04)
[2022-06-15] MEDS: FERROUS SULFATE 324 MG TABLET PO ×2 (08:05→17:24)
[2022-06-15] MEDS: CHOLECALCIFEROL 1,000 UNITS TABLET 1000 UNITS PO (08:05)
[2022-06-15] MEDS: MAGNESIUM OXIDE 400 MG TABLET PO (08:05)
[2022-06-15] MEDS: APIXABAN 5 MG TABLET PO ×2 (08:05→22:20)
[2022-06-15] MEDS: MIDODRINE HCL 2.5 MG TABLET 5 MG PO ×3 (08:05→17:23)
[2022-06-15] MEDS: BISACODYL 10 MG SUPPOSITORY RECTAL (11:51)
--- NOTE | 2022-06-15 12:53 | PC.NURSE ---
On 06/15/22, the student, [Jett Glass], provided care and completed [facility] documentation on this patient. I have reviewed the student's documentation and agree with the findings.
[2022-06-15] MEDS: FUROSEMIDE INJ 40 MG/4 ML VIAL IV PUSH (13:37)
[2022-06-16] VITALS (8 sets, daily range): BP systolic 94–121; BP diastolic 58–71; PULSE 98–104; RESP 16; TEMP 36.6–36.7; O2SAT 94–98
[2022-06-16] MEDS: LEVOTHYROXINE SODIUM 25 MCG TABLET PO (05:44)
[2022-06-16 06:02] LABS: Basophils Percent Auto 0.5 % (0.2-1.2); Eosinophils Percent Auto 0.5 % (0-4.4); Hematocrit 25.8 % (42.0-52.0); Hemoglobin 8.5 g/dL (14.0-18.0); Immature Granulocyte Absolute 0.02 K/mm3 (0.00-0.031); Immature Granulocyte Percent A 0.3 % (0-0.5); Lymphocytes Absolute Auto 0.64 K/mm3 (0.9-3.2); Lymphocytes Percent Auto 10.6 % (18.3-44.2); Mean Corpuscular HGB Conc 32.9 g/dl (32-36); Mean Corpuscular Hemoglobin 31.7 pg (26-34); Mean Corpuscular Volume 96.3 fl (80-100); Mean Platelet Volume 10.6 fl (7.4-10.4); Monocytes Absolute Auto 0.5 K/mm3 (0.1-0.6); Monocytes Percent Auto 8.7 % (2.6-8.5); Neutrophils Absolute Auto 4.8 K/mm3 (1.3-6.7); Neutrophils Percent Auto 79.4 % (45.5-73.1); Platelet Count Result 213 k/mm3 (150-375); Red Blood Count 2.68 M/mm3 (4.6-6.20); Red Cell Distribution Width 17.6 % (11.5-14.5)
[2022-06-16 06:10] LABS: Alanine Aminotransferase 19 U/L (6-50); Alkaline Phosphatase 89 U/L (38-126); Anion Gap 8 mmol/L (8-16); Aspartate Amino Transferase 42 U/L (17-59); Bilirubin,Total 0.9 mg/dL (0.2-1.3); Blood Urea Nitrogen 27 mg/dL (9-20); Calcium 7.6 mg/dL (8.4-10.2); Carbon Dioxide 23 mmol/L (22-30); Chloride 107 mmol/L (98-107); Estimated CRCL calculation 26 ml/min; Estimated Glomerular Filt Rate 29; Glucose 90 mg/dL (65-110); Magnesium 2.5 mg/dL (1.6-2.3); Potassium 3.9 mmol/L (3.4-5.0); Sodium 138 mmol/L (137-145)
--- NOTE | 2022-06-16 07:10 | P.DS_ITS ---
DS: Admitting Diagnosis Discharge Date 06/16/22 Admitting Diagnosis syncope and collapse, UTI DS: Discharge Diagnosis Discharge Diagnosis (1) Near syncope: Code(s): R55 - Syncope and collapse Status: Acute Assessment and Plan: * Reported episode of syncope when transferring at the longterm * HX of orthostatic hypotension * BP in the ED was 70 systolically * BUN/Cr elevated * IV fluids stopped * Trend urine output * Carotid doppler total occlusion of the left carotid artery, <50% of the right * REINA Echo from 04/12/22 EF was 50% possible shunt present * TTE showed EF of 45-50% with grade 1 diastolic * Orthostatic BP indicate severe hypotension with standing * Increase midodrine to 10mg PO TID (2) Orthostatic hypotension: Code(s): I95.1 - Orthostatic hypotension Status: Acute Assessment and Plan: * orthostatic BP lying 108/58, sitting 95/63, standing 72/50 * Increase midodrine to 10mg PO TID * Continue to trend BP * Adjust BP medications as indicated * Henrik dudley (3) [id number] kidney injury: Code(s): N17.9 - Acute kidney failure, unspecified; N18.9 - Chronic kidney disease, unspecified Status: Acute Assessment and Plan: * BUN/Cr elevated upon admission at 27/2.40 * Currently at 27/2.20 * Avoid nephrotoxic medications * Baseline creatinine 1.4-1.60 * Continue to trend labs * Probably related to dehydration, possible UTI * UA does appear to be infectious, urine culture shows contamination * IV boluses and fluids given in the ed. * IV fluids stopped for now * Consider nephrology if continues to worsen * Urine studies ordered * Appears pre renal, possibly related to CHF * Repeat lasix x 1 (4) Chronic anemia: Code(s): D64.9 - Anemia, unspecified Status: Acute Assessment and Plan: * Current H/H 8.5/26.3 * Anemia labs iron 63, TIBC 95, % sat 66, Transferrin <80 * Continue B12, Ferrous sulfate, and folic acid * Trend H/H * transfuse as indicated (5) Heart failure with reduced ejection fraction: Code(s): I50.20 - Unspecified systolic (congestive) heart failure Status: Acute Assessment and Plan: * EF 45-50% per TTE and REINA in March * Does not appear to be able to tolerate a BB with hypotension * BNP elevated at 9180 * repeat lasix 40mg IV * 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 not in acute exacerbation * Trend urine output * Daily weights * Adjust therapy as indicated (6) Elevated troponin: Code(s): R77.8 - Other specified abnormalities of plasma proteins Status: Acute Assessment and Plan: * Trops flat * Probably related to hypotension, CHF * Also could be having a component of chronic combined systolic and diastolic heart failure * EKG No changes in comparison * Stable at this point (7) Protein calorie malnutrition: Code(s): E46 - Unspecified protein-calorie malnutrition Status: Acute Assessment and Plan: * Chronic at this point * continue megace * Supplementation * [place] Tower Loader consult (8) Abnormal finding on urinalysis: Code(s): R82.90 - Unspecified abnormal findings in urine Status: Acute Assessment and Plan: * UA appears infectious with positive n
--- NOTE | 2022-06-16 07:10 | PM.DS ---
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, <50% of the right REINA Echo from 04/12/22 EF was 50% possible shunt present TTE showed EF of 45-50% with grade 1 diastolic Orthostatic BP indicate severe hypotension with standing Increase midodrine to 10mg PO TID (2) Orthostatic hypotension: Code(s): I95.1 - Orthostatic hypotension Status: Acute Assessment and Plan: orthostatic BP lying 108/58, sitting 95/63, standing 72/50 Increase midodrine to 10mg PO TID Continue to trend BP Adjust BP medications as indicated Henrik dudley (3) [place]outa-xe-twrpmag kidney injury: Code(s): N17.9 - Acute kidney failure, unspecified; N18.9 - Chronic kidney disease, unspecified Status: Acute Assessment and Plan: BUN/Cr elevated upon admission at 27/2.40 Currently at 27/2.20 Avoid nephrotoxic medications Baseline creatinine 1.4-1.60 Continue to trend labs Probably related to dehydration, possible UTI UA does appear to be infectious, urine culture shows contamination IV boluses and fluids given in the ed. IV fluids stopped for now Consider nephrology if continues to worsen Urine studies ordered Appears pre renal, possibly related to CHF Repeat lasix x 1 (4) Chronic anemia: Code(s): D64.9 - Anemia, unspecified Status: Acute Assessment and Plan: Current H/H 8.5/26.3 Anemia labs iron 63, TIBC 95, % sat 66, Transferrin <80 Continue B12, Ferrous sulfate, and folic acid Trend H/H transfuse as indicated (5) Heart failure with reduced ejection fraction: Code(s): I50.20 - Unspecified systolic (congestive) heart failure Status: Acute Assessment and Plan: EF 45-50% per TTE and REINA in March Does not appear to be able to tolerate a BB with hypotension BNP elevated at 9180 repeat lasix 40mg IV 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 not in acute exacerbation Trend urine output Daily weights Adjust therapy as indicated (6) Elevated troponin: Code(s): R77.8 - Other specified abnormalities of plasma proteins Status: Acute Assessment and Plan: Trops flat Probably related to hypotension, CHF Also could be having a component of chronic combined systolic and diastolic heart failure EKG No changes in comparison Stable at this point (7) Protein calorie malnutrition: Code(s): E46 - Unspecified protein-calorie malnutrition Status: Acute Assessment and Plan: Chronic at this point continue megace Supplementation Precision Optics Technician consult (8) Abnormal finding on urinalysis: Code(s): R82.90 - Unspecified abnormal findings in urine Status: Acute Assessment and Plan: UA appears infectious with positive nitrates, >75 WBC, Trace bacteria Could be accounting for the weakness and syncope Start ceftriaxone culture appears contaminated Adjust to sensitivities DS: Summary Hospital Course Hospital Course: Patient 76-year-old male with a past history of CVA, heart failure CAD, hypertension, BPH, neuropathy who presented to the ED with complaints weakness. It was reported the patient did have a syncopal episode while transferring at the [facility]. Orthostatic blood pressures have been obtained and did show orthostatic hypotension. Carotid Dopplers also showed a total left occlusion of the carotid Doppler artery. Patient w
--- NOTE | 2022-06-16 09:00 | PM.IMPN ---
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, <50% of the right REINA Echo from 04/12/22 EF was 50% possible shunt present TTE showed EF of 45-50% with grade 1 diastolic Orthostatic BP indicate severe hypotension with standing Increase midodrine to 10mg PO TID (2) Orthostatic hypotension: Code(s): I95.1 - Orthostatic hypotension Status: Acute Assessment and Plan: orthostatic BP lying 108/58, sitting 95/63, standing 72/50 Increase midodrine to 10mg PO TID Continue to trend BP Adjust BP medications as indicated Henrik dudley (3) Ojvca-[id number] kidney injury: Code(s): N17.9 - Acute kidney failure, unspecified; N18.9 - Chronic kidney disease, unspecified Status: Acute Assessment and Plan: BUN/Cr elevated upon admission at 27/2.40 Currently at 27/2.20 Avoid nephrotoxic medications Baseline creatinine 1.4-1.60 Continue to trend labs Probably related to dehydration, possible UTI UA does appear to be infectious, urine culture shows contamination IV boluses and fluids given in the ed. IV fluids stopped for now Consider nephrology if continues to worsen Urine studies ordered Appears pre renal, possibly related to CHF Repeat lasix x 1 (4) Chronic anemia: Code(s): D64.9 - Anemia, unspecified Status: Acute Assessment and Plan: Current H/H 8.5/26.3 Anemia labs iron 63, TIBC 95, % sat 66, Transferrin <80 Continue B12, Ferrous sulfate, and folic acid Trend H/H transfuse as indicated (5) Heart failure with reduced ejection fraction: Code(s): I50.20 - Unspecified systolic (congestive) heart failure Status: Acute Assessment and Plan: EF 45-50% per TTE and REINA in March Does not appear to be able to tolerate a BB with hypotension BNP elevated at 9180 repeat lasix 40mg IV 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 not in acute exacerbation Trend urine output Daily weights Adjust therapy as indicated (6) Elevated troponin: Code(s): R77.8 - Other specified abnormalities of plasma proteins Status: Acute Assessment and Plan: Trops flat Probably related to hypotension, CHF Also could be having a component of chronic combined systolic and diastolic heart failure EKG No changes in comparison Stable at this point (7) Protein calorie malnutrition: Code(s): E46 - Unspecified protein-calorie malnutrition Status: Acute Assessment and Plan: Chronic at this point continue megace Supplementation Drier Operator consult (8) Abnormal finding on urinalysis: Code(s): R82.90 - Unspecified abnormal findings in urine Status: Acute Assessment and Plan: UA appears infectious with positive nitrates, >75 WBC, Trace bacteria Could be accounting for the weakness and syncope Start ceftriaxone culture appears contaminated Adjust to sensitivities Plan Patient at a lower level of mobility then before. He will need rehab Time Spent With Patient Time with patient: Greater than 35 minutes Subjective Date/time seen: 06/16/22899 Interval history: 06/16/22899 Patient states that he is feeling okay today. He denies any chest pain, shortness a breath, nausea, vomiting, diarrhea, constipation. Patient did state that he feeling weak and just tired. He also stated that he had a BM yesterday. 06/15/22799 Patient is doing ok today. He denies any complaints. He still has no appetite. He denies any o
--- NOTE | 2022-06-16 09:00 | P.PNIM_ITS ---
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, <50% of the right * REINA Echo from 04/12/22 EF was 50% possible shunt present * TTE showed EF of 45-50% with grade 1 diastolic * Orthostatic BP indicate severe hypotension with standing * Increase midodrine to 10mg PO TID (2) Orthostatic hypotension: Code(s): I95.1 - Orthostatic hypotension Status: Acute Assessment and Plan: * orthostatic BP lying 108/58, sitting 95/63, standing 72/50 * Increase midodrine to 10mg PO TID * Continue to trend BP * Adjust BP medications as indicated * Henrik dudley (3) Fhvao-ez-kupivir kidney injury: Code(s): N17.9 - Acute kidney failure, unspecified; N18.9 - Chronic kidney disease, unspecified Status: Acute Assessment and Plan: * BUN/Cr elevated upon admission at 27/2.40 * Currently at 27/2.20 * Avoid nephrotoxic medications * Baseline creatinine 1.4-1.60 * Continue to trend labs * Probably related to dehydration, possible UTI * UA does appear to be infectious, urine culture shows contamination * IV boluses and fluids given in the ed. * IV fluids stopped for now * Consider nephrology if continues to worsen * Urine studies ordered * Appears pre renal, possibly related to CHF * Repeat lasix x 1 (4) Chronic anemia: Code(s): D64.9 - Anemia, unspecified Status: Acute Assessment and Plan: * Current H/H 8.5/26.3 * Anemia labs iron 63, TIBC 95, % sat 66, Transferrin <80 * Continue B12, Ferrous sulfate, and folic acid * Trend H/H * transfuse as indicated (5) Heart failure with reduced ejection fraction: Code(s): I50.20 - Unspecified systolic (congestive) heart failure Status: Acute Assessment and Plan: * EF 45-50% per TTE and REINA in March * Does not appear to be able to tolerate a BB with hypotension * BNP elevated at 9180 * repeat lasix 40mg IV * 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 not in acute exacerbation * Trend urine output * Daily weights * Adjust therapy as indicated (6) Elevated troponin: Code(s): R77.8 - Other specified abnormalities of plasma proteins Status: Acute Assessment and Plan: * Trops flat * Probably related to hypotension, CHF * Also could be having a component of chronic combined systolic and diastolic heart failure * EKG No changes in comparison * Stable at this point (7) Protein calorie malnutrition: Code(s): E46 - Unspecified protein-calorie malnutrition Status: Acute Assessment and Plan: * Chronic at this point * continue megace * Supplementation * Doll Wig Maker Rooted Hair consult (8) Abnormal finding on urinalysis: Code(s): R82.90 - Unspecified abnormal findings in urine Status: Acute Assessment and Plan: * UA appears infectious with positive nitrates, >75 WBC, Trace bacteria * Could be accounting for the weakness and syncope * Start ceftriaxone * culture
[2022-06-16] MEDS: FUROSEMIDE INJ 40 MG/4 ML VIAL IV PUSH (09:38)
[2022-06-16] MEDS: CYANOCOBALAMIN 1,000 MCG TABLET 1000 MCG PO (09:38)
[2022-06-16] MEDS: MIDODRINE HCL 10 MG TABLET PO ×2 (09:38→14:13)
[2022-06-16] MEDS: MAGNESIUM OXIDE 400 MG TABLET PO (09:38)
[2022-06-16] MEDS: FOLIC ACID 1 MG TABLET PO (09:38)
[2022-06-16] MEDS: MULTIVIT W/ IRON, MINERALS 15 ML LIQUID (*BKC) PO (09:38)
[2022-06-16] MEDS: APIXABAN 5 MG TABLET PO (09:38)
[2022-06-16] MEDS: ATORVASTATIN 40 MG TABLET PO (09:38)
[2022-06-16] MEDS: ASPIRIN 81 MG ENTERIC TABLET PO (09:38)
[2022-06-16] MEDS: CHOLECALCIFEROL 1,000 UNITS TABLET 1000 UNITS PO (09:38)
[2022-06-16] MEDS: FERROUS SULFATE 324 MG TABLET PO (09:38)
--- NOTE | 2022-06-16 10:13 | PCOTNOTE ---
Attempted to see pt for occupational therapy evaluation. Pt. unable to be seen at this time due to low BP, hospitalist aware. Following
[2022-06-16 16:04] LABS: EDCOVIDSCREEN Negative (Negative)
[2022-06-17 05:27] LABS: Osmolality, Urine 385 mOsm/kg (50-1200)
== END 2022-06-16 17:13 ==
LOC: ANHED 15:04 → ANH2MED 17:37
PROVIDERS: Nurse Practitioner; Physician Assistant; Admitting Provider Family Medicine; Emergency Provider Emergency Medicine; Visit Provider Hospitalist
DX: R55 Syncope and collapse (principal); D64.9 Anemia, unspecified; I50.20 Unspecified systolic (congestive) heart failure; I13.0 Hypertensive heart and chronic kidney disease with heart failure and stage 1 through stage 4 chronic kidney disease, or unspecified chronic kidney disease; N18.9 Chronic kidney disease, unspecified; R77.8 Other specified abnormalities of plasma proteins; R82.90 Unspecified abnormal findings in urine; E46 Unspecified protein-calorie malnutrition; Z68.25 Body mass index [BMI] 25.0-25.9, adult; F10.10 Alcohol abuse, uncomplicated; Z20.822 Contact with and (suspected) exposure to COVID-19; N40.0 Benign prostatic hyperplasia without lower urinary tract symptoms; R33.9 Retention of urine, unspecified; Z96.0 Presence of urogenital implants; I25.10 Atherosclerotic heart disease of native coronary artery without angina pectoris; E86.0 Dehydration; R94.31 Abnormal electrocardiogram [ECG] [EKG]; I11.0 Hypertensive heart disease with heart failure; G62.9 Polyneuropathy, unspecified; I65.23 Occlusion and stenosis of bilateral carotid arteries; Z86.73 Personal history of transient ischemic attack (TIA), and cerebral infarction without residual deficits; Z86.718 Personal history of other venous thrombosis and embolism; Z79.01 Long term (current) use of anticoagulants; Z79.82 Long term (current) use of aspirin; Z79.899 Other long term (current) drug therapy
CPT/HCPCS: 36415; 51702; 80053; 81001; 82570; 82607; 82728; 82746; 83540; 83550; 83735; 83880; 83935; 84100; 84300; 84443; 84466; 84484; 84540; 85025; 85027; 85610; 85730; 87086; 87088; 87426; 92610; 93005; 93880; 96360; 96361; 96365; 96374; 96375; 97161; 97166; 99285; A9270; C9803; G0378; J0696; J1940; J7030

== ENCOUNTER 2022-06-17 14:03 | Emergency (ER) | payer MEDICARE, SELFPAY ==
[2022-06-17] VITALS (31 sets, daily range): BP systolic 82–132; BP diastolic 57–78; PULSE 85–103; RESP 13–20; TEMP 37.6; O2SAT 94–99
--- NOTE | ~2022-06-17 | XR_ITS ---
EXAMINATION: XR chest 2V DATE: 06/17/2022 17:29 INDICATION: Cough TECHNIQUE: AP and lateral views of the chest were obtained. COMPARISON: Chest radiograph dated 04/08/2022 FINDINGS: Airspace at the bilateral posterior lower lung zones consistent with small bilateral pleural effusion s with associated atelectasis and/or pneumonia. No evident pulmonary edema in the aerated portions of the lungs. No pneumothorax. Calcified right hilar lymph nodes consistent with old granulomatous dise ase. Heart size is normal. Moderate thoracic spondylosis. IMPRESSION: 1. Small bilateral pleural effusions with associated posterior basilar atelectasis and/or pneumonia. Reviewed, dictated and finalized at location B. IMPRESSION: 1. Small bilateral pleural effusions with associated posterior basilar atelecta sis and/or pneumonia.
--- NOTE | 2022-06-17 14:38 | ECG_ITS ---
Measurements Intervals [place] Rate: 106 P: 45 DE: 156 QRS: -25 QRSD: 97 T: 91 QT: 365 QTc: 487 Interpretive Statements SINUS TACHYCARDIA ATRIAL COUPLET AND ATRIAL PREMATURE COMPLEXES LOW QRS VOLTAGE IN LIMB LEADS ANTEROSEPTAL INFARCT, AGE INDETERMINATE CONSIDER INFERIOR INFARCT, AGE INDETERMINATE BORDERLINE ST-T WAVE ABNORMALITY- ANTEROLAT/HIGH LAT LEADS BASELINE ARTIFACT- I, II ABNORMAL ECG COMPARED TO ECG 06/13/2022 13:45:28 SINUS TACHYCARDIA NOW PRESENT Electronically Signed On 06-17-2022 15:36:19 CDT by Sukhi Hanson D.O.
[2022-06-17 14:52] LABS: Basophils Percent Auto 0.4 % (0.2-1.2); Eosinophils Percent Auto 0.2 % (0-4.4); Hematocrit 29.6 % (42.0-52.0); Hemoglobin 9.7 g/dL (14.0-18.0); Immature Granulocyte Absolute 0.02 K/mm3 (0.00-0.031); Immature Granulocyte Percent A 0.4 % (0-0.5); Lymphocytes Percent Auto 12.6 % (18.3-44.2); Mean Corpuscular HGB Conc 32.8 g/dl (32-36); Mean Corpuscular Hemoglobin 31.5 pg (26-34); Mean Corpuscular Volume 96.1 fl (80-100); Mean Platelet Volume 10.6 fl (7.4-10.4); Monocytes Absolute Auto 0.6 K/mm3 (0.1-0.6); Monocytes Percent Auto 10.1 % (2.6-8.5); Neutrophils Absolute Auto 4.3 K/mm3 (1.3-6.7); Neutrophils Percent Auto 76.3 % (45.5-73.1); Platelet Count Result 211 k/mm3 (150-375); Red Blood Count 3.08 M/mm3 (4.6-6.20); White Blood Count 5.6 K/mm3 (4.5-10.0)
[2022-06-17 15:04] LABS: Alanine Aminotransferase 21 U/L (6-50); Albumin Level 2.2 g/dL (3.5-5.1); Alkaline Phosphatase 92 U/L (38-126); Anion Gap 10 mmol/L (8-16); Aspartate Amino Transferase 56 U/L (17-59); Bilirubin,Total 0.9 mg/dL (0.2-1.3); Blood Urea Nitrogen 30 mg/dL (9-20); Calcium 7.6 mg/dL (8.4-10.2); Carbon Dioxide 22 mmol/L (22-30); Chloride 103 mmol/L (98-107); Estimated CRCL calculation 27 ml/min; Estimated Glomerular Filt Rate 29; Glucose 97 mg/dL (65-110); Potassium 3.5 mmol/L (3.4-5.0); Sodium 135 mmol/L (137-145)
--- NOTE | 2022-06-17 18:13 | ED.WEAKNESS ---
HPI - Weakness General Chief complaint: Weakness Stated complaint: COVID+, weakness and dizziness when standing Time Seen by Provider: 06/17/22 15:18 History of Present Illness HPI Narrative: This is a 76-year-old male with past medical history of orthostatic hypotension on midodrine, recently seen for syncope. ADILSON was found with orthostatic hypotension. The patient was discharged with midodrine and careful hydration. He was reportedly also diagnosed with COVID. Patient is not sure why he is here. He has no current complaints. Patient was sent from his long-term for cough and tachycardia. Related Data Home Medications Medication Instructions Recorded Confirmed bisacodyl 10 mg rectal suppository 10 mg RECTAL DAILY PRN Constipation 06/13/22 06/13/22 cholecalciferol (vitamin D3) 25 25 mcg PO DAILY 06/13/22 06/13/22 mcg (1,000 unit) tablet levothyroxine 25 mcg tablet 25 mcg PO DAILY 06/13/22 06/13/22 magnesium citrate (Citroma oral 296 ml PO DAILY PRN Constipation 06/13/22 06/13/22 solution) magnesium hydroxide 400 mg/5 mL 30 ml PO DAILY PRN Constipation 06/13/22 06/13/22 oral suspension (Milk of Magnesia) magnesium oxide 400 mg PO DAILY 06/13/22 06/13/22 sodium phosphates 19 gram-7 118 ml RECTAL DAILY PRN 06/13/22 06/13/22 gram/118 mL enema (Fleet Enema) Constipation Allergies Allergy/AdvReac Type Severity Reaction Status Date / Time quinapril [From Accupril] Allergy Swelling Verified 06/13/22 18:20 of Lip/Tongue/Throat Review of Systems Review of Systems: CONSTITUTIONAL: Denies fever, chills, or sweats. EYES: Denies visual changes, redness, or discharge. ENT: Denies rhinorrhea, congestion, sore throat, or otalgia. CARDIOVASCULAR: Denies chest pain, palpitations, or edema. RESPIRATORY: Cough productive of green mucus without blood denies dyspnea. GASTROINTESTINAL: Denies abdominal pain, nausea, vomiting, or diarrhea. GENITOURINARY: Denies dysuria or hematuria. SKIN: Denies rash or itching. MUSCULOSKELETAL: Denies back pain, joint pain, or myalgia. NEUROLOGIC: Denies headache, numbness, dizziness, or weakness. PSYCHIATRIC: Denies anxiety or depression. PMFSH Past Medical History Medical History Alcohol abuse Basal cell carcinoma of skin Benign prostatic hyperplasia Cardiomyopathy Coronary artery disease Deep vein thrombosis Heart failure with reduced ejection fraction recent EF of 45 to 50%. Hypertension Urinary retention Currently with indwelling Vega catheter. Surgical History Surgical History History of appendectomy History of basal cell carcinoma excision History of cardiac catheterization Per patient report, an unknown vessel was 100% blocked with good collaterals; no intervention was required. History of cataract extraction History of Mohs micrographic surgery for skin cancer History of prostate biopsy Family History Family History Mother Breast cancer Sibling Mesothelioma Father Brain tumor Social History Social History Social History: Surrogate medical decision maker: Gatito Cherry, brother. Code status: Full code. Smoking status: Never smoker Additional smoking assessment comments: Smoked briefly as a young man. Alcohol intake: former Drinks per week: 35 Alcohol use details: Typically drinks 12 oz of chardonnay and 2 to 3 mixed drinks a night. No alcohol since being at [facility] since April 2022. Substance use: never Substance use type: does not use Has the Lack of Transportation Kept You From Medical Appointments or From Getting Medications?: No Within the Past 12 Months, Were You Worried Whether Your Food Would Run Out Before You Got Money to Buy More?: Never True What is Your Housing Situation Today?: I Have Housing A
== END 2022-06-17 19:58 ==
PROVIDERS: Emergency Medicine; Emergency Provider Preventive Medicine Aerospace Medicine; PCP Family Medicine
DX: R50.9 Fever, unspecified (principal); I95.1 Orthostatic hypotension; R79.89 Other specified abnormal findings of blood chemistry; I42.9 Cardiomyopathy, unspecified; I50.9 Heart failure, unspecified; I25.10 Atherosclerotic heart disease of native coronary artery without angina pectoris; N40.1 Benign prostatic hyperplasia with lower urinary tract symptoms; R33.8 Other retention of urine; Z86.718 Personal history of other venous thrombosis and embolism; Z85.828 Personal history of other malignant neoplasm of skin; I11.0 Hypertensive heart disease with heart failure; Z98.49 Cataract extraction status, unspecified eye; Z86.16 Personal history of COVID-19; Z87.891 Personal history of nicotine dependence; R00.0 Tachycardia, unspecified; I49.1 Atrial premature depolarization; R00.8 Other abnormalities of heart beat; R94.31 Abnormal electrocardiogram [ECG] [EKG]
CPT/HCPCS: 36415; 71046; 80053; 85025; 93005; 99283

== ENCOUNTER 2022-06-20 10:18 | Inpatient (IN) | payer MEDICARE, SELFPAY ==
[2022-06-20] VITALS (35 sets, daily range): BP systolic 87–126; BP diastolic 50–72; PULSE 82–102; RESP 16–26; TEMP 34.4–36.5; O2SAT 82–99
--- NOTE | ~2022-06-20 | US_ITS ---
EXAMINATION: US paracentesis abd w/image DATE: 06/24/2022 16:18 INDICATION: Ascites. TECHNIQUE: The procedure and its risks and benefits were discussed with the patient's son. Potential risks discussed included bleeding and infection. The skin was prepped and draped in sterile fashion. 1% lidocaine was used for local anesthesia. Under ultrasound guidance, a 5 Fr catheter with trochar w as advanced into the ascites in the left lower quadrant. Fluid was aspirated into vacuum bottles. The catheter was removed, and a dressing was applied. There were no immediate complications. FINDINGS: Ultrasound images demonstrate ascites and the catheter within the fluid. IMPRESSION: 1. Successful ultrasound-guided paracentesis yielding 5000 mL of clear yellow fluid. Reviewed, dictated and finalized at location A. ER
--- NOTE | ~2022-06-20 | XR_ITS ---
EXAMINATION: [id number] DATE: 06/27/2022 14:01 INDICATION: Right pleural effusion status post thoracentesis. TECHNIQUE: A supine view of the chest on 2 radiographs was obtained. COMPARISON: Chest single view at 5:30 AM, chest CT 06/22/2022 FINDINGS: There is mild elevation of right hemidiaphragm. There are airspace opacities in the perihil ar regions bilaterally. Calcified right lung nodules and calcified right hilar lymph nodes are consis tent with old granulomatous disease. No pleural effusion or pneumothorax. The heart size is normal. T he endotracheal tube tip 5.3 cm as above the edwige. The nasogastric tube tip is in the stomach. IMPRESSION: 1. Improved airspace opacities in the perihilar regions, consistent with pulmonary edema versus pneum onia. Reviewed, dictated and finalized at location A. OPERATIVE MANAGER IMPRESSION: 1. Improved airspace opacities in the perihilar regions, consistent with pulmon peter edema versus pneumonia.
--- NOTE | ~2022-06-20 | XR_ITS ---
EXAMINATION: XR chest 1V portable DATE: 06/28/2022 05:50 INDICATION: Respiratory failure. TECHNIQUE: A single frontal view of the chest was obtained. COMPARISON: Chest single view 06/27/2022, chest CT 06/22/2022 FINDINGS: There is mild elevation of right hemidiaphragm. There are airspace opacities in the perihil ar regions and lower lung zones. No pleural effusion or pneumothorax. The heart size is normal. The e ndotracheal tube tip is 4.0 cm above the edwige. IMPRESSION: 1. Stable airspace opacities in the perihilar regions and lower lung zones, consistent with pulmonary edema versus pneumonia. Reviewed, dictated and finalized at location A. O STATION ENGINEER IMPRESSION: 1. Stable airspace opacities in the perihilar regions and lower lung zones, con sistent with pulmonary edema versus pneumonia.
--- NOTE | ~2022-06-20 | US_ITS ---
EXAMINATION: US paracentesis abd w/image DATE: 06/27/2022 15:09 INDICATION: Ascites. TECHNIQUE: The procedure and its risks, benefits, and alternatives were discussed with the patient's family member by phone. Potential risks discussed included bleeding and infection. The skin was prepp ed and draped in sterile fashion. 1% lidocaine was used for local anesthesia. Under ultrasound guidan ce, a 5 Fr catheter with trochar was advanced into the ascites in the right lower quadrant. Fluid was aspirated. The catheter was removed, and a dressing was applied. There were no immediate complicatio ns. FINDINGS: Ultrasound images demonstrate ascites and the catheter within the fluid. IMPRESSION: 1. Successful ultrasound-guided paracentesis yielding 5000 mL of yellow fluid. Reviewed, dictated and finalized at location A. FING ASSISTANT
--- NOTE | ~2022-06-20 | XR_ITS ---
EXAMINATION: XR chest 1V portable INDICATION: Respiratory failure TECHNIQUE: Portable AP chest at 0551 hours COMPARISON: 06/25/2022 FINDINGS: The endotracheal tube ends approximately 2.9 cm above the edwige. The nasogastric tube is i n the stomach. Patchy opacities persist throughout all lung zones but have improved. There is a small right pleural effusion. No pneumothorax is identified. IMPRESSION: 1. Diffuse lung disease with interval improvement, consistent with pneumonia and/or pulmonary edema. 2. Small right pleural effusion. Reviewed, dictated and finalized at location A. LE SECURITY CONSULTANT IMPRESSION: 1. Diffuse lung disease with interval improvement, consistent with pneumonia an d/or pulmonary edema. 2. Small right pleural effusion.
--- NOTE | ~2022-06-20 | CT_ITS ---
EXAMINATION: CT brain wo con INDICATION: Transient alteration of awareness COMPARISON: 04/12/2022 TECHNIQUE: Standard unenhanced head CT. The dose-length product (DLP) was 605.33 mGy-cm. The mA was a djusted according to patient size. Iterative reconstruction technique was employed. FINDINGS: There is no acute intraparenchymal hemorrhage. No evidence of mass lesion. No evidence of a cute infarction. Small infarction noted in the right frontal, temporal, and parietal lobes.. There is mild periventricular and subcortical hypodensity probably related to small vessel ischemic disease. There is mild prominence of the sulci and ventricles related to cerebral atrophy. Intracranial calcif ied cerebral atherosclerosis is noted. There are no extra-axial collections. There is no mass effect or midline shift. The orbits and soft tissues are unremarkable. There is moderate mucosal thickening of the paranasal sinuses. IMPRESSION: 1. Areas of prior infarction without acute intracranial abnormality. 2. Age related findings. Reviewed, dictated and finalized at location B. RACT PREPARER
--- NOTE | ~2022-06-20 | US_ITS ---
EXAMINATION: US thoracentesis DATE: 06/27/2022 15:09 INDICATION: pleural effusion TECHNIQUE: The procedure and its risks, benefits, and alternatives were discussed with the patient's family member by phone. Potential risks discussed included bleeding, infection, and pneumothorax. The patient understood the risks and agreed to proceed. The skin was prepped and draped in sterile fashi on. 1% lidocaine was used for local anesthesia. Under ultrasound guidance, a 5 Fr catheter with troch ar was advanced into the right pleural effusion. Fluid was aspirated. The catheter was removed, and a dressing was applied. There were no immediate complications. FINDINGS: Ultrasound images demonstrate a right pleural effusion and the catheter within the fluid. IMPRESSION: 1. Successful ultrasound-guided thoracentesis yielding right mL of red-orange fluid. Reviewed, dictated and finalized at location A. ELING ELECTRICIAN
--- NOTE | ~2022-06-20 | US_ITS ---
EXAMINATION: US renal BI DATE: 06/20/2022 17:37 INDICATION: Acute kidney injury rule out hydronephrosis TECHNIQUE: Multiple grayscale and Doppler ultrasound images of the kidneys were obtained. COMPARISON: 04/08/2022 FINDINGS: The right kidney measures 9.2 x 5.0 x 5.0 cm. The left kidney measures 7.6 x 4.5 x 4.7 cm. Cortical t hinning on the left. Bilateral Increased parenchymal echogenicity. Multiple simple right renal cysts. 1.8 cm simple left renal cyst. Multiple left renal stones. There is no hydronephrosis. The bladder i s decompressed by a Vega. Moderate ascites. IMPRESSION: Moderate ascites. Multiple bilateral simple cysts. Multiple left renal stones. Medical renal disease. Left renal atrophy. No hydronephrosis. Reviewed, dictated and finalized at location K. ECTION MANAGER
--- NOTE | ~2022-06-20 | XR_ITS ---
EXAM: XR abdomen/kub 1V DATE: 06/22/2022 13:54 HISTORY: R/O IVC Filter for vascular access . COMPARISON: Renal ultrasound 06/20/2022. FINDINGS: Temperature probe over the midline pelvis. Small left pleural effusion. Multiple loops of nondilated small bowel in the central abdomen. Paucity of large bowel gas. No organomegaly. Atheroscl erotic calcification. Lumbar degenerative disc disease. Degenerative change in the SI joints and hips . IMPRESSION: No IVC filter visualized. Abdominal ascites. Reviewed, dictated and finalized at location K. ET ANALYST
--- NOTE | ~2022-06-20 | XR_ITS ---
EXAMINATION: XR Abdomen PICC INDICATION: Abdominal pelvic placement TECHNIQUE: AP view the abdomen is obtained. COMPARISON: 1341 hours FINDINGS: A vascular catheter enters from the right pelvis and courses to the right of the lumbar spi ne imaging with its tip at the level of the T11 vertebral body. The bowel gas pattern is normal. Ther e is moderate lumbar spondylosis. IMPRESSION: 1. Vascular catheter in the expected location of the inferior vena cava ending with its tip at the le belgica of the T11 vertebral body. Reviewed, dictated and finalized at location B. RNET MERCHANT IMPRESSION: 1. Vascular catheter in the expected location of the inferior vena cava ending with its tip at the level of the T11 vertebral body.
--- NOTE | ~2022-06-20 | XR_ITS ---
XR chest 1V DATE: 06/20/2022 10:52 INDICATION: Syncope TECHNIQUE: AP chest COMPARISON: 06/2022 AP and lateral chest FINDINGS: There is persistent bilaterally prominent elevation right diaphragm and by basilar infiltra te and/atelectasis, with no significant change since 06/2022. Heart size is within normal range. There is aortic unfolding. No appreciable pleural effusion or any pneumothorax is noted. No pulmonary vascular congestion. Osteopenia. Degenerative spurring of the thoracic spine. IMPRESSION: Persistent elevated right diaphragm and bilateral lower lung infiltrate and/atelectasis, not significantly changed since 06/2022 Reviewed, dictated and finalized at location A. IGN AGENT IMPRESSION: Persistent elevated right diaphragm and bilateral lower lung infilt rate and/atelectasis, not significantly changed since 06/2022
--- NOTE | ~2022-06-20 | XR_ITS ---
EXAMINATION: XR chest 1V portable INDICATION: Hypoxia TECHNIQUE: Portable AP chest at 1305 hours COMPARISON: 06/20/2022 FINDINGS: There is elevation of the right hemidiaphragm. Bilateral pleural effusions have developed, moderate in size on the right. Diffuse interstitial and airspace opacities are present. No pneumothor ax. The cardiomediastinal silhouette is stable. IMPRESSION: 1. Bilateral pleural effusions, moderate in size on the right. 2. Diffuse lung disease, consistent with pneumonia versus pulmonary edema. Reviewed, dictated and finalized at location B. CTOR OF PSYCHOLOGY
--- NOTE | ~2022-06-20 | XR_ITS ---
EXAMINATION: XR chest 1V portable INDICATION: Respiratory failure TECHNIQUE: Portable AP chest at 0807 hours COMPARISON: 06/22/2022 FINDINGS: There are bilateral opacities in a perihilar distribution as well as patchy airspace opacit ies throughout the lungs. Distribution appears to be stable accounting for differences in patient pos itioning. There are moderate-sized pleural effusions. No pneumothorax is identified. The heart size i s normal. IMPRESSION: 1. Patchy bilateral airspace opacities without significant change, consistent with pneumonia. 2. Moderate-sized pleural effusions. Reviewed, dictated and finalized at location B. BANDER IMPRESSION: 1. Patchy bilateral airspace opacities without significant change, consistent w ith pneumonia. 2. Moderate-sized pleural effusions.
--- NOTE | ~2022-06-20 | XR_ITS ---
EXAMINATION: XR chest 1V portable INDICATION: Respiratory failure TECHNIQUE: Portable AP chest at 0539 hours COMPARISON: 06/24/2022 FINDINGS: The endotracheal tube ends approximately 4.7 cm above the edwige. The nasogastric tube is f ollowed as far as the stomach. Its tip is beyond the inferior margin of the radiograph. Patchy opacit ies persist throughout all lung zones with slight worsening in the left lung base. There is a small r ight pleural effusion. No pneumothorax is identified. The cardiomediastinal silhouette is stable. IMPRESSION: 1. Diffuse lung disease with interval worsening, consistent with pneumonia and/or pulmonary edema. 2. Small right pleural effusion. Reviewed, dictated and finalized at location A. FORCE PILOT IMPRESSION: 1. Diffuse lung disease with interval worsening, consistent with pneumonia and/ or pulmonary edema. 2. Small right pleural effusion.
--- NOTE | ~2022-06-20 | XR_ITS ---
EXAMINATION: XR chest 1V portable DATE: 06/24/2022 05:10 INDICATION: Respiratory failure TECHNIQUE: frontal view of the chest was obtained. COMPARISON: Chest radiograph dated 06/23/22 FINDINGS: Endotracheal tube tip 4.2 cm above the edwige. Nasogastric tube tip in proximal side port in the body of the stomach. Central venous catheter extends cephalad along the inferior vena cava with distal ti p near the level of the inferior cavoatrial junction. No significant change in dense patchy perihilar centered opacities in both lungs. Hazy opacities in t he bilateral lower lung zones with obscuration of the diaphragm consistent with posterior layering bi lateral small bilateral pleural effusions. No pneumothorax. Heart size is normal. Calcified subcarina l lymph node consistent with old granulomatous disease. IMPRESSION: 1. Persistent perihilar centered at the bilateral airspace opacities and favor pneumonia over pulmona ry edema. 2. Small bilateral posterior layering pleural effusions. Reviewed, dictated and finalized at location A. LEUM FLOOR INSTALLER IMPRESSION: 1. Persistent perihilar centered at the bilateral airspace opacities and favor pneumonia over pulmonary edema. 2. Small bilateral posterior layering pleural effusions.
--- NOTE | ~2022-06-20 | US_ITS ---
EXAMINATION: XR chest ET placement, US venous doppler LE DATE: 06/23/2022 11:14 INDICATION: Endotracheal tube placement and orogastric tube placement. TECHNIQUE: 1. Portable upright AP view of the chest was obtained. 2. Portable upright AP view of the abdomen was obtained. COMPARISON: Chest radiograph dated 06/23/2022 FINDINGS: Chest: Endotracheal tube tip 5.2 cm above the edwige. Patchy bilateral perihilar centered opacities in both lungs. Skinfold projects over the left hemithorax. No pneumothorax. Hazy opacities at the bilateral l ower lung zones which obscures the diaphragm suggesting small bilateral pleural effusions. Heart size is normal. ABDOMEN: Nasogastric tube tip in proximal side port in the body of the stomach. The distal tip of an incomplet arcenio visualized central venous catheter is in the inferior vena cava near the level of the confluence with hepatic veins. This is likely a right lower extremity peripherally inserted central venous dai ter based on prior CT on 07/02/2022. Relative paucity of bowel gas with no dilated loops of gas-fille d bowel in the visualized abdomen. IMPRESSION: 1. Endotracheal tube tip 5.2 cm above the edwige and nasogastric tube in stomach. 2. Persistent perihilar predominant bilateral patchy airspace opacities most likely pneumonia based o n prior CT imaging. 2. Small bilateral posterior layering pleural effusions. Reviewed, dictated and finalized at location A. INCE ARCHIVIST IMPRESSION: 1. Endotracheal tube tip 5.2 cm above the edwige and nasogastric tube in stomac h. 2. Persistent perihilar predominant bilateral patchy airspace opacities most li corinna pneumonia based on prior CT imaging. 2. Small bilateral posterior layering pleural effusions.
--- NOTE | ~2022-06-20 | XR_ITS ---
EXAMINATION: XR abdomen NG/feed tube insert INDICATION: OG insertion TECHNIQUE: Portable AP KUB-NG at 1106 hours COMPARISON: None available FINDINGS: The OG tube is in the stomach. A PICC from the pelvis projects in the intrahepatic portion of the inferior vena cava. Again seen are patchy airspace opacities and pleural effusions of the visu alized lung bases. IMPRESSION: 1. OG tube in the stomach. Reviewed, dictated and finalized at location B. LLERY DESIGNER IMPRESSION: 1. OG tube in the stomach.
--- NOTE | ~2022-06-20 | CT_ITS ---
EXAMINATION: CT chest abdomen pelvis wo con DATE: 06/22/2022 15:42 INDICATION: Anemia. Hypoxia. TECHNIQUE: Computed tomography (CT) of the chest, abdomen, and pelvis was performed without intraveno us contrast. Automated exposure control and iterative reconstruction technique were employed. The dos e-length product was 1071.75 mGy-cm. COMPARISON: None FINDINGS: CHEST CT: There are moderate-sized pleural effusions. There are airspace and groundglass opacities in all lobes , right worse than left. Calcified right lung nodules and calcified right hilar and mediastinal lymph nodes are consistent with old granulomatous disease. The heart size is normal. There are coronary ar alvarez calcifications. No pericardial effusion. There is marked elevation of right hemidiaphragm. There are bridging endplate osteophytes at multiple levels in the spine, consistent with diffuse idiopathi c skeletal hyperostosis (DISH). ABDOMEN/PELVIS CT: Calcifications in the liver and spleen are consistent with old granulomatous disease. The gallbladder is distended. The pancreas and adrenal glands are normal. There is mild atrophy of right kidney and moderate atrophy of left kidney. There are cysts and hemorrhagic cysts in the kidneys measuring up to 2.2 cm on the left. There are at least 6 stones in left kidney measuring up to 10 mm. There is bilat eral hydroureter. There is contrast in the bladder. A Vega catheter is noted. The prostate is modera tely enlarged. There is diverticulosis of the colon without evidence of diverticulitis. The appendix is not visualized. There is a large volume of ascites. There is a right lower limb peripherally inser dayan central venous catheter with tip in the intrahepatic inferior vena cava. Body wall edema is noted . There are no pathologically enlarged lymph nodes. There is moderate lumbar spondylosis. IMPRESSION: 1. Multifocal pneumonia. 2. Moderate-sized pleural effusions. 3. Large volume of ascites. 4. Gallbladder distention, which may be secondary to fasting or acute cholecystitis. Reviewed, dictated and finalized at location A. CONSERVATIONIST IMPRESSION: 1. Multifocal pneumonia. 2. Moderate-sized pleural effusions. 3. Large volume of ascites. 4. Gallbladder distention, which may be secondary to fasting or acute cholecyst itis.
--- NOTE | ~2022-06-20 | XR_ITS ---
EXAMINATION: [id number] DATE: 06/24/2022 16:17 INDICATION: Status post left thoracentesis TECHNIQUE: frontal view of the chest was obtained. COMPARISON: Chest radiograph dated 06/24/2022 FINDINGS: Endotracheal tube tip 5.5 cm above the edwige. Nasogastric tube extends below the left hemidiaphragm with distal tip collimated off the study. Central venous catheter extending cephalad along the infer ior vena cava with distal tip at the inferior cavoatrial junction. Complete resolution of prior small to moderate-sized left pleural effusion with significant improveme nt in aeration of the left lung. Persistent small to moderate-sized posterior weightbearing right ple ural effusion. There is been some improvement in the bilateral patchy perihilar opacities. This impro vement is more prominent on the left which is likely due to decreased atelectasis resulting from the evacuation of the pleural effusion. The previous elevated right hemidiaphragm now appears more normal ly positioned which may be related to the immediately prior 5 L paracentesis. This likely also result s in decreasing atelectasis accounting for some of the decrease in the opacities in the right hemitho rax. No pneumothorax. Cardiomediastinal silhouette is normal. Calcified mediastinal lymph node consis tent with old granulomatous disease. IMPRESSION: 1. Complete resolution of the prior left pleural effusion postthoracentesis with improved aeration of the left lung and no pneumothorax. 2. Unchanged small to moderate right pleural effusion. 3. Improvement in bilateral patchy perihilar predominant airspace opacities which likely results from decreasing atelectasis. The residual opacities could represent additional atelectasis, pulmonary danyel ma or pneumonia. Reviewed, dictated and finalized at location A. Y EQUIPMENT RENTAL ASSOCIATE IMPRESSION: 1. Complete resolution of the prior left pleural effusion postthoracentesis wit h improved aeration of the left lung and no pneumothorax. 2. Unchanged small to moderate right pleural effusion. 3. Improvement in bilateral patchy perihilar predominant airspace opacities whi ch likely results from decreasing atelectasis. The residual opacities could rep resent additional atelectasis, pulmonary edema or pneumonia.
--- NOTE | ~2022-06-20 | XR_ITS ---
EXAMINATION: XR chest 1V portable INDICATION: Increased oxygen demand TECHNIQUE: Portable AP chest at 2322 hours COMPARISON: 1050 hours FINDINGS: There is elevation of the right hemidiaphragm. Atelectasis or scarring is noted in the righ t lung base. No pleural effusion or pneumothorax. The cardiomediastinal silhouette is normal. IMPRESSION: 1. No acute cardiopulmonary abnormality. Reviewed, dictated and finalized at location B. TING ENGINEER
--- NOTE | ~2022-06-20 | US_ITS ---
EXAMINATION: US thoracentesis DATE: 06/24/2022 16:17 INDICATION: Left pleural effusion TECHNIQUE: The procedure and its risks and benefits were discussed with the patient's son. Potential risks discussed included bleeding and infection. The patient understood the risks and agreed to proce ed. The skin was prepped and draped in sterile fashion. 1% lidocaine was used for local anesthesia. U nder ultrasound guidance, a 5 Fr catheter with trochar was advanced into the left pleural effusion. F luid was aspirated. The catheter was removed, and a dressing was applied. There were no immediate com plications. FINDINGS: Ultrasound images demonstrate a small to moderate-sized left pleural effusion and the catheter within the fluid. IMPRESSION: 1. Successful ultrasound-guided thoracentesis yielding 700 mL of dark yellow fluid. Reviewed, dictated and finalized at location A. MAN IMPRESSION: 1. Successful ultrasound-guided thoracentesis yielding 700 mL of dark yellow f luid.
--- NOTE | ~2022-06-20 | XR_ITS ---
EXAMINATION: XR chest 1V portable DATE: 06/27/2022 05:56 INDICATION: Respiratory failure. TECHNIQUE: A single frontal view of the chest was obtained. COMPARISON: Chest one view 06/29/2022, chest CT 06/22/2022 FINDINGS: There is mild elevation of right hemidiaphragm. There is a small right pleural effusion. Th ere are airspace opacities in all lung zones bilaterally with a perihilar and lower lung predominance . No pneumothorax. The heart size is normal. The endotracheal tube tip is 4.4 cm above the edwige. Th e nasogastric tube tip is in the stomach. Calcified right hilar lymph nodes are consistent with old g ranulomatous disease. IMPRESSION: 1. Stable diffuse lung disease, consistent with pneumonia versus pulmonary edema. 2. Stable small right pleural effusion. Reviewed, dictated and finalized at location A. OND POWDER MIXER IMPRESSION: 1. Stable diffuse lung disease, consistent with pneumonia versus pulmonary linette a. 2. Stable small right pleural effusion.
--- NOTE | 2022-06-20 10:23 | ECG_ITS ---
Measurements Intervals [place] Rate: 91 P: 30 NV: 178 QRS: -47 QRSD: 98 T: 29 QT: 380 QTc: 468 Interpretive Statements SINUS RHYTHM LOW QRS VOLTAGE IN PRECORDIAL LEADS INFERIOR INFARCT, AGE INDETERMINATE ANTEROSEPTAL INFARCT, AGE INDETERMINATE BORDERLINE ST-T WAVE ABNORMALITY- LAT/HIGH LAT LEADS BASELINE ARTIFACT- I, II, AVR, V1-V2 ,V4-V5 ABNORMAL ECG COMPARED TO ECG 06/17/2022 14:43:12 SINUS RHYTHM NOW PRESENT Electronically Signed On 06-20-2022 10:31:37 HEALTH SCIENCE INSTRUCTOR by Sukhi Hanson D.O.
--- NOTE | 2022-06-20 10:32 | ED.GENADULT ---
HPI - General Adult General Chief complaint: Syncope Stated complaint: syncopal Source: RN notes reviewed History of Present Illness HPI narrative: Patient presents emergency department from [facility] for syncopal episode. Patient states that he had been gotten up by staff and was seen in the side of the bed he states that he began to feel dizzy and that per staff he had had a syncopal episode. The patient had laid back in bed and had had a brief episode of loss of consciousness and had been sternal rub and came back to. The patient currently is laying in bed denies any complaints at this time denies any fevers or chills chest pain shortness of breath abdominal pain was recently at her facility and diagnosed with a urinary tract infection. The patient does have a history of orthostatic hypotension is on midodrine which she states did take his morning medications Related Data Home Medications Medication Instructions Recorded Confirmed bisacodyl 10 mg rectal suppository 10 mg RECTAL DAILY PRN Constipation 06/13/22 06/13/22 cholecalciferol (vitamin D3) 25 25 mcg PO DAILY 06/13/22 06/13/22 mcg (1,000 unit) tablet levothyroxine 25 mcg tablet 25 mcg PO DAILY 06/13/22 06/13/22 magnesium citrate (Citroma oral 296 ml PO DAILY PRN Constipation 06/13/22 06/13/22 solution) magnesium hydroxide 400 mg/5 mL 30 ml PO DAILY PRN Constipation 06/13/22 06/13/22 oral suspension (Milk of Magnesia) magnesium oxide 400 mg PO DAILY 06/13/22 06/13/22 sodium phosphates 19 gram-7 118 ml RECTAL DAILY PRN 06/13/22 06/13/22 gram/118 mL enema (Fleet Enema) Constipation Allergies Allergy/AdvReac Type Severity Reaction Status Date / Time quinapril [From Accupril] Allergy Swelling Verified 06/13/22 18:20 of Lip/Tongue/Throat Review of Systems Review of Systems: Gen.: Denies fevers or chills Eyes: Denies eye pain or visual change ENT: Denies congestion Respiratory: Denies shortness of breath or cough CV: Denies chest pain or palpitations reports syncope GI: Denies abdominal pain nausea, emesis or diarrhea reports chronic indwelling Vega with recent UTI Musculoskeletal: Denies back pain or muscle pain Neuro: Reports dizziness with sitting upright Skin denies any rash or wounds Except as documented, all other systems reviewed and negative PENDING SALE TO [facility] Past Medical History Medical History Alcohol abuse Basal cell carcinoma of skin Benign prostatic hyperplasia Cardiomyopathy Coronary artery disease Deep vein thrombosis Heart failure with reduced ejection fraction recent EF of 45 to 50%. Hypertension Urinary retention Currently with indwelling Vega catheter. Surgical History Surgical History History of appendectomy History of basal cell carcinoma excision History of cardiac catheterization Per patient report, an unknown vessel was 100% blocked with good collaterals; no intervention was required. History of cataract extraction History of Mohs micrographic surgery for skin cancer History of prostate biopsy Family History Family History Mother Breast cancer Sibling Mesothelioma Father Brain tumor Social History Social History Social History: Surrogate medical decision maker: Gatito Cherry, brother. Code status: Full code. Smoking status: Never smoker Additional smoking assessment comments: Smoked briefly as a young man. Alcohol intake: former Drinks per week: 35 Alcohol use details: Typically drinks 12 oz of chardonnay and 2 to 3 mixed drinks a night. No alcohol since being at [facility] since April 2022. Substance use: never Substance use type: does not use Has the Lack of Transportation Kept You From Medical Appointments or From Getting Medications?: No Within the Past 12 Months, Were
[2022-06-20 10:50] LABS: Basophils Percent Auto 0.3 % (0.2-1.2); Hematocrit 23.7 % (42.0-52.0); Hemoglobin 7.6 g/dL (14.0-18.0); Immature Granulocyte Absolute 0.07 K/mm3 (0.00-0.031); Lymphocytes Absolute Auto 1.28 K/mm3 (0.9-3.2); Lymphocytes Percent Auto 17.5 % (18.3-44.2); Mean Corpuscular HGB Conc 32.1 g/dl (32-36); Mean Corpuscular Hemoglobin 30.8 pg (26-34); Mean Platelet Volume 10.8 fl (7.4-10.4); Monocytes Absolute Auto 0.6 K/mm3 (0.1-0.6); Monocytes Percent Auto 8.7 % (2.6-8.5); Neutrophils Absolute Auto 5.3 K/mm3 (1.3-6.7); Neutrophils Percent Auto 72.5 % (45.5-73.1); Nucleated Red Blood Cells Perc 0.3 % (0.0-0.2); Platelet Count Result 161 k/mm3 (150-375); Red Blood Count 2.47 M/mm3 (4.6-6.20); Red Cell Distribution Width 17.9 % (11.5-14.5); White Blood Count 7.3 K/mm3 (4.5-10.0)
[2022-06-20 10:52] LABS: Appearance Urine Slightly Cloudy (Clear); Bilirubin Urine Negative (Negative); Blood Urine 2+ (Negative); Color Urine Yellow (Yellow); Glucose Urine UA Negative (Negative); Ketones Urine Negative (Negative); Leukocyte Esterase Ur 1+ LEU/UL (Negative); Nitrate Urine Negative (Negative); Protein Urine 1+ mg/dL (Negative); Specific Grav Ur 1.015 (1.001-1.035); Urobilinogen Urine 0.2 mg/dL (<2.0); pH Urine 5.5 (5.0-9.0)
[2022-06-20 11:02] LABS: Prothrombin Time 44.7 Seconds (11.1-14.7)
[2022-06-20 11:02] LABS: Albumin Level 1.8 g/dL (3.5-5.1); Alkaline Phosphatase 225 U/L (38-126); Anion Gap 12 mmol/L (8-16); Aspartate Amino Transferase 275 U/L (17-59); Blood Urea Nitrogen 32 mg/dL (9-20); Calcium 7.4 mg/dL (8.4-10.2); Carbon Dioxide 20 mmol/L (22-30); Chloride 102 mmol/L (98-107); Estimated CRCL calculation 27 ml/min; Estimated Glomerular Filt Rate 25; Glucose 112 mg/dL (65-110); Potassium 3.5 mmol/L (3.4-5.0); Sodium 134 mmol/L (137-145)
[2022-06-20 11:03] LABS: Partial Thromboplastin Time 60.3 SECONDS (22.3-36.8)
[2022-06-20 11:05] LABS: Add Urine Microscopic? YES
[2022-06-20 11:13] LABS: Bacteria Urine Trace /hpf; Mucus Urine Rare /lpf; Squamous Epithelial Cell Urine Occasional /hpf (Few); WBC Urine 21-30 /hpf
[2022-06-20 11:19] LABS: Troponin I 0.436 ng/mL (0.000-0.034)
[2022-06-20 11:21] LABS: Alanine Aminotransferase 76 U/L (6-50)
[2022-06-20 11:39] LABS: SARS-CoV-2 RNA PCR Positive
[2022-06-20 12:30] LABS: Lactic Acid Reflex 6.5 mmol/L (0.7-2.0)
[2022-06-20] MEDS: SODIUM CHLORIDE 0.9% IV 1,000 ML 80 ML IV CONT ×2 (12:50→15:47)
[2022-06-20] MEDS: SODIUM CHLORIDE 0.9% IV 1,000 ML 999 ML IV CONT (12:59)
--- NOTE | 2022-06-20 14:00 | PM.IMHP ---
H&P: HPI History of Present Illness Date/Time: 06/20/22 14:00 Chief Complaint: Syncope. Narrative: This is a pleasant 76-year-old male with recent stroke, heart failure with reduced ejection fraction, coronary artery disease, hypertension, benign prostatic hyperplasia, peripheral neuropathy of the feet, urinary retention with indwelling Vega catheter, DVT on anticoagulation, and alcohol abuse though he is no longer drinking as he is currently in a usp who presented to the ED via EMS from [facility] for evaluation after a syncopal episode. He is known to myself and the hospitalist service from several recent admissions; he was recently discharged on 06/16/2022 after being admitted with near-syncope attributed to orthostatic hypotension and dehydration from acute on chronic renal failure. He continues to have a poor appetite and poor oral intake and gets majority of his calories from drinking lemonade and [place]. Today he felt in his usual state of health and he was taken down for breakfast though he did not eat much. He asked staff to bring him back to his room so he can sit in his recliner at which time he started to feel lightheaded and he apparently had a brief syncopal episode. EMS was summoned and on their arrival he was hypothermic and hypotensive. Blood pressures did improve with IV fluid rehydration. He was placed under a Marquise Hugger and remains on that at the time my evaluation. Currently his only complaint is that of a cough productive of yellow phlegm and pain ?over my coccyx where I have a pressure sore.? [facility] Past Medical History Medical History Acute on chronic anemia Alcohol abuse Basal cell carcinoma of skin Benign prostatic hyperplasia Cardiomyopathy Coronary artery disease Deep vein thrombosis Heart failure with reduced ejection fraction recent EF of 45 to 50%. Hypertension Occult blood in stools Urinary retention Currently with indwelling Vega catheter. Surgical History Surgical History History of appendectomy History of basal cell carcinoma excision History of cardiac catheterization Per patient report, an unknown vessel was 100% blocked with good collaterals; no intervention was required. History of cataract extraction History of Mohs micrographic surgery for skin cancer History of prostate biopsy Family History Family History Mother Breast cancer Sibling Mesothelioma Father Brain tumor Social History Social History Social History: Surrogate medical decision maker: Gatito Cherry, brother. Code status: Full code. Smoking status: Never smoker Additional smoking assessment comments: Smoked briefly as a young man. Alcohol intake: former Drinks per week: 35 Alcohol use details: Typically drinks 12 oz of chardonnay and 2 to 3 mixed drinks a night. No alcohol since being at [facility] since April 2022. Substance use: never Substance use type: does not use Lack of Transportation: No Lack of Food: Never True Current Housing: I Have Housing Concerned About Future Housing: No Difficulty Paying Gas/Electric Bills: No Difficulty Paying for Meds: No Currently Unemployed: No Education: High School Diploma/GED Difficulty w/ Childcare or Family Care: No Additional living arrangements comments: The patient has his own apartment in [place] but he has been at [facility] for well over a month. 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 Spiritual care concerns: No Meds Home Medications and Allergies Home Medications Medication Instructions Recorded Confirmed Type apixaban 5 mg tablet (Eliquis) 5 mg PO Q12HR #60 tabs 04/17/22 06/20/22 Rx aspirin 81 mg tablet,delayed 81
--- NOTE | 2022-06-20 14:53 | WPDCNINT ---
Assessment and Plan Assessment and plan (1) Severe sepsis: Code(s): A41.9 - Sepsis, unspecified organism; R65.20 - Severe sepsis without septic shock Status: Acute Assessment and Plan: Patient presented with syncope, hypotension, acute kidney injury, decreased p.o. intake for fluids and solids, anemia -patient received 2 L IV fluids with improvement in blood pressures -1 unit of packed RBCs has been ordered which will likely improve his blood pressures -UA reflective of UTI -chest x-ray was not different since before the prior chest x-ray done on 06/17/2022 -patient started on azithromycin and ceftriaxone -blood cultures and urine cultures have been obtained (2) Syncope: Code(s): R55 - Syncope and collapse Status: Acute Assessment and Plan: Patient with syncope at the group home likely related to low blood pressures, secondary to UTI- - (3) Elevated troponin: Code(s): R77.8 - Other specified abnormalities of plasma proteins Status: Acute Assessment and Plan: Elevated troponins likely related to hypotension, infection and/or CAD, will trend troponin levels -EKG did not show any ST elevation -even if his troponins elevated, will not be able to anticoagulated the patient has he is anemic and will be receiving a unit of packed RBC (4) Deep vein thrombosis: Code(s): I82.409 - Acute embolism and thrombosis of unspecified deep veins of unspecified lower extremity Status: Acute Assessment and Plan: History of DVT, patient on Eliquis, INR of 5.0 -anemic with hemoglobin of 7.6 (Hb was 9.7 on 04/17/2022) will hold Eliquis at this time (5) Renal failure: Code(s): N19 - Unspecified kidney failure Status: Acute Assessment and Plan: Acute on chronic renal failure likely related to hypovolemia, hypotension, UTI/infection -will obtain renal ultrasound -obtain urine lytes, CK levels and urine eosinophils -continue monitor urine -will add albumin is is albumin levels are 1.8 (6) Acute UTI: Code(s): N39.0 - Urinary tract infection, site not specified Status: Acute Assessment and Plan: Urine analysis revealed UTI, patient has an indwelling catheter -no urine output noted at the group home -06/20/2022 urine cultures have been obtained and pending -patient started on ceftriaxone (06/20) (7) Malnutrition: Code(s): E46 - Unspecified protein-calorie malnutrition Status: Acute Assessment and Plan: Patient has not been eating or drinking well at the group home, significantly malnourished as his albumin is 1.8, will obtain pre albumin levels (8) Chronic anemia: Code(s): D64.9 - Anemia, unspecified Status: Acute Assessment and Plan: Acute on chronic anemia, hemoglobin 7.6 (9.7 on 06/17/2022) -patient received 1 unit of packed RBCs -will check stool for Hemoccult -GI has been consulted -will start IV PPI q.12 hours Plan DVT prophylaxis: Hold Eliquis all chemoprophylaxis as patient is anemic, is going to get PRBC transfusion Stress ulcer prophylaxis: Protonix IV q.12 hours Nutrition: Clear liquid diet, NPO after midnight Code Status: Full code Critical Care Time Spent: 49 minutes Due to a high probability of clinically significant, life threatening deterioration, the patient required my highest level of preparedness to intervene emergently and I personally spent this critical care time directly and personally managing the patient. This critical care time included obtaining a history; examining the patient; pulse oximetry; ordering and review of studies; arranging urgent treatment with development of a management plan; evaluation of patient's response to treatment; frequent reassessment; and discussions with other providers. It was exclusive of separately billable procedures and treating other patients and teaching time. Please see Assessment and Plan section and the rest of the note for further
[2022-06-20 15:04] LABS: Troponin I 0.344 ng/mL (0.000-0.034)
--- NOTE | 2022-06-20 15:14 | ADMGEN ---
This patient, Richard Olivas, was admitted to Intensive Care Unit-9. Patient/family oriented to hospital policies and general routines including ID bracelet, bed and alarms, visiting hours, pain management, procedures, bathroom and other care routines, personal items, smoking policy, room service/diet, and visiting hours. Information on how to activate the Rapid Response Team has been discussed. Patient/Family are encouraged to report perceived risks to care and to ask questions if they do not understand what they are told or what they should do.
[2022-06-20 15:15] LABS: Reflex Lactic Acid Yes or No Add Lactic
[2022-06-20] MEDS: SODIUM CHLORIDE 0.9% IV 250 ML 30 ML IV CONT (15:38)
[2022-06-20] MEDS: PANTOPRAZOLE SODIUM IV 40 MG VIAL IV PUSH ×2 (15:44→19:54)
[2022-06-20] MEDS: ALBUMIN HUMAN 25% 25 GM/100 ML 100 ML IVPB ×2 (15:47→19:48)
[2022-06-20 15:48] LABS: Lactic Acid Reflex 2.6 mmol/L (0.7-2.0)
[2022-06-20 15:59] LABS: Creatine Kinase 36 U/L (55-170)
[2022-06-20 16:24] LABS: Prealbumin < 3.0 mg/dL (17.6-36.0)
[2022-06-20 16:32] LABS: Creatinine Urine 137.6 mg/dL
[2022-06-20 16:35] LABS: Potassium Urine Random 15.8 meq/L; Sodium Urine Random 9 meq/L
[2022-06-20 17:28] LABS: Eosinophil Urine None Seen % (None Seen)
[2022-06-20 19:21] LABS: Troponin I 0.341 ng/mL (0.000-0.034)
[2022-06-21] VITALS (20 sets, daily range): BP systolic 95–147; BP diastolic 53–97; PULSE 75–107; RESP 16–32; TEMP 35–36.3; O2SAT 94–100; BMI 26.2
[2022-06-21] MEDS: IPRATROPIUM BR 0.02% INH SOLN 0.5 MG/2.5 ML VIAL INHALATION ×2 (01:05→23:36)
[2022-06-21] MEDS: ALBUTEROL SULFATE NEB 2.5 MG/3 ML INH INHALATION ×2 (01:05→23:36)
[2022-06-21] MEDS: ALBUMIN HUMAN 25% 25 GM/100 ML 100 ML IVPB ×4 (03:10→19:39)
[2022-06-21] MEDS: SODIUM CHLORIDE 0.9% IV 1,000 ML 80 ML IV CONT ×2 (03:10→19:40)
[2022-06-21 04:37] LABS: Basophils Percent Auto 0.1 % (0.2-1.2); Eosinophils Percent Auto 0.1 % (0-4.4); Hematocrit 22.4 % (42.0-52.0); Hemoglobin 7.6 g/dL (14.0-18.0); Immature Granulocyte Absolute 0.05 K/mm3 (0.00-0.031); Immature Granulocyte Percent A 0.6 % (0-0.5); Immature Platelet Fraction Pct 6.4 % (0.9-11.2); Lymphocytes Absolute Auto 1.17 K/mm3 (0.9-3.2); Lymphocytes Percent Auto 15.1 % (18.3-44.2); Mean Corpuscular HGB Conc 33.9 g/dl (32-36); Mean Corpuscular Hemoglobin 30.6 pg (26-34); Mean Corpuscular Volume 90.3 fl (80-100); Mean Platelet Volume 11.1 fl (7.4-10.4); Monocytes Absolute Auto 0.6 K/mm3 (0.1-0.6); Monocytes Percent Auto 7.6 % (2.6-8.5); Neutrophils Absolute Auto 5.9 K/mm3 (1.3-6.7); Neutrophils Percent Auto 76.5 % (45.5-73.1); Platelet Count Result 126 k/mm3 (150-375); Red Blood Count 2.48 M/mm3 (4.6-6.20); Red Cell Distribution Width 17.2 % (11.5-14.5); White Blood Count 7.8 K/mm3 (4.5-10.0)
[2022-06-21 04:49] LABS: Prothrombin Time 47.3 Seconds (11.1-14.7)
[2022-06-21 04:50] LABS: Partial Thromboplastin Time 62.8 SECONDS (22.3-36.8)
[2022-06-21 04:54] LABS: INR 5.3
[2022-06-21 05:20] LABS: Alanine Aminotransferase 52 U/L (6-50); Albumin Level 2.5 g/dL (3.5-5.1); Alkaline Phosphatase 148 U/L (38-126); Anion Gap 10 mmol/L (8-16); Aspartate Amino Transferase 194 U/L (17-59); Bilirubin,Total 1.3 mg/dL (0.2-1.3); Blood Urea Nitrogen 36 mg/dL (9-20); Calcium 7.5 mg/dL (8.4-10.2); Carbon Dioxide 21 mmol/L (22-30); Chloride 105 mmol/L (98-107); Estimated CRCL calculation 32 ml/min; Estimated Glomerular Filt Rate 31; Glucose 84 mg/dL (65-110); Magnesium 2.4 mg/dL (1.6-2.3); Potassium 3.9 mmol/L (3.4-5.0); Sodium 136 mmol/L (137-145)
[2022-06-21 06:19] LABS: IFOB Positive Control Positive; Immunochemical Fecal Occult Bl Positive (N)
[2022-06-21] MEDS: LEVOTHYROXINE SODIUM 25 MCG TABLET PO (07:46)
[2022-06-21] MEDS: MIDODRINE HCL 10 MG TABLET PO (09:52)
[2022-06-21] MEDS: PANTOPRAZOLE SODIUM IV 40 MG VIAL IV PUSH ×2 (09:53→19:41)
--- NOTE | 2022-06-21 10:55 | P.CDI_ITS ---
CDI Query Clarified Diagnosis Clarified Diagnosis: Please clarify the status of the patient's COVID-19 infection, if known. Patient with positive COVID test on 06/20/22 * COVID-19 is a current/active infection * Current condition is a sequela of COVID-19 * Past history of COVID-19 * Other explanation of clinical findings (please specify) * Unable to determine
--- NOTE | 2022-06-21 10:55 | WPDCDIQUERY2 ---
CDI Query Clarified Diagnosis Clarified Diagnosis: Please clarify the status of the patient's COVID-19 infection, if known. Patient with positive COVID test on 06/20/22 COVID-19 is a current/active infection Current condition is a sequela of COVID-19 Past history of COVID-19 Other explanation of clinical findings (please specify) Unable to determine
--- NOTE | 2022-06-21 11:17 | PM.IMPN ---
Progress Note: A&P Assessment and Plan (1) Severe sepsis: Code(s): A41.9 - Sepsis, unspecified organism; R65.20 - Severe sepsis without septic shock Status: Acute Assessment and Plan: The patient presented to the emergency department today after syncopal episode. He was found to be hypotensive and hypothermic. source is likely UTI. continue IV antibiotics. To note patient is also COVID positive (2) Syncope: Code(s): R55 - Syncope and collapse Status: Acute Assessment and Plan: Likely due to orthostatic hypotension which has been an ongoing problem for the patient. Monitor on telemetry. (3) Elevated troponin: Code(s): R77.8 - Other specified abnormalities of plasma proteins Status: Acute Assessment and Plan: He is not having any chest pain though we will trend troponins to peak. (4) Coagulopathy: Code(s): D68.9 - Coagulation defect, unspecified Status: Acute Assessment and Plan: He is on Eliquis an INR today is above 5. (5) Iuplo-nj-npfzpja kidney injury: Code(s): N17.9 - Acute kidney failure, unspecified; N18.9 - Chronic kidney disease, unspecified Status: Acute Assessment and Plan: Creatinine 2.1 today. Appears to be at baseline. (6) Abnormal urinalysis: Code(s): R82.90 - Unspecified abnormal findings in urine Status: Acute Assessment and Plan: He does have an indwelling Vega catheter, may be colonization. Continue ceftriaxone, pending culture. (7) Heart failure with reduced ejection fraction: Code(s): I50.20 - Unspecified systolic (congestive) heart failure Status: Acute Assessment and Plan: Monitor volume status closely while cautiously hydrating. Subjective Date/time seen: 06/21/22 11:17 no new complaints Exam Narrative: General:?Moderately ill-appearing, thin male in the semi-Hinds position no acute distress. HEENT:??Normocephalic, atraumatic. Multiple scars on the face and scalp from previous Mohs procedures. PERRL, EOMI. Sclerae anicteric. Conjunctivae anicteric. Tacky mucous membranes. Neck:??Supple. No JVD. Respiratory:?Respirations are nonlabored he is speaking in full sentences. Coarse lung sounds heard anteriorly and at the flanks. Cardiovascular:?Tachycardic with S1-S2. Gastrointestinal:??Abdomen is soft, flat, nontender, and nondistended with positive bowel sounds. Skin:??Warm (under Marquise Hugger) and dry. Generalized pallor. Bruising of the lower legs. Extremities:??No cyanosis or clubbing. Bilateral josie ankle edema right >> left. No palpable knots or cords. Negative Edith sign bilaterally. Neurological:??Alert and oriented? Cranial nerves 2-12 are grossly intact. Speech is clear. No facial asymmetry. Generalized weakness without focal findings. No drift.? Normal finger-nose. Psychiatric:??Pleasant and cooperative with appropriate mood and flat affect. Objective Data Vital Signs Vital Signs: Vital Signs - 24 hr 06/20/22 12:28 06/20/22 12:31 06/20/22 11:31 Temperature 95.2 F L Pulse Rate 91 94 96 Respiratory Rate 22 H 22 H Blood Pressure 107/55 L 87/64 L Pulse Oximetry 94 99 Oxygen Delivery Oxygen Flow Rate Fraction of Inspired Oxygen 06/20/22 11:46 06/20/22 12:01 06/20/22 12:16 Temperature 94.0 F L 94.9 F L Pulse Rate 97 93 90 Respiratory Rate 22 H 21 H 20 Blood Pressure 113/58 L 108/52 L 90/71 L Pulse Oximetry 95 94 94 Oxygen Delivery Oxygen Flow Rate Fraction of Inspired Oxygen 06/20/22 12:31 06/20/22 12:46 06/20/22 13:01 Temperature 95.2 F L 95.4 F L 95.7 F L Pulse Rate 90 92 94 Respiratory Rate 23 H 21 H 21 H Blood Pressure 107/55 L 92/59 L 107/55 L Pulse Oximetry 94 96 97 Oxygen Delivery Oxygen Flow Rate Fraction of Inspired Oxygen 06/20/22 13:16 06/20/22 13:31 06/20/22 13:46 Temperature 96.0 F L 96.2 F L 96.3 F L Pulse Rate 90 87 95 Respiratory Rate 21 H 22 H 17 B
--- NOTE | 2022-06-21 12:10 | WPDINTPN ---
Progress Note: A&P Assessment and Plan (1) Severe sepsis: Code(s): A41.9 - Sepsis, unspecified organism; R65.20 - Severe sepsis without septic shock Status: Acute Assessment and Plan: Patient presented with syncope, hypotension, acute kidney injury, decreased p.o. intake for fluids and solids, anemia -patient received 2 L IV fluids with improvement in blood pressures followed by continuous infusion -UA reflective of UTI -chest x-ray is unremarkable and patient is on room air -patient was started on impaired azithromycin and ceftriaxone -blood cultures and urine cultures have been obtained and are pending He has not required vasopressors and lactic acid had level has improved -continue albumin as patient is third-spacing -patient appears to have chronically low blood pressure as he is on midodrine as an outpatient. I have resume did (2) Syncope: Code(s): R55 - Syncope and collapse Status: Acute Assessment and Plan: Patient with syncope at the long-term likely related to low blood pressures, secondary to UTI- No recurrence at this time in the hospital Resume midodrine (3) Elevated troponin: Code(s): R77.8 - Other specified abnormalities of plasma proteins Status: Acute Assessment and Plan: Elevated troponins likely related to hypotension, infection and/or CAD, will trend troponin levels -EKG did not show any ST elevation -even if his troponins elevated, will not be able to anticoagulated the patient has he is anemic and will be receiving a unit of packed RBC (4) Deep vein thrombosis: Code(s): I82.409 - Acute embolism and thrombosis of unspecified deep veins of unspecified lower extremity Status: Acute Assessment and Plan: History of DVT, patient on Eliquis, INR of 5.0 -anemic with hemoglobin of 7.6 (Hb was 9.7 on 04/17/2022) and positive Hemoccult - l hold Eliquis at this time (5) Renal failure: Code(s): N19 - Unspecified kidney failure Status: Acute Assessment and Plan: Acute on chronic renal failure likely related to hypovolemia, hypotension, UTI/infection Renal ultrasound - Multiple bilateral simple cysts. Multiple left renal stones. Medical renal disease. Left renal atrophy. No hydronephrosis. Urine electrolytes suggest prerenal Normal CK levels and negative urine eosinophils -continue monitor urine -continue IV fluids and albumin (6) Acute UTI: Code(s): N39.0 - Urinary tract infection, site not specified Status: Acute Assessment and Plan: Urine analysis revealed UTI, patient has an indwelling catheter due to BPH -no urine output noted at the long-term -06/20/2022 urine cultures have been obtained and pending -patient started on ceftriaxone (06/20) (7) Malnutrition: Code(s): E46 - Unspecified protein-calorie malnutrition Status: Acute Assessment and Plan: Patient has not been eating or drinking well at the long-term, significantly malnourished as his albumin is 1.8 and pre albumin level is less than 3 Nutritional supplements added Consult dietitian (8) Chronic anemia: Code(s): D64.9 - Anemia, unspecified Status: Acute Assessment and Plan: Acute on chronic anemia, hemoglobin 7.6 (9.7 on 06/17/2022) -patient received 1 unit of packed RBCs -positive Hemoccult -GI has been consulted -continue IV PPI q.12 hours (9) COVID-19: Code(s): U07.1 - COVID-19 Status: Acute Assessment and Plan: Patient tested positive for COVID-19 on admission but does not exhibit any signs of COVID-19 pneumonia He is currently on room air Isolation No treatment indicated at this time Plan DVT prophylaxis: Hold Eliquis all chemoprophylaxis as patient is anemic, is going to get PRBC transfusion Stress ulcer prophylaxis: Protonix IV q.12 hours Nutrition: Clear liquid diet, NPO after midnight PT OT Incentive spirometry Code Status: Full code Subjective Date/time
--- NOTE | 2022-06-21 13:50 | PC.NURSE ---
Placed jacki farooq on patient for core temp of 95 F. Patient took it off. Refused to let me reapply. Said I want this turned off now .
--- NOTE | 2022-06-21 16:12 | WPDGICN ---
Assessment and Plan Assessment and plan (1) Acute on chronic anemia: Code(s): D64.9 - Anemia, unspecified Status: Acute Assessment and Plan: multifactorial, also this could be in setting of coagulopathy- eliquis discontinued I recommend to continue with iv protonix, hold off scopes unless obvious bleeding (he also has COVID right now) trend h/h (2) Occult blood in stools: Code(s): R19.5 - Other fecal abnormalities Status: Acute Assessment and Plan: monitor never had colonoscopy, he will be willing to do one as outpatient (3) COVID-19: Code(s): U07.1 - COVID-19 Status: Acute Assessment and Plan: admitted to icu new diagnosis he says that received vaccines (4) Severe sepsis: Code(s): A41.9 - Sepsis, unspecified organism; R65.20 - Severe sepsis without septic shock Status: Acute Assessment and Plan: treated in icu, blood pressure better (5) Coagulopathy: Code(s): D68.9 - Coagulation defect, unspecified Status: Acute Assessment and Plan: eliquis on hold (6) Malnutrition: Code(s): E46 - Unspecified protein-calorie malnutrition Status: Acute (7) Orthostatic hypotension: Code(s): I95.1 - Orthostatic hypotension Status: Acute (8) Alcohol abuse: Code(s): F10.10 - Alcohol abuse, uncomplicated Status: Acute GI Consult Note Consult date/time: 06/21/22 16:12 Reason for consult: acute anemia, syncope HPI: Richard Olivas is a 76 year old male with recent stroke, heart failure with reduced ejection fraction, coronary artery disease, hypertension, benign prostatic hyperplasia, peripheral neuropathy of the feet, urinary retention with indwelling Vega catheter, DVT on anticoagulation, and alcohol abuse but he is sober. He is staying now in a shelter who presented to the ED via EMS from [facility] for evaluation after a syncopal episode. He was recently discharged on 06/16/2022 after being admitted with near-syncope with dehydration and acute on chronic renal failure. Lately also poor appetite. He was in his recliner then was lightheaded and he apparently had a brief syncopal episode. ER evaluation found to have hypotensive, severe sepsis, worsening anemia with hb 7.6 (recently 9.5), FOBT +, covid + and admitted to icu. INR also elevated 5 and eliquis was discontinued. Review of Systems Review of Systems: Gen.: Denies fevers or chills Eyes: Denies eye pain or visual change ENT: Denies congestion Respiratory: Denies shortness of breath or cough CV: Denies chest pain or palpitations reports syncope GI: Denies abdominal pain nausea, emesis or diarrhea reports chronic indwelling Vega with recent UTI Musculoskeletal: Denies back pain or muscle pain Neuro: Reports dizziness with sitting upright Skin denies any rash or wounds Except as documented, all other systems reviewed and negative [facility] Past Medical History Medical History (Updated 06/21/22 @ 16:18 by Fernando Gibson MD) Acute on chronic anemia Alcohol abuse Basal cell carcinoma of skin Benign prostatic hyperplasia Cardiomyopathy Coronary artery disease Deep vein thrombosis Heart failure with reduced ejection fraction recent EF of 45 to 50%. Hypertension Occult blood in stools Urinary retention Currently with indwelling Vega catheter. Surgical History Surgical History History of appendectomy History of basal cell carcinoma excision History of cardiac catheterization Per patient report, an unknown vessel was 100% blocked with good collaterals; no intervention was required. History of cataract extraction History of Mohs micrographic surgery for skin cancer History of prostate biopsy Family History Family History Mother Breast cancer Sibling Mesothelioma Father Brain tumor Social Histor
[2022-06-22] VITALS (34 sets, daily range): BP systolic 84–117; BP diastolic 55–93; PULSE 86–113; RESP 17–33; TEMP 34.3–37.2; O2SAT 91–100
--- NOTE | 2022-06-22 01:49 | PC.NURSE ---
Patient temperature drop, Patient placed on jacki hugger as well as NRB for comfort as patient will not where High flow Canula or Venti mask.
--- NOTE | 2022-06-22 02:18 | PC.NURSE ---
Dr. Davis updated regarding hypothermia and patient being on Marquise Hugger as well as patient refusing a Nasal Canula, patient now being placed on Venti Mask, titrate down FIO2 as patient tolerates.
[2022-06-22] MEDS: ALBUMIN HUMAN 25% 25 GM/100 ML 100 ML IVPB ×2 (02:29→07:56)
[2022-06-22 05:34] LABS: Magnesium 2.5 mg/dL (1.6-2.3)
[2022-06-22 05:35] LABS: Partial Thromboplastin Time 71.7 SECONDS (22.3-36.8); Prothrombin Time 65.7 Seconds (11.1-14.7)
[2022-06-22 05:55] LABS: Immature Granulocyte Absolute 0.04 K/mm3 (0.00-0.031); Immature Granulocyte Percent A 0.5 % (0-0.5); Immature Platelet Fraction Pct 7.9 % (0.9-11.2); Lymphocytes Absolute Auto 1.05 K/mm3 (0.9-3.2); Lymphocytes Percent Auto 11.8 % (18.3-44.2); Mean Corpuscular Hemoglobin 30.5 pg (26-34); Mean Corpuscular Volume 92.6 fl (80-100); Mean Platelet Volume 11.5 fl (7.4-10.4); Monocytes Absolute Auto 0.4 K/mm3 (0.1-0.6); Monocytes Percent Auto 4.3 % (2.6-8.5); Neutrophils Absolute Auto 7.4 K/mm3 (1.3-6.7); Neutrophils Percent Auto 83.4 % (45.5-73.1); Platelet Count Result 109 k/mm3 (150-375); White Blood Count 8.9 K/mm3 (4.5-10.0)
[2022-06-22 05:59] LABS: Hematocrit 17.6 % (42.0-52.0); Hemoglobin 5.8 g/dL (14.0-18.0)
[2022-06-22 06:15] LABS: Anion Gap 17 mmol/L (8-16); Blood Urea Nitrogen 37 mg/dL (9-20); Calcium 7.8 mg/dL (8.4-10.2); Carbon Dioxide 17 mmol/L (22-30); Chloride 105 mmol/L (98-107); Estimated CRCL calculation 32 ml/min; Estimated Glomerular Filt Rate 31; Glucose 84 mg/dL (65-110); Potassium 3.1 mmol/L (3.4-5.0); Sodium 139 mmol/L (137-145)
[2022-06-22 06:30] LABS: INR 8.1
[2022-06-22] MEDS: LEVOTHYROXINE SODIUM 25 MCG TABLET PO (07:47)
[2022-06-22] MEDS: SODIUM CHLORIDE 0.9% IV 250 ML 30 ML IV CONT (07:47)
[2022-06-22] MEDS: MIDODRINE HCL 10 MG TABLET PO (07:55)
[2022-06-22] MEDS: PANTOPRAZOLE SODIUM IV 40 MG VIAL IV PUSH ×2 (07:56→19:59)
[2022-06-22] MEDS: PHYTONADIONE ADULT INJ 10 MG in DEXTROSE 5% IN WATER 50 ML 100 MG IVPB (08:33)
--- NOTE | 2022-06-22 09:40 | WPDINTPN ---
Progress Note: A&P Assessment and Plan (1) Severe sepsis: Code(s): A41.9 - Sepsis, unspecified organism; R65.20 - Severe sepsis without septic shock Status: Acute Assessment and Plan: Patient presented with syncope, hypotension, acute kidney injury, decreased p.o. intake for fluids and solids, anemia -patient received 2 L IV fluids with improvement in blood pressures followed by continuous infusion -UA reflective of UTI -chest x-ray was unremarkable and patient was on room air but now increased oxygen required -patient was started on empiric azithromycin and ceftriaxone which will be continued -blood cultures and urine cultures have been obtained and are pending He has not required vasopressors and lactic acid had level has improved -patient received albumin as patient is third-spacing -patient appears to have chronically low blood pressure as he is on midodrine as an outpatient and will be continued (2) Syncope: Code(s): R55 - Syncope and collapse Status: Acute Assessment and Plan: [facility] likely related to low blood pressures, secondary to UTI- No recurrence at this time in the hospital Continue midodrine (3) Elevated troponin: Code(s): R77.8 - Other specified abnormalities of plasma proteins Status: Acute Assessment and Plan: Elevated troponins likely related to hypotension, infection and/or CAD, will trend troponin levels -EKG did not show any ST elevation -even if his troponins elevated, will not be able to anticoagulated the patient has he is anemic and will be receiving additional PRBC (4) Deep vein thrombosis: Code(s): I82.409 - Acute embolism and thrombosis of unspecified deep veins of unspecified lower extremity Status: Acute Assessment and Plan: History of DVT, patient was on Eliquis -possible GI bleed with anemia and positive Hemoccult Drop in hemoglobin - Eliquis is on hold at this time. His INR has increased to 8.1 I ordered 2 units of FFP and 10 mg of vitamin K Repeat venous Doppler to assess DVT diagnosed in March (5) Renal failure: Code(s): N19 - Unspecified kidney failure Status: Acute Assessment and Plan: Acute on chronic renal failure likely related to hypovolemia, hypotension, UTI/infection Renal ultrasound - Multiple bilateral simple cysts. Multiple left renal stones. Medical renal disease. Left renal atrophy. No hydronephrosis. Urine electrolytes suggest prerenal Normal CK levels and negative urine eosinophils -continue monitor urine Hold IV fluids as patient is receiving FFP and PRBC today (6) Acute UTI: Code(s): N39.0 - Urinary tract infection, site not specified Status: Acute Assessment and Plan: Urine analysis revealed UTI, patient has an indwelling catheter due to BPH -no urine output noted at the prison -06/20/2022 urine cultures have been obtained and pending -patient is on ceftriaxone (06/20) (7) Malnutrition: Code(s): E46 - Unspecified protein-calorie malnutrition Status: Acute Assessment and Plan: Patient has not been eating or drinking well at the prison, significantly malnourished as his albumin is 1.8 and pre albumin level is less than 3 Nutritional supplements added Consult dietitian (8) COVID-19: Code(s): U07.1 - COVID-19 Status: Acute Assessment and Plan: Patient tested positive for COVID-19 on admission but does not exhibit any signs of COVID-19 pneumonia He is currently on room air Isolation No treatment indicated at this time (9) Acute on chronic anemia: Code(s): D64.9 - Anemia, unspecified Status: Acute Assessment and Plan: Acute on chronic anemia, hemoglobin 7.6 (9.7 on 06/17/2022) -patient received 1 unit of packed RBCs -positive Hemoccult -GI has been consulted and following -overnight his hemoglobin dropped to 5.8. He did not had any bowel movement and no vomiti
--- NOTE | 2022-06-22 10:57 | PCPTNOTE ---
Attempted PT evaluation, per RN, pt not medically appropriate this date for therapy. per freelance director note, pt requiring increase O2 needs and had a drop in hemoglobin. Will follow.
--- NOTE | 2022-06-22 11:14 | PCOTNOTE ---
Unable to evaluate pt. at this time. Per RN, pt not medically appropriate this date for therapy. per fabric inspector note, pt requiring increase O2 needs and had a drop in hemoglobin. Will follow.
[2022-06-22 11:23] LABS: NT Pro B Type Natriuretic Pept 20700 pg/mL (5-100)
--- NOTE | 2022-06-22 12:00 | PCFNICU ---
ICU Rounding Note: Pt current nutrition is NPO. Last recorded weight is 92.6 kg, down from 92.8 kg on admit. Bowel Motility:No Bm reported. Labs Reviewed:Mg 2.5, GFR 31, BUN 37,Cr 2.1,Hct 17.6.Hgb 5.8 Meds Noted:Midodrine,Rocephin, Synthroid,Protonix,Eliquis, Zithromax. Skin: Stage II PU-coccyx, Deep Tissue-Medial back. Additional Notes: Patient remains NPO. Confused. 2 units of FFP today. No plans for nutrition until GI clears. When diet order advanced recommend Charles BID and Ensure Enlive BID for additional kcal and protein needs. Following daily in ICU rounds. RD will monitor every 3 days.
[2022-06-22 12:35] LABS: Hematocrit 27.1 % (42.0-52.0)
[2022-06-22 12:43] LABS: Prothrombin Time 37.5 Seconds (11.1-14.7)
[2022-06-22 12:49] LABS: Fibrinogen 109 mg/dl (215-510)
[2022-06-22 13:02] LABS: Immature Platelet Fraction Pct 8.4 % (0.9-11.2); Mean Corpuscular HGB Conc 33.5 g/dl (32-36); Mean Corpuscular Hemoglobin 30.8 pg (26-34); Mean Corpuscular Volume 92.1 fl (80-100); Platelet Count Result 102 k/mm3 (150-375); Red Blood Count 2.92 M/mm3 (4.6-6.20)
[2022-06-22] MEDS: FUROSEMIDE INJ 40 MG/4 ML VIAL IV PUSH (13:24)
[2022-06-22] MEDS: LIDOCAINE HCL 1% PF INJ 5 ML VIAL INFILTRATE (14:25)
[2022-06-22] MEDS: KCL 40 MEQ/WATER 100 ML 100 ML 25 ML IVPB (15:49)
--- NOTE | 2022-06-22 16:43 | PM.IMPN ---
Progress Note: A&P Assessment and Plan (1) Severe sepsis: Code(s): A41.9 - Sepsis, unspecified organism; R65.20 - Severe sepsis without septic shock Status: Acute Assessment and Plan: Patient presented with syncope, hypotension, acute kidney injury, decreased p.o. intake for fluids and solids, anemia continue midodrine, may need pressors, appreciate critical care consultation and management (2) Syncope: Code(s): R55 - Syncope and collapse Status: Acute Assessment and Plan: Patient with syncope at the longterm likely related to low blood pressures, secondary to UTI No recurrence at this time in the hospital Continue midodrine (3) Elevated troponin: Code(s): R77.8 - Other specified abnormalities of plasma proteins Status: Acute Assessment and Plan: suspect elevated troponins are secondary to infection and hypoperfusion as opposed to acute cardiac etiology, monitor (4) Deep vein thrombosis: Code(s): I82.409 - Acute embolism and thrombosis of unspecified deep veins of unspecified lower extremity Status: Acute Assessment and Plan: history of DVT on Eliquis, currently being held secondary to GI bleed (5) Renal failure: Code(s): N19 - Unspecified kidney failure Status: Acute Assessment and Plan: suspect secondary to infection, hypovolemia, monitor (6) Acute UTI: Code(s): N39.0 - Urinary tract infection, site not specified Status: Acute Assessment and Plan: continue Rocephin, follow up urine cultures (7) Malnutrition: Code(s): E46 - Unspecified protein-calorie malnutrition Status: Acute Assessment and Plan: dietitian consult pending, continue nutritional supplements with meals (8) COVID-19: Code(s): U07.1 - COVID-19 Status: Acute Assessment and Plan: stable (9) Acute on chronic anemia: Code(s): D64.9 - Anemia, unspecified Status: Acute Assessment and Plan: Acute on chronic anemia, hemoglobin 7.6 (9.7 on 06/17/2022) GI consult, NPO, ppi, status post transfusion, monitor closely (10) Ascites: Code(s): R18.8 - Other ascites Status: Acute Assessment and Plan: continue Rocephin for SBP prophylaxis Plan DVT prophylaxis with SCDs GI prophylaxis not indicated Code status full code Subjective Date/time seen: 06/22/22 16:43 Interval history: Increased oxygen needs noted overnight. No fevers. Review of Systems Review of Systems: ROS unobtainable: Yes unobtainable due to medical condition Exam Narrative: General: NAD HEENT:? Pupils equal and reactive, sclera is clear Neck:? Supple Respiratory:? Unlabored breathing noted Abdomen:? Soft, non distended Skin:? Bruising noted on upper and lower extremities Psych:? Flat mood and affect Objective Data Vital Signs Vital Signs: Vital Signs - 24 hr 06/21/22 18:00 06/21/22 18:00 06/21/22 19:52 Temperature 95.4 F L Pulse Rate 96 96 92 Respiratory Rate 23 H 21 H Blood Pressure 118/72 Pulse Oximetry 96 95 Oxygen Delivery Room Air Oxygen Flow Rate Fraction of Inspired Oxygen 06/21/22 20:00 06/21/22 20:00 06/21/22 22:00 Temperature 97.4 F L Pulse Rate 102 H 93 99 Respiratory Rate 27 H Blood Pressure 110/87 Pulse Oximetry 96 Oxygen Delivery Oxygen Flow Rate Fraction of Inspired Oxygen 06/21/22 22:00 06/21/22 23:36 06/21/22 23:39 Temperature Pulse Rate 98 98 96 Respiratory Rate 21 H 20 23 H Blood Pressure 116/75 Pulse Oximetry 94 100 Oxygen Delivery Room Air Oxygen Flow Rate Fraction of Inspired Oxygen 06/22/22 00:00 06/22/22 00:00 06/22/22 01:50 Temperature 97.4 F L 93.7 F L Pulse Rate 104 H 103 H Respiratory Rate 21 H Blood Pressure 94/59 L Pulse Oximetry 91 Oxygen Delivery Oxygen Flow Rate Fraction of Inspired Oxygen 06/22/22 01:51 06/22/22 02:00 06/22/22 02:00 Temp
--- NOTE | 2022-06-22 16:57 | WPDGIPROGNO ---
Progress Note: A&P Assessment and Plan (1) Acute on chronic anemia: Code(s): D64.9 - Anemia, unspecified Status: Acute Assessment and Plan: required blood transfusion also coagulopathy (eliquis on hold), wonder if could be from sepsis/covid, ? liver disease now that he has ascites (2) Coagulopathy: Code(s): D68.9 - Coagulation defect, unspecified Status: Acute Assessment and Plan: s/p ffp ascites +, ? bleeding (3) COVID-19: Code(s): U07.1 - COVID-19 Status: Acute Assessment and Plan: now requiring oxygen support (4) Ascites: Code(s): R18.8 - Other ascites Status: Acute Assessment and Plan: inr still high for paracentesis will get hepatitis panel ? liver disease (5) Severe sepsis: Code(s): A41.9 - Sepsis, unspecified organism; R65.20 - Severe sepsis without septic shock Status: Acute Assessment and Plan: by icu (6) Syncope: Code(s): R55 - Syncope and collapse Status: Acute (7) Cardiomyopathy: Code(s): I42.9 - Cardiomyopathy, unspecified Status: Acute Assessment and Plan: wonder if also affecting anasarca Subjective Date/time seen: 06/22/22 16:57 Interval history: sicker, now requiring bipap, also noted worsening ascites and drop in hb requiring blood transfusion. He is also interacting less Review of Systems Review of Systems: All systems reviewed & are unremarkable except as noted in HPI and below Exam Const: Other: on bipap, lethargic, looks ill HENMT: Face/Nose/Sinus: Normal nares present Eyes: General: appearance normal, both eyes and all related structures Neck: Neck: supple Resp: Auscultation: diminished lung sounds Cardio: Rate: regular rate GI: Inspection: distended GI Palp: Yes Soft to palpation Other: + fluid wave c/w ascites Neuro: Other: lethargic Extrem: Other: leg edema Objective Data Vital Signs Vital Signs: Vital Signs - 24 hr 06/21/22 18:00 06/21/22 18:00 06/21/22 19:52 Temperature 95.4 F L Pulse Rate 96 96 92 Respiratory Rate 23 H 21 H Blood Pressure 118/72 Pulse Oximetry 96 95 Oxygen Delivery Room Air Oxygen Flow Rate Fraction of Inspired Oxygen 06/21/22 20:00 06/21/22 20:00 06/21/22 22:00 Temperature 97.4 F L Pulse Rate 102 H 93 99 Respiratory Rate 27 H Blood Pressure 110/87 Pulse Oximetry 96 Oxygen Delivery Oxygen Flow Rate Fraction of Inspired Oxygen 06/21/22 22:00 06/21/22 23:36 06/21/22 23:39 Temperature Pulse Rate 98 98 96 Respiratory Rate 21 H 20 23 H Blood Pressure 116/75 Pulse Oximetry 94 100 Oxygen Delivery Room Air Oxygen Flow Rate Fraction of Inspired Oxygen 06/22/22 00:00 06/22/22 00:00 06/22/22 01:50 Temperature 97.4 F L 93.7 F L Pulse Rate 104 H 103 H Respiratory Rate 21 H Blood Pressure 94/59 L Pulse Oximetry 91 Oxygen Delivery Oxygen Flow Rate Fraction of Inspired Oxygen 06/22/22 01:51 06/22/22 02:00 06/22/22 02:00 Temperature 93.7 F L Pulse Rate 95 91 Respiratory Rate 18 Blood Pressure Pulse Oximetry 100 Oxygen Delivery Non-Rebreather Mask Oxygen Flow Rate 15 Fraction of Inspired Oxygen 06/22/22 02:00 06/22/22 03:00 06/22/22 03:24 Temperature 93.7 F L 95.0 F L Pulse Rate 93 97 Respiratory Rate 18 18 Blood Pressure 95/61 L Pulse Oximetry 98 94 Oxygen Delivery Venturi Mask Oxygen Flow Rate 15 Fraction of Inspired Oxygen 06/22/22 04:00 06/22/22 04:00 06/22/22 04:00 Temperature 96.7 F L 96.7 F L Pulse Rate 113 H 112 H Respiratory Rate 21 H Blood Pressure 113/70 Pulse Oximetry 93 Oxygen Delivery Oxygen Flow Rate Fraction of Inspired Oxygen 06/22/22 05:48 06/22/22 06:00 06/22/22 06:00 Temperature 97.1 F L 97.0 F L Pulse Rate 106 H 106 H Respiratory Rate 20 Blood Pressure 96/64 L Pulse Oximetry 97 Oxygen Delivery Oxygen [place]
[2022-06-22 18:07] LABS: Hematocrit 25.3 % (42.0-52.0); Hemoglobin 8.6 g/dL (14.0-18.0); Immature Platelet Fraction Pct 7.6 % (0.9-11.2); Mean Corpuscular Hemoglobin 30.5 pg (26-34); Mean Corpuscular Volume 89.7 fl (80-100); Platelet Count Result 89 k/mm3 (150-375); Red Blood Count 2.82 M/mm3 (4.6-6.20); Red Cell Distribution Width 17.2 % (11.5-14.5); White Blood Count 11.2 K/mm3 (4.5-10.0)
[2022-06-22 18:18] LABS: INR 2.9; Prothrombin Time 29.6 Seconds (11.1-14.7)
[2022-06-22 18:24] LABS: Fibrinogen 127 mg/dl (215-510)
[2022-06-22] MEDS: CENTRAL LINE FLUSH 10 ML IV PUSH (19:59)
[2022-06-23] VITALS (46 sets, daily range): BP systolic 50–129; BP diastolic 39–92; PULSE 65–96; RESP 15–34; TEMP 35.3–36.3; O2SAT 91–100; BMI 22.8
--- NOTE | 2022-06-23 | ECHO_ITS ---
Patient Info Name: Richard Olivas Age: 76 years : 1945 Gender: Male Ht: 74 in Wt: 204 lbs BSA: 2.21 m2 HR: 84 bpm BP: 118 / 69 mmHg Heart Rhythm: Sinus Rhythm Exam Date: 06/23/2022 1:20 PM Exam Location: [facility] Patient Status: Inpatient Admit Date: 06/20/2022 Staff Ordering Physician: Moise Davis MD Websphere Architect: Jhoan Hampton, TERA, RT Attending Provider: Ismael Garza MD Exam Type: CA echo doppler color flow Study Info Indications I50.9 - Heart failure, unspecified Complete two-dimensional, color flow and Doppler transthoracic echocardiogram is performed. Strain analysis performed. Summary 1. Complete two-dimensional, color flow and Doppler transthoracic echocardiogram is performed. 2. Normal left ventricular size with mild systolic dysfunction. 3. Akinesis of the anteroseptal segment. 4. Normal right ventricular size and systolic function. 5. No significant valvular dysfunction. 6. Compared with echocardiogram from 3 months ago the findings are without significant change. Left Ventricle Left ventricular chamber dimension is normal. Left ventricular systolic function is mildly reduced, estimated at 45-50%. The left ventricular diastolic function is grade I diastolic dysfunction. Right Ventricle Right ventricular chamber dimension is normal. Right ventricular systolic function is normal. Left Atria Left atrial chamber dimension is normal. Right Atria Right atrial chamber dimension is normal. Aortic Valve The aortic valve is normal. Pulmonic Valve The pulmonic valve is not well visualized. Mitral Valve The mitral valve has normal leaflets. Tricuspid Valve The tricuspid valve leaflets are normal. Pericardium/Pleural The pericardium appears normal. Aorta The aortic root size at the sinus of Valsalva is normal. Left Ventricular Outflow Tract Name Value Normal LVOT 2D LVOT Diameter 2.0 cm LVOT Doppler LVOT Peak Gradient 2 mmHg LVOT Mean Gradient 1 mmHg LVOT VTI 16 cm LVOT VTI/AV VTI Ratio 1.0 LVOT Stroke Volume 48 ml LVOT CO 4.0 l/min LVOT CI 1.8 l/min/m2 Mitral Valve Name Value Normal MV Doppler MV Decel Pickett 180 cm/s2 MV PHT 63 ms MV Area (PHT) 3.5 cm2 4.0-5.0 MV Diastolic Function MV E Peak Velocity 39 cm/s MV A Peak Velocity 55 cm/s MV E/A 0.7 MV Decel Time 218 ms
[2022-06-23] MEDS: FUROSEMIDE INJ 40 MG/4 ML VIAL IV PUSH (00:07)
[2022-06-23 00:47] LABS: Hematocrit 26.3 % (42.0-52.0)
[2022-06-23] MEDS: CENTRAL LINE FLUSH 10 ML IV PUSH ×3 (04:37→20:20)
[2022-06-23 05:05] LABS: Magnesium 2.2 mg/dL (1.6-2.3); Phosphorus 2.9 mg/dL (2.5-4.5)
[2022-06-23 05:09] LABS: Prothrombin Time 30.4 Seconds (11.1-14.7)
[2022-06-23 05:10] LABS: Hematocrit 26.9 % (42.0-52.0); Partial Thromboplastin Time 47.7 SECONDS (22.3-36.8)
[2022-06-23 05:52] LABS: Hepatitis B Surface Antigen Negative (Negative)
[2022-06-23 05:53] LABS: Alanine Aminotransferase 43 U/L (6-50); Albumin Level 2.7 g/dL (3.5-5.1); Alkaline Phosphatase 115 U/L (38-126); Anion Gap 11 mmol/L (8-16); Aspartate Amino Transferase 151 U/L (17-59); Bilirubin,Total 1.8 mg/dL (0.2-1.3); Blood Urea Nitrogen 42 mg/dL (9-20); Calcium 7.9 mg/dL (8.4-10.2); Carbon Dioxide 20 mmol/L (22-30); Chloride 108 mmol/L (98-107); Estimated CRCL calculation 30 ml/min; Estimated Glomerular Filt Rate 29; Glucose 91 mg/dL (65-110); Potassium 3.7 mmol/L (3.4-5.0); Sodium 139 mmol/L (137-145)
[2022-06-23 05:57] LABS: HAV RESULT Negative (Negative); Hepatitis B Core IgM Result Negative (Negative)
[2022-06-23 06:09] LABS: Hepatitis C Virus Antibody Negative (Negative)
--- NOTE | 2022-06-23 07:35 | PM.IMPN ---
Progress Note: A&P Assessment and Plan (1) Severe sepsis: Code(s): A41.9 - Sepsis, unspecified organism; R65.20 - Severe sepsis without septic shock Status: Acute Assessment and Plan: Continue Rocephin and azithromycin for suspected pneumonia, 1st dose 06/20 Remains stable off pressors Urine culture negative, blood cultures pending but negative growth to date (2) Syncope: Code(s): R55 - Syncope and collapse Status: Acute Assessment and Plan: Patient with syncope at the longterm likely related to low blood pressures, secondary to UTI No recurrence at this time in the hospital Continue midodrine (3) Elevated troponin: Code(s): R77.8 - Other specified abnormalities of plasma proteins Status: Acute Assessment and Plan: Suspect elevated troponins are secondary to infection and hypoperfusion as opposed to acute cardiac etiology, monitor (4) Deep vein thrombosis: Code(s): I82.409 - Acute embolism and thrombosis of unspecified deep veins of unspecified lower extremity Status: Acute Assessment and Plan: History of DVT on Eliquis, currently being held secondary to GI bleed, continue to monitor INR, with greater than 5 at admission, down to 3 today, 06/23 (5) Renal failure: Code(s): N19 - Unspecified kidney failure Status: Acute Assessment and Plan: Suspect secondary to infection, hypovolemia, monitor (6) Acute UTI: Code(s): N39.0 - Urinary tract infection, site not specified Status: Acute Assessment and Plan: Continue Rocephin, follow up urine cultures (7) Malnutrition: Code(s): E46 - Unspecified protein-calorie malnutrition Status: Acute Assessment and Plan: Dietitian consult pending, continue nutritional supplements with meals (8) COVID-19: Code(s): U07.1 - COVID-19 Status: Acute Assessment and Plan: Stable Could be related to coagulopathy? (9) Acute on chronic anemia: Code(s): D64.9 - Anemia, unspecified Status: Acute Assessment and Plan: Acute on chronic anemia, hemoglobin 7.6 (9.7 on 06/17/2022), INR greater than 5 on admission, Eliquis held GI consult, NPO, ppi, status post transfusion, FFP, vitamin K, monitor closely Labs pending for today, 06/23 (10) Ascites: Code(s): R18.8 - Other ascites Status: Acute Assessment and Plan: Continue Rocephin for SBP prophylaxis Plan DVT prophylaxis with SCDs, Eliquis held, INR greater than 5 at admission, down to 3 today 06/23 GI prophylaxis with PPI Code status full code Subjective Date/time seen: 06/23/22 07:35 Interval history: Intubated, sedated Review of Systems Review of Systems: ROS unobtainable: Yes unobtainable due to endotracheal tube Exam Narrative: General: Int/sed HEENT: Atraumatic, normocephalic, mucous membranes moist CV: Regular rate and rhythm, S1, S2 Lungs: Unlabored breathing noted, no audible wheeze Abdomen: Soft, nontender, nondistended Extremities: Normal to inspection Skin: No rashes noted, no lesions or wounds seen Psych: Unable to assess Objective Data Vital Signs Vital Signs: Vital Signs - 24 hr 06/22/22 07:37 06/22/22 07:51 06/22/22 07:52 Temperature 96.6 F L 96.5 F L 96.5 F L Pulse Rate 105 H 102 H 95 Respiratory Rate 24 H 20 22 H Blood Pressure 95/70 L 99/60 L 99/60 L Pulse Oximetry 92 96 96 Oxygen Delivery Oxygen Flow Rate Fraction of Inspired Oxygen 06/22/22 08:51 06/22/22 09:51 06/22/22 08:00 Temperature 96.3 F L 96.2 F L 96.4 F L Pulse Rate 112 H 103 H 104 H Respiratory Rate 25 H 25 H 25 H Blood Pressure 95/62 L 106/93 H 99/76 L Pulse Oximetry 95 96 96 Oxygen Delivery Oxygen Flow Rate Fraction of Inspired Oxygen 06/22/22 10:00 06/22/22 08:00 06/22/22 10:48 Temperature 96 F L 96 F L Pulse Rate 101 H 104 H 102 H Respiratory Rate 22 H 25 H 22 H Blood Pressure 113/71 116/70 Pulse Ox
[2022-06-23 08:23] LABS: Hematocrit 26.7 % (42.0-52.0); Hemoglobin 9.1 g/dL (14.0-18.0); Immature Platelet Fraction Pct 8.5 % (0.9-11.2); Mean Corpuscular HGB Conc 34.1 g/dl (32-36); Mean Corpuscular Hemoglobin 31.2 pg (26-34); Mean Corpuscular Volume 91.4 fl (80-100); Mean Platelet Volume 12.5 fl (7.4-10.4); Platelet Count Result 92 k/mm3 (150-375); Red Blood Count 2.92 M/mm3 (4.6-6.20); Red Cell Distribution Width 17.7 % (11.5-14.5); White Blood Count 13.7 K/mm3 (4.5-10.0)
[2022-06-23 09:01] LABS: Band Neutrophils Percent 21 % (0-6); Lymphocytes Absolute Manual 0.13 K/mm3 (1.1-4.5); Lymphocytes Percent Manual 1 % (18-44); Metamyelocytes Percent 3 %; Monocytes Absolute Manual 0.27 K/mm3 (0.1-0.90); Monocytes Percent Manual 2 % (3-9); Neutrophils Absolute Manual 12.87 K/mm3 (1.3-6.7); Neutrophils Percent Manual 73 % (46-73); Total Cells Counted 100
[2022-06-23 09:02] LABS: Poikilocytosis 2+ (NORMAL)
[2022-06-23 09:03] LABS: Acanthocytes 1+ (NORMAL); Anisocytosis 1+ (NORMAL); Ovalocytes 1+ (NORMAL); Schistocytes 1+ (NORMAL); Target Cells 1+ (NORMAL)
[2022-06-23] MEDS: MIDODRINE HCL 10 MG TABLET PO ×3 (09:16→17:45)
[2022-06-23] MEDS: PANTOPRAZOLE SODIUM IV 40 MG VIAL IV PUSH ×2 (09:16→20:20)
[2022-06-23] MEDS: MIDAZOLAM 100MG/NS 100ML(*CRX) 100 MG/100 ML BAG IV CONT (10:30)
[2022-06-23] MEDS: FENTANYL 2,500MCG/NS250ML(*CRX 2,500 MCG/250 ML BAG IV CONT (10:30)
[2022-06-23] MEDS: MIDAZOLAM HCL (*CRX) 2 MG/2 ML VIAL 4 MG IV PUSH (10:45)
[2022-06-23] MEDS: ETOMIDATE 20 MG/10 ML AMPUL IV PUSH (10:46)
[2022-06-23] MEDS: NOREPINEPHRINE 8 MG/D5W 250 ML 8 MG/250 ML BAG 18.75 MG IV CONT (11:00)
[2022-06-23] MEDS: SODIUM CHLORIDE 0.9% IV 500 ML IV CONT (11:00)
--- NOTE | 2022-06-23 11:08 | WPDPROCEDUR ---
Procedures Intubation Intubation Date: 06/23/22 Intubation Time: 10:30 Consent: Verbal consent was obtained from patient A pre-procedural Time-Out was completed immediately before starting the procedure and confirmed: Patient Identification, Site, Procedure, Patient Position and the Availability of Requisite Equipment: Yes Sedative: etomidate Mg given: 20 Laryngoscope: fiber optic video scope Assist device used: fiber optic device ET tube size: cuffed Tube secured depth (cm): 24 Tube secured location: lips Tube placement confirmation: visualized tube passing through cords, equal breath sounds bilaterally, no breath sounds over epigastrium and confirmation by capnometry Patient tolerated procedure: well Intubation complications: none Additional comments: Patient became hypotensive post intubation after sedatives were given. 500 mL fluid bolus and Levophed started
--- NOTE | 2022-06-23 11:10 | WPDINTPN ---
Progress Note: A&P Assessment and Plan (1) Acute respiratory failure: Code(s): J96.00 - Acute respiratory failure, unspecified whether with hypoxia or hypercapnia Status: Acute Assessment and Plan: Acute Respiratory failure secondary to pneumonia and volume overload. Patient also positive for COVID-19 although I do not suspect this is a COVID-19 pneumonia Patient had been on BiPAP with gradually worsening hypoxia. Poor response to Lasix. Tachypneic and weak I spoke to patient regarding intubation mechanical ventilation option. And was agreeable to proceed. I did explain to the patient that he is critically ill and may not survive or may not come off the ventilator. He verbalized understanding and agreed to proceed. Requested to be full code at this time. He requested me to notify his brother who is his power county attorney and next of kin. I did speak to his brother and updated him with patient's current status and treatment plan. Patient was intubated any significant difficulty. Dried up blood was noticed in oropharynx and larynx Vent settings reviewed Chest x-ray reviewed ABG Pending Start dexamethasone for COVID-19 Empiric antibiotics in the form of continue azithromycin, change Rocephin to cefepime, and vancomycin Bronchodilators (2) Severe sepsis: Code(s): A41.9 - Sepsis, unspecified organism; R65.20 - Severe sepsis without septic shock Status: Acute Assessment and Plan: Patient presented with syncope, hypotension, acute kidney injury, decreased p.o. intake for fluids and solids, anemia -patient received 2 L IV fluids with improvement in blood pressures followed by continuous infusion -UA reflective of UTI -chest x-ray was unremarkable and patient was on room air but now i worsening oxygen demand with infiltrate as well pneumonia -patient was initially started on empiric azithromycin and ceftriaxone - 06/23 antibiotics changed to vancomycin Zosyn and azithromycin -blood cultures and urine cultures have been obtained and are pending -he is currently on Levophed post intubation -patient received albumin as patient is third-spacing -patient appears to have chronically low blood pressure as he is on midodrine as an outpatient and will be continued (3) Syncope: Code(s): R55 - Syncope and collapse Status: Acute Assessment and Plan: Patient with syncope at the care home likely related to low blood pressures, secondary to UTI- No recurrence at this time in the hospital Now intubated and on vasopressor (4) Elevated troponin: Code(s): R77.8 - Other specified abnormalities of plasma proteins Status: Acute Assessment and Plan: Elevated troponins likely related to hypotension, infection and/or CAD, will trend troponin levels -EKG did not show any ST elevation -even if his troponins elevated, will not be able to anticoagulated the patient has he is anemic and will be receiving additional PRBC (5) Deep vein thrombosis: Code(s): I82.409 - Acute embolism and thrombosis of unspecified deep veins of unspecified lower extremity Status: Acute Assessment and Plan: History of DVT, patient was on Eliquis -possible GI bleed with anemia and positive Hemoccult Drop in hemoglobin - Eliquis is on hold at this time. His INR had increased to 8.1 Patient was transfused 2 units of FFP and 10 mg of vitamin K Repeat INR is 3 Repeat venous Doppler to assess DVT diagnosed in March was done and pending Hold anticoagulation at this time (6) Renal failure: Code(s): N19 - Unspecified kidney failure Status: Acute Assessment and Plan: Acute on chronic renal failure likely related to hypovolemia, hypotension, UTI/infection Renal ultrasound - Multiple bilateral simple cysts. Multiple left renal stones. Medical renal disease. Left renal atrophy. No hydronephrosis. Urine electrolytes suggest prerenal Normal CK levels and negative urine eosinophils -continue monit
[2022-06-23] MEDS: MINERAL OIL/WHITE PETROLATUM OINTMENT 1 APPLIC EACH EYE ×2 (11:13→20:20)
--- NOTE | 2022-06-23 11:56 | PCPTNOTE ---
PT intubated at this time. Please re-order physical therapy when pt is medically stable.
--- NOTE | 2022-06-23 12:16 | PCFNICU ---
ICU Rounding Note: Pt current nutrition is NPO. Nutrition recommendation: Vital AF 1.2 at 20 ml/hr advance by 10 ml q 4 hours to goal rate of 70 ml/hr with free water flush 30 ml q 4 hours. Diet supplements: Charles BID for wound healing. Last recorded weight is 80.9 kg, down from 92.8 kg on admit. Bowel Motility:+Bm reported 06/23 Labs Reviewed:GFR 29, BUN 42, Cr 2.2,Alb 2.7,Hct 26.7,Hgb 9.1 Meds Noted:Versed, Fentanyl, Midodrine, Levophed,Protonix, Vancomycin Skin: Stage II PU/Deep Tissue-Saccum Additional Notes: Patient intubated today. Tube feeding recommends given above as well as diet supplement for wound healing. Following daily in ICU rounds. RD will monitor every Monday and Monday.
[2022-06-23 13:00] LABS: Alveolar/Arterial O2 Gradient 590.7 mmHg; Base Excess ABG -4.4 mEq/l (+/-2.0); Device VENTILATOR; Fractional Inspired Oxygen 100 %; HCO3 ABG 19.9 mEq/l (22.0-26.0); Modified Allen's Test Pass; Oxygen Content ABG 14.8 %vol (16.0-22.0); Oxygen Saturation ABG 96.7 % (95.0-100.0); Oxyhemoglobin 95.2 % THb (90.0-100.0); PCO2 ABG 33.9 mmHg (35.0-45.0); PO2 ABG 88.4 mmHg (80.0-100.0); PO2 FiO2 Ratio Arterial Blood 0.88 %; Site Drawn LEFT RADIAL; pH ABG 7.386 (7.350-7.450)
[2022-06-23 13:01] LABS: Arterial Blood Gas PEEP 5 cmH2O; Arterial Blood Gas Tidal Volume 450 ml; Arterial Blood Gas Vent Mode CMV; Arterial Blood Gas Ventilator rate 20 /MIN
--- NOTE | 2022-06-23 13:02 | PCOTNOTE ---
Pt. intubated at this time. Please re-order occupational therapy when pt is medically stable.
[2022-06-23 13:33] LABS: Hematocrit 29.2 % (42.0-52.0); Hemoglobin 9.8 g/dL (14.0-18.0)
[2022-06-23 13:42] LABS: Estimated CRCL calculation 30 ml/min; Estimated Glomerular Filt Rate 29
--- NOTE | 2022-06-23 16:07 | WPDGIPROGNO ---
Progress Note: A&P Assessment and Plan (1) Acute on chronic anemia: Code(s): D64.9 - Anemia, unspecified Status: Acute Assessment and Plan: required blood transfusion also coagulopathy (eliquis on hold), wonder if could be from sepsis/covid, ? liver disease now that he has ascites no paracentesis yet, he is getting fpp and probably tomorrow (2) Coagulopathy: Code(s): D68.9 - Coagulation defect, unspecified Status: Acute Assessment and Plan: s/p ffp ascites +, ? bleeding hepatitis panel negative (3) COVID-19: Code(s): U07.1 - COVID-19 Status: Acute Assessment and Plan: worsening respiratory failure intubated prognosis is guarded (4) Acute respiratory failure: Code(s): J96.00 - Acute respiratory failure, unspecified whether with hypoxia or hypercapnia Status: Acute Assessment and Plan: intubated (5) Ascites: Code(s): R18.8 - Other ascites Status: Acute Assessment and Plan: inr still high for paracentesis will get hepatitis panel ? liver disease (6) Severe sepsis: Code(s): A41.9 - Sepsis, unspecified organism; R65.20 - Severe sepsis without septic shock Status: Acute Assessment and Plan: by icu (7) Syncope: Code(s): R55 - Syncope and collapse Status: Acute (8) Cardiomyopathy: Code(s): I42.9 - Cardiomyopathy, unspecified Status: Acute Assessment and Plan: wonder if also affecting anasarca Subjective Date/time seen: 06/23/22 16:07 Interval history: more obtunded and distress finally intubated, he has enteral feeding at 20 ml/h, no obvious gib, also got FFP Review of Systems Review of Systems: All systems reviewed & are unremarkable except as noted in HPI and below Exam Narrative: General: Pt is now sedated, intubated and on mechanical ventilation Lungs/Chest: Now he is intubated Trachea central Coarse BS B/L, bilateral crackles present, earlier patient was on BiPAP and, tachypneic Cardiac: RRR. Normal S1 S2. No murmurs Circulation: Pedal pulses are weak bilateral : Vega in place Abdomen:? Soft, non tender, distended with fluid thrill, anasarca and protuberant Extremities:? Bilateral lower extremity 3+ edema in ankles and around hips, decreased palpable pedal pulses Neuro:? Patient is awake, alert, oriented x2, very weak, answers to questions appropriately but very slow and follows simple commands in all extremities, post intubation he sedated and unresponsive Skin:? Bruising noted on upper and lower extremities Objective Data Vital Signs Vital Signs: Vital Signs - 24 hr 06/22/22 17:41 06/22/22 18:00 06/22/22 18:00 Temperature 97.8 F Pulse Rate 89 94 94 Respiratory Rate 29 H 22 H Blood Pressure 110/72 Pulse Oximetry 100 95 Oxygen Delivery BiPAP Fraction of Inspired Oxygen 06/22/22 20:00 06/22/22 20:00 06/22/22 20:00 Temperature 97.6 F Pulse Rate 97 94 97 Respiratory Rate 22 H 24 H Blood Pressure 117/69 Pulse Oximetry 95 97 Oxygen Delivery BiPAP Fraction of Inspired Oxygen 55 06/22/22 22:00 06/22/22 22:00 06/23/22 00:00 Temperature 97.2 F L Pulse Rate 93 93 96 Respiratory Rate 24 H Blood Pressure 111/69 Pulse Oximetry 93 Oxygen Delivery Fraction of Inspired Oxygen 06/23/22 00:00 06/23/22 00:00 06/23/22 01:50 Temperature 97.0 F L 96.5 F L Pulse Rate 93 96 Respiratory Rate 24 H 26 H Blood Pressure 123/71 Pulse Oximetry 93 91 Oxygen Delivery BiPAP Fraction of Inspired Oxygen 70 06/23/22 02:00 06/23/22 02:00 06/23/22 02:23 Temperature 96.5 F L 96.5 F L Pulse Rate 94 95 Respiratory Rate 29 H Blood Pressure 102/66 Pulse Oximetry 93 Oxygen Delivery Fraction of Inspired Oxygen 06/23/22 03:00 06/23/22 03:15 06/22/22 21:30 Temperature 97.0 F L 97.2 F L Pulse Rate 93 Respiratory Rate 25 H Blood Pressure Pulse Oximetry 93 Oxygen Delivery BiPAP F
[2022-06-23 17:44] LABS: Glucose Point of Care 150 mg/dl (65-105)
[2022-06-23 18:50] LABS: Hematocrit 27.8 % (42.0-52.0); Hemoglobin 9.6 g/dL (14.0-18.0)
[2022-06-23] MEDS: NOREPINEPHRINE 8 MG/D5W 250 ML 8 MG/250 ML BAG 13.13 MG IV CONT (20:17)
[2022-06-24] VITALS (83 sets, daily range): BP systolic 61–130; BP diastolic 48–85; PULSE 55–94; RESP 16–30; TEMP 35–36.9; O2SAT 93–100
[2022-06-24 01:00] LABS: Glucose Point of Care 157 mg/dl (65-105)
[2022-06-24] MEDS: CENTRAL LINE FLUSH 10 ML IV PUSH ×3 (05:13→20:27)
[2022-06-24] MEDS: LEVOTHYROXINE SODIUM 25 MCG TABLET PO (05:21)
[2022-06-24 05:34] LABS: Hematocrit 27.6 % (42.0-52.0); Hemoglobin 9.4 g/dL (14.0-18.0); Immature Platelet Fraction Pct 8.6 % (0.9-11.2); Mean Corpuscular HGB Conc 34.1 g/dl (32-36); Mean Corpuscular Hemoglobin 30.4 pg (26-34); Mean Corpuscular Volume 89.3 fl (80-100); Mean Platelet Volume 11.8 fl (7.4-10.4); Platelet Count Result 88 k/mm3 (150-375); Red Blood Count 3.09 M/mm3 (4.6-6.20); Red Cell Distribution Width 17.6 % (11.5-14.5)
[2022-06-24 05:36] LABS: Alanine Aminotransferase 41 U/L (6-50); Albumin Level 2.4 g/dL (3.5-5.1); Alkaline Phosphatase 117 U/L (38-126); Anion Gap 9 mmol/L (8-16); Aspartate Amino Transferase 109 U/L (17-59); Bilirubin,Total 1.9 mg/dL (0.2-1.3); Blood Urea Nitrogen 47 mg/dL (9-20); Calcium 7.9 mg/dL (8.4-10.2); Carbon Dioxide 21 mmol/L (22-30); Chloride 106 mmol/L (98-107); Estimated CRCL calculation 31 ml/min; Estimated Glomerular Filt Rate 29; Glucose 161 mg/dL (65-110); Phosphorus 2.5 mg/dL (2.5-4.5); Potassium 4.4 mmol/L (3.4-5.0); Sodium 136 mmol/L (137-145)
[2022-06-24 05:48] LABS: INR 2.3; Prothrombin Time 24.7 Seconds (11.1-14.7)
[2022-06-24 05:49] LABS: Partial Thromboplastin Time 44.5 SECONDS (22.3-36.8)
[2022-06-24 06:04] LABS: Alveolar/Arterial O2 Gradient 331.8 mmHg; Base Excess ABG -1.8 mEq/l (+/-2.0); Carboxyhemoglobin 0.2 % THb (0-2.0); Fractional Inspired Oxygen 60 %; HCO3 ABG 21.5 mEq/l (22.0-26.0); Methemoglobin ABG 0.3 %THb (0-1.5); Oxygen Content ABG 13.8 %vol (16.0-22.0); Oxyhemoglobin 90.9 % THb (90.0-100.0); PCO2 ABG 31.3 mmHg (35.0-45.0); PO2 ABG 61.6 mmHg (80.0-100.0); PO2 FiO2 Ratio Arterial Blood 1.03 %; Reduced Hemoglobin 8.6 %THb (0-5.0); Total Hemoglobin 10.8 g/dL (12.0-18.0); pH ABG 7.454 (7.350-7.450)
[2022-06-24 06:05] LABS: Arterial Blood Gas Ventilator rate 20 /MIN; Device VENTILATOR; Modified Allen's Test Pass; Site Drawn LEFT RADIAL
[2022-06-24 06:06] LABS: Arterial Blood Gas PEEP 5 cmH2O; Arterial Blood Gas Tidal Volume 450 ml; Arterial Blood Gas Vent Mode CMV
--- NOTE | 2022-06-24 08:05 | PM.IMPN ---
Progress Note: A&P Assessment and Plan (1) Severe sepsis: Code(s): A41.9 - Sepsis, unspecified organism; R65.20 - Severe sepsis without septic shock Status: Acute Assessment and Plan: Continue Rocephin and azithromycin for suspected pneumonia, 1st dose 06/20 Remains stable off pressors Urine culture negative, blood cultures pending but negative growth to date (2) Syncope: Code(s): R55 - Syncope and collapse Status: Acute Assessment and Plan: Patient with syncope at the care home likely related to low blood pressures, secondary to UTI No recurrence at this time in the hospital Continue midodrine (3) Elevated troponin: Code(s): R77.8 - Other specified abnormalities of plasma proteins Status: Acute Assessment and Plan: Suspect elevated troponins are secondary to infection and hypoperfusion as opposed to acute cardiac etiology, monitor (4) Deep vein thrombosis: Code(s): I82.409 - Acute embolism and thrombosis of unspecified deep veins of unspecified lower extremity Status: Acute Assessment and Plan: History of DVT on Eliquis, currently being held secondary to GI bleed, continue to monitor INR, with greater than 5 at admission, down to 3 today, 06/23 (5) Renal failure: Code(s): N19 - Unspecified kidney failure Status: Acute Assessment and Plan: Suspect secondary to infection, hypovolemia, monitor (6) Acute UTI: Code(s): N39.0 - Urinary tract infection, site not specified Status: Acute Assessment and Plan: Continue Rocephin, follow up urine cultures (7) Malnutrition: Code(s): E46 - Unspecified protein-calorie malnutrition Status: Acute Assessment and Plan: Dietitian consult pending, continue nutritional supplements with meals (8) COVID-19: Code(s): U07.1 - COVID-19 Status: Acute Assessment and Plan: Stable Could be related to coagulopathy? (9) Acute on chronic anemia: Code(s): D64.9 - Anemia, unspecified Status: Acute Assessment and Plan: Acute on chronic anemia, INR greater than 5 on admission, Eliquis held GI consult, NPO, ppi, status post transfusion, FFP, vitamin K, monitor closely (10) Ascites: Code(s): R18.8 - Other ascites Status: Acute Assessment and Plan: Continue Rocephin for SBP prophylaxis Plan DVT prophylaxis with SCDs, Eliquis held, INR greater than 5 at admission, down to 2.3 today 06/24 GI prophylaxis with PPI Code status full code Subjective Date/time seen: 06/24/22 08:05 Interval history: Intubated, sedated, on pressors. Review of Systems Review of Systems: ROS unobtainable: Yes unobtainable due to endotracheal tube Exam Narrative: General: Int/sed HEENT: Atraumatic, normocephalic, mucous membranes moist CV: Regular rate and rhythm, S1, S2 Lungs: Unlabored breathing noted, no audible wheeze Abdomen: Soft, nontender, nondistended Extremities: Normal to inspection Skin: No rashes noted, no lesions or wounds seen Psych: Unable to assess Objective Data Vital Signs Vital Signs: Vital Signs - 24 hr 06/23/22 10:00 06/23/22 10:00 06/23/22 10:30 Temperature 95.9 F L Pulse Rate 91 88 90 Respiratory Rate 33 H 32 H Blood Pressure 102/64 Pulse Oximetry 95 Oxygen Delivery Fraction of Inspired Oxygen 06/23/22 11:00 06/23/22 11:00 06/23/22 11:12 Temperature Pulse Rate 90 80 83 Respiratory Rate 24 H Blood Pressure 50/39 L 60/45 L Pulse Oximetry Oxygen Delivery Fraction of Inspired Oxygen 06/23/22 11:23 06/23/22 11:23 06/23/22 11:39 Temperature Pulse Rate 81 80 80 Respiratory Rate 24 H Blood Pressure 123/92 H Pulse Oximetry 99 Oxygen Delivery Mechanical Ventilation Fraction of Inspired Oxygen 100 06/23/22 13:13 06/23/22 10:30 06/23/22 10:45 Temperature Pulse Rate 76 90 80 Respiratory Rate 32 H 24 H Blood Pressure
--- NOTE | 2022-06-24 09:23 | WPDINTPN ---
Progress Note: A&P Assessment and Plan (1) Acute respiratory failure: Code(s): J96.00 - Acute respiratory failure, unspecified whether with hypoxia or hypercapnia Status: Acute Assessment and Plan: Acute Respiratory failure secondary to pneumonia and volume overload. Patient also positive for COVID-19 although I do not suspect this is a COVID-19 pneumonia Patient had been on BiPAP with gradually worsening hypoxia. Poor response to Lasix. Tachypneic and weak 06/23 I spoke to patient regarding intubation mechanical ventilation option. And was agreeable to proceed. I did explain to the patient that he is critically ill and may not survive or may not come off the ventilator. He verbalized understanding and agreed to proceed. Requested to be full code at this time. He requested me to notify his brother who is his power uniform force captain and next of kin. I did speak to his brother and updated him with patient's current status and treatment plan. Patient was intubated without any significant difficulty. Dried up blood was noticed in oropharynx and larynx Vent settings reviewed change rate to 16 and peep to 8 Chest x-ray reviewed ABG reviewed Continue dexamethasone for COVID-19 Empiric antibiotics in the form of continue azithromycin, change Rocephin to cefepime, and vancomycin Bronchodilators (2) Severe sepsis: Code(s): A41.9 - Sepsis, unspecified organism; R65.20 - Severe sepsis without septic shock Status: Acute Assessment and Plan: Patient presented with syncope, hypotension, acute kidney injury, decreased p.o. intake for fluids and solids, anemia -patient received 2 L IV fluids with improvement in blood pressures followed by continuous infusion -UA reflective of UTI -chest x-ray was unremarkable and patient was on room air but now i worsening oxygen demand with infiltrate as well pneumonia -patient was initially started on empiric azithromycin and ceftriaxone - 06/23 antibiotics changed to vancomycin Zosyn and azithromycin -blood cultures and urine cultures have been obtained and are pending -he is currently on Levophed post intubation -patient received albumin as patient is third-spacing -patient appears to have chronically low blood pressure as he is on midodrine as an outpatient and will be continued (3) Deep vein thrombosis: Code(s): I82.409 - Acute embolism and thrombosis of unspecified deep veins of unspecified lower extremity Status: Acute Assessment and Plan: History of DVT, patient was on Eliquis. He had significant drop in his hemoglobin and has received 3 units of PRBC till now He had positive Hemoccult but hemoglobin has been stable now since transfusion Eliquis was discontinued His INR had increased to 8.1 and was reversed partially with 2 units of FFP and 10 mg of vitamin K Repeat INR is 3 and is being further reversed for invasive procedures today Repeat venous Doppler showed persistent?Above and [id number] deep venous thrombosis in the left lower limb from the proximal superficial femoral vein through the posterior tibial and peroneal veins of the calf Hold anticoagulation at this time but I will restart anticoagulation postprocedure if hemoglobin remains stable (4) Renal failure: Code(s): N19 - Unspecified kidney failure Status: Acute Assessment and Plan: Acute on chronic renal failure likely related to hypovolemia, hypotension, UTI/infection Renal ultrasound - Multiple bilateral simple cysts. Multiple left renal stones. Medical renal disease. Left renal atrophy. No hydronephrosis. Urine electrolytes suggest prerenal Normal CK levels and negative urine eosinophils -continue monitor urine output electrolytes and creatinine Patient has received FFP and PRBC and is getting 3 units of FFP today Will give albumin post paracentesis (5) Acute UTI: Code(s): N39.0 - Urinary tract infection, site not specified Status: Acute Assessment and Plan: Urine
[2022-06-24] MEDS: MIDODRINE HCL 10 MG TABLET PO ×3 (10:17→17:49)
[2022-06-24] MEDS: MINERAL OIL/WHITE PETROLATUM OINTMENT 1 APPLIC EACH EYE ×2 (10:18→21:24)
[2022-06-24] MEDS: PANTOPRAZOLE SODIUM IV 40 MG VIAL IV PUSH ×2 (10:19→21:24)
--- NOTE | 2022-06-24 11:45 | PCNFU ---
Nutrition Follow-Up Complete: Increased Protein Needs as related to mechanical ventilation, wounds as evidenced by Pressure ulcers reported, need for full tube feeding Goal: Adequate Intake of at least 75% of meals/supplements - Not able to meet goal New goal : Tolerate tube feeding at goal rate Pt current nutrition is Nepro @ 50 ML/H with flushes 30 ml q 4h. Nutrition recommendation: Continue current order of Nepro @ 50 ml/h. Provides 1980 kcals, 89 g protein, 799 ml free water. Flushes 30 ml q 4 hours. Hold off on Charles flushes for now because of need for lower fluid volume for renal function. Nepro was chosen for reduced volume per MD. Last recorded weight is 99.5 kg. Bowel Motility: + BM 06/23/22 Labs Reviewed: Hgb 9.4, Hct 27.6, Alb 2.4, Na 136, BUN 47, Creat 2.2 Meds Noted: Eliquis, protonix, fentanyl, versed Skin: Stage II pressure injury to sacrum Additional Notes: 20 kcal/ma=8717 kcal/day. Follow daily in ICU rounds. Follow up Monday and Monday per policy.
[2022-06-24 11:55] LABS: Glucose Point of Care 203 mg/dl (65-105)
[2022-06-24 12:25] LABS: Partial Thromboplastin Time 40.3 SECONDS (22.3-36.8)
[2022-06-24 13:14] LABS: INR 1.8; Prothrombin Time 19.9 Seconds (11.1-14.7)
--- NOTE | 2022-06-24 14:47 | WPDGIPROGNO ---
Progress Note: A&P Assessment and Plan (1) Acute on chronic anemia: Code(s): D64.9 - Anemia, unspecified Status: Acute Assessment and Plan: required blood transfusion, hb ~ 9 also coagulopathy (eliquis on hold), wonder if could be from sepsis/covid, ? liver disease now that he has ascites and this has been treated with ffp (2) Coagulopathy: Code(s): D68.9 - Coagulation defect, unspecified Status: Acute Assessment and Plan: s/p ffp, inr coming down hepatitis panel negative (3) COVID-19: Code(s): U07.1 - COVID-19 Status: Acute Assessment and Plan: worsening respiratory failure intubated prognosis is guarded (4) Acute respiratory failure: Code(s): J96.00 - Acute respiratory failure, unspecified whether with hypoxia or hypercapnia Status: Acute Assessment and Plan: intubated (5) Ascites: Code(s): R18.8 - Other ascites Status: Acute Assessment and Plan: inr still high for paracentesis hepatitis panel negative ? underlying liver disease (6) Severe sepsis: Code(s): A41.9 - Sepsis, unspecified organism; R65.20 - Severe sepsis without septic shock Status: Acute Assessment and Plan: by icu, on pressors (7) Syncope: Code(s): R55 - Syncope and collapse Status: Acute (8) Cardiomyopathy: Code(s): I42.9 - Cardiomyopathy, unspecified Status: Acute Assessment and Plan: wonder if also affecting anasarca Subjective Date/time seen: 06/24/22 14:47 Interval history: still intubated, on pressors, tolerating enteral feeding at 30 ml/h Review of Systems Review of Systems: All systems reviewed & are unremarkable except as noted in HPI and below Exam Narrative: General: Pt is now sedated, intubated and on mechanical ventilation Lungs/Chest: Now he is intubated Trachea central Coarse BS B/L, bilateral crackles present, Cardiac: RRR. Normal S1 S2. No murmurs Circulation: Pedal pulses are weak bilateral : Vega in place Abdomen:? Soft, non tender, distended with fluid thrill, anasarca and protuberant Extremities:? Bilateral lower extremity 3+ edema in ankles and around hips, decreased palpable pedal pulses Neuro:? He is sedated and grimaces to pain Skin:? Bruising noted on upper and lower extremities Objective Data Vital Signs Vital Signs: Vital Signs - 24 hr 06/23/22 15:07 06/23/22 16:34 06/23/22 16:35 Temperature Pulse Rate 73 76 74 Respiratory Rate 20 Blood Pressure 129/83 Pulse Oximetry 94 Oxygen Delivery Mechanical Ventilation Fraction of Inspired Oxygen 100 06/23/22 16:00 06/23/22 16:00 06/23/22 16:00 Temperature 96.4 F L Pulse Rate 69 75 Respiratory Rate 20 Blood Pressure 126/79 Pulse Oximetry 99 Oxygen Delivery Fraction of Inspired Oxygen 90 06/23/22 16:00 06/23/22 17:04 06/23/22 16:45 Temperature Pulse Rate 73 75 Respiratory Rate Blood Pressure 123/79 Pulse Oximetry 99 93 Oxygen Delivery Mechanical Ventilation Mechanical Ventilation Fraction of Inspired Oxygen 100 100 06/23/22 17:00 06/23/22 17:30 06/23/22 17:44 Temperature Pulse Rate 78 76 74 Respiratory Rate 20 Blood Pressure 123/85 127/86 Pulse Oximetry Oxygen Delivery Fraction of Inspired Oxygen 06/23/22 18:00 06/23/22 18:00 06/23/22 18:00 Temperature 96.5 F L Pulse Rate 71 75 75 Respiratory Rate 20 Blood Pressure 113/76 113/76 Pulse Oximetry 97 Oxygen Delivery Fraction of Inspired Oxygen 06/23/22 18:34 06/23/22 18:51 06/23/22 20:17 Temperature Pulse Rate 73 65 65 Respiratory Rate Blood Pressure 118/77 103/65 117/72 Pulse Oximetry Oxygen Delivery Fraction of Inspired Oxygen 06/23/22 20:21 06/23/22 20:25 06/23/22 20:00 Temperature 96.4 F L Pulse Rate 65 66 Respiratory Rate 20 Blood Pressure Pulse Oximetry Oxygen Delivery Fraction of Inspired Oxygen 1
[2022-06-24] MEDS: INSULIN ASPART (*BKC) 100 UNITS/ML SUB-Q (15:00)
[2022-06-24 15:33] LABS: Chloride Rand Ur <20 mmol/L (32-290); Creatinine Random Urine 118 mg/dL (20-320)
[2022-06-24 17:44] LABS: Appearance Peritoneal Fluid Hazy (Clear); Color Peritoneal Fluid Yellow (Colorless); Nucleated Cells Peritoneal Flu 116 /uL (0-500); Source Peritoneal Fluid Peritoneal Fluid
[2022-06-24 17:45] LABS: Lymphocytes Peritoneal Fluid 6 %; Macrophages Peritoneal Fluid 1 %; Monocytes Peritoneal Fluid 6 %; Neutrophils Peritoneal Fluid 86 % (0-25)
[2022-06-24 17:55] LABS: RBC Peritoneal Fluid 4 /uL (0-100000)
[2022-06-24 18:16] LABS: Glucose Point of Care 174 mg/dl (65-105)
[2022-06-24 23:21] LABS: Glucose Point of Care 146 mg/dl (65-105)
[2022-06-25] VITALS (26 sets, daily range): BP systolic 91–109; BP diastolic 58–67; PULSE 52–76; RESP 16–22; TEMP 35.8–37.1; O2SAT 97–100
[2022-06-25 05:46] LABS: Glucose Point of Care 175 mg/dl (65-105)
[2022-06-25] MEDS: CENTRAL LINE FLUSH 10 ML IV PUSH ×3 (06:02→22:00)
[2022-06-25 06:51] LABS: Hematocrit 23.8 % (42.0-52.0); Hemoglobin 7.8 g/dL (14.0-18.0); Immature Platelet Fraction Pct 12.7 % (0.9-11.2); Mean Corpuscular HGB Conc 32.8 g/dl (32-36); Mean Corpuscular Hemoglobin 30.1 pg (26-34); Mean Corpuscular Volume 91.9 fl (80-100); Platelet Count Result 56 k/mm3 (150-375); Red Blood Count 2.59 M/mm3 (4.6-6.20); Red Cell Distribution Width 17.9 % (11.5-14.5); White Blood Count 8.9 K/mm3 (4.5-10.0)
[2022-06-25 06:56] LABS: Alveolar/Arterial O2 Gradient 177.3 mmHg; Base Excess ABG -0.4 mEq/l (+/-2.0); Carboxyhemoglobin 0.2 % THb (0-2.0); Fractional Inspired Oxygen 50 %; HCO3 ABG 23.7 mEq/l (22.0-26.0); Methemoglobin ABG 0.5 %THb (0-1.5); Oxygen Content ABG 12.8 %vol (16.0-22.0); Oxygen Saturation ABG 98.8 % (95.0-100.0); Oxyhemoglobin 96.8 % THb (90.0-100.0); PCO2 ABG 36.2 mmHg (35.0-45.0); PO2 ABG 138.5 mmHg (80.0-100.0); PO2 FiO2 Ratio Arterial Blood 2.77 %; Reduced Hemoglobin 2.5 %THb (0-5.0); Total Hemoglobin 9.2 g/dL (12.0-18.0); pH ABG 7.433 (7.350-7.450)
[2022-06-25 06:59] LABS: Alanine Aminotransferase 32 U/L (6-50); Albumin Level 2.4 g/dL (3.5-5.1); Alkaline Phosphatase 138 U/L (38-126); Anion Gap 10 mmol/L (8-16); Aspartate Amino Transferase 61 U/L (17-59); Bilirubin,Total 1.2 mg/dL (0.2-1.3); Blood Urea Nitrogen 53 mg/dL (9-20); Carbon Dioxide 23 mmol/L (22-30); Chloride 105 mmol/L (98-107); Estimated CRCL calculation 29 ml/min; Estimated Glomerular Filt Rate 28; Glucose 161 mg/dL (65-110); Magnesium 2.1 mg/dL (1.6-2.3); Phosphorus 2.1 mg/dL (2.5-4.5); Potassium 3.1 mmol/L (3.4-5.0); Sodium 138 mmol/L (137-145)
[2022-06-25 07:01] LABS: INR 1.5; Prothrombin Time 17.9 Seconds (11.1-14.7)
[2022-06-25 07:02] LABS: Partial Thromboplastin Time 38.4 SECONDS (22.3-36.8)
[2022-06-25 07:06] LABS: Arterial Blood Gas Vent Mode CMV; Arterial Blood Gas Ventilator rate 16 /MIN; Device VENTILATOR; Modified Allen's Test Pass; Site Drawn LEFT RADIAL
[2022-06-25 07:07] LABS: Arterial Blood Gas PEEP 8 cmH2O; Arterial Blood Gas Tidal Volume 450 ml
[2022-06-25] MEDS: LEVOTHYROXINE SODIUM 25 MCG TABLET PO (07:11)
[2022-06-25] MEDS: ALBUMIN HUMAN 25% 25 GM/100 ML 100 ML IVPB (09:00)
[2022-06-25] MEDS: FUROSEMIDE INJ 40 MG/4 ML VIAL IV PUSH (09:00)
[2022-06-25] MEDS: MINERAL OIL/WHITE PETROLATUM OINTMENT 1 APPLIC EACH EYE ×2 (09:00→22:00)
[2022-06-25] MEDS: PANTOPRAZOLE SODIUM IV 40 MG VIAL IV PUSH ×2 (09:00→22:00)
[2022-06-25] MEDS: POTASSIUM CHLORIDE 20 MEQ PACKET (FOR LIQUID) 40 MEQ FEED TUBE ×2 (09:00→12:08)
[2022-06-25] MEDS: MIDODRINE HCL 10 MG TABLET PO ×3 (09:00→17:38)
[2022-06-25 10:19] LABS: Ammonia 46 umol/L (9-30)
--- NOTE | 2022-06-25 11:19 | WPDINTPN ---
Progress Note: A&P Assessment and Plan (1) Acute respiratory failure: Code(s): J96.00 - Acute respiratory failure, unspecified whether with hypoxia or hypercapnia Status: Acute Assessment and Plan: Acute Respiratory failure secondary to pneumonia and volume overload. Patient also positive for COVID-19 although I do not suspect this is a COVID-19 pneumonia Patient had been on BiPAP with gradually worsening hypoxia. Poor response to Lasix. Tachypneic and weak 06/23 I spoke to patient regarding intubation mechanical ventilation option. And was agreeable to proceed. I did explain to the patient that he is critically ill and may not survive or may not come off the ventilator. He verbalized understanding and agreed to proceed. Requested to be full code at this time. He requested me to notify his brother who is his power deputy commonwealth's attorney and next of kin. I did speak to his brother and updated him with patient's current status and treatment plan. Patient was intubated without any significant difficulty. Dried up blood was noticed in oropharynx and larynx 06/24 left thoracentesis and 700 mL fluid was removed He will likely need thoracentesis on the right side to he is poorly responsive to diuretics Vent settings reviewed change rate to 16 and peep to 8 FiO2 is down to 50% Chest x-ray reviewed ABG reviewed Continue dexamethasone for COVID-19 Empiric antibiotics in the form of continue azithromycin, cefepime, and vancomycin Bronchodilators (2) Severe sepsis: Code(s): A41.9 - Sepsis, unspecified organism; R65.20 - Severe sepsis without septic shock Status: Acute Assessment and Plan: Patient presented with syncope, hypotension, acute kidney injury, decreased p.o. intake for fluids and solids, anemia -patient received 2 L IV fluids with improvement in blood pressures followed by continuous infusion -UA reflective of UTI -chest x-ray was unremarkable and patient was on room air but now i worsening oxygen demand with infiltrate as well pneumonia -patient was initially started on empiric azithromycin and ceftriaxone - 06/23 antibiotics changed to vancomycin Zosyn and azithromycin -blood cultures and urine cultures have been obtained and are negative till now -peritoneal fluid also sent culture -he was on Levophed post intubation but now -patient received albumin as patient is third-spacing -patient appears to have chronically low blood pressure as he is on midodrine as an outpatient and will be continued (3) Deep vein thrombosis: Code(s): I82.409 - Acute embolism and thrombosis of unspecified deep veins of unspecified lower extremity Status: Acute Assessment and Plan: History of DVT, patient was on Eliquis. He had significant drop in his hemoglobin and has received 3 units of PRBC till now He had positive Hemoccult but hemoglobin has been stable now since transfusion Eliquis was discontinued His INR had increased to 8.1 and was reversed partially with 2 units of FFP and 10 mg of vitamin K Repeat INR is 3 and was not further reversed for invasive procedures today Repeat venous Doppler showed persistent?Above and [id number] deep venous thrombosis in the left lower limb from the proximal superficial femoral vein through the posterior tibial and peroneal veins of the calf 06/24 he was given 3 units of FFP paracenteses and thoracenteses I wanted to resume heparin infusion but patient had further drop in his hemoglobin which is 7.8 today along with drop in platelet count to 56K. Will continue to Hold anticoagulation at this time. If patient has stabilization of hemoglobin and and thrombocytopenia I will start heparin infusion otherwise he may need IVC filter (4) Renal failure: Code(s): N19 - Unspecified kidney failure Status: Acute Assessment and Plan: Acute on chronic renal failure likely related to hypovolemia, hypotension, UTI/infection Renal ultrasound - Multiple bilateral simple cysts. Multiple
[2022-06-25 12:30] LABS: Glucose Point of Care 162 mg/dl (65-105)
--- NOTE | 2022-06-25 14:11 | WPDGIPROGNO ---
Progress Note: A&P Assessment and Plan (1) Acute on chronic anemia: Code(s): D64.9 - Anemia, unspecified Status: Acute Assessment and Plan: required blood transfusion, continue to monitor for signs of bleeding also presented with coagulopathy (eliquis on hold) but this improved with inr down to 1.5, wonder if could have been from sepsis/covid/eliquis or even underlying liver dysfunction (also had ascites) (2) Coagulopathy: Code(s): D68.9 - Coagulation defect, unspecified Status: Acute Assessment and Plan: s/p ffp, inr down to 1.5 hepatitis panel negative (3) COVID-19: Code(s): U07.1 - COVID-19 Status: Acute Assessment and Plan: worsening respiratory failure intubated and also treated for pneumonia prognosis is guarded (4) Acute respiratory failure: Code(s): J96.00 - Acute respiratory failure, unspecified whether with hypoxia or hypercapnia Status: Acute Assessment and Plan: still intubated (5) Ascites: Code(s): R18.8 - Other ascites Status: Acute Assessment and Plan: s/p paracentesis, no SBP but he was already on abx hepatitis panel negative ? underlying liver disease (6) Severe sepsis: Code(s): A41.9 - Sepsis, unspecified organism; R65.20 - Severe sepsis without septic shock Status: Acute Assessment and Plan: by icu (7) Syncope: Code(s): R55 - Syncope and collapse Status: Acute (8) Cardiomyopathy: Code(s): I42.9 - Cardiomyopathy, unspecified Status: Acute Assessment and Plan: wonder if also affecting anasarca Subjective Date/time seen: 06/25/22 14:11 Interval history: still intubated, yesterday 5 L ascitic fluid removed and also had thoracentesis, tolerating enteral tube feeding Review of Systems Review of Systems: All systems reviewed & are unremarkable except as noted in HPI and below Exam Narrative: General: Pt is now sedated, intubated and on mechanical ventilation Lungs/Chest: Now he is intubated Trachea central Coarse BS B/L, bilateral crackles present, Cardiac: RRR. Normal S1 S2. No murmurs Circulation: Pedal pulses are weak bilateral : Vega in place Abdomen:? Soft, non tender, distended with fluid thrill but distention is improved as compared to yesterday, anasarca and protuberant Extremities:? Diffuse anasarca edema in all 4 extremities, decreased palpable pedal pulses Neuro:? He is sedated and grimaces to pain Skin:? Bruising noted on upper and lower extremities Objective Data Vital Signs Vital Signs: Vital Signs - 24 hr 06/24/22 14:39 06/24/22 17:24 06/24/22 16:00 Temperature Pulse Rate 66 62 Respiratory Rate Blood Pressure Pulse Oximetry 97 100 Oxygen Delivery Mechanical Ventilation Mechanical Ventilation Fraction of Inspired Oxygen 50 50 50 06/24/22 16:00 06/24/22 16:00 06/24/22 18:00 Temperature Pulse Rate 81 62 58 L Respiratory Rate 16 Blood Pressure Pulse Oximetry 100 Oxygen Delivery Mechanical Ventilation Fraction of Inspired Oxygen 50 06/24/22 18:00 06/24/22 18:00 06/24/22 14:33 Temperature 95 F L 95.5 F L Pulse Rate 58 L 56 L 59 L Respiratory Rate 16 18 Blood Pressure 107/71 98/67 L Pulse Oximetry 100 97 Oxygen Delivery Fraction of Inspired Oxygen 06/24/22 14:47 06/24/22 15:44 06/24/22 15:45 Temperature 95.5 F L 95.3 F L 95.2 F L Pulse Rate 61 78 94 Respiratory Rate 17 17 18 Blood Pressure Pulse Oximetry 98 93 94 Oxygen Delivery Fraction of Inspired Oxygen 06/24/22 16:03 06/24/22 16:26 06/24/22 16:45 Temperature 95.2 F L 95.1 F L 95.1 F L Pulse Rate 78 68 59 L Respiratory Rate 30 H 17 16 Blood Pressure 110/75 Pulse Oximetry 100 100 100 Oxygen Delivery Fraction of Inspired Oxygen 06/24/22 16:46 06/24/22 20:00 06/24/22 20:43 Temperature 95.1 F L 97.1 F L Pulse Rate 68 65 77 Respiratory Rate 16 16 Blood Pressure 97/60 L Puls
[2022-06-25 17:54] LABS: Glucose Point of Care 132 mg/dl (65-105)
[2022-06-26] VITALS (26 sets, daily range): BP systolic 99–137; BP diastolic 61–89; PULSE 66–95; RESP 17–22; TEMP 36.1–37.1; O2SAT 96–100
[2022-06-26 01:47] LABS: Glucose Point of Care 129 mg/dl (65-105)
[2022-06-26 06:08] LABS: Alveolar/Arterial O2 Gradient 106.7 mmHg; Base Excess ABG -0.1 mEq/l (+/-2.0); Carboxyhemoglobin 0.2 % THb (0-2.0); Fractional Inspired Oxygen 30 %; HCO3 ABG 23.1 mEq/l (22.0-26.0); Methemoglobin ABG 0.4 %THb (0-1.5); Oxygen Content ABG 11.3 %vol (16.0-22.0); Oxygen Saturation ABG 95.3 % (95.0-100.0); Oxyhemoglobin 92.8 % THb (90.0-100.0); PCO2 ABG 31.7 mmHg (35.0-45.0); PO2 FiO2 Ratio Arterial Blood 2.33 %; Reduced Hemoglobin 6.6 %THb (0-5.0); Total Hemoglobin 8.6 g/dL (12.0-18.0)
[2022-06-26 06:11] LABS: Modified Allen's Test Pass; Site Drawn RIGHT RADIAL
[2022-06-26 06:12] LABS: Arterial Blood Gas Vent Mode CMV; Arterial Blood Gas Ventilator rate 16 /MIN; Device VENTILATOR
[2022-06-26 06:13] LABS: Arterial Blood Gas PEEP 8 cmH2O; Arterial Blood Gas Tidal Volume 450 ml
[2022-06-26 06:41] LABS: Hematocrit 22.3 % (42.0-52.0); Hemoglobin 7.4 g/dL (14.0-18.0); Immature Platelet Fraction Pct 14.5 % (0.9-11.2); Mean Corpuscular HGB Conc 33.2 g/dl (32-36); Mean Corpuscular Hemoglobin 30.7 pg (26-34); Mean Corpuscular Volume 92.5 fl (80-100); Mean Platelet Volume 13.1 fl (7.4-10.4); Platelet Count Result 47 k/mm3 (150-375); Red Blood Count 2.41 M/mm3 (4.6-6.20); Red Cell Distribution Width 17.7 % (11.5-14.5); White Blood Count 8.8 K/mm3 (4.5-10.0)
[2022-06-26 06:54] LABS: INR 1.5; Prothrombin Time 17.6 Seconds (11.1-14.7)
[2022-06-26 07:00] LABS: Alanine Aminotransferase 30 U/L (6-50); Albumin Level 2.3 g/dL (3.5-5.1); Alkaline Phosphatase 118 U/L (38-126); Anion Gap 10 mmol/L (8-16); Aspartate Amino Transferase 50 U/L (17-59); Blood Urea Nitrogen 61 mg/dL (9-20); Calcium 8.1 mg/dL (8.4-10.2); Carbon Dioxide 24 mmol/L (22-30); Chloride 104 mmol/L (98-107); Estimated CRCL calculation 28 ml/min; Estimated Glomerular Filt Rate 27; Glucose 130 mg/dL (65-110); Magnesium 1.9 mg/dL (1.6-2.3); Potassium 3.4 mmol/L (3.4-5.0); Sodium 138 mmol/L (137-145)
[2022-06-26] MEDS: CENTRAL LINE FLUSH 10 ML IV PUSH ×3 (07:31→23:35)
[2022-06-26] MEDS: LEVOTHYROXINE SODIUM 25 MCG TABLET PO (07:32)
[2022-06-26] MEDS: MINERAL OIL/WHITE PETROLATUM OINTMENT 1 APPLIC EACH EYE ×2 (08:36→23:35)
[2022-06-26] MEDS: PANTOPRAZOLE SODIUM IV 40 MG VIAL IV PUSH ×2 (08:36→23:35)
[2022-06-26] MEDS: MIDODRINE HCL 10 MG TABLET PO ×3 (08:36→17:28)
--- NOTE | 2022-06-26 08:43 | PM.IMPN ---
Progress Note: A&P Assessment and Plan (1) Severe sepsis: Code(s): A41.9 - Sepsis, unspecified organism; R65.20 - Severe sepsis without septic shock Status: Acute Assessment and Plan: Continue vancomycin and cefepime Remains stable off pressors Blood and urine cultures negative, MRSA swab pending, peritoneal fluid Gram stain pending, culture negative (2) Syncope: Code(s): R55 - Syncope and collapse Status: Acute Assessment and Plan: Patient with syncope at the skilled nursing likely related to low blood pressures? No recurrence at this time in the hospital Continue midodrine (3) Elevated troponin: Code(s): R77.8 - Other specified abnormalities of plasma proteins Status: Acute Assessment and Plan: Suspect elevated troponins are secondary to infection and hypoperfusion as opposed to acute cardiac etiology, monitor (4) Deep vein thrombosis: Code(s): I82.409 - Acute embolism and thrombosis of unspecified deep veins of unspecified lower extremity Status: Acute Assessment and Plan: History of DVT on Eliquis, currently being held secondary to GI bleed, continue to monitor INR, with greater than 5 at admission, down to 1.5 today 06/26 (5) Renal failure: Code(s): N19 - Unspecified kidney failure Status: Acute Assessment and Plan: Creatinine 2.4 today, worsening (6) Acute UTI: Code(s): N39.0 - Urinary tract infection, site not specified Status: Acute Assessment and Plan: urine cx negative for infection (7) Malnutrition: Code(s): E46 - Unspecified protein-calorie malnutrition Status: Acute Assessment and Plan: tolerating tube feeds (8) COVID-19: Code(s): U07.1 - COVID-19 Status: Acute Assessment and Plan: Stable Could be related to coagulopathy? now resolved (9) Acute on chronic anemia: Code(s): D64.9 - Anemia, unspecified Status: Acute Assessment and Plan: Acute on chronic anemia, INR greater than 5 on admission, Eliquis held GI consult, NPO, ppi, status post transfusion, FFP, vitamin K, monitor closely (10) Ascites: Code(s): R18.8 - Other ascites Status: Acute Assessment and Plan: gram stain pending, peritoneal fluid culture NGTD Plan DVT prophylaxis with SCDs, Eliquis held, INR greater than 5 at admission, down to 1.5 today 06/26 GI prophylaxis with PPI Code status full code Subjective Date/time seen: 06/26/22 08:43 Interval history: Intubated and sedated. Off Levophed overnight, continues to be afebrile yet hypothermic. Tolerating tube feeds. Review of Systems Review of Systems: ROS unobtainable: Yes unobtainable due to endotracheal tube Exam Narrative: General: Int/sed HEENT: Atraumatic, normocephalic, mucous membranes moist CV: Regular rate and rhythm, S1, S2 Lungs: Unlabored breathing noted, no audible wheeze Abdomen: Soft, nontender, nondistended Extremities: Normal to inspection Skin: No rashes noted, no lesions or wounds seen Psych: Unable to assess Objective Data Vital Signs Vital Signs: Vital Signs - 24 hr 06/25/22 09:52 06/25/22 10:00 06/25/22 10:00 Temperature 97.4 F L Pulse Rate 69 70 73 Respiratory Rate 21 H Blood Pressure 94/61 L Pulse Oximetry 98 97 Oxygen Delivery Mechanical Ventilation Fraction of Inspired Oxygen 35 06/25/22 10:54 06/25/22 12:11 06/25/22 12:00 Temperature 96.7 F L Pulse Rate 65 72 73 Respiratory Rate 20 Blood Pressure 93/60 L Pulse Oximetry 100 99 Oxygen Delivery Mechanical Ventilation Fraction of Inspired Oxygen 30 06/25/22 12:00 06/25/22 12:00 06/25/22 12:00 Temperature 98.2 F Pulse Rate 69 Respiratory Rate 20 Blood Pressure 101/61 Pulse Oximetry 99 99 Oxygen Delivery Mechanical Ventilation Fraction of Inspired Oxygen 30 30 06/25/22 14:00 06/25/22 14:00 06/25/22 15:45 Temperature 97.6 F
[2022-06-26] MEDS: POTASSIUM CHLORIDE 20 MEQ PACKET (FOR LIQUID) 40 MEQ FEED TUBE (08:47)
[2022-06-26] MEDS: LACTULOSE 20 GM/30 ML UDC PO ×2 (08:47→17:28)
[2022-06-26] MEDS: FUROSEMIDE INJ 40 MG/4 ML VIAL IV PUSH ×2 (09:27→17:28)
[2022-06-26 10:36] LABS: Vancomycin Trough 23.7 ug/mL (10.0-20.0)
--- NOTE | 2022-06-26 11:19 | WPDINTPN ---
Progress Note: A&P Assessment and Plan (1) Acute respiratory failure: Code(s): J96.00 - Acute respiratory failure, unspecified whether with hypoxia or hypercapnia Status: Acute Assessment and Plan: Acute Respiratory failure secondary to pneumonia and volume overload. Patient also positive for COVID-19 although I do not suspect this is a COVID-19 pneumonia. Patient had been on BiPAP with gradually worsening hypoxia. Poor response to Lasix. Tachypneic and weak 06/23 I spoke to patient regarding intubation mechanical ventilation option. And was agreeable to proceed. I did explain to the patient that he is critically ill and may not survive or may not come off the ventilator. He verbalized understanding and agreed to proceed. Requested to be full code at this time. He requested me to notify his brother who is his power state's attorney and next of kin. I did speak to his brother and updated him with patient's current status and treatment plan. Patient was intubated without any significant difficulty. Dried up blood was noticed in oropharynx and larynx 06/24 left thoracentesis and 700 mL fluid was removed He will likely need thoracentesis on the right side to he is poorly responsive to diuretics. Requested intervention Radiology for thoracentesis on the right side for tomorrow Vent settings reviewed change tidal volume to 400 and continue rate 16 and peep to 8 FiO2 is down to 30% Chest x-ray reviewed ABG reviewed Continue dexamethasone for COVID-19 Empiric antibiotics in the form of continue azithromycin, cefepime, and vancomycin Bronchodilators (2) Severe sepsis: Code(s): A41.9 - Sepsis, unspecified organism; R65.20 - Severe sepsis without septic shock Status: Acute Assessment and Plan: Patient presented with syncope, hypotension, acute kidney injury, decreased p.o. intake for fluids and solids, anemia -patient received 2 L IV fluids with improvement in blood pressures followed by continuous infusion -UA reflective of UTI -chest x-ray was unremarkable and patient was on room air but now i worsening oxygen demand with infiltrate as well pneumonia -patient was initially started on empiric azithromycin and ceftriaxone - 06/23 antibiotics changed to vancomycin Zosyn and azithromycin -blood cultures and urine cultures have been obtained and are negative till now -peritoneal fluid also sent culture -he was on Levophed post intubation but now off -patient received albumin as patient is third-spacing -patient appears to have chronically low blood pressure as he is on midodrine as an outpatient and will be continued (3) Deep vein thrombosis: Code(s): I82.409 - Acute embolism and thrombosis of unspecified deep veins of unspecified lower extremity Status: Acute Assessment and Plan: History of DVT, patient was on Eliquis. He had significant drop in his hemoglobin and has received 3 units of PRBC till now He had positive Hemoccult but hemoglobin has been stable now since transfusion Eliquis was discontinued His INR had increased to 8.1 and was reversed partially with 2 units of FFP and 10 mg of vitamin K Repeat INR is 3 and was not further reversed for invasive procedures today Repeat venous Doppler showed persistent?Above and [id number] deep venous thrombosis in the left lower limb from the proximal superficial femoral vein through the posterior tibial and peroneal veins of the calf 06/24 he was given 3 units of FFP paracenteses and thoracenteses I wanted to resume heparin infusion but patient had further drop in his hemoglobin which is 7.8 today along with drop in platelet count to 56K. Hemoglobin further trended down to 7.4 Four and platelets are down to 47,000. I am also planning for paracentesis and thoracentesis tomorrow. I will continue to Hold anticoagulation at this time due to above reason. If patient has stabilization of hemoglobin and and thrombocytopenia I will start heparin infusion otherwise he may nee
--- NOTE | 2022-06-26 12:54 | PM.CNNEP ---
Assessment and Plan Assessment and plan (1) ADILSON (acute kidney injury): Code(s): N17.9 - Acute kidney failure, unspecified Status: Acute Assessment and Plan: multifactorial etiology: hypotension shock infection hypovolemia evaluation to date: urine electrolytes prerenal (but this could be a manifestation of his cardiomyopathy and/or liver dysfunction) renal ultrasound c/w CKD along with bilateral simple cysts and left renal stones; no obstruction urine eosinophils negative normal CPK levels creatinine and electrolytes stable however, volume status has been deteriorating (see #3) remains at risk for requiring AUTOPSY ASSISTANT/dialysis follow repeat labs and UOP (2) Chronic kidney disease, stage 3: Code(s): N18.30 - Chronic kidney disease, stage 3 unspecified Status: Chronic Assessment and Plan: baseline creatinine seems to run ~ 1.5 - 1.6mg/dl this causes him to fluctuate between CKD stage 3A and stage 3B likely secondary to HTN, CAD/CHF/cardiomyopathy and age (3) Anasarca: Code(s): R60.1 - Generalized edema Status: Acute Assessment and Plan: urine output has been declining significant swelling/edema noted attempting IV albumin + IV diuretics may require more invasive intervention (ultrafiltration/dialysis) for treatment (4) Sepsis: Code(s): A41.9 - Sepsis, unspecified organism Status: Acute Assessment and Plan: as noted by presentation with syncope, hypotension, acute kidney injury and anemia likely worsened by history of poor oral intake as well known chronic hypotension s/p aggressive IVF resuscitation and vasopressor support off vasopressor therapy as this time suspect due to UTI and pneumonia follow culture data on antibiotics (5) Acute respiratory failure: Code(s): J96.00 - Acute respiratory failure, unspecified whether with hypoxia or hypercapnia Status: Acute Assessment and Plan: thought to be secondary to pneumonia and volume overload COVID-19 may also be playing a role on antibiotics for pneumonia s/p left thoracentesis (06/24/22) despite diuretics, volume status continues to deteriorate possible need for right thoracentesis as well continue ventilator support (6) Anemia: Code(s): D64.9 - Anemia, unspecified Status: Acute Assessment and Plan: has required PRBC tranfusions guaiac positive - GI following further complicated by fluctuating INRs and need for FFP and Vitamin K follow trend of H/H consider empiric Epogen (7) COVID-19: Code(s): U07.1 - COVID-19 Status: Acute Assessment and Plan: tested positive on admission however, no other respiratory symptoms and was on room air on dexamethasone (started 06/23) Not a candidate for remdesivir due to renal failure (8) Liver dysfunction: Code(s): K76.89 - Other specified diseases of liver Status: Acute Assessment and Plan: as noted by poor albumin, elevated ammonia levels, ascites, and fluctuating INRs poor nutrition likely exacerbated this issue viral hepatitis studies negative CT scan with calcifications in the liver consistent with old granulomatous disease > 20 minutes was spent is reviewing the patient electronic records/chart since his admission to the hospital almost 2 weeks ago. Given patient's multisystem organ failure as noted as well as his poor quality of life and deteriorating status even prior to admission, I am not sure renal replacement therapy/dialysis will change his long-term poor prognosis. Dialysis may help improve his volume status but will not likely change his known cardiac and liver issues and may possibly worsen his clinical status. Dr. Davis has been talking with family regarding his poor prognosis and I tend to agree that discussion regarding goals of therapy need to be discussed including DNR status and possibly comfort care measu
--- NOTE | 2022-06-26 12:54 | P.CONNP_ITS ---
Assessment and Plan Assessment and plan (1) ADILSON (acute kidney injury): Code(s): N17.9 - Acute kidney failure, unspecified Status: Acute Assessment and Plan: * multifactorial etiology: * hypotension * shock * infection * hypovolemia * evaluation to date: * urine electrolytes prerenal (but this could be a manifestation of his cardiomyopathy and/or liver dysfunction) * renal ultrasound c/w CKD along with bilateral simple cysts and left renal stones; no obstruction * urine eosinophils negative * normal CPK levels * creatinine and electrolytes stable * however, volume status has been deteriorating (see #3) * remains at risk for requiring ADOPTION COORDINATOR/dialysis * follow repeat labs and UOP (2) Chronic kidney disease, stage 3: Code(s): N18.30 - Chronic kidney disease, stage 3 unspecified Status: Chronic Assessment and Plan: * baseline creatinine seems to run ~ 1.5 - 1.6mg/dl * this causes him to fluctuate between CKD stage 3A and stage 3B * likely secondary to HTN, CAD/CHF/cardiomyopathy and age (3) Anasarca: Code(s): R60.1 - Generalized edema Status: Acute Assessment and Plan: * urine output has been declining * significant swelling/edema noted * attempting IV albumin + IV diuretics * may require more invasive intervention (ultrafiltration/dialysis) for treatment (4) Sepsis: Code(s): A41.9 - Sepsis, unspecified organism Status: Acute Assessment and Plan: * as noted by presentation with syncope, hypotension, acute kidney injury and anemia * likely worsened by history of poor oral intake as well known chronic hypotension * s/p aggressive IVF resuscitation and vasopressor support * off vasopressor therapy as this time * suspect due to UTI and pneumonia * follow culture data * on antibiotics (5) Acute respiratory failure: Code(s): J96.00 - Acute respiratory failure, unspecified whether with hypoxia or hypercapnia Status: Acute Assessment and Plan: * thought to be secondary to pneumonia and volume overload * COVID-19 may also be playing a role * on antibiotics for pneumonia * s/p left thoracentesis (06/24/22) * despite diuretics, volume status continues to deteriorate * possible need for right thoracentesis as well * continue ventilator support (6) Anemia: Code(s): D64.9 - Anemia, unspecified Status: Acute Assessment and Plan: * has required PRBC tranfusions * guaiac positive - GI following * further complicated by fluctuating INRs and need for FFP and Vitamin K * follow trend of H/H * consider empiric Epogen (7) COVID-19: Code(s): U07.1 - COVID-19 Status: Acute Assessment and Plan: * tested positive on admission * however, no other respiratory symptoms and was on room air * on dexamethasone (started 06/23) * Not a candidate for remdesivir due to renal failure (8) Liver dysfunction: Code(s): K76.89 - Other specified diseases of liver Status: Acute Assessment and Plan: * as noted by poor albumin, elevated ammonia levels, ascites, and fluctuating INRs * poor nutrition likely exacerbated this issue * viral hepatitis studies negative * CT scan with calcifications in the liver consistent with old granulomatous disease > 20 minutes was spent is reviewing the patient electronic records/chart since his admission to the hospital almost 2 weeks ago. Given patient's multisystem organ failure as noted as well as his p
--- NOTE | 2022-06-26 13:47 | WPDGIPROGNO ---
Progress Note: A&P Assessment and Plan (1) Acute on chronic anemia: Code(s): D64.9 - Anemia, unspecified Status: Acute Assessment and Plan: required blood transfusion, continue to monitor for signs of bleeding also presented with coagulopathy (eliquis on hold) but this improved with inr down to 1.5 probably multifactorial from sepsis/covid/eliquis or even underlying liver dysfunction (also had ascites) prognosis is guarded (2) Coagulopathy: Code(s): D68.9 - Coagulation defect, unspecified Status: Acute Assessment and Plan: s/p ffp, inr down to 1.5 hepatitis panel negative (3) COVID-19: Code(s): U07.1 - COVID-19 Status: Acute Assessment and Plan: worsening respiratory failure intubated and also treated for pneumonia (4) Acute respiratory failure: Code(s): J96.00 - Acute respiratory failure, unspecified whether with hypoxia or hypercapnia Status: Acute Assessment and Plan: still intubated (5) Ascites: Code(s): R18.8 - Other ascites Status: Acute Assessment and Plan: s/p paracentesis, no SBP but he was already on abx hepatitis panel negative ? underlying liver disease (6) Severe sepsis: Code(s): A41.9 - Sepsis, unspecified organism; R65.20 - Severe sepsis without septic shock Status: Acute Assessment and Plan: by icu (7) Syncope: Code(s): R55 - Syncope and collapse Status: Acute (8) Cardiomyopathy: Code(s): I42.9 - Cardiomyopathy, unspecified Status: Acute Assessment and Plan: wonder if also affecting anasarca Subjective Date/time seen: 06/26/22 13:47 Interval history: no changes, still quite sick and intubated, on enteral tube feeding Review of Systems Review of Systems: All systems reviewed & are unremarkable except as noted in HPI and below Exam Narrative: General: Pt is now sedated, intubated and on mechanical ventilation Lungs/Chest: Now he is intubated Trachea central Coarse BS B/L, bilateral crackles present, Cardiac: RRR. Normal S1 S2. No murmurs Circulation: Pedal pulses are weak bilateral : Vega in place Abdomen:? Soft, non tender, distended Extremities:? Diffuse anasarca edema in all 4 extremities, decreased palpable pedal pulses Neuro:? He is sedated and grimaces to pain Objective Data Vital Signs Vital Signs: Vital Signs - 24 hr 06/25/22 14:00 06/25/22 14:00 06/25/22 15:45 Temperature 97.6 F Pulse Rate 70 70 61 Respiratory Rate 22 H Blood Pressure 100/67 Pulse Oximetry 99 100 Oxygen Delivery Mechanical Ventilation Fraction of Inspired Oxygen 30 06/25/22 15:55 06/25/22 15:55 06/25/22 17:31 Temperature Pulse Rate 71 Respiratory Rate Blood Pressure Pulse Oximetry 99 97 Oxygen Delivery Mechanical Ventilation Mechanical Ventilation Fraction of Inspired Oxygen 30 30 30 06/25/22 16:00 06/25/22 16:00 06/25/22 18:00 Temperature 98.4 F Pulse Rate 59 L 70 71 Respiratory Rate 20 Blood Pressure 102/66 Pulse Oximetry 98 Oxygen Delivery Fraction of Inspired Oxygen 06/25/22 18:00 06/25/22 21:26 06/25/22 22:02 Temperature 98.5 F Pulse Rate 71 70 76 Respiratory Rate 21 H 19 Blood Pressure 99/58 L Pulse Oximetry 98 98 Oxygen Delivery Mechanical Ventilation Fraction of Inspired Oxygen 30 06/25/22 20:00 06/25/22 20:00 06/25/22 20:00 Temperature Pulse Rate 69 Respiratory Rate Blood Pressure Pulse Oximetry 97 Oxygen Delivery Mechanical Ventilation Fraction of Inspired Oxygen 30 30 06/25/22 20:00 06/25/22 22:00 06/25/22 23:31 Temperature 98.8 F Pulse Rate 69 76 75 Respiratory Rate 18 20 Blood Pressure 105/67 105/67 Pulse Oximetry 97 97 97 Oxygen Delivery Mechanical Ventilation Fraction of Inspired Oxygen 30 06/26/22 00:00 06/26/22 00:00 06/26/22 00:00 Temperature Pulse Rate 78 78 Respiratory Rate Blood Pressure Pu
--- NOTE | 2022-06-26 15:33 | PC.NURSE ---
I spoke with Rikki Cherry, brother of the patient, regarding code status. He has made his wishes known to myself and Ernestina Obrien RN that he wants his brother to be a DNR status. Dr. Davis notified and telephone order entered.
[2022-06-26 17:56] LABS: Glucose Point of Care 164 mg/dl (65-105)
[2022-06-26 17:56] LABS: Glucose Point of Care 146 mg/dl (65-105)
[2022-06-26 17:56] LABS: Glucose Point of Care 135 mg/dl (65-105)
[2022-06-27] VITALS (60 sets, daily range): BP systolic 84–119; BP diastolic 55–86; PULSE 59–92; RESP 14–22; TEMP 35.2–36.7; O2SAT 93–100
[2022-06-27 02:12] LABS: Glucose Point of Care 173 mg/dl (65-105)
[2022-06-27] MEDS: CENTRAL LINE FLUSH 10 ML IV PUSH ×3 (05:11→21:27)
[2022-06-27 05:31] LABS: Alveolar/Arterial O2 Gradient 85.4 mmHg; Base Excess ABG 0.1 mEq/l (+/-2.0); Carboxyhemoglobin 0.2 % THb (0-2.0); Fractional Inspired Oxygen 30 %; HCO3 ABG 24.5 mEq/l (22.0-26.0); Methemoglobin ABG 0.3 %THb (0-1.5); Oxygen Content ABG 12.1 %vol (16.0-22.0); Oxygen Saturation ABG 96.5 % (95.0-100.0); Oxyhemoglobin 94.8 % THb (90.0-100.0); PCO2 ABG 38.4 mmHg (35.0-45.0); PO2 ABG 83.4 mmHg (80.0-100.0); PO2 FiO2 Ratio Arterial Blood 2.78 %; Reduced Hemoglobin 4.7 %THb (0-5.0); pH ABG 7.422 (7.350-7.450)
[2022-06-27 05:32] LABS: Device VENTILATOR; Modified Allen's Test Pass; Site Drawn RIGHT RADIAL
[2022-06-27 05:33] LABS: Arterial Blood Gas Vent Mode CMV; Arterial Blood Gas Ventilator rate 16 /MIN
[2022-06-27 05:34] LABS: Arterial Blood Gas PEEP 8 cmH2O; Arterial Blood Gas Tidal Volume 400 ml
[2022-06-27 07:12] LABS: Hematocrit 23.6 % (42.0-52.0); Hemoglobin 7.8 g/dL (14.0-18.0); Mean Corpuscular HGB Conc 33.1 g/dl (32-36); Mean Corpuscular Hemoglobin 30.2 pg (26-34); Mean Corpuscular Volume 91.5 fl (80-100); Mean Platelet Volume 12.2 fl (7.4-10.4); Platelet Count Result 44 k/mm3 (150-375); Red Blood Count 2.58 M/mm3 (4.6-6.20); Red Cell Distribution Width 18.1 % (11.5-14.5); White Blood Count 10.4 K/mm3 (4.5-10.0)
[2022-06-27 07:21] LABS: INR 1.4; Prothrombin Time 16.6 Seconds (11.1-14.7)
[2022-06-27 07:30] LABS: Ammonia 68 umol/L (9-30)
[2022-06-27 07:31] LABS: Alanine Aminotransferase 33 U/L (6-50); Albumin Level 2.4 g/dL (3.5-5.1); Alkaline Phosphatase 128 U/L (38-126); Anion Gap 11 mmol/L (8-16); Aspartate Amino Transferase 48 U/L (17-59); Blood Urea Nitrogen 70 mg/dL (9-20); Calcium 8.5 mg/dL (8.4-10.2); Carbon Dioxide 25 mmol/L (22-30); Chloride 103 mmol/L (98-107); Estimated CRCL calculation 27 ml/min; Estimated Glomerular Filt Rate 25; Glucose 127 mg/dL (65-110); Potassium 3.2 mmol/L (3.4-5.0); Sodium 139 mmol/L (137-145)
[2022-06-27] MEDS: LACTULOSE 20 GM/30 ML UDC PO ×3 (09:49→21:27)
[2022-06-27] MEDS: POTASSIUM CHLORIDE 20 MEQ PACKET (FOR LIQUID) 40 MEQ FEED TUBE ×2 (09:49→17:33)
[2022-06-27] MEDS: FUROSEMIDE INJ 40 MG/4 ML VIAL IV PUSH ×2 (09:49→17:32)
[2022-06-27] MEDS: MIDODRINE HCL 10 MG TABLET PO ×3 (09:50→17:33)
[2022-06-27] MEDS: PANTOPRAZOLE SODIUM IV 40 MG VIAL IV PUSH ×2 (09:50→21:27)
[2022-06-27] MEDS: MINERAL OIL/WHITE PETROLATUM OINTMENT 1 APPLIC EACH EYE ×2 (09:50→21:27)
[2022-06-27] MEDS: MIDAZOLAM 100MG/NS 100ML(*CRX) 100 MG/100 ML BAG IV CONT (11:02)
[2022-06-27] MEDS: ALBUMIN HUMAN 25% 25 GM/100 ML 100 ML IVPB ×2 (11:03→17:47)
--- NOTE | 2022-06-27 11:27 | WPDINTPN ---
Progress Note: A&P Assessment and Plan (1) Acute respiratory failure: Code(s): J96.00 - Acute respiratory failure, unspecified whether with hypoxia or hypercapnia Status: Acute Assessment and Plan: Acute Respiratory failure secondary to pneumonia and volume overload. Patient also positive for COVID-19 although I do not suspect this is a COVID-19 pneumonia. Patient had been on BiPAP with gradually worsening hypoxia. Poor response to Lasix. Tachypneic and weak 06/23 I spoke to patient regarding intubation mechanical ventilation option. And was agreeable to proceed. I did explain to the patient that he is critically ill and may not survive or may not come off the ventilator. He verbalized understanding and agreed to proceed. Requested to be full code at this time. He requested me to notify his brother who is his power collections attorney and next of kin. I did speak to his brother and updated him with patient's current status and treatment plan. Patient was intubated without any significant difficulty. Dried up blood was noticed in oropharynx and larynx 06/24 left thoracentesis and 700 mL fluid was removed He will likely need thoracentesis on the right side to he is poorly responsive to diuretics. Requested intervention Radiology for thoracentesis on the right side for today Vent settings reviewed change tidal volume to 400 and continue rate 16 and peep to 8 FiO2 is down to 30% Chest x-ray reviewed ABG reviewed Continue dexamethasone for COVID-19 Empiric antibiotics in the form of continue cefepime, and vancomycin Patient's nares positive for MRSA screen Completed 5 day course of azithromycin Bronchodilators (2) Severe sepsis: Code(s): A41.9 - Sepsis, unspecified organism; R65.20 - Severe sepsis without septic shock Status: Acute Assessment and Plan: Patient presented with syncope, hypotension, acute kidney injury, decreased p.o. intake for fluids and solids, anemia -patient received 2 L IV fluids with improvement in blood pressures followed by continuous infusion -UA reflective of UTI -chest x-ray was unremarkable and patient was on room air but now i worsening oxygen demand with infiltrate as well pneumonia -patient was initially started on empiric azithromycin and ceftriaxone - 06/23 antibiotics changed to vancomycin Zosyn and azithromycin -blood cultures and urine cultures have been obtained and are negative till now -peritoneal fluid also sent culture -he was on Levophed post intubation but now off -patient received albumin as patient is third-spacing -patient appears to have chronically low blood pressure as he is on midodrine as an outpatient and will be continued (3) Deep vein thrombosis: Code(s): I82.409 - Acute embolism and thrombosis of unspecified deep veins of unspecified lower extremity Status: Acute Assessment and Plan: History of DVT, patient was on Eliquis. He had significant drop in his hemoglobin and has received 3 units of PRBC till now He had positive Hemoccult but hemoglobin has been stable now since transfusion Eliquis was discontinued His INR had increased to 8.1 and was reversed partially with 2 units of FFP and 10 mg of vitamin K Repeat INR is 3 and was not further reversed for invasive procedures today Repeat venous Doppler showed persistent?Above and [id number] deep venous thrombosis in the left lower limb from the proximal superficial femoral vein through the posterior tibial and peroneal veins of the calf 06/24 he was given 3 units of FFP paracenteses and thoracenteses I wanted to resume heparin infusion but patient had further drop in his hemoglobin which is 7.8 today along with drop in platelet count to 56K. Hemoglobin f has been stable at 7.8 for last 24-48 hours but his platelet count remains low at 44K Patient is scheduled for paracentesis and thoracentesis today. I will continue to Hold anticoagulation at this time due to above reason. If patient has stabilization of he
--- NOTE | 2022-06-27 11:32 | PCFNICU ---
ICU Rounding Note: Pt current nutrition is Nepro at 50 ml/h with flushes 30 ml q 4 h - held. Nutrition recommendation: Resume TF as medically able Last recorded weight is 98.9 kg. Bowel Motility: Last BM charted was Labs Reviewed: Hct 7.8, Hct 23.6, ALB 2.4, k+ 3.2, bun 70, cREA 2.5 Meds Noted: Versed Skin: Satge II Renaldo sacrum. Holding off Charles flushes because of need for reduced fluid volume Additional Notes: Code status change to DNR. No pressors. Remains on vent. Following daily in ICU rounds. RD will monitor every 3 days. . 06/24/22 11:45 - Nutrition Follow-Up by Kaela Ledezma RD, LDN Acct Num: [id number] : 1945 Patient Age: 76 Nutrition Follow-Up Complete: Increased Protein Needs as related to mechanical ventilation, wounds as evidenced by Pressure ulcers reported, need for full tube feeding Goal: Adequate Intake of at least 75% of meals/supplements - Not able to meet goal New goal : Tolerate tube feeding at goal rate Pt current nutrition is Nepro @ 50 ML/H with flushes 30 ml q 4h. Nutrition recommendation: Continue current order of Nepro @ 50 ml/h. Provides 1980 kcals, 89 g protein, 799 ml free water. Flushes 30 ml q 4 hours. Hold off on Charles flushes for now because of need for lower fluid volume for renal function. Nepro was chosen for reduced volume per MD. Last recorded weight is 99.5 kg. Bowel Motility: + BM 06/23/22 Labs Reviewed: Hgb 9.4, Hct 27.6, Alb 2.4, Na 136, BUN 47, Creat 2.2 Meds Noted: Eliquis, protonix, fentanyl, versed Skin: Stage II pressure injury to sacrum Additional Notes: 20 kcal/qg=0450 kcal/day. Follow daily in ICU rounds. Follow up Monday and Monday per policy.
[2022-06-27 12:03] LABS: Glucose Point of Care 101 mg/dl (65-105)
--- NOTE | 2022-06-27 13:00 | P.PNNP_ITS ---
Progress Note: A&P Assessment and Plan (1) ADILSON (acute kidney injury): Code(s): N17.9 - Acute kidney failure, unspecified Status: Acute Assessment and Plan: * multifactorial etiology: * hypotension * shock * infection * hypovolemia * evaluation to date: * urine electrolytes prerenal (but this could be a manifestation of his cardiomyopathy and/or liver dysfunction) * renal ultrasound c/w CKD along with bilateral simple cysts and left renal stones; no obstruction * urine eosinophils negative * normal CPK levels * creatinine and electrolytes relatively stable * however, volume status has been deteriorating (see #3) -- better urine output in the last 24 hours * remains 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 requiring AUTO REBUILDER/dialysis * follow repeat labs and UOP (2) Chronic kidney disease, stage 3: Code(s): N18.30 - Chronic kidney disease, stage 3 unspecified Status: Chronic Assessment and Plan: * baseline creatinine seems to run ~ 1.5 - 1.6mg/dl * this causes him to fluctuate between CKD stage 3A and stage 3B * likely secondary to HTN, CAD/CHF/cardiomyopathy and age (3) Anasarca: Code(s): R60.1 - Generalized edema Status: Acute Assessment and Plan: * urine output has been declining * significant swelling/edema noted * continue diuresis as tolerated * may require more invasive intervention (ultrafiltration/dialysis) for treatment (4) Sepsis: Code(s): A41.9 - Sepsis, unspecified organism Status: Acute Assessment and Plan: * as noted by presentation with syncope, hypotension, acute kidney injury and anemia * likely worsened by history of poor oral intake as well known chronic hypotension * s/p aggressive IVF resuscitation and vasopressor support * off vasopressor therapy as this time * suspect due to UTI and pneumonia * follow culture data * on antibiotics (5) Acute respiratory failure: Code(s): J96.00 - Acute respiratory failure, unspecified whether with hypoxia or hypercapnia Status: Acute Assessment and Plan: * thought to be secondary to pneumonia and volume overload * COVID-19 may also be playing a role * on antibiotics for pneumonia * s/p left thoracentesis (06/24/22) * in spite of diuretics, volume status continues to deteriorate * repeat thoracentesis and paracentesis today -- this may help respiratory status * continue ventilator support (6) Anemia: Code(s): D64.9 - Anemia, unspecified Status: Acute Assessment and Plan: * has required PRBC tranfusions * guaiac positive - GI following * further complicated by fluctuating INRs and need for FFP and Vitamin K * follow trend of H/H * consider empiric Epogen (7) COVID-19: Code(s): U07.1 - COVID-19 Status: Acute Assessment and Plan: * tested positive on admission * however, no other respiratory symptoms and was on room air * on dexamethasone (started 06/23) * not a candidate for remdesivir due to renal failure (8) Liver dysfunction: Code(s): K76.89 - Other specified diseases of liver Status: Acute Assessment and Plan: * as noted by poor albumin, elevated ammonia levels, ascites, and fluctuating INRs * poor nutrition likely exacerbated this issue * viral hepatitis studies negative * CT scan with calcifications in the liver consistent with old granulomatous disease Will continue to follow. Subjective Date/time seen: 06/27/22 13:00 Remain
--- NOTE | 2022-06-27 13:00 | PM.PNNEP ---
Progress Note: A&P Assessment and Plan (1) ADILSON (acute kidney injury): Code(s): N17.9 - Acute kidney failure, unspecified Status: Acute Assessment and Plan: multifactorial etiology: hypotension shock infection hypovolemia evaluation to date: urine electrolytes prerenal (but this could be a manifestation of his cardiomyopathy and/or liver dysfunction) renal ultrasound c/w CKD along with bilateral simple cysts and left renal stones; no obstruction urine eosinophils negative normal CPK levels creatinine and electrolytes relatively stable however, volume status has been deteriorating (see #3) -- better urine output in the last 24 hours remains at risk for requiring JANITOR/dialysis follow repeat labs and UOP (2) Chronic kidney disease, stage 3: Code(s): N18.30 - Chronic kidney disease, stage 3 unspecified Status: Chronic Assessment and Plan: baseline creatinine seems to run ~ 1.5 - 1.6mg/dl this causes him to fluctuate between CKD stage 3A and stage 3B likely secondary to HTN, CAD/CHF/cardiomyopathy and age (3) Anasarca: Code(s): R60.1 - Generalized edema Status: Acute Assessment and Plan: urine output has been declining significant swelling/edema noted continue diuresis as tolerated may require more invasive intervention (ultrafiltration/dialysis) for treatment (4) Sepsis: Code(s): A41.9 - Sepsis, unspecified organism Status: Acute Assessment and Plan: as noted by presentation with syncope, hypotension, acute kidney injury and anemia likely worsened by history of poor oral intake as well known chronic hypotension s/p aggressive IVF resuscitation and vasopressor support off vasopressor therapy as this time suspect due to UTI and pneumonia follow culture data on antibiotics (5) Acute respiratory failure: Code(s): J96.00 - Acute respiratory failure, unspecified whether with hypoxia or hypercapnia Status: Acute Assessment and Plan: thought to be secondary to pneumonia and volume overload COVID-19 may also be playing a role on antibiotics for pneumonia s/p left thoracentesis (06/24/22) in spite of diuretics, volume status continues to deteriorate repeat thoracentesis and paracentesis today -- this may help respiratory status continue ventilator support (6) Anemia: Code(s): D64.9 - Anemia, unspecified Status: Acute Assessment and Plan: has required PRBC tranfusions guaiac positive - GI following further complicated by fluctuating INRs and need for FFP and Vitamin K follow trend of H/H consider empiric Epogen (7) COVID-19: Code(s): U07.1 - COVID-19 Status: Acute Assessment and Plan: tested positive on admission however, no other respiratory symptoms and was on room air on dexamethasone (started 06/23) not a candidate for remdesivir due to renal failure (8) Liver dysfunction: Code(s): K76.89 - Other specified diseases of liver Status: Acute Assessment and Plan: as noted by poor albumin, elevated ammonia levels, ascites, and fluctuating INRs poor nutrition likely exacerbated this issue viral hepatitis studies negative CT scan with calcifications in the liver consistent with old granulomatous disease Will continue to follow. Subjective Date/time seen: 06/27/22 13:00 Remains hemodynamically stable without the need for vasopressor support; remains intubated/sedated and on mechanical ventilation; better urine output noted with use of IV diuretics; scheduled for thoracentesis and paracentesis today in Interventional Radiology; no other issues/events noted at this time. Exam Narrative: General: WD/WN male intubated/sedated and on mechanical ventilation Heart: normal S1 and S2; no rub Lungs: coarse breath sounds with scattered crackles Abdomen: soft, nontender, nondistended, positive bowel sounds Extr
--- NOTE | 2022-06-27 16:42 | WPDGIPROGNO ---
Progress Note: A&P Assessment and Plan (1) Acute on chronic anemia: Code(s): D64.9 - Anemia, unspecified Status: Acute Assessment and Plan: required blood transfusion, no obvious overt gib coagulopathy was treated probably multifactorial from sepsis/covid/eliquis or even underlying liver dysfunction (also had ascites) prognosis is guarded will follow from afar (2) Coagulopathy: Code(s): D68.9 - Coagulation defect, unspecified Status: Acute Assessment and Plan: s/p ffp, inr down to 1.5 hepatitis panel negative also has DVT ? ivc filter but family would rather not to proceed with invasive procedures (3) COVID-19: Code(s): U07.1 - COVID-19 Status: Acute Assessment and Plan: respiratory failure- intubated and also treated for pneumonia (4) Acute respiratory failure: Code(s): J96.00 - Acute respiratory failure, unspecified whether with hypoxia or hypercapnia Status: Acute Assessment and Plan: still intubated (5) Ascites: Code(s): R18.8 - Other ascites Status: Acute Assessment and Plan: s/p paracentesis, no SBP hepatitis panel negative ? underlying liver disease (6) Severe sepsis: Code(s): A41.9 - Sepsis, unspecified organism; R65.20 - Severe sepsis without septic shock Status: Acute Assessment and Plan: by icu (7) Syncope: Code(s): R55 - Syncope and collapse Status: Acute (8) Cardiomyopathy: Code(s): I42.9 - Cardiomyopathy, unspecified Status: Acute Assessment and Plan: wonder if also affecting anasarca Subjective Date/time seen: 06/27/22 16:42 Interval history: still intubated, enteral feeding + Review of Systems Review of Systems: All systems reviewed & are unremarkable except as noted in HPI and below Exam Narrative: General: Pt is now sedated, intubated and on mechanical ventilation Lungs/Chest: Now he is intubated Trachea central Coarse BS B/L, bilateral crackles present, Cardiac: RRR. Normal S1 S2. No murmurs Circulation: Pedal pulses are weak bilateral : Vega in place Abdomen:? Soft, non tender, distended with fluid thrill but distention is improved as compared to yesterday, anasarca and protuberant Extremities:? Diffuse anasarca edema in all 4 extremities, decreased palpable pedal pulses Neuro:? He is sedated and grimaces to pain, he tries to open his eyes and spontaneously moves his hand but does not follow commands Skin:? Bruising noted on upper and lower extremities Objective Data Vital Signs Vital Signs: Vital Signs - 24 hr 06/26/22 17:17 06/26/22 17:27 06/26/22 18:00 Temperature 97.8 F Pulse Rate 95 70 69 Respiratory Rate 20 17 Blood Pressure 103/65 Pulse Oximetry 100 99 Oxygen Delivery Mechanical Ventilation Fraction of Inspired Oxygen 30 06/26/22 18:00 06/26/22 20:36 06/26/22 20:00 Temperature Pulse Rate 69 80 Respiratory Rate 20 Blood Pressure Pulse Oximetry 98 Oxygen Delivery Mechanical Ventilation Fraction of Inspired Oxygen 30 06/26/22 20:00 06/26/22 20:00 06/26/22 21:19 Temperature 97.6 F Pulse Rate 70 69 Respiratory Rate 17 Blood Pressure 119/84 Pulse Oximetry 98 98 Oxygen Delivery Mechanical Ventilation Fraction of Inspired Oxygen 30 30 06/26/22 20:00 06/26/22 22:00 06/26/22 23:32 Temperature Pulse Rate 85 86 71 Respiratory Rate 20 Blood Pressure 116/80 Pulse Oximetry 98 100 Oxygen Delivery Mechanical Ventilation Fraction of Inspired Oxygen 30 06/27/22 03:18 06/27/22 00:00 06/27/22 00:00 Temperature Pulse Rate 85 Respiratory Rate Blood Pressure Pulse Oximetry 98 100 Oxygen Delivery Mechanical Ventilation Mechanical Ventilation Fraction of Inspired Oxygen 30 30 30 06/27/22 01:00 06/27/22 00:00 06/27/22 00:00 Temperature 96.8 F L 97 F L Pulse Rate 74 74 Respiratory Rate 17 Blood Pressure 119/84 Pulse Oximetry
[2022-06-27 17:46] LABS: Glucose Point of Care 143 mg/dl (65-105)
[2022-06-28] VITALS (41 sets, daily range): BP systolic 92–132; BP diastolic 56–104; PULSE 47–84; RESP 16–19; TEMP 35.6–36.8; O2SAT 98–100
[2022-06-28] MEDS: ALBUMIN HUMAN 25% 25 GM/100 ML 100 ML IVPB ×5 (00:03→23:07)
[2022-06-28 00:13] LABS: Glucose Point of Care 110 mg/dl (65-105)
[2022-06-28] MEDS: CENTRAL LINE FLUSH 10 ML IV PUSH ×3 (05:22→21:47)
[2022-06-28 06:08] LABS: Hematocrit 21.6 % (42.0-52.0); Immature Platelet Fraction Pct 18.4 % (0.9-11.2); Mean Corpuscular HGB Conc 32.4 g/dl (32-36); Mean Corpuscular Hemoglobin 30.2 pg (26-34); Mean Corpuscular Volume 93.1 fl (80-100); Mean Platelet Volume 12.4 fl (7.4-10.4); Platelet Count Result 48 k/mm3 (150-375); Red Blood Count 2.32 M/mm3 (4.6-6.20); White Blood Count 8.8 K/mm3 (4.5-10.0)
[2022-06-28 06:16] LABS: Alanine Aminotransferase 26 U/L (6-50); Albumin Level 2.9 g/dL (3.5-5.1); Alkaline Phosphatase 88 U/L (38-126); Anion Gap 13 mmol/L (8-16); Aspartate Amino Transferase 36 U/L (17-59); Bilirubin,Total 1.2 mg/dL (0.2-1.3); Blood Urea Nitrogen 76 mg/dL (9-20); Calcium 8.8 mg/dL (8.4-10.2); Carbon Dioxide 25 mmol/L (22-30); Chloride 105 mmol/L (98-107); Estimated CRCL calculation 21 ml/min; Estimated Glomerular Filt Rate 24; Glucose 118 mg/dL (65-110); Potassium 3.4 mmol/L (3.4-5.0); Sodium 143 mmol/L (137-145)
[2022-06-28 06:19] LABS: INR 1.6; Prothrombin Time 18.6 Seconds (11.1-14.7)
[2022-06-28 06:32] LABS: Alveolar/Arterial O2 Gradient 69.5 mmHg; Base Excess ABG 1.3 mEq/l (+/-2.0); Carboxyhemoglobin 0.2 % THb (0-2.0); Fractional Inspired Oxygen 30 %; HCO3 ABG 25.1 mEq/l (22.0-26.0); Methemoglobin ABG 0.5 %THb (0-1.5); Oxygen Content ABG 10.8 %vol (16.0-22.0); Oxyhemoglobin 95.7 % THb (90.0-100.0); PCO2 ABG 35.8 mmHg (35.0-45.0); PO2 ABG 102.3 mmHg (80.0-100.0); PO2 FiO2 Ratio Arterial Blood 3.41 %; Reduced Hemoglobin 3.6 %THb (0-5.0); Total Hemoglobin 7.9 g/dL (12.0-18.0); pH ABG 7.463 (7.350-7.450)
[2022-06-28 06:34] LABS: Arterial Blood Gas PEEP 8 cmH2O; Arterial Blood Gas Vent Mode CMV; Arterial Blood Gas Ventilator rate 16 /MIN; Device VENTILATOR; Modified Allen's Test Pass; Site Drawn RIGHT RADIAL
[2022-06-28 06:35] LABS: Arterial Blood Gas Tidal Volume 400 ml
[2022-06-28] MEDS: LACTULOSE 20 GM/30 ML UDC PO ×3 (06:56→21:46)
[2022-06-28] MEDS: LEVOTHYROXINE SODIUM 25 MCG TABLET PO (06:56)
[2022-06-28] MEDS: PANTOPRAZOLE SODIUM IV 40 MG VIAL IV PUSH ×2 (08:27→21:46)
[2022-06-28] MEDS: FUROSEMIDE INJ 40 MG/4 ML VIAL IV PUSH ×2 (08:27→17:14)
[2022-06-28] MEDS: fentaNYL CITRATE INJ (*CRX) 100 MCG/2 ML VIAL 25 MCG IV PUSH (08:28)
[2022-06-28] MEDS: MIDODRINE HCL 10 MG TABLET PO ×3 (08:28→17:13)
[2022-06-28] MEDS: MINERAL OIL/WHITE PETROLATUM OINTMENT 1 APPLIC EACH EYE ×2 (08:28→21:46)
[2022-06-28] MEDS: SODIUM CHLORIDE 0.9% IV 1,000 ML 5 ML (08:31)
--- NOTE | 2022-06-28 09:07 | PM.IMPN ---
Progress Note: A&P Assessment and Plan (1) Severe sepsis: Code(s): A41.9 - Sepsis, unspecified organism; R65.20 - Severe sepsis without septic shock Status: Acute Assessment and Plan: Continue vancomycin and cefepime Getting albumin infusions Blood and urine cultures negative, MRSA swab pending, peritoneal fluid Gram stain pending, culture negative (2) Syncope: Code(s): R55 - Syncope and collapse Status: Acute Assessment and Plan: Patient with syncope at the [facility] likely related to low blood pressures? No recurrence at this time in the hospital Continue midodrine (3) Elevated troponin: Code(s): R77.8 - Other specified abnormalities of plasma proteins Status: Acute Assessment and Plan: Suspect elevated troponins are secondary to infection and hypoperfusion as opposed to acute cardiac etiology, monitor (4) Deep vein thrombosis: Code(s): I82.409 - Acute embolism and thrombosis of unspecified deep veins of unspecified lower extremity Status: Acute Assessment and Plan: History of DVT on Eliquis, currently being held secondary to GI bleed, continue to monitor INR, with greater than 5 at admission, down to 1.5 on 06/26 (5) Renal failure: Code(s): N19 - Unspecified kidney failure Status: Acute Assessment and Plan: Creatinine 2.6 today, continues to worsen (6) Acute UTI: Code(s): N39.0 - Urinary tract infection, site not specified Status: Acute Assessment and Plan: urine cx negative for infection (7) Malnutrition: Code(s): E46 - Unspecified protein-calorie malnutrition Status: Acute Assessment and Plan: tolerating tube feeds (8) COVID-19: Code(s): U07.1 - COVID-19 Status: Acute Assessment and Plan: Stable Could be related to coagulopathy? now resolved (9) Acute on chronic anemia: Code(s): D64.9 - Anemia, unspecified Status: Acute Assessment and Plan: Acute on chronic anemia, INR greater than 5 on admission, Eliquis held GI consult, NPO, ppi, status post transfusion, FFP, vitamin K, monitor closely (10) Ascites: Code(s): R18.8 - Other ascites Status: Acute Assessment and Plan: gram stain pending, peritoneal fluid culture NGTD Plan DVT prophylaxis with SCDs, Eliquis held, INR greater than 5 at admission, down to 1.5 06/26 GI prophylaxis with PPI Code status full code Subjective Date/time seen: 06/28/22 09:07 Interval history: Intubated, sedated. Review of Systems Review of Systems: ROS unobtainable: Yes unobtainable due to endotracheal tube Exam Narrative: General: Int/sed HEENT: Atraumatic, normocephalic, mucous membranes moist CV: Regular rate and rhythm, S1, S2 Lungs: Unlabored breathing noted, no audible wheeze Abdomen: Soft, nontender, nondistended Extremities: Normal to inspection Skin: No rashes noted, no lesions or wounds seen Psych: Unable to assess Objective Data Vital Signs Vital Signs: Vital Signs - 24 hr 06/27/22 09:56 06/27/22 11:02 06/27/22 11:02 Temperature Pulse Rate 77 82 82 Respiratory Rate 16 16 16 Blood Pressure Pulse Oximetry Oxygen Delivery Fraction of Inspired Oxygen 06/27/22 10:00 06/27/22 10:45 06/27/22 09:15 Temperature 96.8 F L Pulse Rate 89 86 68 Respiratory Rate 16 Blood Pressure Pulse Oximetry 98 100 Oxygen Delivery Mechanical Ventilation Fraction of Inspired Oxygen 30 06/27/22 09:30 06/27/22 09:31 06/27/22 09:45 Temperature 96.8 F L 96.8 F L 96.8 F L Pulse Rate 69 80 71 Respiratory Rate 16 15 15 Blood Pressure 102/65 Pulse Oximetry 100 100 100 Oxygen Delivery Fraction of Inspired Oxygen 06/27/22 11:01 06/27/22 11:02 06/27/22 11:15 Temperature 96.2 F L 96.2 F L 96.2 F L Pulse Rate 84 88 92 Respiratory Rate 17 19 18 Blood Pressure 106/83 Pulse Oximetry 99 99 99 Oxygen Delivery Fract
--- NOTE | 2022-06-28 10:43 | PM.PNNEP ---
Progress Note: A&P Assessment and Plan (1) ADILSON (acute kidney injury): Code(s): N17.9 - Acute kidney failure, unspecified Status: Acute Assessment and Plan: multifactorial etiology: hypotension shock infection hypovolemia evaluation to date: urine electrolytes prerenal (but this could be a manifestation of his cardiomyopathy and/or liver dysfunction) renal ultrasound c/w CKD along with bilateral simple cysts and left renal stones; no obstruction urine eosinophils negative normal CPK levels creatinine and electrolytes relatively stable better urine output in the last 24 - 48 hours hours with diuretics follow repeat labs and UOP (2) Chronic kidney disease, stage 3: Code(s): N18.30 - Chronic kidney disease, stage 3 unspecified Status: Chronic Assessment and Plan: baseline creatinine seems to run ~ 1.5 - 1.6mg/dl this causes him to fluctuate between CKD stage 3A and stage 3B likely secondary to HTN, CAD/CHF/cardiomyopathy and age (3) Anasarca: Code(s): R60.1 - Generalized edema Status: Acute Assessment and Plan: urine output had been declining but better in the last 24 - 48 hours with IV diuretics significant swelling/edema still present continue diuresis as tolerated remains at risk for requiring more invasive intervention (ultrafiltration/dialysis) for treatment (4) Sepsis: Code(s): A41.9 - Sepsis, unspecified organism Status: Acute Assessment and Plan: as noted by presentation with syncope, hypotension, acute kidney injury and anemia likely worsened by history of poor oral intake as well known chronic hypotension s/p aggressive IVF resuscitation and vasopressor support off vasopressor therapy as this time suspect due to UTI and pneumonia follow culture data on antibiotics (5) Acute respiratory failure: Code(s): J96.00 - Acute respiratory failure, unspecified whether with hypoxia or hypercapnia Status: Acute Assessment and Plan: thought to be secondary to pneumonia and volume overload COVID-19 may also be playing a role on antibiotics for pneumonia s/p left thoracentesis (06/24/22) in spite of diuretics, volume status continues to deteriorate repeat thoracentesis and paracentesis (06/27/22) continue ventilator support (6) Anemia: Code(s): D64.9 - Anemia, unspecified Status: Acute Assessment and Plan: has required PRBC tranfusions guaiac positive - GI following further complicated by fluctuating INRs and need for FFP and Vitamin K follow trend of H/H consider empiric Epogen (7) COVID-19: Code(s): U07.1 - COVID-19 Status: Acute Assessment and Plan: tested positive on admission however, no other respiratory symptoms and was on room air on dexamethasone (started 06/23) not a candidate for remdesivir due to renal failure (8) Liver dysfunction: Code(s): K76.89 - Other specified diseases of liver Status: Acute Assessment and Plan: as noted by poor albumin, elevated ammonia levels, ascites, and fluctuating INRs poor nutrition likely exacerbated this issue viral hepatitis studies negative CT scan with calcifications in the liver consistent with old granulomatous disease Will continue to follow. Subjective Date/time seen: 06/28/22 10:43 Remains intubated/sedated and on mechanical ventilator support; s/p thoracentesis and paracentesis yesterday afternoon and tolerated both procedure reasonably well; increasing urine output noted in the last 24 hours with IV diuretics; remains hemodynamically stable; no other issues/events overnight or earlier this AM. Exam Narrative: General: WD/WN male intubated/sedated and on mechanical ventilation Heart: normal S1 and S2; no rub Lungs: coarse breath sounds with scattered crackles Abdomen: soft, nontender, nondistended, positive bowel sounds Extremities: no c
--- NOTE | 2022-06-28 10:43 | P.PNNP_ITS ---
Progress Note: A&P Assessment and Plan (1) ADILSON (acute kidney injury): Code(s): N17.9 - Acute kidney failure, unspecified Status: Acute Assessment and Plan: * multifactorial etiology: * hypotension * shock * infection * hypovolemia * evaluation to date: * urine electrolytes prerenal (but this could be a manifestation of his cardiomyopathy and/or liver dysfunction) * renal ultrasound c/w CKD along with bilateral simple cysts and left renal stones; no obstruction * urine eosinophils negative * normal CPK levels * creatinine and electrolytes relatively stable * better urine output in the last 24 - 48 hours hours with diuretics * follow repeat labs and UOP (2) Chronic kidney disease, stage 3: Code(s): N18.30 - Chronic kidney disease, stage 3 unspecified Status: Chronic Assessment and Plan: * baseline creatinine seems to run ~ 1.5 - 1.6mg/dl * this causes him to fluctuate between CKD stage 3A and stage 3B * likely secondary to HTN, CAD/CHF/cardiomyopathy and age (3) Anasarca: Code(s): R60.1 - Generalized edema Status: Acute Assessment and Plan: * urine output had been declining but better in the last 24 - 48 hours with IV diuretics * significant swelling/edema still present * continue diuresis as tolerated * remains at risk for requiring more invasive intervention (ultrafiltration/dialysis) for treatment (4) Sepsis: Code(s): A41.9 - Sepsis, unspecified organism Status: Acute Assessment and Plan: * as noted by presentation with syncope, hypotension, acute kidney injury and anemia * likely worsened by history of poor oral intake as well known chronic hypotension * s/p aggressive IVF resuscitation and vasopressor support * off vasopressor therapy as this time * suspect due to UTI and pneumonia * follow culture data * on antibiotics (5) Acute respiratory failure: Code(s): J96.00 - Acute respiratory failure, unspecified whether with hypoxia or hypercapnia Status: Acute Assessment and Plan: * thought to be secondary to pneumonia and volume overload * COVID-19 may also be playing a role * on antibiotics for pneumonia * s/p left thoracentesis (06/24/22) * in spite of diuretics, volume status continues to deteriorate * repeat thoracentesis and paracentesis (06/27/22) * continue ventilator support (6) Anemia: Code(s): D64.9 - Anemia, unspecified Status: Acute Assessment and Plan: * has required PRBC tranfusions * guaiac positive - GI following * further complicated by fluctuating INRs and need for FFP and Vitamin K * follow trend of H/H * consider empiric Epogen (7) COVID-19: Code(s): U07.1 - COVID-19 Status: Acute Assessment and Plan: * tested positive on admission * however, no other respiratory symptoms and was on room air * on dexamethasone (started 06/23) * not a candidate for remdesivir due to renal failure (8) Liver dysfunction: Code(s): K76.89 - Other specified diseases of liver Status: Acute Assessment and Plan: * as noted by poor albumin, elevated ammonia levels, ascites, and fluctuating INRs * poor nutrition likely exacerbated this issue * viral hepatitis studies negative * CT scan with calcifications in the liver consistent with old granulomatous disease Will continue to follow. Subjective Date/time seen: 06/28/22 10:43 Remains intubated/sedated and on mechanical v
[2022-06-28] MEDS: SODIUM CHLORIDE 0.9% IV 250 ML 30 ML IV CONT ×2 (11:49→13:54)
--- NOTE | 2022-06-28 11:58 | PCNFU ---
Nutrition Follow-Up Complete: Increased Protein Needs as related to wounds as evidenced by Pressure ulcers reported goal: Adequate Intake of at least 75% of meals/supplements Patient is not meeting goal. New goal: Meet estimated nutritional needs Pt current nutrition is Nepro at 30 ml/hr recommend goal rate at 50 ml/hr Last recorded weight is 66.2 kg Bowel Motility:+BM reported 06/28 Labs Reviewed:Glu 118, Alb 2.9,BUN 76, Cr 2.6 Meds Noted:Fentanyl, Versed, Lactulose, Midodrine,Protonix Skin: Stage II Pressure Ulcer-saccum Additional Notes: Patient remains on mechanical vent. coffee ground residial noted,Tube feedings restarting at 30 ml/hr recommend goal rate at 50 ml/hr Providing 1980 kcals/89 gms protein/799 ml water. Free water flush 30 ml q 4 hours. Tube feedings meeting 100% of kcal and protein needs at goal rate. Thoracentesis/Paracentesis performed 06/27. RD will monitor in ICU rounds and reassessing every Monday and Monday.
[2022-06-28] MEDS: FENTANYL 2,500MCG/NS250ML(*CRX 2,500 MCG/250 ML BAG IV CONT (12:24)
[2022-06-28 12:37] LABS: Vancomycin Trough 28.3 ug/mL (10.0-20.0)
[2022-06-28 13:20] LABS: Albumin Peritoneal Fluid 0.6 g/dL
--- NOTE | 2022-06-28 13:37 | WPDINTPN ---
Progress Note: A&P Assessment and Plan (1) Acute respiratory failure: Code(s): J96.00 - Acute respiratory failure, unspecified whether with hypoxia or hypercapnia Status: Acute Assessment and Plan: Acute Respiratory failure secondary to pneumonia and volume overload. Patient also positive for COVID-19 although I do not suspect this is a COVID-19 pneumonia. Patient had been on BiPAP with gradually worsening hypoxia. Poor response to Lasix. Tachypneic and weak 06/23: Intubated, which was uneventful, dried blood noted in the pharynx and larynx -patient 's brother, Gatito, who is his power airplane pilot helper and next of kin. 06/24 left thoracentesis and 700 mL fluid was removed 06/27 right thoracentesis with removal of red-orange fluid -currently intubated on mechanical ventilation, peep of 8 and 30% FiO2 - x-ray and ABGs reviewed -Continue dexamethasone for COVID-19 -Empiric antibiotics in the form of continue cefepime, and vancomycin -Patient's nares positive for MRSA screen -Completed 5 day course of azithromycin -continue Bronchodilators (2) Severe sepsis: Code(s): A41.9 - Sepsis, unspecified organism; R65.20 - Severe sepsis without septic shock Status: Acute Assessment and Plan: Patient presented with syncope, hypotension, acute kidney injury, decreased p.o. intake for fluids and solids, anemia -patient received 2 L IV fluids with improvement in blood pressures followed by continuous infusion -UA reflective of UTI -chest x-ray was unremarkable:patient was initially on room air with chest x-ray worsened with increasing O2 requirements. Patient was intubated as above, to septic shock and pneumonia - 06/23 antibiotics changed to vancomycin Zosyn and azithromycin -blood cultures and urine cultures have been obtained and are negative till now -peritoneal fluid also sent culture -he was on Levophed post intubation but now off -patient received albumin as patient is third-spacing -patient appears to have chronically low blood pressure as he is on midodrine as an outpatient and will be continued (3) Deep vein thrombosis: Code(s): I82.409 - Acute embolism and thrombosis of unspecified deep veins of unspecified lower extremity Status: Acute Assessment and Plan: History of DVT, patient was on Eliquis. He had significant drop in his hemoglobin and has received 3 units of PRBC till now He had positive Hemoccult but hemoglobin has been stable now since transfusion -Eliquis was discontinued -His INR had increased to 8.1 and was reversed partially with 2 units of FFP and 10 mg of vitamin K -Repeat INR is 3 and was not further reversed for invasive procedures today -06/23/2022: Repeat venous Doppler showed persistent?Above and [id number] deep venous thrombosis in the left lower limb from the proximal superficial femoral vein through the posterior tibial and peroneal veins of the calf -06/24 he was given 3 units of FFP paracenteses and thoracenteses -I wanted to resume heparin infusion but patient had further drop in his hemoglobin which is 7.8 today along with drop in platelet count to 56K. Hemoglobin dropped to 7.0 this morning, and his platelet counts are 48 -will transfuse 1 unit of packed RBCs and 1 unit of platelets f 06/27/2022: Status post Paracentesis and thoracentesis today. I will continue to Hold anticoagulation at this time due to above reason. If patient has stabilization of hemoglobin and and thrombocytopenia I will start heparin infusion otherwise he may need IVC filter. I spoke to patient's brother regarding this and he does not want to proceed with IVC filter unless patient shows signs of improvement and coming off the ventilator because he does not want to put him through any more invasive procedures in current situation he states that if patient comes of the ventilator and shown signs of improvement that he will consider IVC filter if needed for at this time he understands the risks of compl
[2022-06-28 13:56] LABS: Glucose Point of Care 136 mg/dl (65-105)
[2022-06-28] MEDS: MIDAZOLAM 100MG/NS 100ML(*CRX) 100 MG/100 ML BAG IV CONT (14:51)
[2022-06-28 17:34] LABS: Glucose Point of Care 134 mg/dl (65-105)
[2022-06-28 23:21] LABS: Glucose Point of Care 104 mg/dl (65-105)
[2022-06-29] VITALS (16 sets, daily range): BP systolic 85–125; BP diastolic 52–68; PULSE 47–102; RESP 8–16; TEMP 35.8–36.4; O2SAT 70–100
[2022-06-29] MEDS: ALBUMIN HUMAN 25% 25 GM/100 ML 100 ML IVPB (04:36)
[2022-06-29 04:51] LABS: Basophils Percent Auto 0.1 % (0.2-1.2); Eosinophils Percent Auto 0.1 % (0-4.4); Hematocrit 27.1 % (42.0-52.0); Hemoglobin 9.3 g/dL (14.0-18.0); Immature Granulocyte Absolute 0.17 K/mm3 (0.00-0.031); Immature Granulocyte Percent A 2.3 % (0-0.5); Lymphocytes Absolute Auto 0.47 K/mm3 (0.9-3.2); Lymphocytes Percent Auto 6.3 % (18.3-44.2); Mean Corpuscular HGB Conc 34.3 g/dl (32-36); Mean Corpuscular Hemoglobin 31.1 pg (26-34); Mean Corpuscular Volume 90.6 fl (80-100); Mean Platelet Volume 11.2 fl (7.4-10.4); Monocytes Absolute Auto 0.7 K/mm3 (0.1-0.6); Monocytes Percent Auto 9.3 % (2.6-8.5); Neutrophils Absolute Auto 6.1 K/mm3 (1.3-6.7); Neutrophils Percent Auto 81.9 % (45.5-73.1); Nucleated Red Blood Cells Perc 0.3 % (0.0-0.2); Platelet Count Result 91 k/mm3 (150-375); Red Blood Count 2.99 M/mm3 (4.6-6.20); Red Cell Distribution Width 18.7 % (11.5-14.5); White Blood Count 7.4 K/mm3 (4.5-10.0)
[2022-06-29 05:10] LABS: Alanine Aminotransferase 20 U/L (6-50); Albumin Level 3.6 g/dL (3.5-5.1); Alkaline Phosphatase 65 U/L (38-126); Anion Gap 17 mmol/L (8-16); Aspartate Amino Transferase 31 U/L (17-59); Bilirubin,Total 1.6 mg/dL (0.2-1.3); Blood Urea Nitrogen 78 mg/dL (9-20); Calcium 9.3 mg/dL (8.4-10.2); Carbon Dioxide 26 mmol/L (22-30); Chloride 102 mmol/L (98-107); Estimated CRCL calculation 19 ml/min; Estimated Glomerular Filt Rate 24; Glucose 98 mg/dL (65-110); Potassium 2.7 mmol/L (3.4-5.0); Sodium 145 mmol/L (137-145)
[2022-06-29 05:20] LABS: Platelet Estimate Decreased (Adequate); Poikilocytosis 1+ (NORMAL)
[2022-06-29 05:21] LABS: Anisocytosis 1+ (NORMAL); Ovalocytes 1+ (NORMAL)
[2022-06-29] MEDS: LACTULOSE 20 GM/30 ML UDC PO (05:25)
[2022-06-29] MEDS: LEVOTHYROXINE SODIUM 25 MCG TABLET PO (05:25)
[2022-06-29] MEDS: CENTRAL LINE FLUSH 10 ML IV PUSH ×3 (05:25→20:07)
[2022-06-29 05:38] LABS: Schistocytes None Seen (NORMAL)
[2022-06-29] MEDS: KCL 40 MEQ/WATER 100 ML 100 ML 25 ML IVPB (06:53)
--- NOTE | 2022-06-29 08:41 | PM.PNNEP ---
Progress Note: A&P Assessment and Plan (1) ADILSON (acute kidney injury): Code(s): N17.9 - Acute kidney failure, unspecified Status: Acute Assessment and Plan: multifactorial etiology: hypotension shock infection hypovolemia evaluation to date: urine electrolytes prerenal (but this could be a manifestation of his cardiomyopathy and/or liver dysfunction) renal ultrasound c/w CKD along with bilateral simple cysts and left renal stones; no obstruction urine eosinophils negative normal CPK levels replete electrolytes cautiously better urine output in the last 24 - 48 hours hours with diuretics follow repeat labs and UOP (2) Chronic kidney disease, stage 3: Code(s): N18.30 - Chronic kidney disease, stage 3 unspecified Status: Chronic Assessment and Plan: baseline creatinine seems to run ~ 1.5 - 1.6mg/dl this causes him to fluctuate between CKD stage 3A and stage 3B likely secondary to HTN, CAD/CHF/cardiomyopathy and age (3) Anasarca: Code(s): R60.1 - Generalized edema Status: Acute Assessment and Plan: urine output had been declining but better in the last 24 - 48 hours with IV diuretics significant swelling/edema still present continue diuresis as tolerated remains at risk for requiring more invasive intervention (ultrafiltration/dialysis) for treatment (4) Sepsis: Code(s): A41.9 - Sepsis, unspecified organism Status: Acute Assessment and Plan: as noted by presentation with syncope, hypotension, acute kidney injury and anemia likely worsened by history of poor oral intake as well known chronic hypotension s/p aggressive IVF resuscitation and vasopressor support off vasopressor therapy as this time suspect due to UTI and pneumonia follow culture data on antibiotics (5) Acute respiratory failure: Code(s): J96.00 - Acute respiratory failure, unspecified whether with hypoxia or hypercapnia Status: Acute Assessment and Plan: thought to be secondary to pneumonia and volume overload COVID-19 may also be playing a role on antibiotics for pneumonia s/p left thoracentesis (06/24/22) in spite of diuretics, volume status continues to deteriorate repeat thoracentesis and paracentesis (06/27/22) continue ventilator support (6) Anemia: Code(s): D64.9 - Anemia, unspecified Status: Acute Assessment and Plan: has required PRBC tranfusions guaiac positive - GI following further complicated by fluctuating INRs and need for FFP and Vitamin K follow trend of H/H consider empiric Epogen (7) COVID-19: Code(s): U07.1 - COVID-19 Status: Acute Assessment and Plan: tested positive on admission however, no other respiratory symptoms and was on room air on dexamethasone (started 06/23) not a candidate for remdesivir due to renal failure (8) Liver dysfunction: Code(s): K76.89 - Other specified diseases of liver Status: Acute Assessment and Plan: as noted by poor albumin, elevated ammonia levels, ascites, and fluctuating INRs poor nutrition likely exacerbated this issue viral hepatitis studies negative CT scan with calcifications in the liver consistent with old granulomatous disease Noted discussion with brother/POA by Dr. Carrillo with plans for withdrawal of care today which seems appropriate given his deteriorating status since admission with no real significant improvement. Subjective Date/time seen: 06/29/22 08:41 No real significant change -- remains intubated/sedated and on mechanical ventilator support; noted discussion that Dr. Carrillo had with brother/POA regarding progrnosis in the setting of patient's multitude medical issues/problems and tentative plan for withdrawal of support later this AM. Exam Narrative: General: WD/WN male intubated/sedated and on mechanical ventilation Heart: normal S1 and S2; no rub
--- NOTE | 2022-06-29 08:41 | P.PNNP_ITS ---
Progress Note: A&P Assessment and Plan (1) ADILSON (acute kidney injury): Code(s): N17.9 - Acute kidney failure, unspecified Status: Acute Assessment and Plan: * multifactorial etiology: * hypotension * shock * infection * hypovolemia * evaluation to date: * urine electrolytes prerenal (but this could be a manifestation of his cardiomyopathy and/or liver dysfunction) * renal ultrasound c/w CKD along with bilateral simple cysts and left renal stones; no obstruction * urine eosinophils negative * normal CPK levels * replete electrolytes cautiously * better urine output in the last 24 - 48 hours hours with diuretics * follow repeat labs and UOP (2) Chronic kidney disease, stage 3: Code(s): N18.30 - Chronic kidney disease, stage 3 unspecified Status: Chronic Assessment and Plan: * baseline creatinine seems to run ~ 1.5 - 1.6mg/dl * this causes him to fluctuate between CKD stage 3A and stage 3B * likely secondary to HTN, CAD/CHF/cardiomyopathy and age (3) Anasarca: Code(s): R60.1 - Generalized edema Status: Acute Assessment and Plan: * urine output had been declining but better in the last 24 - 48 hours with IV diuretics * significant swelling/edema still present * continue diuresis as tolerated * remains at risk for requiring more invasive intervention (ultrafiltration/dialysis) for treatment (4) Sepsis: Code(s): A41.9 - Sepsis, unspecified organism Status: Acute Assessment and Plan: * as noted by presentation with syncope, hypotension, acute kidney injury and anemia * likely worsened by history of poor oral intake as well known chronic hypotens ion * s/p aggressive IVF resuscitation and vasopressor support * off vasopressor therapy as this time * suspect due to UTI and pneumonia * follow culture data * on antibiotics (5) Acute respiratory failure: Code(s): J96.00 - Acute respiratory failure, unspecified whether with hypoxia or hypercapnia Status: Acute Assessment and Plan: * thought to be secondary to pneumonia and volume overload * COVID-19 may also be playing a role * on antibiotics for pneumonia * s/p left thoracentesis (06/24/22) * in spite of diuretics, volume status continues to deteriorate * repeat thoracentesis and paracentesis (06/27/22) * continue ventilator support (6) Anemia: Code(s): D64.9 - Anemia, unspecified Status: Acute Assessment and Plan: * has required PRBC tranfusions * guaiac positive - GI following * further complicated by fluctuating INRs and need for FFP and Vitamin K * follow trend of H/H * consider empiric Epogen (7) COVID-19: Code(s): U07.1 - COVID-19 Status: Acute Assessment and Plan: * tested positive on admission * however, no other respiratory symptoms and was on room air * on dexamethasone (started 06/23) * not a candidate for remdesivir due to renal failure (8) Liver dysfunction: Code(s): K76.89 - Other specified diseases of liver Status: Acute Assessment and Plan: * as noted by poor albumin, elevated ammonia levels, ascites, and fluctuating INRs * poor nutrition likely exacerbated this issue * viral hepatitis studies negative * CT scan with calcifications in the liver consistent with old granulomatous disease Noted discussion with brother/POA by Dr. Jackson with plans for withdrawal of care today which seems appropriate given his deteriorating status since admissi
[2022-06-29] MEDS: PANTOPRAZOLE SODIUM IV 40 MG VIAL IV PUSH (08:49)
[2022-06-29] MEDS: MINERAL OIL/WHITE PETROLATUM OINTMENT 1 APPLIC EACH EYE (08:50)
[2022-06-29] MEDS: MIDODRINE HCL 10 MG TABLET PO (08:50)
--- NOTE | 2022-06-29 10:51 | WPDINTPN ---
Progress Note: A&P Assessment and Plan (1) Acute respiratory failure: Code(s): J96.00 - Acute respiratory failure, unspecified whether with hypoxia or hypercapnia Status: Acute Assessment and Plan: Acute Respiratory failure secondary to pneumonia and volume overload.? Patient also positive for COVID-19 although I do not suspect this is a COVID-19 pneumonia. Patient had been on BiPAP with gradually worsening hypoxia.? Poor response to Lasix.? Tachypneic and weak 06/23:? Intubated, which was uneventful, dried blood noted in the pharynx and larynx -patient 's? brother, Gatito, who is his power corporate associate attorney and next of kin.? 06/24 left thoracentesis and 700 mL fluid was removed 06/27 right thoracentesis with removal of red-orange fluid -currently intubated on mechanical ventilation, peep of 8 and 30% FiO2 - x-ray and ABGs reviewed -Continue dexamethasone for COVID-19 x10 days -Empiric antibiotics in the form of continue? cefepime, and vancomycin -Patient's nares positive for MRSA screen -Completed 5 day course of azithromycin -continue Bronchodilators Family has decided to withdraw support today (2) Severe sepsis: Code(s): A41.9 - Sepsis, unspecified organism; R65.20 - Severe sepsis without septic shock Status: Acute Assessment and Plan: Patient presented with syncope, hypotension, acute kidney injury, decreased p.o. intake for fluids and solids, anemia -patient received adequate fluids on admission -UA reflective of UTI -chest x-ray was unremarkable:patient was initially on room air with chest x-ray worsened with increasing O2 requirements.? Patient was intubated as above, to septic shock and pneumonia - 06/23 antibiotics changed to vancomycin Zosyn and azithromycin -blood cultures and urine cultures have been obtained and are negative till now -peritoneal fluid also sent culture -he was on Levophed post intubation but?now off -patient received albumin as patient is third-spacing -patient appears to have chronically low blood pressure as he is on midodrine as an outpatient and will be continued (3) Deep vein thrombosis: Code(s): I82.409 - Acute embolism and thrombosis of unspecified deep veins of unspecified lower extremity Status: Acute Assessment and Plan: History of DVT, patient was on Eliquis.? He had significant drop in his hemoglobin and has received 3 units of PRBC till now He had positive Hemoccult but hemoglobin has been stable now since transfusion -Eliquis was discontinued -His INR had increased to 8.1 and was reversed partially with 2 units of FFP and 10 mg of vitamin K -Repeat INR is 3 and was not further reversed for invasive procedures today -06/23/2022:? Repeat venous Doppler showed persistent?Above and [id number] deep venous thrombosis in the left lower limb from the proximal superficial femoral vein through the posterior tibial and peroneal veins of the calf -06/24 he was given 3 units of FFP paracenteses and thoracenteses -I wanted to resume heparin infusion but patient had further drop in his hemoglobin which is 7.8 today along with drop in platelet count to 56K. Hemoglobin dropped to 7.0 this morning, and his platelet counts are 48 -will transfuse 1 unit of packed RBCs and 1 unit of platelets 06/27/2022:? Status post Paracentesis and thoracentesis today.? I will continue to Hold anticoagulation at this time due to above reason.? If patient has stabilization of hemoglobin and and thrombocytopenia I will start heparin infusion otherwise he may need IVC filter. -patient's brother did not agree to IVC filter placement as it would not benefit the patient (4) Renal failure: Code(s): N19 - Unspecified kidney failure Status: Acute Assessment and Plan: Acute on chronic renal failure likely related to hypovolemia, hypotension, UTI/infection Renal ultrasound -?Multiple bilateral simple cysts. Multiple left renal stones. Medical renal disease. Left renal atrophy. No hyd
[2022-06-29] MEDS: MORPHINE SULFATE INJ (*CRX) 10 MG/ML AMP 5 MG IV PUSH (11:30)
[2022-06-29] MEDS: LORazepam INJ (*CRX) 2 MG/ML VIAL IV PUSH ×5 (11:30→20:07)
[2022-06-29] MEDS: MORPHINE SULFATE (*CRX) 2 MG/ML INJ IV PUSH ×4 (13:59→20:07)
--- NOTE | 2022-06-29 14:30 | PC.NURSE ---
Belongings (cellphone, watch, glasses, and t-shirt) sent home with TRICIA Fink/brother.
[2022-06-30] MEDS: MORPHINE SULFATE (*CRX) 2 MG/ML INJ IV PUSH ×2 (00:33→06:43)
[2022-06-30] MEDS: LORazepam INJ (*CRX) 2 MG/ML VIAL IV PUSH ×2 (00:33→06:43)
--- NOTE | 2022-06-30 01:58 | PC.NURSE ---
This patient, Richard Olivas, to transfer to [room 309 ] on 06/30/22 at 0158. Personal belongings sent with patient. Report given to [KAREN Riley ]. Appropriate documentation sent with patient.
[2022-06-30 08:00] VITALS: BP 78/52; PULSE 95; RESP 8; TEMP 35.5; O2SAT 94
[2022-06-30] MEDS: CENTRAL LINE FLUSH 10 ML IV PUSH ×3 (08:47→22:00)
[2022-06-30] MEDS: MINERAL OIL/WHITE PETROLATUM OINTMENT 1 APPLIC EACH EYE ×2 (08:47→21:00)
--- NOTE | 2022-06-30 12:33 | P.CDI_ITS ---
CDI Query Clarified Diagnosis Clarified Diagnosis: Please specify type and acuity of heart failure if known. Patient with elevated BNP on 06/22/22 lab work, pedal edema noted in charting. Volume overload noted within problem list as well as CHF. Patients oxygen demand has increased. Patient has received Lasix this admission. Please specify type and acuity of CHF if known: * Acute * Chronic * Acute on Chronic * Unknown * Systolic * Diastolic * Combined Systolic and Diastolic * Unknown
--- NOTE | 2022-06-30 16:28 | P.PNIM_ITS ---
Progress Note: A&P Assessment and Plan (1) Acute respiratory failure: Code(s): J96.00 - Acute respiratory failure, unspecified whether with hypoxia or hypercapnia Status: Acute Assessment and Plan: Acute Respiratory failure secondary to pneumonia and volume overload.? Patient also positive for COVID-19 Initially treated with BiPAP but with [place] worsening was intubated on 06/23/2022. 06/24 left thoracentesis and 700 mL fluid was removed 06/27 right thoracentesis with removal of red-orange fluid treated with dexamethasone for COVID-19 times 10 days On empiric antibiotic with cefepime and vancomycin Completed 5 day course of azithromycin On bronchodilators. Family decided to withdraw support on 06/29/2022 Extubated and currently on comfort measures. (2) Severe sepsis: Code(s): A41.9 - Sepsis, unspecified organism; R65.20 - Severe sepsis without septic shock Status: Acute Assessment and Plan: Patient presented with syncope, hypotension, acute kidney injury, decreased p.o. intake for fluids and solids, anemia -patient received adequate fluids on admission -UA reflective of UTI -chest x-ray was unremarkable:patient was initially on room air with chest x-ray worsened with increasing O2 requirements.? Patient was intubated as above, to septic shock and pneumonia 06/23 broaden antibiotic coverage to vancomycin Zosyn and azithromycin. -blood cultures and urine cultures have been obtained and are negative till now -peritoneal fluid also sent culture -he was on Levophed post intubation but? Was later tapered off -patient received albumin as patient is third-spacing -patient appears to have chronically low blood pressure as he is on midodrine as an outpatient and will be continued (3) Deep vein thrombosis: Code(s): I82.409 - Acute embolism and thrombosis of unspecified deep veins of unspecified lower extremity Status: Acute Assessment and Plan: History of DVT, patient was on Eliquis.? He had significant drop in his hemoglobin and has received 3 units of PRBC during the hospital stay He had positive Hemoccult but hemoglobin has been stable now since transfusion -Eliquis was discontinued INR was also increased to 8.1 reversed with 2 units of FFP and 10 mg of vitamin K with improvement down to 3. -06/23/2022:? Repeat venous Doppler showed persistent?Above and [id number] deep venous thrombosis in the left lower limb from the proximal superficial femoral vein through the posterior tibial and peroneal veins of the calf -06/24 he was given 3 units of FFP paracenteses and thoracenteses Further heparin infusion was planned however Rich hemoglobin dropped along with thrombocytopenia. Give heparin infusion going to be started IVC filter will be considered however patient resident and agree with IVC filter placement subsequently withdrawal of care as noted above (4) Renal failure: Code(s): N19 - Unspecified kidney failure Status: Acute Assessment and Plan: Acute on chronic renal failure likely related to hypovolemia, hypotension, UTI/infection Renal ultrasound -?Multiple bilateral simple cysts. Multiple left renal stones. Medical renal disease. Left renal atrophy. No hydronephrosis. Urine electrolytes suggest prerenal Normal CK levels and negative urine eosinophils -continue monitor urine output electrolytes and creatinine Patient has received FFP and PRBC Urine output has improved in response to Lasix.? nephrology was following Appreciate Nephrology evaluation and recommendations (5) Acute UTI: Code(s): N39.0 - Urinary tract infection, site not specified St
[2022-06-30 21:19] VITALS: BP 88/57; PULSE 73; RESP 8; TEMP 35.3; O2SAT 89
[2022-07-01] MEDS: MORPHINE SULFATE (*CRX) 2 MG/ML INJ IV PUSH ×2 (05:59→12:37)
[2022-07-01] MEDS: CENTRAL LINE FLUSH 10 ML IV PUSH ×2 (05:59→12:39)
[2022-07-01 08:00] VITALS: BP 80/58; PULSE 84; RESP 8; TEMP 35.1; O2SAT 97
--- NOTE | 2022-07-01 08:49 | PCDIET ---
Brief nutrition note: Change in status. Pt is now comfort care. No further nutrition interventions are warranted. Please consult if nutrition needs arise. Kaela Ledezma RD LDN
[2022-07-01 09:35] VITALS: RESP 8
[2022-07-01] MEDS: MINERAL OIL/WHITE PETROLATUM OINTMENT 1 APPLIC EACH EYE (09:36)
--- NOTE | 2022-07-01 13:37 | PM.IMPN ---
Progress Note: A&P Assessment and Plan (1) Acute respiratory failure: Code(s): J96.00 - Acute respiratory failure, unspecified whether with hypoxia or hypercapnia Status: Acute Assessment and Plan: Acute Respiratory failure secondary to pneumonia and volume overload.? Patient also positive for COVID-19 Initially treated with BiPAP but with [place] worsening was intubated on 06/23/2022. 06/24 left thoracentesis and 700 mL fluid was removed 06/27 right thoracentesis with removal of red-orange fluid treated with dexamethasone for COVID-19 times 10 days On empiric antibiotic with cefepime and vancomycin Completed 5 day course of azithromycin On bronchodilators. Family decided to withdraw support on 06/29/2022 Extubated and currently on comfort measures. (2) Severe sepsis: Code(s): A41.9 - Sepsis, unspecified organism; R65.20 - Severe sepsis without septic shock Status: Acute Assessment and Plan: Patient presented with syncope, hypotension, acute kidney injury, decreased p.o. intake for fluids and solids, anemia -patient received adequate fluids on admission -UA reflective of UTI -chest x-ray was unremarkable:patient was initially on room air with chest x-ray worsened with increasing O2 requirements.? Patient was intubated as above, to septic shock and pneumonia 06/23 broaden antibiotic coverage to vancomycin Zosyn and azithromycin. -blood cultures and urine cultures have been obtained and are negative till now -peritoneal fluid also sent culture -he was on Levophed post intubation but? Was later tapered off -patient received albumin as patient is third-spacing -patient appears to have chronically low blood pressure as he is on midodrine as an outpatient and will be continued (3) Deep vein thrombosis: Code(s): I82.409 - Acute embolism and thrombosis of unspecified deep veins of unspecified lower extremity Status: Acute Assessment and Plan: History of DVT, patient was on Eliquis.? He had significant drop in his hemoglobin and has received 3 units of PRBC during the hospital stay He had positive Hemoccult but hemoglobin has been stable now since transfusion -Eliquis was discontinued INR was also increased to 8.1 reversed with 2 units of FFP and 10 mg of vitamin K with improvement down to 3. -06/23/2022:? Repeat venous Doppler showed persistent?Above and [id number] deep venous thrombosis in the left lower limb from the proximal superficial femoral vein through the posterior tibial and peroneal veins of the calf -06/24 he was given 3 units of FFP paracenteses and thoracenteses Further heparin infusion was planned however Rich hemoglobin dropped along with thrombocytopenia. Give heparin infusion going to be started IVC filter will be considered however patient resident and agree with IVC filter placement subsequently withdrawal of care as noted above (4) Renal failure: Code(s): N19 - Unspecified kidney failure Status: Acute Assessment and Plan: Acute on chronic renal failure likely related to hypovolemia, hypotension, UTI/infection Renal ultrasound -?Multiple bilateral simple cysts. Multiple left renal stones. Medical renal disease. Left renal atrophy. No hydronephrosis. Urine electrolytes suggest prerenal Normal CK levels and negative urine eosinophils -continue monitor urine output electrolytes and creatinine Patient has received FFP and PRBC Urine output has improved in response to Lasix.? nephrology was following Appreciate Nephrology evaluation and recommendations (5) Acute UTI: Code(s): N39.0 - Urinary tract infection, site not specified Status: Acute Assessment and Plan: Urine analysis revealed UTI, patient has an indwelling catheter due to BPH -[facility] -[facility]20/2022 urine cultures have been obtained and pending -patient is on ceftriaxone (06/20) -> cefepime (06/23) (6) Malnutrition: Code(s): E46 - Un
--- NOTE | 2022-07-01 15:02 | PM.DS ---
DS: Admitting Diagnosis Discharge Date 07/01/2022 Admitting Diagnosis sepsis DS: Discharge Diagnosis Discharge Diagnosis (1) Acute respiratory failure: Code(s): J96.00 - Acute respiratory failure, unspecified whether with hypoxia or hypercapnia Status: Acute (2) Severe sepsis: Code(s): A41.9 - Sepsis, unspecified organism; R65.20 - Severe sepsis without septic shock Status: Acute (3) Deep vein thrombosis: Code(s): I82.409 - Acute embolism and thrombosis of unspecified deep veins of unspecified lower extremity Status: Acute (4) Renal failure: Code(s): N19 - Unspecified kidney failure Status: Acute (5) Acute UTI: Code(s): N39.0 - Urinary tract infection, site not specified Status: Acute (6) Malnutrition: Code(s): E46 - Unspecified protein-calorie malnutrition Status: Acute (7) COVID-19: Code(s): U07.1 - COVID-19 Status: Acute (8) Acute on chronic anemia: Code(s): D64.9 - Anemia, unspecified Status: Acute (9) Ascites: Code(s): R18.8 - Other ascites Status: Acute (10) Elevated troponin: Code(s): R77.8 - Other specified abnormalities of plasma proteins Status: Acute (11) Syncope: Code(s): R55 - Syncope and collapse Status: Acute (12) Liver dysfunction: Code(s): K76.89 - Other specified diseases of liver Status: Acute (13) Hyperammonemia: Code(s): E72.20 - Disorder of urea cycle metabolism, unspecified Status: Acute DS: Summary Hospital Course Hospital Course: # acute respiratory failure: Acute Respiratory failure secondary to pneumonia and volume overload.? Patient also positive for COVID-19 Initially treated with BiPAP but with Subsequent worsening, he was intubated on 06/23/2022. 06/24 left thoracentesis and 700 mL fluid was removed 06/27 right thoracentesis with removal of red-orange fluid ?treated with dexamethasone for COVID-19 times 10 days On empiric antibiotic with cefepime and vancomycin Completed 5 day course of azithromycin On bronchodilators.? Family decided to withdraw support on 06/29/2022 Extubated and currently on comfort measures. # Severe sepsis : Patient presented with syncope, hypotension, acute kidney injury, decreased p.o. intake for fluids and solids, anemia -patient received adequate fluids on admission -UA reflective of UTI -chest x-ray was unremarkable:patient was initially on room air with chest x-ray worsened with increasing O2 requirements.? Patient was intubated as above, to septic shock and pneumonia ? 06/23 broaden antibiotic coverage to vancomycin Zosyn and azithromycin. -blood cultures and urine cultures have been obtained and are negative till now -peritoneal fluid also sent culture -he was on Levophed post intubation but?? Was later tapered off -patient received albumin as patient is third-spacing -patient appears to have chronically low blood pressure as he is on midodrine as an outpatient and will be continued # History of deep venous thrombosis : patient was on Eliquis.? He had significant drop in his hemoglobin and has received 3 units of PRBC during the hospital stay And Also was positive for Hemoccult and hence Eliquis was discontinued. INR was also increased to 8.1 reversed with 2 units of FFP and 10 mg of vitamin K with improvement down to 3. on 06/23/2022:? Repeat venous Doppler showed persistent?Above and [id number] deep venous thrombosis in the left lower limb from the proximal superficial femoral vein through the posterior tibial and peroneal veins of the calf -06/24 he was given 3 units of FFP paracenteses and thoracenteses ? Further heparin infusion was planned however his hemoglobin dropped along with thrombocytopenia.? Give heparin infusion going to be started IVC filter will be considered however patient resident and agree with IVC filter placement subsequently withdrawal of care as noted above #
== END 2022-07-01 15:15 | disposition hospice, inpatient (51) | DRG 870 ==
LOC: ANHED 11:23 → ANHICU 13:25 → ANH3MEDSUR 06-30 02:44
PROVIDERS: Internal Medicine; Internal Medicine Gastroenterology; Admitting Provider Internal Medicine; Emergency Provider Emergency Medicine; PCP Family Medicine; Visit Provider Internal Medicine
DX: A41.9 Sepsis, unspecified organism (principal); U07.1 COVID-19; J18.9 Pneumonia, unspecified organism; J96.00 Acute respiratory failure, unspecified whether with hypoxia or hypercapnia; I42.9 Cardiomyopathy, unspecified; I50.22 Chronic systolic (congestive) heart failure; D68.9 Coagulation defect, unspecified; N17.9 Acute kidney failure, unspecified; N39.0 Urinary tract infection, site not specified; E46 Unspecified protein-calorie malnutrition; R18.8 Other ascites; I82.492 Acute embolism and thrombosis of other specified deep vein of left lower extremity; E72.20 Disorder of urea cycle metabolism, unspecified; I13.0 Hypertensive heart and chronic kidney disease with heart failure and stage 1 through stage 4 chronic kidney disease, or unspecified chronic kidney disease; N18.30 Chronic kidney disease, stage 3 unspecified; R65.20 Severe sepsis without septic shock; R62.7 Adult failure to thrive; R55 Syncope and collapse; I25.10 Atherosclerotic heart disease of native coronary artery without angina pectoris; K76.89 Other specified diseases of liver; N40.1 Benign prostatic hyperplasia with lower urinary tract symptoms; R33.8 Other retention of urine; R19.5 Other fecal abnormalities; F10.10 Alcohol abuse, uncomplicated; R77.8 Other specified abnormalities of plasma proteins; G62.9 Polyneuropathy, unspecified; D64.9 Anemia, unspecified; Z79.01 Long term (current) use of anticoagulants; Z79.899 Other long term (current) drug therapy; Z87.891 Personal history of nicotine dependence; Z97.8 Presence of other specified devices; Z98.49 Cataract extraction status, unspecified eye
CPT/HCPCS: 32555; 36415; 36430; 36569; 36600; 49083; 70450; 71045; 71046; 71250; 74018; 74176; 76775; 80048; 80053; 80074; 80202; 81001; 82042; 82140; 82274; 82375; 82436; 82550; 82565; 82570; 82805; 82948; 83050; 83605; 83735; 83880; 84100; 84133; 84134; 84300; 84484; 85014; 85018; 85025; 85027; 85055; 85384; 85610; 85730; 85999; 86850; 86900; 86901; 86923; 87040; 87070; 87075; 87081; 87086; 87205; 89051; 93005; 93306; 93970; 94002; 94003; 94640; 96365; 96375; 99283; 99291; A9270; C1751; C9113; J0456; J0692; J0696; J1100; J1815; J1940; J2060; J2250; J2270; J3010; J3370; J3430; J3480; J7030; J7040; J7050; P9016; P9017; P9034; P9047; U0003; U0005

== ENCOUNTER 2022-07-01 15:20 | HOS | payer OTHER, MEDICARE, SELFPAY ==
--- NOTE | 2022-07-01 15:58 | PM.IMHP ---
H&P: HPI History of Present Illness Date/Time: 07/01/22 15:58 Chief Complaint: Uncontrolled discomfort and restlessness Narrative: Mr. Lai is a 76-year-old gentleman with recent stroke and chronic systolic congestive Heart failure and history of alcohol use disorder. He was resident and [facility] where he suffered a stab episode of syncope. He was brought to the hospital on June 20. He was found to have sepsis with respiratory failure and acute kidney injury. He was intubated treated with broad-spectrum antibiotics and was failing to improve. He was extubated on 06/30 1 family opted for comfort measures only. Since then he has had some random movements and fidgeting but no meaningful movements. Because of seeming increasing discomfort and restlessness his family opted for inpatient hospice. Note that admission he tested positive for COVID-19 and was treated with dexamethasone for that. He showed no signs of COVID-19 pneumonia. He was treated with vancomycin and cefepime but cultures return negative from blood in urine. He did have a positive nasal swab for MRSA. Review of Systems Review of Systems: ROS unobtainable: Yes unobtainable due to medical condition [facility] Past Medical History Medical History Acute on chronic anemia Alcohol abuse Basal cell carcinoma of skin Benign prostatic hyperplasia Cardiomyopathy Coronary artery disease Deep vein thrombosis Heart failure with reduced ejection fraction recent EF of 45 to 50%. Hypertension Occult blood in stools Urinary retention Currently with indwelling Vega catheter. Surgical History Surgical History History of appendectomy History of basal cell carcinoma excision History of cardiac catheterization Per patient report, an unknown vessel was 100% blocked with good collaterals; no intervention was required. History of cataract extraction History of Mohs micrographic surgery for skin cancer History of prostate biopsy Family History Family History Mother Breast cancer Sibling Mesothelioma Father Brain tumor Social History Social History Social History: Surrogate medical decision maker: Gatito Cherry, brother. Code status: Full code. Smoking status: Never smoker Additional smoking assessment comments: Smoked briefly as a young man. Alcohol intake: former Drinks per week: 35 Alcohol use details: Typically drinks 12 oz of chardonnay and 2 to 3 mixed drinks a night. No alcohol since being at [facility] since April 2022. Substance use: never Substance use type: does not use Lack of Transportation: No Lack of Food: Never True Current Housing: I Have Housing Concerned About Future Housing: No Difficulty Paying Gas/Electric Bills: No Difficulty Paying for Meds: No Currently Unemployed: No Education: High School Diploma/GED Difficulty w/ Childcare or Family Care: No Additional living arrangements comments: The patient has his own apartment in [place] but he has been at [facility] for well over a month. 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 Spiritual care concerns: No Meds Home Medications and Allergies Home Medications Medication Instructions Recorded Confirmed Type apixaban 5 mg tablet (Eliquis) 5 mg PO Q12HR #60 tabs 04/17/22 06/20/22 Rx aspirin 81 mg tablet,delayed 81 mg PO QAM #30 tabs 04/17/22 06/20/22 Rx release cyanocobalamin (vitamin B-12) 1,000 mcg PO QAM #30 tabs 04/17/22 06/20/22 Rx 1,000 mcg tablet (Vitamin B-12) ferrous sulfate 325 mg (65 mg 324 mg PO BIDWM #60 tabs 04/17/22 06/20/22 Rx iron) tablet folic acid 1 mg tablet 1 mg PO DAILY #30 tabs 04/17/22 06/20/22 Rx [id number] 15 ml PO QAM #30 mL 0
[2022-07-01 16:38] VITALS: BMI 16.7
[2022-07-01] MEDS: HYDROmorphone HCL/PF (*CRX) 50 MG in SODIUM CHLORIDE 0.9% IV 95 ML IV CONT (18:01)
[2022-07-01 20:15] VITALS: BP 84/49; PULSE 116; RESP 8; TEMP 35.6; O2SAT 91
[2022-07-02 08:00] VITALS: BP 58/41; PULSE 94; RESP 11; TEMP 35.1
--- NOTE | 2022-07-02 09:16 | PM.IMPN ---
Progress Note: A&P Assessment and Plan (1) Palliative care encounter: Code(s): Z51.5 - Encounter for palliative care Status: Acute Assessment and Plan: meet inpatient hospice criteria due to requiring continuous IV hydromorphone for control of discomfort and restlessness remainder of palliative regimen as ordered (2) Sepsis: Code(s): A41.9 - Sepsis, unspecified organism Status: Acute (3) Anasarca: Code(s): R60.1 - Generalized edema Status: Acute (4) ADILSON (acute kidney injury): Code(s): N17.9 - Acute kidney failure, unspecified Status: Acute (5) Liver dysfunction: Code(s): K76.89 - Other specified diseases of liver Status: Acute (6) Acute respiratory failure: Code(s): J96.00 - Acute respiratory failure, unspecified whether with hypoxia or hypercapnia Status: Acute (7) Ascites: Code(s): R18.8 - Other ascites Status: Acute (8) COVID-19: Code(s): U07.1 - COVID-19 Status: Acute (9) Acute on chronic anemia: Code(s): D64.9 - Anemia, unspecified Status: Acute (10) Cardiomyopathy: Code(s): I42.9 - Cardiomyopathy, unspecified Status: Acute (11) Deep vein thrombosis: Code(s): I82.409 - Acute embolism and thrombosis of unspecified deep veins of unspecified lower extremity Status: Acute Subjective Date/time seen: 07/02/22 09:16 Interval history: palliative f/u Remains comfortable. No new issues overnight. Review of Systems Review of Systems: ROS unobtainable: Yes unobtainable due to medical condition Exam Narrative: Chronically ill-appearing elderly gentleman who does not respond to verbal or tactile stimuli Pharynx pink and dry. neck no JVD chest coarse breath sounds heart regular rate no audible murmur abdomen soft with hypoactive bowel sounds and no palpable masses extremities with bilateral edema musculoskeletal without gross deformity to visual inspection neurologic with cranial nerves symmetric to visual inspection Objective Data Vital Signs Vital Signs: Vital Signs - 24 hr 07/01/22 16:48 07/01/22 20:15 07/02/22 08:00 Temperature 96.1 F L 95.2 F L Pulse Rate 116 H 94 Respiratory Rate 8 L 11 L Blood Pressure 84/49 L 58/41 L Pulse Oximetry 91 Oxygen Delivery Room Air Meds/Results Medications: Active Medications Generic Name Dose Route Start Last Admin Trade Name Freq PRN Reason Stop Dose Admin Artificial Tears 0 drop 07/01/22 17:15 Artificial Tears Ophth Soln 15 Ml Bottle EACH EYE Q12H PRN Dry Eye(s) Bisacodyl 10 mg 07/01/22 17:15 Bisacodyl 10 Mg Suppository RECTAL DAILY PRN Constipation Diazepam 5 mg 07/01/22 17:14 Diazepam Inj (*Crx) 10 Mg/2 Ml Syringe IV PUSH Q4H PRN RESTLESSNESS Glycopyrrolate 0.1 mg 07/01/22 17:15 Glycopyrrolate Inj (*Sp) 0.2 Mg/Ml Vial IV PUSH Q4H PRN secretions Hydromorphone HCl 0.5 mg 07/01/22 17:14 Hydromorphone Hcl Inj (*Crx) 1 Mg/Ml Syr IV PUSH Q2H PRN PAIN/SOB Hydromorphone HCl 50 mg/ 100 mls @ 0.5 mls/hr 07/01/22 17:15 07/01/22 18:01 Sodium Chloride IV CONT 0.25 mg/hr .Q24H AZIZA 0.5 mls/hr Administration 0.25 MG/HR Prochlorperazine Edisylate 10 mg 07/01/22 17:15 Prochlorperazine Edisylate 10 Mg/2 Ml Vial IV PUSH Q6H PRN Nausea
[2022-07-02 09:43] VITALS: PULSE 0; RESP 0
--- NOTE | 2022-07-03 14:35 | P.DN_ITS ---
Discharge Summary Date and Time Date of : 07/02/22 Time of : 09:43 Provider Pronounced By: Paige Plasencia / Liz Soares Probable Cause of Probable Cause of : Sepsis of unknown etiology Summary Hospital Course: Admitted to inpatient hospice due to uncontrolled discomfort. Medications titrated to comfort. Mr. Donaldson peacefully. Additional Data Confirmation of as documented by pronouncing clinician: Pupillary Reflex, Palpable Pulses, Response to Stimuli, Heart Tones and Breath Sounds Name of Provider Notified: Dr. Glen Giraldo Time Provider Notified: 09:53 Provider Requests Autopsy: No Family Requests Autopsy: No Agriculture Research Director Notified: Yes Date [facility] Notified of : 07/02/22 Time [facility] Notified of : 10:18
== END 2022-07-02 09:43 | disposition expired | DRG 951 ==
PROVIDERS: Admitting Provider Internal Medicine; PCP Family Medicine; Visit Provider Internal Medicine
DX: Z51.5 Encounter for palliative care (principal); A41.9 Sepsis, unspecified organism; J96.00 Acute respiratory failure, unspecified whether with hypoxia or hypercapnia; U07.1 COVID-19; N17.9 Acute kidney failure, unspecified; R18.8 Other ascites; I42.9 Cardiomyopathy, unspecified; I50.22 Chronic systolic (congestive) heart failure; I11.0 Hypertensive heart disease with heart failure; K76.89 Other specified diseases of liver; D64.9 Anemia, unspecified; F10.10 Alcohol abuse, uncomplicated; Z66 Do not resuscitate; Z86.14 Personal history of Methicillin resistant Staphylococcus aureus infection; Z86.718 Personal history of other venous thrombosis and embolism; Z87.891 Personal history of nicotine dependence
CPT/HCPCS: A9270; J1170